=== PATIENT | female | born 1930 | race Caucasian/White ===

== ENCOUNTER 2016-07-23 15:27 | Emergency (ER) | payer MEDICARE ==
[~2016-07-23] VITALS: Ht 162.6 cm; Wt 65.8 kg
[~2016-07-23 15:27] MED LIST: AMIO200T50 PO; AMIO400T5 PO; ASP325TEC PO; ASP81TEC PO; CALC-80 PO; CHOL2000 PO; CLCX200C; COUMADIN; CYCL-97 PO; CYCL10TA9 PO; DABI150C2 PO; DABI150C5 PO; DCS100C PO; DIGO125T18 PO; DOXY100C2 PO; ENAL2.5T PO; ENOX30DI9 SQ; EST.625T; FENTANYL PATCH; HCT25T; HYDR1TAB PO; HYDR1TAB86 PO; LEFL20TA PO; LEFL20TA18 PO; LOSA25TA15 PO; LOSA25TA21 PO; MAGN250T7 PO; METH4TAB PO; METO-333 PO; METO25TA PO; METO50TA2 PO; METOPROLOL; NF-DURA12P TD; NITR-65 PO; OMEG-12 PO; OMEP-10 PO; OXYC-12 PO; PLAQUENIL; PRD10T PO; PREMARIN; PREVASTATIN; PRV20T PO; RANI150T15 PO; SENN1TAB76 PO; SIMV10TA3 PO; WARF4TAB PO; WARF6TAB PO; WRF5T PO
[2016-07-23] MEDS ORDERED: NS IV 500 ML 500 ML IV ONE (15:43)
[2016-07-23] MEDS ORDERED: DILTIAZEM 25 MG/5 ML INJ (CARDIZEM) VIAL IVP ONE (15:45)
[2016-07-23] MEDS ORDERED: ASPIRIN 81 MG CHEW (CHILDREN'S ASA) PO ONE (15:45)
[2016-07-23] MEDS ORDERED: DILTIAZEM DRIP 100 MG in SODIUM CHLORIDE (ADD-VANTAGE) 100 ML IV SCH (15:45)
[2016-07-23 15:51] LABS: BASOPHILS # (AUTO) 0.1 10^3/uL (0.0-0.1); BASOPHILS % (AUTO) 1 % (0-10); EOSINOPHILS # (AUTO) 0.1 10^3/uL (0.0-0.3); EOSINOPHILS % (AUTO) 2 % (0-10); LYMPHOCYTES # (AUTO) 2.5 X 10^3 (1.0-4.0); LYMPHOCYTES % (AUTO) 36 % (12-44); MEAN CORPUSCULAR HEMOGLOBIN 29 PG (25-34); MEAN CORPUSCULAR HGB CONC 32 G/DL (32-36); MEAN CORPUSCULAR VOLUME 89 FL (80-99); MEAN PLATELET VOLUME 9.6 FL (7.4-10.4); MONOCYTES # (AUTO) 0.7 X 10^3 (0.0-1.0); MONOCYTES % (AUTO) 10 % (0-12); NEUTROPHILS # (AUTO) 3.6 X 10^3 (1.8-7.8); NEUTROPHILS % (AUTO) 51 % (42-75); PLATELET COUNT 225 10^3/uL (130-400); RED BLOOD COUNT 4.33 10^6/uL (4.35-5.85); RED CELL DISTRIBUTION WIDTH 12.8 % (10.0-14.5)
[2016-07-23 16:06] LABS: INR 1.5 (0.8-1.4); PROTHROMBIN TIME PATIENT 18.1 SEC (12.2-14.7)
[2016-07-23 16:14] LABS: ALANINE AMINOTRANSFERASE 10 U/L (0-55); ALBUMIN 3.9 G/DL (3.2-4.5); ANION GAP 9 MMOL/L (5-14); ASPARTATE AMINO TRANSFERASE 18 U/L (5-34); BILIRUBIN,TOTAL 0.3 MG/DL (0.1-1.0); BLOOD UREA NITROGEN 18 MG/DL (7-18); BUN/CREATININE RATIO 15; CALCIUM 9.7 MG/DL (8.5-10.1); CARBON DIOXIDE 25 MMOL/L (21-32); CHLORIDE 106 MMOL/L (98-107); CREATININE SERUM 1.18 MG/DL (0.60-1.30); GFR ESTIMATED 44; GLUCOSE 109 MG/DL (70-105); MAGNESIUM 2.4 MG/DL (1.8-2.4); POTASSIUM 4.4 MMOL/L (3.6-5.0); SODIUM 140 MMOL/L (135-145)
--- NOTE | 2016-07-23 16:17 | Diagnostic Imaging Report ---
INDICATION: Substernal chest pain starting this afternoon. DISCUSSION: Single portable upright view of the chest was obtained, comparison 02/24/2016. Changes of chronic lung disease with bibasilar interstitial scarring are stable. No focal consolidation, pleural fluid, or pneumothorax otherwise identified. Normal heart size. No osseous abnormality. IMPRESSION: 1. No acute cardiopulmonary process. Dictated by: Dictated on workstation # [id number]
[2016-07-23 16:22] LABS: MYOGLOBIN SERUM 56.7 NG/ML (10.0-92.0)
[2016-07-23] MEDS ORDERED: meTOprolol TARTRATE 25 MG (LOPRESSOR) TABLET PO ONE (17:15)
--- NOTE | 2016-07-23 17:15 | ED Chest Pain ---
General Chief Complaint: Chest Pain Stated Complaint: CHEST PAIN Nursing Triage Note: SUDDEN ONSET CHEST PRESSURE WHILE RESTING AT HOME Nursing Sepsis Screen: No Definite Risk Source: patient, old records Exam Limitations: no limitations History of Present Illness Time seen by provider: 15:32 Initial Comments This 86-year-old woman presents to the emergency room with complaints of chest pain since about 13:00. The pain is in her central chest and described as a pressure. It is worse with exertion. She reports it as 3/10 now and 5/10 at its worst. She states it "feels like indigestion". She has had several episodes in recent weeks. She has history of paroxysmal atrial fibrillation and is in atrial fibrillation with rapid ventricular response at this time. She had a heart catheter in 2012 showing mild nonobstructive disease. Dr. Celestin is her mother baby rn and Dr. Monk is her primary care provider. She is anticoagulated on Pradaxa. Allergies and Home Medications Allergies Coded Allergies: Penicillins (Verified Allergy, Unknown, 12/16/06) ciprofloxacin (Verified Allergy, Unknown, 02/16/08) morphine (Verified Allergy, Unknown, 12/16/06) Home Medications Calcium Carbonate/Vitamin D3 1 Each Tablet, 1 TAB PO DAILY, (Reported) Dabigatran Etexilate Mesylate 150 Mg Capsule, 150 MG PO BID, (Reported) Digoxin 125 Mcg Tablet, 0.125 MG PO DAILY, #30 Ref 2 Prescribed by: AUGUSTA CELESTIN on 08/20/15 1111 Leflunomide 20 Mg Tablet, 20 MG PO DAILY, (Reported) Losartan Potassium 25 Mg Tablet, 25 MG PO DAILY@1200, (Reported) Magnesium Oxide 250 Mg Tablet, 250 MG PO DAILY, (Reported) Metoprolol Tartrate 50 Mg Tablet, 50 MG PO BID, (Reported) [place]-3/Dha/Epa/Fish Oil 1 Each Capsule.dr, 1,000 MG PO 0700,1200, (Reported) Ranitidine HCl 150 Mg Tablet, 150 MG PO DAILY PRN for HEARTBURN, (Reported) Simvastatin 10 Mg Tablet, 10 MG PO HS, (Reported) Review of Systems Constitutional: no symptoms reported EENTM: No Symptoms Reported Respiratory: No Symptoms Reported Cardiovascular: See HPI Gastrointestinal: No Symptoms Reported Genitourinary: No Symptoms Reported Musculoskeletal: no symptoms reported Skin: no symptoms reported Psychiatric/Neurological: No Symptoms Reported Endocrine: No Symptoms Reported Past Ikwsdfe-Bhfcfh-Ixcglg Hx Patient Social History Alcohol Use: Denies Use Recreational Drug Use: No Smoking Status: Never a Smoker Recent Foreign Travel: No Contact w/Someone Who Travel: No Recent Infectious Disease Expo: No Recent Hopitalizations: Yes Immunizations Up To Date Date of Pneumonia Vaccine: Jul 11, 2015 Date of Influenza Vaccine: Jan 06, 2015 Seasonal Allergies Seasonal Allergies: No Surgeries HX Surgeries: Yes Surgeries: Gallbladder, Hysterectomy, Orthopedic Respiratory Hx Respiratory Disorders: Yes Respiratory Disorders: COPD Cardiovascular Hx Cardiac Disorders: Yes Cardiac Disorders: Atrial Fibrillation, Coronary Artery Disease (mild nonobstructive disease by cardiac catheterization in 2012), Hypertension Neurological Hx Neurological Disorders: No 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 System Hx 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 Disorders: Yes (TUBAL 1952) Genitourinary Hx Genitourinary Disorders: No (KIDNEY FUNCTION 53%) Genitourinary Disorders: Renal Failure Gastrointestinal Hx Gastrointestinal Disorders: Yes Gastrointestinal Disorders: Gastroesophageal Reflux Musculoskeletal Hx Musculoskeletal Disorders: Yes Musculoskeletal Disorders: Rheumatoid Arthritis Endocrine Hx Endocrine Disorders: No HEENT HX ENT Disorders: Yes (RT EYE) HEENT Disorders: Cataract Cancer Hx Cancer: No Psychosocial Hx Psychiatric Problems: No Integumentary HX Skin/Integumentary Disorder: No Blood Transfusions Hx Blood Disorders: Yes (FACTOR FIVE LYDEN) Physical Exam Vital Signs Vital Sign - Last 12Hours 07/23/16 07/23/16 07/23/16 15:32 15:39 15:40 Temp 97.3 Pulse 124 Resp 18 B/P (MAP) 107/99 Pulse Ox 98 O2 Delivery Nasal Cannula O2 Flow Rate 2.0 Capillary Refill : Less Than 3 Seconds General Appearance: No Apparent Distress, WD/WN HEENT: PERRL/EOMI, Normal ENT Inspection Neck: Normal Inspection Respiratory: Chest Non Tender, Lungs Clear, Normal Breath Sounds, No Accessory Muscle Use, No Respiratory Distress Cardiovascular: No Edema, No Murmur, Irregularly Irregular, Tachycardia Gastrointestinal: Normal Bowel Sounds, Non Tender, Soft Extremity: Normal Inspection, Non Tender, No Pedal Edema Neurologic/Psychiatric: Alert, Oriented x3, No Motor/Sensory Deficits, Normal 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, 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 Norm as Tested Skin: Normal Color, Warm/Dry Progress/Results/Core Measures Results/Orders Lab Results Laboratory Tests Test 07/23/16 15:40 Range/Units White Blood Count 7.0 4.3-11.0 10^3/uL Red Blood Count 4.33 L 4.35-5.85 10^6/uL Hemoglobin 12.5 11.5-16.0 G/DL Hematocrit 39 35-52 % Mean Corpuscular Volume 89 80-99 FL Mean Corpuscular Hemoglobin 29 25-34 PG Mean Corpuscular Hemoglobin Concent 32 32-36 G/DL Red Cell Distribution Width 12.8 10.0-14.5 % Platelet Count 225 130-400 10^3/uL Mean Platelet Volume 9.6 7.4-10.4 FL Neutrophils (%) (Auto) 51 42-75 % Lymphocytes (%) (Auto) 36 12-44 % Monocytes (%) (Auto) 10 0-12 % Eosinophils (%) (Auto) 2 0-10 % Basophils (%) (Auto) 1 0-10 % Neutrophils # (Auto) 3.6 1.8-7.8 X 10^3 Lymphocytes # (Auto) 2.5 1.0-4.0 X 10^3 Monocytes # (Auto) 0.7 0.0-1.0 X 10^3 Eosinophils # (Auto) 0.1 0.0-0.3 10^3/uL Basophils # (Auto) 0.1 0.0-0.1 10^3/uL Prothrombin Time 18.1 H 12.2-14.7 SEC INR Comment 1.5 H 0.8-1.4 Activated Partial Thromboplast Time 51 H 24-35 SEC Sodium Level 140 135-145 MMOL/L Potassium Level 4.4 3.6-5.0 MMOL/L Chloride Level 106 98-107 MMOL/L Carbon Dioxide Level 25 21-32 MMOL/L Anion Gap 9 5-14 MMOL/L Blood Urea Nitrogen 18 7-18 MG/DL Creatinine 1.18 0.60-1.30 MG/DL Estimat Glomerular Filtration Rate 44 BUN/Creatinine Ratio 15 Glucose Level 109 H 70-105 MG/DL Calcium Level 9.7 8.5-10.1 MG/DL Magnesium Level 2.4 1.8-2.4 MG/DL Total Bilirubin 0.3 0.1-1.0 MG/DL Aspartate Amino Transf (AST/SGOT) 18 5-34 U/L Alanine Aminotransferase (ALT/SGPT) 10 0-55 U/L Alkaline Phosphatase 76 40-136 U/L Myoglobin 56.7 10.0-92.0 NG/ML Troponin I < 0.30 <0.30 NG/ML Total Protein 7.0 6.4-8.2 G/DL Albumin 3.9 3.2-4.5 G/DL Digoxin Level < 0.30 L 0.80-2.00 NG/ML My Orders Orders - LELIA GALVAN MD Cbc With Automated Diff (07/23/16 15:43) Magnesium (07/23/16 15:43) Chest 1 View, Ap/Pa Only (07/23/16 15:43) Ekg Tracing (07/23/16 15:43) Cardiac Profile 1 (07/23/16:43) Comprehensive Metabolic Panel (07/23/16:43) Myoglobin Serum (07/23/16:43) Protime With Inr (07/23/16:43) Partial Thromboplastin Time (07/23/16 15:43) O2 (07/23/16 15:43) Monitor-Rhythm Ecg Trace Only (07/23/16:43) Aspirin Chewable Tablet (Baby Aspirin Ch (07/23/16 15:45) Saline Lock/Iv-Start (07/23/16 15:43) Ns Iv 500 Ml (Sodium Chloride 0.9%) (07/23/16 15:43) Diltiazem Injection (Cardizem Injection) (07/23/16 15:45) Sodium Chloride (Ad... W/Diltiazem Drip (07/23/16 15:45) Digoxin (07/23/16 15:59) Metoprolol Tartrate (Ir) Tab (Lopressor (07/23/16 17:15) Medications Given in ED Vital Signs/I&O Vital Sign - Last 12Hours 07/23/16 07/23/16 07/23/16 07/23/16 15:32 15:39 15:40 17:50 Temp 97.3 Pulse 124 70 Resp 18 16 B/P (MAP) 107/99 Pulse Ox 98 97 O2 Delivery Nasal Cannula Nasal Cannula O2 Flow Rate 2.0 2.00 Blood Pressure Mean: 102 Progress Note : Time: 17:14 Progress Note Patient spontaneously converted to sinus rhythm. Pain resolved. She remained in sinus rhythm throughout the remainder of her ER stay. Case was reviewed with Dr. Pemberton who suggested increasing metoprolol to 75 mg twice a day. Patient is to call Dr. Celestin's office for follow-up tomorrow morning. ECG EKG #1: EKG Time: 15:35 Rate: 142 Rhythm: A Fib/Flutter Comment Atrial fibrillation with no acute ST elevation or depression. Rapid ventricular response with heart rate at 142. EKG #2: EKG Time: 16:22 Rate: 79 Rhythm: Normal Sinus Comment Conversion to normal sinus rhythm with normal rate. No ST elevation or depression. Incomplete right bundle branch block persists. Diagnostic Imaging Diagonstic Imaging: Xray Plain Films/CT/US/NM/MRI: chest Comments Chest x-ray viewed by me and report reviewed. See report below: NAME: RENATE REYES REC#: [id number] PT STATUS: REG ER : 1932 PHYSICIAN: LELIA GALVAN MD ADMIT DATE: 07/23/16/ER Signed Date of Exam: 07/23/16 CHEST 1 VIEW, AP/PA ONLY INDICATION: Substernal chest pain starting this afternoon. DISCUSSION: Single portable upright view of the chest was obtained, comparison 02/24/2016. Changes of chronic lung disease with bibasilar interstitial scarring are stable. No focal consolidation, pleural fluid, or pneumothorax otherwise identified. Normal heart size. No osseous abnormality. IMPRESSION: 1. No acute cardiopulmonary process. Dictated by: Dictated on workstation # [id number] <Dictated by ANNIKA CONLEY MD> 07/23/16 1640 Departure Impression Impression: Primary Impression: Paroxysmal atrial fibrillation with rapid ventricular response Additional Impression: Chest pain Qualified Codes: R07.9 - Chest pain, unspecified Disposition: 01 HOME, SELF-CARE Condition: Improved Departure-Patient Inst. Decision time for Depature: 17:10 Referrals: JIN MONK MD (PCP/Family) Primary Care Physician Patient Instructions: Atrial Fibrillation (DC) Add. Discharge Instructions: Increase your metoprolol to 75 mg (1-1/2 tablet) twice daily. Contact Dr. Celestin 's office tomorrow morning for a follow-up appointment. Return to care if symptoms worsen. All discharge instructions reviewed with patient and/or family. Voiced understanding. Copy Copies To 1: JIN MONK MD Copies To 2: AUGUSTA CELESTIN MD, JOSHUA T MD Jul 23, 2016 17:15
[2016-07-23 17:50] VITALS: BP 136/59
== END 2016-07-23 17:50 | disposition home or self-care (01) ==
LOC: EDUNIT# 15:27 → ER 15:30
DX: I48.0 Paroxysmal atrial fibrillation (principal); R07.9 Chest pain, unspecified; I25.10 Atherosclerotic heart disease of native coronary artery without angina pectoris; J44.9 Chronic obstructive pulmonary disease, unspecified; Z79.899 Other long term (current) drug therapy
CPT/HCPCS: 36415; 71010; 80053; 80162; 83735; 83874; 84484; 85025; 85610; 85730; 93005; 93041

== ENCOUNTER → 2016-08-10 | Outpatient (CLI) | payer MEDICARE ==
--- NOTE | 2016-08-12 20:27 | ECHOCARDIOGRAPHY REPORT ---
DATE OF SERVICE: 08/10/2016 REFERRING PHYSICIAN: Dr. Sarita Monk MEASUREMENT: LVID end diastolic 3.0, IVS thickness 1.0, LVPW thickness 1.0, left atrial diameter 3.9, ejection fraction 60%. FINDINGS: 1. Technically difficult study. 2. The left ventricle is normal in size. Endocardium was not visualized in all segments. Systolic function appeared to be preserved. Estimated ejection fraction 60%. 3. The left atrium is mildly dilated. No clots or thrombus were seen within the left atrium. 4. The right atrium and right ventricle are normal in size. No clot or thrombus were seen within the right side. 5. Mitral valve was not well visualized. Mild mitral regurgitation noted by color Doppler flow. No mitral valve prolapse. No mitral valve stenosis. 6. Aortic valve leaflets were not visualized. No significant aortic stenosis or regurgitation was seen. 7. Tricuspid valve is normal in morphology with mild tricuspid regurgitation noted by color Doppler flow. Doppler across the tricuspid valve estimated pulmonary artery pressure of 6+ right atrial pressure. 8. Pulmonic valve is functioning normally. 9. No pericardial effusion. IN CONCLUSION: 1. Technically difficult study. 2. Normal left ventricular size. Endocardium was not well visualized in all segments. Systolic function appeared to be preserved. Estimated ejection fraction 60%. 3. Left atrium is in the upper limits of normal in size. 4. Mild mitral and tricuspid regurgitation. 5. Estimated pulmonary artery pressure of 10 to 15 mmHg. Job ID: [id number] DocumentID: [id number] Dictated Date: 08/11/2016 08:06:10 Regional Geodetic Advisor Date: 08/11/2016 12:52:32 Dictated By: AUGUSTA SALAZAR MD
== END ==
LOC: CARD 09:52
PROVIDERS: ATTEND Physician Assistant
DX: I25.10 Atherosclerotic heart disease of native coronary artery without angina pectoris (principal); I65.23 Occlusion and stenosis of bilateral carotid arteries; I10 Essential (primary) hypertension; I48.0 Paroxysmal atrial fibrillation
CPT/HCPCS: 93306

== ENCOUNTER → 2016-11-15 | Outpatient (CLI) | payer MEDICARE ==
--- NOTE | 2016-11-15 18:20 | Diagnostic Imaging Report ---
Bilateral hand radiographs. INDICATION: Swelling in the left hand joints. FINDINGS: In the left hand, there is soft tissue swelling around the distal interphalangeal joints which demonstrate small periarticular erosion and suggestion of early joint fusion. There is advanced degenerative change in the carpometacarpal joint at the base of the thumb with bone deformity and prominent sclerotic changes. Right hand radiographs demonstrate prominent degenerative changes at the carpometacarpal joint at the base of the thumb. There are mild degenerative changes at the distal interphalangeal joints. No erosive arthritic changes seen. IMPRESSION: There is soft tissue swelling, erosion, and early ankylosis suggested along the DIP joint in the left middle finger. Other arthritic changes in both hands appear to be degenerative. The left middle finger DIP findings may relate to a seronegative inflammatory arthritis. Correlate clinically. Dictated by: Dictated on workstation # [id number]
--- NOTE | 2016-11-15 18:58 | Diagnostic Imaging Report ---
Bilateral three views of the foot. INDICATION: Bilateral foot pain. FINDINGS: There is no fracture, dislocation or radiopaque foreign body. Joint alignment is satisfactory. There is mild degenerative subchondral sclerosis at the interphalangeal joints and at the first MTP joint, bilaterally but more prominent on the right side. There is also a mild right hallux valgus. There is also mild flattening of the plantar arch bilaterally. IMPRESSION: Degenerative joint changes as described. Mild hallux valgus on the right side. Dictated by: Dictated on workstation # [id number]
== END ==
LOC: RAD 09:15
PROVIDERS: ATTEND Internal Medicine Rheumatology
DX: M06.9 Rheumatoid arthritis, unspecified (principal)

== ENCOUNTER → 2017-02-22 | Outpatient (CLI) | payer MEDICARE ==
[~2017-02-22] MED LIST changes: +PANT40TA3 PO; +SUCR1TAB36 PO
== END ==
LOC: PREOP 05:36
PROVIDERS: ATTEND Surgery
DX: Z01.818 Encounter for other preprocedural examination (principal); R10.13 Epigastric pain

== ENCOUNTER 2017-02-25 06:39 | Day surgery (SDC) | payer MEDICARE ==
[~2017-02-25] VITALS: Ht 162.6 cm; Wt 65.9 kg
[~2017-02-25 06:39] MED LIST changes: -PANT40TA3 PO; -SUCR1TAB36 PO
--- OUTSIDE RECORDS SUMMARY | 2017-02-25 06:43 | XMS REPORT | Clinical Summary ---
Author Author [facility] Organization [facility] Address Unknown Phone Unavailable Care Team Providers Care Lap Layer Name Role Phone PCP Unavailable Source Comments Some departments are not documenting in the electronic medical record. If you do not see the information that you expected, contact Release of Information in the Health Information Management department at [phone] for further assistance in locating additional records.[facility] Allergies Active Allergy Reactions Severity Noted Date Comments Penicillins HIVES Medium 07/27/2011 Morphine NAUSEA AND VOMITING 07/18/2011 Ciprofloxacin NAUSEA AND VOMITING Low 07/27/2011 Current Medications Prescription Sig. Disp. Refills Start End Date Status Date calcium carbonate/vitamin Take 1 Tab by mouth twice Active D-3 (OSCAL-500+D) 1250 daily with meals. Calcium mg/200 unit tablet Carb 1250mg delivers 500mg elemental Ca docusate (COLACE) 100 mg Take 100 mg by mouth Active capsule twice daily. enalapril (VASOTEC) 2.5 Take 2.5 mg by mouth Active mg tablet daily. fentaNYL (DURAGESIC) 12 Apply 1 Patch to top of Active mcg/hr patch skin as directed every 72 hours. HYDROcodone/acetaminophen Take 1 Tab by mouth every Active (VICODIN) 5/500 mg tablet 8 hours as needed. magnesium oxide Take 200 mg by mouth Active (MAG-OXIDE) 400 mg tablet daily. metoprolol XL (TOPROL XL) Take 25 mg by mouth twice Active 25 mg tablet daily. fish oil /omega-3 fatty Take 1 Cap by mouth three Active acids (SEA-OMEGA) times daily with meals. 340/[address](+) Take 20 mg by mouth Active (PRILOSEC) 20 mg capsule daily. pravastatin (PRAVACHOL) Take 20 mg by mouth at Active 20 mg tablet bedtime daily. predniSONE (DELTASONE) 10 Take 10 mg by mouth Active mg tablet daily. warfarin (COUMADIN) 4 mg Take 8 mg by mouth four Active tablet times weekly. Sun, , , Sat warfarin (COUMADIN) 6 mg Take 6 mg by mouth three Active tablet times weekly. Sat hydroxychloroquine Take 200 mg by mouth Active (PLAQUENIL) 200 mg tablet daily. Active Problems Not on file Social History Tobacco Use Types Packs/Day Years Used Date Never Smoker Alcohol Use Drinks/Week oz/Week Comments No Sex Assigned at Date Recorded Not on file Last Filed Vital Signs Vital Sign Reading Time Taken Blood Pressure 156/61 07/27/2011 3:50 PM CDT Pulse 67 07/27/2011 3:50 PM CDT Temperature 36.7 C (98.1 F) 07/27/2011 3:50 PM CDT Respiratory Rate - - Oxygen Saturation 98% 07/27/2011 3:50 PM CDT Inhaled Oxygen - - Concentration Weight 65 kg (143 lb 4.8 oz) 07/18/2011 12:58 PM CDT Height 157.5 cm (5' 2") 07/18/2011 12:58 PM CDT Body Mass Index 26.21 07/18/2011 12:58 PM CDT Plan of Treatment Health Maintenance Due Date Last Done Comments PHYSICAL (COMPREHENSIVE) 01/10/1939 EXAM PERTUSSIS VACCINE 01/10/1943 TETANUS VACCINE 01/10/1949 SHINGLES VACCINE 1992 OSTEOPOROSIS SCREENING 01/10/1997 PREVNAR/PNEUMOVAX (#1) 01/10/1997 INFLUENZA VACCINE 11/06/2016 Results Not on filefrom Last 3 Months
[2017-02-25] MEDS ORDERED: LACTATED RINGERS 1,000 ML IV STA (07:06)
[2017-02-25] MEDS ORDERED: HURRICAINE EXT TUBE (BENZOCAINE) XX PRN (07:15)
[2017-02-25] MEDS ORDERED: proPOfol 200 MG/20 ML (DIPRIVAN) VIAL IV ONE (07:16)
[2017-02-25] MEDS ORDERED: ESMOLOL 100 MG/10 ML (BREVIBLOC) VIAL ONE (07:17)
[2017-02-25] MEDS ORDERED: SUCR1TAB36 PO (07:29)
[2017-02-25] MEDS ORDERED: PANT40TA3 PO (07:29)
[2017-02-25 07:31] VITALS: BP 152/68
[2017-02-25] MEDS ORDERED: HURRICAINE EXT TUBE (BENZOCAINE) ONE (07:52)
--- NOTE | 2017-02-25 07:59 | Discharge Inst-Simple/Standard ---
Discharge Inst-Standard Patient Instructions/Follow Up Plan of Care/Instructions/FU: 2 weeks Saman Activity as Tolerated: Yes Discharge Diet: Regular Diet Other Inst to Patient Follow up Appt: Make appointment for 2 week. Symptoms to Report: Appetite Changes, Extremity Discoloration, Numbness/Tingling, Swelling Increased , Bleeding Excessive, Eyesight Changes, Pain Increased, Urine Color Change, Constipation(Persistent), Fever over 101 degree F, Pain/Pressure in chest, Urinating Difficulty, Cough Up/Vomit Blood, Heart Beat Irreg/Pounding, Pain/ Pressure in jaw, Vaginal Bleeding Increase, Cramps in feet or legs, Lightheadedness, Pain/Pressure in shoulder, Diarrhea(Persistent), Memory Changes Suddenly, Questions/Concerns, Weight gain consecutive days, Dizziness/ Fainting, Nausea/Vomiting, Shortness of Breath, Weight gain over 2 pounds If questions or concerns contact your physician Or seek help at emergency department. PATRICIA CARLOS DO Feb 25, 2017 07:59
[2017-02-25 08:00] VITALS: BP 147/73
--- NOTE | 2017-02-25 08:02 | Progress Note-Post Operative ---
Post-Operative Progess Note Surgeon (s)/Extrusion Bender (s) Surgeon PATRICIA CARLOS DO Extrusion Bender: na Pre-Operative Diagnosis epigastric abdominal pain Post-Operative Diagnosis duodenitis, small gastric ulcerations, small hiatal hernia Procedure & Operative Findings Date of Procedure 02/25/17 Procedure Performed/Findings egd c biopsies Anesthesia Type per mda Estimated Blood Loss Estimated blood loss (mL): scant Specimens/Packing Specimens Removed antrum PATRICIA CARLOS DO Feb 25, 2017 08:01
[2017-02-25 08:35] VITALS: BP 157/71
[2017-02-25 09:00] VITALS: BP 157/71
--- NOTE | 2017-02-25 17:24 | OPERATIVE REPORT ---
DATE OF SERVICE: 02/25/2017 PREOPERATIVE DIAGNOSIS: Epigastric abdominal pain. POSTOPERATIVE DIAGNOSES: Duodenitis, small gastric ulcerations, small hiatal hernia. PROCEDURE: EGD with biopsies. SURGEON: Dr. Patricia Davison. ANESTHESIA: Per MDA. ESTIMATED BLOOD LOSS: Scant. COMPLICATIONS: None. INDICATIONS: The patient is an 87-year-old female who has been having epigastric abdominal pain, has worsened with food. She has history of cholecystectomy. It was felt that she may have some ulcerations in her stomach. She was started on Protonix 40 mg twice a day and Carafate. Her Pradaxa was held. She was explained risks and benefits of procedure and wished to proceed with procedure. Consent was signed in the chart. DESCRIPTION OF PROCEDURE: The patient was taken to the endoscopy suite, placed in left lateral recumbent position. Timeout was performed. Scope was inserted in mouth, down the esophagus, stomach and into the duodenum without difficulty. Within the duodenum some erythematous changes were present. No polyps, masses or ulcerations. Scope was slowly retracted back into the stomach, which was further insufflated. Multiple small ulcerations of different phases were present. A couple biopsies of these areas were obtained. The scope was retroflexed noting a small hiatal hernia. Scope was returned to its normal position, slowly withdrawn in the distal portion. There is a Schatzki's ring. Scope was then continued to slowly retract back. No polyps, masses or ulcerations. Scope was slowly retracted back until completely removed. The patient tolerated procedure well without any complications. She was taken to recovery room in stable condition. RECOMMENDATIONS: The patient is to continue on current medications. We will have her follow up in 2 weeks. Job ID: [id number] DocumentID: [id number] Dictated Date: 02/25/2017 08:14:03 Helmet Binder Date: 02/25/2017 13:10:16 Dictated By: PATRICIA DAVISON DO
== END 2017-02-25 08:45 | disposition home or self-care (01) ==
LOC: ENDO 06:39
PROVIDERS: ATTEND Surgery
DX: K29.80 Duodenitis without bleeding (principal); K25.9 Gastric ulcer, unspecified as acute or chronic, without hemorrhage or perforation; K29.50 Unspecified chronic gastritis without bleeding; K44.9 Diaphragmatic hernia without obstruction or gangrene; I10 Essential (primary) hypertension; J44.9 Chronic obstructive pulmonary disease, unspecified; I48.91 Unspecified atrial fibrillation; Z79.899 Other long term (current) drug therapy; Z88.1 Allergy status to other antibiotic agents; Z88.5 Allergy status to narcotic agent; Z96.651 Presence of right artificial knee joint; Z96.652 Presence of left artificial knee joint
CPT/HCPCS: 88305; 88342

== ENCOUNTER → 2017-02-25 | Outpatient (CLI) | payer MEDICARE ==
--- NOTE | 2017-02-25 11:40 | Diagnostic Imaging Report ---
CLINICAL INDICATION: Patient with COPD. No chest complaints. EXAM: Chest x-ray PA and lateral views. COMPARISONS: Chest x-ray dated 07/23/2016. FINDINGS: There are stable curvilinear opacities and increased lung markings in both lung bases which likely represents scarring. There is also slight volume loss noted. Pulmonary vasculature and cardiac silhouette are within normal limits. There is no pleural effusion or pneumothorax. There is right curvature of the thoracic spine with spurs again seen. IMPRESSION: Stable chest x-ray exam with chronic lung changes with suspected bibasilar scarring. There is no interval lung infiltrate. Dictated by: Dictated on workstation # [id number]
--- NOTE | 2017-02-27 09:28 | Diagnostic Imaging Report ---
EXAMINATION: Bilateral screening mammogram 2D views with tomosynthesis. The current study was also evaluated with a Computer Aided Detection (CAD) system. INDICATION: Screening. PERSONAL HISTORY: No current complaints stated on the questionnaire. COMPARISON: 02/24/2016. FINDINGS: The breasts are composed of scattered fibroglandular densities. Benign-appearing calcifications are seen. Allowing for technique and positional differences, no suspicious change is seen. IMPRESSION: No significant change. ACR BI-RADS Category 2: Benign findings. Result letter will be mailed to the patient. Note: At least 10% of breast cancer is not imaged by mammography. Dictated by: Dictated on workstation # [id number]
== END ==
LOC: RAD 10:25
PROVIDERS: ATTEND Family Medicine
DX: Z12.31 Encounter for screening mammogram for malignant neoplasm of breast (principal); J44.9 Chronic obstructive pulmonary disease, unspecified
CPT/HCPCS: 71020; 77067

== ENCOUNTER 2017-07-21 07:01 | Emergency (ER) | payer MEDICARE ==
[~2017-07-21] VITALS: Ht 162.6 cm; Wt 63.7 kg
[~2017-07-21 07:01] MED LIST changes: +METO50TA15 PO; -METO50TA2 PO; +PANT40TA3 PO; -RANI150T15 PO; +RANI150T46 PO; +SUCR1TAB36 PO
[2017-07-21 07:23] LABS: BASOPHILS # (AUTO) 0.1 10^3/uL (0.0-0.1); BASOPHILS % (AUTO) 1 % (0-10); EOSINOPHILS # (AUTO) 0.2 10^3/uL (0.0-0.3); EOSINOPHILS % (AUTO) 2 % (0-10); HEMATOCRIT 41 % (35-52); HEMOGLOBIN 13.1 G/DL (11.5-16.0); LYMPHOCYTES # (AUTO) 3.3 X 10^3 (1.0-4.0); LYMPHOCYTES % (AUTO) 35 % (12-44); MEAN CORPUSCULAR HEMOGLOBIN 28 PG (25-34); MEAN CORPUSCULAR HGB CONC 32 G/DL (32-36); MEAN CORPUSCULAR VOLUME 89 FL (80-99); MONOCYTES % (AUTO) 10 % (0-12); NEUTROPHILS # (AUTO) 5.1 X 10^3 (1.8-7.8); NEUTROPHILS % (AUTO) 52 % (42-75); PLATELET COUNT 361 10^3/uL (130-400); RED BLOOD COUNT 4.65 10^6/uL (4.35-5.85); RED CELL DISTRIBUTION WIDTH 14.2 % (10.0-14.5); WHITE BLOOD COUNT 9.7 10^3/uL (4.3-11.0)
--- NOTE | 2017-07-21 07:24 | ED Cardiac General ---
History of Present Illness General Stated Complaint: IRREGULAR HEART BEAT Source: patient, family Exam Limitations: no limitations History of Present Illness Date Seen by Provider: Jul 21, 2017 Time Seen by Provider: 07:18 Initial Comments This 87-year-old white female presents with a fast and irregular heartbeat that began at 4 o'clock this morning. The patient has had no associated chest pain, shortness of breath, diaphoresis, or nausea. The patient has had similar episodes in the past from atrial fibrillation. The patient is on metoprolol, aspirin, and Peridex. The patient's forestry laborer is Dr. Mejía. Within 5 minutes of the patient's arrival in the emergency department her symptoms abated. The nursing staff was able to capture an EKG immediately on patient's arrival and it demonstrated A. fib with a fast ventricular response. There was no evidence of an acute current of injury. The ventricular rate was 125. Approximately 5 minutes later the patient's symptoms abated. monitor and storage bin tender demonstrated that she was in a sinus rhythm with a rate of 70. Repeat EKG confirmed a normal sinus rhythm. Allergies and Home Medications Allergies Coded Allergies: Penicillins (Verified Allergy, Unknown, 12/16/06) ciprofloxacin (Verified Allergy, Unknown, 02/16/08) morphine (Verified Allergy, Unknown, 12/16/06) Home Medications Calcium Carbonate/Vitamin D3 1 Each Tablet, 2 TAB PO DAILY, (Reported) Dabigatran Etexilate Mesylate 150 Mg Capsule, 150 MG PO BID, (Reported) Leflunomide 20 Mg Tablet, 20 MG PO DAILY, (Reported) Losartan Potassium 25 Mg Tablet, 25 MG PO DAILY@1200, (Reported) Magnesium Oxide 250 Mg Tablet, 250 MG PO DAILY, (Reported) Metoprolol Tartrate 50 Mg Tablet, 75 MG PO BID, (Reported) Winner-3/Dha/Epa/Fish Oil 1 Each Capsule.dr, 1,200 MG PO 0700,1200, (Reported) Pantoprazole Sodium 40 Mg Tablet.dr, 40 MG PO DAILY, (Reported) Ranitidine HCl 150 Mg Tablet, 150 MG PO DAILY PRN for HEARTBURN, (Reported) Simvastatin 10 Mg Tablet, 10 MG PO HS, (Reported) Sucralfate 1 Gm Tablet, 1 GM PO Q4H, (Reported) Patient Home Medication List Home Medication List Reviewed: Yes Review of Systems Constitutional: No chills, No fever EENTM: No Symptoms Reported Respiratory: Denies Cough, Denies Shortness of Air Cardiovascular: Denies Chest Pain; Irregular Heart Rate, Palpitations; Denies Syncope Gastrointestinal: Denies Abdominal Pain, Denies Nausea Genitourinary: No Symptoms Reported Musculoskeletal: no symptoms reported Skin: no symptoms reported Psychiatric/Neurological: No Symptoms Reported Endocrine: No Symptoms Reported Hematologic/Lymphatic: No Symptoms Reported Past Slbnsyx-Pjseoa-Xzojnz Hx Past Med/Social Hx: Reviewed Nursing Past Med/Soc Hx Patient Social History Recent Foreign Travel: No Contact w/Someone Who Travel: No Recent Hopitalizations: Yes Immunizations Up To Date Date of Pneumonia Vaccine: Jul 11, 2015 Date of Influenza Vaccine: Jan 06, 2015 Seasonal Allergies Seasonal Allergies: No Past Medical History Gallbladder, Hysterectomy, Orthopedic COPD Currently Using CPAP: No Currently Using BIPAP: No Atrial Fibrillation, Coronary Artery Disease, Hypertension 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 Disorders: Yes (TUBAL 1952) Female 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 Disorders: Denies Sexually Transmitted Disease: No HIV/AIDS: No Renal Failure Gastroesophageal Reflux Rheumatoid Arthritis Cataract Physical Exam Vital Signs Vital Signs - First Documented 07/21/17 07:05 Temp 98.0 Pulse 103 Resp 20 B/P (MAP) 112/76 (88) Pulse Ox 98 Capillary Refill : General Appearance: No Apparent Distress, WD/WN HEENT: Normal ENT Inspection Neck: Normal Inspection; No Carotid Bruit Respiratory: Chest Non Tender, Lungs Clear, Normal Breath Sounds Cardiovascular: Tachycardia (on arrival patient demonstrated tachycardia with an irregular irregular rhythm. Within 5 minutes the patient's tachycardia spontaneously abated to a rate of 75 and a regular rhythm.) Gastrointestinal: Normal Bowel Sounds, Non Tender, Soft Extremity: Normal Inspection Neurologic/Psychiatric: Alert, Oriented x3, No Motor/Sensory Deficits, Normal Mood/Affect Skin: Normal Color, Warm/Dry Progress/Results/Core Measures Lab Results Laboratory Tests Test 07/21/17 07:12 Range/Units White Blood Count 9.7 4.3-11.0 10^3/uL Red Blood Count 4.65 4.35-5.85 10^6/uL Hemoglobin 13.1 11.5-16.0 G/DL Hematocrit 41 35-52 % Mean Corpuscular Volume 89 80-99 FL Mean Corpuscular Hemoglobin 28 25-34 PG Mean Corpuscular Hemoglobin Concent 32 32-36 G/DL Red Cell Distribution Width 14.2 10.0-14.5 % Platelet Count 361 130-400 10^3/uL Mean Platelet Volume 9.0 7.4-10.4 FL Neutrophils (%) (Auto) 52 42-75 % Lymphocytes (%) (Auto) 35 12-44 % Monocytes (%) (Auto) 10 0-12 % Eosinophils (%) (Auto) 2 0-10 % Basophils (%) (Auto) 1 0-10 % Neutrophils # (Auto) 5.1 1.8-7.8 X 10^3 Lymphocytes # (Auto) 3.3 1.0-4.0 X 10^3 Monocytes # (Auto) 1.0 0.0-1.0 X 10^3 Eosinophils # (Auto) 0.2 0.0-0.3 10^3/uL Basophils # (Auto) 0.1 0.0-0.1 10^3/uL Sodium Level 141 135-145 MMOL/L Potassium Level 3.9 3.6-5.0 MMOL/L Chloride Level 106 98-107 MMOL/L Carbon Dioxide Level 24 21-32 MMOL/L Anion Gap 11 5-14 MMOL/L Blood Urea Nitrogen 18 7-18 MG/DL Creatinine 1.01 0.60-1.30 MG/DL Estimat Glomerular Filtration Rate 52 BUN/Creatinine Ratio 18 Glucose Level 106 H 70-105 MG/DL Calcium Level 9.9 8.5-10.1 MG/DL Total Bilirubin 0.3 0.1-1.0 MG/DL Aspartate Amino Transf (AST/SGOT) 14 5-34 U/L Alanine Aminotransferase (ALT/SGPT) 10 0-55 U/L Alkaline Phosphatase 78 40-136 U/L Troponin I < 0.30 <0.30 NG/ML Total Protein 7.6 6.4-8.2 GM/DL Albumin 4.1 3.2-4.5 GM/DL My Orders Orders - MARCINFOREIGN MD Ekg Tracing (07/21/17 07:04) Cbc With Automated Diff (07/21/17 07:12) Comprehensive Metabolic Panel (07/21/17 07:12) Troponin I (07/21/17 07:12) Ekg Tracing (07/21/17 07:12) Chest 1 View, Ap/Pa Only (07/21/17 07:12) Metoprolol Tartrate (Ir) Tab (Lopressor (07/21/17 08:15) Medications Given in ED Current Medications Medications Dose Ordered Sig/Mable Route Start Time Stop Time Status Last Admin Dose Admin Metoprolol Tartrate 100 mg ONCE ONCE PO 07/21/17 08:15 07/21/17 08:16 DC 07/21/17 08:34 100 MG Vital Signs/I&O 07/21/17 07:05 Temp 98.0 Pulse 103 Resp 20 B/P (MAP) 112/76 (88) Pulse Ox 98 Progress Note : Time: 07:23 Progress Note Patient's original EKG demonstrated A. fib with RVR of 125. The patient's second EKG demonstrated sinus rhythm with rate of 70. No acute current of injury was noted. An incomplete right bundle branch block was present. After telephone consultation with Dr. Lindsey the patient was given 100 mg of metoprolol in the emergency department. She was placed on metoprolol tartrate 100 mg 3 times a day until she can follow-up with cardiology early this week. Departure Communication (Admissions) Time/Spoke to Consulting Phy: 08:15 Dr. Lindsey. Impression Primary Impression: Atrial fibrillation with rapid ventricular response Disposition: 01 HOME, SELF-CARE Condition: Improved Departure-Patient Inst. Decision time for Depature: 08:50 Referrals: JIN ANDERSON MD (PCP/Family) Primary Care Physician AUGUSTA SALAZAR MD Patient Instructions: Atrial Fibrillation (DC) Add. Discharge Instructions: Increase metoprolol tartrate to 100 mg twice daily. Close follow-up with Dr. Mejía. Return if any problems or questions. FOREIGN BURCH MD Jul 21, 2017 07:24
[2017-07-21 07:43] LABS: ALANINE AMINOTRANSFERASE 10 U/L (0-55); ALBUMIN 4.1 GM/DL (3.2-4.5); ALKALINE PHOSPHATASE 78 U/L (40-136); BILIRUBIN,TOTAL 0.3 MG/DL (0.1-1.0); BUN/CREATININE RATIO 18; CALCIUM 9.9 MG/DL (8.5-10.1); CARBON DIOXIDE 24 MMOL/L (21-32); CHLORIDE 106 MMOL/L (98-107); CREATININE SERUM 1.01 MG/DL (0.60-1.30); GFR ESTIMATED 52; GLUCOSE 106 MG/DL (70-105); POTASSIUM 3.9 MMOL/L (3.6-5.0); SODIUM 141 MMOL/L (135-145); TOTAL PROTEIN 7.6 GM/DL (6.4-8.2)
--- NOTE | 2017-07-21 08:07 | Diagnostic Imaging Report ---
INDICATION: Irregular heartbeat. Comparison made with prior examination 02/25/2017. FINDINGS: The heart size is normal. There is some chronic appearing bibasilar scarring or atelectasis. There is no pleural effusion or pneumothorax. Mediastinum is unremarkable. IMPRESSION: Persistent chronic appearing right basilar scarring or atelectasis. No other acute cardiopulmonary abnormality. Dictated by: Dictated on workstation # [id number]
[2017-07-21] MEDS ORDERED: meTOprolol TARTRATE 25 MG (LOPRESSOR) TABLET ONE ×2 (08:12→08:58)
[2017-07-21] MEDS ORDERED: meTOprolol TARTRATE 50 MG (LOPRESSOR) TAB PO ONE (08:15)
[2017-07-21 09:06] VITALS: BP 139/67
== END 2017-07-21 09:06 | disposition home or self-care (01) ==
LOC: EDUNIT# 07:01 → ER 07:03
DX: I48.0 Paroxysmal atrial fibrillation (principal); K21.9 Gastro-esophageal reflux disease without esophagitis; J44.9 Chronic obstructive pulmonary disease, unspecified; I10 Essential (primary) hypertension; M06.9 Rheumatoid arthritis, unspecified; Z87.448 Personal history of other diseases of urinary system; Z90.710 Acquired absence of both cervix and uterus; Z79.82 Long term (current) use of aspirin; Z88.0 Allergy status to penicillin; Z88.1 Allergy status to other antibiotic agents; Z88.5 Allergy status to narcotic agent
CPT/HCPCS: 36415; 71045; 80053; 84484; 85025; 93005

== ENCOUNTER 2018-01-14 08:43 | Emergency (ER) | payer MEDICARE ==
[~2018-01-14] VITALS: Ht 160 cm; Wt 63.5 kg
[~2018-01-14 08:43] MED LIST changes: -LOSA25TA21 PO; +LOSA25TA6 PO
[2018-01-14] MEDS ORDERED: ASPIRIN 81 MG CHEW (CHILDREN'S ASA) PO ONE (08:45)
[2018-01-14] MEDS ORDERED: NS IV 500 ML 500 ML IV ONE (08:52)
[2018-01-14 09:00] LABS: BASOPHILS # (AUTO) 0.1 10^3/uL (0.0-0.1); BASOPHILS % (AUTO) 1 % (0-10); EOSINOPHILS # (AUTO) 0.1 10^3/uL (0.0-0.3); EOSINOPHILS % (AUTO) 2 % (0-10); HEMATOCRIT 41 % (35-52); HEMOGLOBIN 13.1 G/DL (11.5-16.0); LYMPHOCYTES # (AUTO) 1.7 X 10^3 (1.0-4.0); LYMPHOCYTES % (AUTO) 23 % (12-44); MEAN CORPUSCULAR HEMOGLOBIN 29 PG (25-34); MEAN CORPUSCULAR HGB CONC 32 G/DL (32-36); MEAN CORPUSCULAR VOLUME 89 FL (80-99); MEAN PLATELET VOLUME 9.3 FL (7.4-10.4); MONOCYTES # (AUTO) 0.9 X 10^3 (0.0-1.0); MONOCYTES % (AUTO) 12 % (0-12); NEUTROPHILS # (AUTO) 4.8 X 10^3 (1.8-7.8); NEUTROPHILS % (AUTO) 63 % (42-75); PLATELET COUNT 315 10^3/uL (130-400); RED CELL DISTRIBUTION WIDTH 13.7 % (10.0-14.5); WHITE BLOOD COUNT 7.5 10^3/uL (4.3-11.0)
[2018-01-14 09:15] LABS: INR 1.6 (0.8-1.4)
--- NOTE | 2018-01-14 09:21 | ED Chest Pain ---
General Chief Complaint: Chest Pain Stated Complaint: CHEST PAIN Nursing Triage Note: ARRIVED VIA AMB TO ROOM 10. COMPLAINS OF CHEST PAIN SINCE 0600 ET THINKS IT IS RELATED TO HER AFIB. Nursing Sepsis Screen: No Definite Risk Source: patient Exam Limitations: no limitations History of Present Illness Date Seen by Provider: Jan 14, 2018 Time Seen by Provider: 08:41 Initial Comments Here with report of chest pain that started about 6 a.m. Also felt fast heart beat in her chest. Does have history of paroxysmal atrial fibrillation and is on metoprolol. Approximately 30 minutes prior to coming to the emergency department she took her metoprolol 100 mg by mouth. Complains of fluttering and pressure. Denies diaphoresis or nausea or vomiting. While the short of breath with the palpitations. Reports eating and drinking okay but states that she is not eating well. Normally sees Dr. Celestin for her heart problems. Timing/Duration: 1-3 hours Severity/Quality: mild, moderate, pressure, other (palpitations) Location: central Radiation: no radiation Activities at Onset: none Prior CP/Workup: cardiac cath, echocardiography ASA po BACK TENDER PAPER MACHINE: Yes NTG SL BACK TENDER PAPER MACHINE: No Associated Symptoms: No abdominal pain, No back pain, No nausea/vomiting; shortness of breath; No weakness Allergies and Home Medications Allergies Coded Allergies: Penicillins (Verified Allergy, Unknown, 12/16/06) ciprofloxacin (Verified Allergy, Unknown, 02/16/08) morphine (Verified Allergy, Unknown, 12/16/06) digoxin (Verified Adverse Reaction, Unknown, HALLUCINATIONS., 01/14/18) Home Medications Calcium Carbonate/Vitamin D3 1 Each Tablet, 2 TAB PO DAILY, (Reported) Dabigatran Etexilate Mesylate 150 Mg Capsule, 150 MG PO BID, (Reported) Leflunomide 20 Mg Tablet, 20 MG PO DAILY, (Reported) Losartan Potassium 25 Mg Tablet, 25 MG PO DAILY@1200, (Reported) Magnesium Oxide 250 Mg Tablet, 250 MG PO DAILY, (Reported) Metoprolol Tartrate 50 Mg Tablet, 75 MG PO BID, (Reported) Orient-3/Dha/Epa/Fish Oil 1 Each Capsule.dr, 1,200 MG PO 0700,1200, (Reported) Pantoprazole Sodium 40 Mg Tablet.dr, 40 MG PO DAILY, (Reported) Ranitidine HCl 150 Mg Tablet, 150 MG PO DAILY PRN for HEARTBURN, (Reported) Simvastatin 10 Mg Tablet, 10 MG PO HS, (Reported) Sucralfate 1 Gm Tablet, 1 GM PO Q4H, (Reported) Patient Home Medication List Home Medication List Reviewed: Yes Review of Systems Review of Systems Constitutional: see HPI; No chills, No fever EENTM: No Symptoms Reported Respiratory: No Symptoms Reported Cardiovascular: See HPI, Chest Pain; Denies Edema Gastrointestinal: Denies Constipated, Denies Diarrhea, Denies Nausea, Denies Vomiting Genitourinary: No Symptoms Reported Musculoskeletal: no symptoms reported All Other Systems Reviewed Negative Unless Noted: Yes Past Ihhcavk-Aetkaa-Mjhpye Hx Past Med/Social Hx: Reviewed Nursing Past Med/Soc Hx Patient Social History Alcohol Use: Denies Use Recreational Drug Use: No Smoking Status: Never a Smoker Recent Foreign Travel: No Contact w/Someone Who Travel: No Recent Infectious Disease Expo: No Recent Hopitalizations: Yes Immunizations Up To Date Date of Pneumonia Vaccine: Jul 11, 2015 Date of Influenza Vaccine: Jan 06, 2015 Seasonal Allergies Seasonal Allergies: No Past Medical History Surgeries: Yes (r/l knee) Gallbladder, Hysterectomy, Orthopedic Respiratory: Yes COPD Currently Using CPAP: No Currently Using BIPAP: No Cardiac: Yes Atrial Fibrillation, Coronary Artery Disease, Hypertension Neurological: No 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 Disorders: Yes (TUBAL 1952) Female 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 Disorders: Denies Sexually Transmitted Disease: No HIV/AIDS: No Renal Failure Gastrointestinal: Yes Gastroesophageal Reflux Musculoskeletal: Yes Rheumatoid Arthritis Endocrine: No Cataract Cancer: No Psychosocial: No Integumentary: No Blood Disorders: Yes (FACTOR FIVE LYDEN) Family Medical History Reviewed Nursing Family Hx No Pertinent Family Hx Physical Exam Vital Signs Vital Signs - First Documented 01/14/18 08:43 Temp 98.0 Pulse 115 Resp 16 B/P (MAP) 115/57 (76) Pulse Ox 96 O2 Delivery Room Air Capillary Refill : Less Than 3 Seconds Height, Weight, BMI Height: 5'3.00" Weight: 140lbs. 6.0oz. [id number]; 25.0 BMI Method:Stated General Appearance: No Apparent Distress, WD/WN HEENT: PERRL/EOMI, Pharynx Normal Neck: Non Tender, Supple Respiratory: Lungs Clear, Normal Breath Sounds Cardiovascular: No Murmur, Irregularly Irregular, Tachycardia Gastrointestinal: Non Tender, Soft Extremity: Normal Range of Motion, Non Tender Neurologic/Psychiatric: Alert, Oriented x3 Skin: Normal Color, Warm/Dry Progress/Results/Core Measures Results/Orders Lab Results Laboratory Tests Test 01/14/18 08:50 01/14/18 10:21 Range/Units White Blood Count 7.5 4.3-11.0 10^3/uL Red Blood Count 4.60 4.35-5.85 10^6/uL Hemoglobin 13.1 11.5-16.0 G/DL Hematocrit 41 35-52 % Mean Corpuscular Volume 89 80-99 FL Mean Corpuscular Hemoglobin 29 25-34 PG Mean Corpuscular Hemoglobin Concent 32 32-36 G/DL Red Cell Distribution Width 13.7 10.0-14.5 % Platelet Count 315 130-400 10^3/uL Mean Platelet Volume 9.3 7.4-10.4 FL Neutrophils (%) (Auto) 63 42-75 % Lymphocytes (%) (Auto) 23 12-44 % Monocytes (%) (Auto) 12 0-12 % Eosinophils (%) (Auto) 2 0-10 % Basophils (%) (Auto) 1 0-10 % Neutrophils # (Auto) 4.8 1.8-7.8 X 10^3 Lymphocytes # (Auto) 1.7 1.0-4.0 X 10^3 Monocytes # (Auto) 0.9 0.0-1.0 X 10^3 Eosinophils # (Auto) 0.1 0.0-0.3 10^3/uL Basophils # (Auto) 0.1 0.0-0.1 10^3/uL Prothrombin Time 19.0 H 12.2-14.7 SEC INR Comment 1.6 H 0.8-1.4 Activated Partial Thromboplast Time 60 H 24-35 SEC D-Dimer 0.44 0.00-0.49 UG/ML Sodium Level 136 135-145 MMOL/L Potassium Level 4.3 3.6-5.0 MMOL/L Chloride Level 103 98-107 MMOL/L Carbon Dioxide Level 22 21-32 MMOL/L Anion Gap 11 5-14 MMOL/L Blood Urea Nitrogen 18 7-18 MG/DL Creatinine 1.14 0.60-1.30 MG/DL Estimat Glomerular Filtration Rate 45 BUN/Creatinine Ratio 16 Glucose Level 183 H 70-105 MG/DL Calcium Level 9.7 8.5-10.1 MG/DL Corrected Calcium 9.9 8.5-10.1 MG/DL Magnesium Level 2.1 1.8-2.4 MG/DL Total Bilirubin 0.5 0.1-1.0 MG/DL Aspartate Amino Transf (AST/SGOT) 17 5-34 U/L Alanine Aminotransferase (ALT/SGPT) 12 0-55 U/L Alkaline Phosphatase 78 40-136 U/L Myoglobin 55.4 10.0-92.0 NG/ML Troponin I < 0.30 <0.30 NG/ML Total Protein 7.0 6.4-8.2 GM/DL Albumin 3.8 3.2-4.5 GM/DL My Orders Orders - MAHSA IVERSON MD Cbc With Automated Diff (01/14/18 08:44) Magnesium (01/14/18 08:44) Chest 1 View, Ap/Pa Only (01/14/18 08:44) Ekg Tracing (01/14/18 08:44) Cardiac Profile 1 (01/14/18 08:44) Comprehensive Metabolic Panel (01/14/18 08:44) Myoglobin Serum (01/14/18 08:44) Protime With Inr (01/14/18 08:44) Partial Thromboplastin Time (01/14/18 08:44) O2 (01/14/18 08:44) Monitor-Rhythm Ecg Trace Only (01/14/18 08:44) Lipid Panel (01/15/18 06:00) Aspirin Chewable Tablet (Baby Aspirin Ch (01/14/18 08:45) Saline Lock/Iv-Start (01/14/18 08:44) Fibrin Degradation Products (01/14/18 08:44) Saline Lock/Iv-Start (01/14/18 08:52) Ns Iv 500 Ml (Sodium Chloride 0.9%) (01/14/18 08:52) Troponin I (01/14/18 10:15) Myoglobin Serum (01/14/18 10:15) Ekg Tracing (01/14/18 10:15) Medications Given in ED Current Medications Medications Dose Ordered Sig/Mable Route Start Time Stop Time Status Last Admin Dose Admin Aspirin 324 mg ONCE ONCE PO 01/14/18 08:45 01/14/18 08:46 DC 01/14/18 09:01 324 MG Sodium Chloride 500 ml @ 0 mls/hr Q0M ONCE IV 01/14/18 08:52 01/14/18 08:54 DC 01/14/18 09:01 500 MLS/HR Vital Signs/I&O 01/14/18 08:43 Temp 98.0 Pulse 115 Resp 16 B/P (MAP) 115/57 (76) Pulse Ox 96 O2 Delivery Room Air Blood Pressure Mean: 76 Progress Progress Note : Progress Note Seen and evaluated. IV, labs, EKG and chest x-ray ordered. Patient took aspirin at home and is on blood thinners. Shortly after EKG done, patient converted to sinus rhythm in the 60s to 70s. Denies chest pain or palpitations at this time. 1045: I did speak with Dr. Celestin. Ultimately he will see her in office. Repeat EKG does not show any significant findings. Does have history of this. Discharged home with return precautions. Patient and family verbalize understanding instructions and agreement with plan. Patient and family do not want to stay in the hospital. Initial ECG Impression Date: Jan 14, 2018 Initial ECG Impression Time: 08:47 Initial ECG Rate: 117 Initial ECG Rhythm: A Fib/Flutter Initial ECG Comparisson: Changed Comment Atrial fibrillation with rapid rate of 117. Incomplete right bundle branch block. No evidence of ST elevation [place]. Change from 07/21/17 which was sinus at rate of 70. Interpreted by me. EKG : EKG Time: 10:23 Rate: 61 Rhythm: Normal Sinus ECG Comparisson: Changed Comment Sinus rhythm with right bundle branch block. Change from earlier which was atrial fibrillation. No evidence of ST elevation [place]. Interpreted by me. Departure Communication (Admissions) Time/Spoke to Consulting Phy: 10:43 I did review the case with Dr. Celestin, patient's primary perishable freight inspector. He'll see her in office this week. She has a negative heart catheter within the last 5 years and has done this exact same thing previously. He will recheck her meds and talk with her about this this week. Patient comfortable with that plan. Impression Primary Impression: Paroxysmal atrial fibrillation Additional Impression: Chest pain Qualified Codes: R07.9 - Chest pain, unspecified Disposition: 01 HOME, SELF-CARE Condition: Improved Departure-Patient Inst. Decision time for Depature: 10:44 Referrals: JIN ANDERSON MD (PCP/Family) Primary Care Physician AUGUSTA CELESTIN MD Patient Instructions: Chest Pain (DC), Atrial Fibrillation (DC) Add. Discharge Instructions: All discharge instructions reviewed with patient and/or family. Voiced understanding. Continue medicines as previously prescribed. Call Dr. Celestin's office today for appointment this week. Return for worsening, fever, vomiting, weakness, breathing problems or other concerns as needed. MAHSA IVERSON MD Jan 14, 2018 09:21
[2018-01-14 09:23] LABS: ALANINE AMINOTRANSFERASE 12 U/L (0-55); ALBUMIN 3.8 GM/DL (3.2-4.5); ALKALINE PHOSPHATASE 78 U/L (40-136); BILIRUBIN,TOTAL 0.5 MG/DL (0.1-1.0); BUN/CREATININE RATIO 16; CALCIUM 9.7 MG/DL (8.5-10.1); CARBON DIOXIDE 22 MMOL/L (21-32); CHLORIDE 103 MMOL/L (98-107); CREATININE SERUM 1.14 MG/DL (0.60-1.30); GFR ESTIMATED 45; GLUCOSE 183 MG/DL (70-105); MAGNESIUM 2.1 MG/DL (1.8-2.4); POTASSIUM 4.3 MMOL/L (3.6-5.0); SODIUM 136 MMOL/L (135-145)
[2018-01-14 09:31] LABS: MYOGLOBIN SERUM 55.4 NG/ML (10.0-92.0)
--- NOTE | 2018-01-14 09:38 | Diagnostic Imaging Report ---
Indication: Atrial fibrillation. Comparison: 4:15 Findings: Chronic interstitial opacities in the lung bases stable. The mid to upper lungs are clear, heart size stable. No vascular congestion. Impression: Stable chronic basilar interstitial opacities, no acute pathology identified. Dictated by: Dictated on workstation # [id number]
[2018-01-14 10:53] LABS: MYOGLOBIN SERUM 47.1 NG/ML (10.0-92.0)
[2018-01-14 11:12] VITALS: BP 138/59
== END 2018-01-14 11:12 | disposition home or self-care (01) ==
LOC: ER 08:43 → EDUNIT# 08:43 → ER 11:12
DX: I48.0 Paroxysmal atrial fibrillation (principal); R07.89 Other chest pain; J44.9 Chronic obstructive pulmonary disease, unspecified; I25.10 Atherosclerotic heart disease of native coronary artery without angina pectoris; I10 Essential (primary) hypertension; K21.9 Gastro-esophageal reflux disease without esophagitis; M06.9 Rheumatoid arthritis, unspecified; Z88.0 Allergy status to penicillin; Z88.5 Allergy status to narcotic agent; Z88.8 Allergy status to other drugs, medicaments and biological substances; Z90.710 Acquired absence of both cervix and uterus
CPT/HCPCS: 36415; 71045; 80053; 83735; 83874; 84484; 85025; 85379; 85610; 85730; 93005; 93041

== ENCOUNTER → 2018-02-19 | Outpatient (CLI) | payer MEDICARE | LOC: CARD 08:37 | PROVIDERS: ATTEND Internal Medicine Cardiovascular Disease | DX: I25.10 Atherosclerotic heart disease of native coronary artery without angina pectoris (principal); I10 Essential (primary) hypertension; E78.2 Mixed hyperlipidemia; I48.0 Paroxysmal atrial fibrillation; I34.0 Nonrheumatic mitral (valve) insufficiency | CPT/HCPCS: 93306 ==

== ENCOUNTER → 2018-03-12 | Outpatient (CLI) | payer MEDICARE ==
--- NOTE | 2018-03-12 10:57 | Diagnostic Imaging Report ---
Indication: Left shoulder pain and neck pain. Time of exam: 10:17 AM 3 views of the left shoulder demonstrate normal glenohumeral and acromioclavicular alignment. There are glenohumeral joint degenerative changes with joint space narrowing. There is spurring at the humeral head and neck junction. No fracture or dislocation is seen. Impression: Glenohumeral joint degenerative changes. No acute bony abnormality is detected. Dictated by: Dictated on workstation # [id number]
--- NOTE | 2018-03-12 11:00 | Diagnostic Imaging Report ---
INDICATION: Neck pain. TIME OF EXAM: 10:20 a.m. Curvature and alignment of the cervical spine is normal. There is multilevel degenerative disc disease with variable disc space narrowing and marginal spurring. This appears to be greatest at the C6-C7 level. The prevertebral tissues are within normal limits. Odontoid is intact. There are no fractures. IMPRESSION: Cervical spondylosis. No acute bony abnormality is detected. Dictated by: Dictated on workstation # [id number]
== END ==
LOC: RAD 09:38
PROVIDERS: ATTEND Nurse Practitioner Family
DX: M47.812 Spondylosis without myelopathy or radiculopathy, cervical region (principal); M19.012 Primary osteoarthritis, left shoulder
CPT/HCPCS: 72040; 73030

== ENCOUNTER 2018-08-11 14:55 | Observation (INO) | payer MEDICARE ==
[2018-08-11] VITALS (13 sets, daily range): BP systolic 116–144; BP diastolic 76–109
[~2018-08-11] VITALS: Ht 160 cm; Wt 62.6 kg
[~2018-08-11 14:55] MED LIST changes: +LOSA25TA41 PO; -LOSA25TA6 PO
[2018-08-11] MEDS ORDERED: AMIODARONE FOR BOLUS 150 MG in D5W 100 ML IVPB 100 ML IV NR (15:15)
[2018-08-11] MEDS ORDERED: CATHETER FLUSH 10 ML SYR IV PRN (15:30)
--- NOTE | 2018-08-11 15:39 | Diagnostic Imaging Report ---
INDICATION: History of atrial fibrillation. COMPARISON: 01/14/2018. FINDINGS: Frontal and lateral radiographic views of the chest were obtained and show stable coarse interstitial opacities within both lung bases, left greater than right. Overall, the aeration is stable. There is no large effusion or pneumothorax. The cardiac silhouette and pulmonary vasculature are within normal limits. The bony structures show no gross acute abnormalities. Note is made of calcified aortic atherosclerosis. IMPRESSION: 1. Probable chronic interstitial changes to both lung bases. 2. No new acute appearing cardiopulmonary process. Dictated by: Dictated on workstation # [id number]
[2018-08-11] MEDS ORDERED: METO100T12 PO (15:55)
[2018-08-11] MEDS ORDERED: RANI150T46 PO (15:55)
[2018-08-11] MEDS ORDERED: MAGN250T13 PO (15:55)
[2018-08-11] MEDS ORDERED: CICL6.6S5 TOP (15:55)
[2018-08-11] MEDS ORDERED: FERR15DR25 PO (15:55)
[2018-08-11] MEDS ORDERED: FISH1CAP15 PO (15:55)
[2018-08-11] MEDS ORDERED: CALC-697 PO (15:55)
[2018-08-11] MEDS: AMIODARONE INJECTION 450 MG in D5W IV SOLUTION (EXCEL) 250 ML IV SCH ×2 (16:04→23:36)
[2018-08-11 16:25] LABS: MEAN PLATELET VOLUME 9.3 FL (7.4-10.4); RED CELL DISTRIBUTION WIDTH 13.6 % (10.0-14.5); WHITE BLOOD COUNT 5.9 10^3/uL (4.3-11.0)
[2018-08-11] MEDS ORDERED: NON-FORMULARY MEDICATION 1 EA EA (Ranitidine HCl (Zantac) 150 MG) PO PRN (16:30)
[2018-08-11 16:33] LABS: INR 1.8 (0.8-1.4); PROTHROMBIN TIME PATIENT 22.1 SEC (12.2-14.7)
[2018-08-11 16:45] LABS: ALANINE AMINOTRANSFERASE 11 U/L (0-55); ALBUMIN 3.6 GM/DL (3.2-4.5); ALKALINE PHOSPHATASE 67 U/L (40-136); BILIRUBIN,TOTAL 0.3 MG/DL (0.1-1.0); BUN/CREATININE RATIO 21; CALCIUM 9.8 MG/DL (8.5-10.1); CARBON DIOXIDE 24 MMOL/L (21-32); CHLORIDE 103 MMOL/L (98-107); CREATININE SERUM 1.13 MG/DL (0.60-1.30); GFR ESTIMATED 46; GLUCOSE 149 MG/DL (70-105); POTASSIUM 4.8 MMOL/L (3.6-5.0); SODIUM 136 MMOL/L (135-145); TOTAL PROTEIN 6.3 GM/DL (6.4-8.2)
[2018-08-11] MEDS ORDERED: PATIENT MAY USE OWN MEDS, ALL MC SCH (18:00)
[2018-08-11] MEDS ORDERED: FAMOTIDINE 20 MG (PEPCID) TABLET PO PRN (18:00)
[2018-08-11] MEDS ORDERED: raNItidine (ZANTAC) 150 MG TAB NON-FORMULARY PO PRN (18:45)
[2018-08-11] MEDS: OMEGA 3 (FISH OIL) 1000 MG CAP PO SCH (20:04)
[2018-08-11] MEDS: DABIGATRAN 150 MG (PRADAXA) CAPSULE PO SCH (20:04)
[2018-08-11] MEDS: METOPROLOL TARTRATE 100 MG PO SCH (20:05)
[2018-08-11] MEDS ORDERED: meTOprolol TARTRATE 50 MG (LOPRESSOR) TAB PO SCH (21:00)
[2018-08-11] MEDS ORDERED: SIMvastatin 10 MG (ZOCOR) TAB PO SCH (21:00)
[2018-08-11] MEDS ORDERED: NON-FORMULARY MEDICATION 1 EA EA (Metoprolol Tartrate 100 MG) PO SCH (21:00)
[2018-08-11] MEDS ORDERED: DABIGATRAN 150 MG (PRADAXA) CAPSULE PO SCH (21:00)
[2018-08-11] MEDS: CATHETER FLUSH 10 ML SYR IV SCH (22:12)
[2018-08-12] VITALS (15 sets, daily range): BP systolic 107–148; BP diastolic 65–94
[2018-08-12 04:09] LABS: BASOPHILS # (AUTO) 0.1 10^3/uL (0.0-0.1); BASOPHILS % (AUTO) 1 % (0-10); EOSINOPHILS # (AUTO) 0.2 10^3/uL (0.0-0.3); EOSINOPHILS % (AUTO) 2 % (0-10); HEMATOCRIT 37 % (35-52); HEMOGLOBIN 11.7 G/DL (11.5-16.0); LYMPHOCYTES # (AUTO) 2.1 X 10^3 (1.0-4.0); LYMPHOCYTES % (AUTO) 29 % (12-44); MEAN CORPUSCULAR HEMOGLOBIN 28 PG (25-34); MEAN CORPUSCULAR HGB CONC 32 G/DL (32-36); MEAN CORPUSCULAR VOLUME 88 FL (80-99); MEAN PLATELET VOLUME 9.4 FL (7.4-10.4); MONOCYTES # (AUTO) 0.8 X 10^3 (0.0-1.0); MONOCYTES % (AUTO) 11 % (0-12); NEUTROPHILS # (AUTO) 4.1 X 10^3 (1.8-7.8); NEUTROPHILS % (AUTO) 57 % (42-75); PLATELET COUNT 260 10^3/uL (130-400); RED CELL DISTRIBUTION WIDTH 13.7 % (10.0-14.5); WHITE BLOOD COUNT 7.2 10^3/uL (4.3-11.0)
[2018-08-12 04:38] LABS: CALCIUM 9.2 MG/DL (8.5-10.1); CREATININE SERUM 1.04 MG/DL (0.60-1.30); PHOSPHORUS 3.6 MG/DL (2.3-4.7); POTASSIUM 4.4 MMOL/L (3.6-5.0)
[2018-08-12] MEDS: CATHETER FLUSH 10 ML SYR IV SCH (05:12)
[2018-08-12] MEDS ORDERED: KCL 20 MEQ TAB (K-DUR) PO SCH (06:00)
[2018-08-12] MEDS ORDERED: MAGNESIUM 1 GM/100 ML IVPB 100 ML IV SCH (06:00)
[2018-08-12] MEDS ORDERED: POTASSIUM CL 10MEQ/50ML IVPB 50 ML IV SCH (06:00)
--- NOTE | 2018-08-12 07:09 | Cardiology History & Physical ---
HPI-Cardiology Cardiology Consultation Date of Consultation 08/12/18 Date of Admission Time Seen by Provider: 07:06 Indication: atrial fibrillation HPI 88 years old lady with history of paroxysmal atrial fibrillation, has been in and out of atrial fibrillation and had multiple episode, came into the office complaining of fatigue and loss of energy and shortness of breath was in atrial fibrillation reported that she started feeling about 2 days ago, continue to have Pradaxa, did not stop the medication. Still not feeling well. Discussed the management plan and recommended admission to the hospital and initiating antiarrhythmic medication PMH-Cardiology Immunizations Up To Date Date of Pneumonia Vaccine: Jul 11, 2015 Date of Influenza Vaccine: Jan 06, 2015 Seasonal Allergies Seasonal Allergies: No Surgeries Yes (r/l knee) Gall Bladder, Hysterectomy, Joint Repacement, Bladder Surgery Respiratory Yes Cardiovascular Yes Atrial Fibrillation, High Cholesterol, Hypertension Neurological No 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 System Hx 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 Disorders: Yes (TUBAL 1952) Sexually Transmitted Disease: No HIV/AIDS: No Female 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 Disorders: Denies Genitourinary Renal Failure Gastrointestinal Yes Gastroesophageal Reflux Musculoskeletal Yes Rheumatoid Arthritis Endocrine No HEENT Cataract Cancer No Psychosocial No Integumentary No Blood Transfusions Yes (FACTOR FIVE LYDEN) Other PMHx past medical history as discussed below Social History Patient Social History Marrital Status: Alcohol Use: Denies Use Recreational Drug Use: No Smoking: Never smoker Dip or chew tobacco?: No Family Hx Significant Family History: No Pertinent Family Hx Other Non contributory ROS-Cardiology Review of Systems General: No Chills, No Night Sweats; Fatigue, Malaise; No Appetite HEENT: No Head Aches, No Visual Changes, No Eye Pain, No Ear Pain, No Dysphasia , No Sinus Congestion, No Post Nasal Drip, No Sore Throat Pulmonary: Dyspnea; No Cough, No Pleuritic Chest Pain Cardiovascular: Palpitations; No: Chest Pain, Orthopnea, Paroxysmal Noc. Dyspnea, Edema, Lt Headedness Gastrointestinal: No: Nausea, Vomiting, Abdominal Pain, Diarrhea, Constipation , Melena, Hematochezia Genitourinary: No Dysuria, No Frequency, No Incontinence, No Hematuria, No Retention Musculoskeletal: No: neck pain, shoulder pain, arm pain, back pain, hand pain, leg pain, foot pain Neurological: No: Weakness, Numbness, Incoordination, Change in speech, Confusion, Seizures Home Medications & Allergies Allergies: Coded Allergies: Penicillins (Verified Allergy, Unknown, 12/16/06) ciprofloxacin (Verified Allergy, Unknown, 02/16/08) morphine (Verified Allergy, Unknown, 12/16/06) digoxin (Verified Adverse Reaction, Unknown, HALLUCINATIONS., 01/14/18) Exam-Cardiology Vital Signs Vital Signs Date Time Temp Pulse Resp B/P (MAP) Pulse Ox O2 Delivery O2 Flow Rate FiO2 08/12/18 06:00 78 13 142/85 (104) 96 Room Air 08/12/18 04:01 97.4 Exam General Appearance: Alert, Oriented X3, Cooperative, No Acute Distress HEENT: Atraumatic, PERRLA Respiratory: Clear to Auscultation, Normal Air Movement Cardiovascular: Normal S1, Normal S2, No Murmurs, Other (atrial fibrillation) Abdominal: Normal Bowel Sounds, Soft, No Tenderness, No Hepatosplenomegaly, No Masses Extremities: No Clubbing, No Cyanosis, No Edema, Normal Pulses, No Tenderness/ Swelling Skin: No Rashes, No Breakdown, No Significant Lesion Neuro: Normal Gait, Normal Speech, Strength at 5/5 X4 Ext, Normal Tone, Sensation Intact Psych/Mental Status: Mental Status NL, Mood NL Results Labs Labs Laboratory Tests 08/11/18 16:03: White Blood Count 5.9, Red Blood Count 4.20L, Hemoglobin 12.0, Hematocrit 38, Mean Corpuscular Volume 89, Mean Corpuscular Hemoglobin 29, Mean Corpuscular Hemoglobin Concent 32, Red Cell Distribution Width 13.6, Platelet Count 242, Mean Platelet Volume 9.3, Prothrombin Time 22.1H, INR Comment 1.8H, Activated Partial Thromboplast Time 70H, Sodium Level 136, Potassium Level 4.8, Chloride Level 103, Carbon Dioxide Level 24, Anion Gap 9, Blood Urea Nitrogen 24H, Creatinine 1.13, Estimat Glomerular Filtration Rate 46, BUN/Creatinine Ratio 21 , Glucose Level 149H, Calcium Level 9.8, Corrected Calcium 10.1, Total Bilirubin 0.3, Aspartate Amino Transf (AST/SGOT) 15, Alanine Aminotransferase ( ALT/SGPT) 11, Alkaline Phosphatase 67, Troponin I < 0.028, Total Protein 6.3L, Albumin 3.6, Thyroid Stimulating Hormone (TSH) 1.77 08/12/18 03:50: White Blood Count 7.2, Red Blood Count 4.15L, Hemoglobin 11.7, Hematocrit 37, Mean Corpuscular Volume 88, Mean Corpuscular Hemoglobin 28, Mean Corpuscular Hemoglobin Concent 32, Red Cell Distribution Width 13.7, Platelet Count 260, Mean Platelet Volume 9.4, Sodium Level 137, Potassium Level 4.4, Chloride Level 107, Carbon Dioxide Level 20L, Anion Gap 10, Blood Urea Nitrogen 23H, Creatinine 1.04, Estimat Glomerular Filtration Rate 50, BUN/Creatinine Ratio 22 , Glucose Level 99, Calcium Level 9.2, Neutrophils (%) (Auto) 57, Lymphocytes (% ) (Auto) 29, Monocytes (%) (Auto) 11, Eosinophils (%) (Auto) 2, Basophils (%) ( Auto) 1, Neutrophils # (Auto) 4.1, Lymphocytes # (Auto) 2.1, Monocytes # (Auto) 0.8, Eosinophils # (Auto) 0.2, Basophils # (Auto) 0.1, Phosphorus Level 3.6, Magnesium Level 2.0 A/P-Cardiology Admission Diagnosis Shortness of breath Acute Paroxysmal atrial fibrillation Hypertension Hyperlipidemia Admission Status: Observation Assessment/Plan generalized fatigue and loss of energy secondary to atrial fibrillation Shortness of breath, palpitations secondary to atrial fibrillation Paroxysmal atrial fibrillation, Maintained on Pradaxa and metoprolol, seen in the emergency room in July and in January 2018 for transient atrial fibrillation associated with tachycardia and chest pain, converted in the emergency room to sinus rhythm, back in atrial fibrillation about 2 days ago, complain of fatigue, symptomatic, lethargic and mild tightness in her chest, admitted and started on amiodarone drip, heart rate is controlled but did not convert to sinus rhythm, I will do electrical cardioversion today. Patient did not skip any doses of her Pradaxa Echocardiogram done in February 2018 showing normal left ventricular size with basal focal hypertrophy, ejection fraction 50-55 percent, grade 2 diastolic dysfunction, moderate MR, PA pressure 20 mmHg. Nonobstructive coronary artery disease per cardiac catheterization August 2012, stress test was done in July 2017 showing apical thinning with no significant ischemia or infarction with normal left ventricular size and ejection fraction 74 percent Moderate bilateral carotid stenosis, ultrasound was done in January 2018. Continue to monitor Hypertension-controlled, continue to monitor blood pressure. Hyperlipidemia, intolerant to statins mainly Lipitor, tolerating simvastatin well, cholesterol is well controlled, continue to monitor lipids Chronic renal insufficiency, followed and managed by Dr. Henry Pulmonary hypertension, last echocardiogram showed PA pressure 10-15 mmHg was done in August 2016. Normal left ventricular size. Left atrium is in the upper normal limit. 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 Henry. Continue to monitor. Clinical Quality Measures DVT/VTE Risk/Contraindication: Risk Factor Score Per Nursin RFS Level Per Nursing on Admit: 2=Moderate AUGUSTA SALAZAR MD August 12, 2018 07:09
--- NOTE | 2018-08-12 07:09 | Cardiac Procedure Note-CS/ASA ---
Pre-Procedure Note Pre-Op Procedure Note H&P Reviewed The H&P was reviewed, patient examined and no changes noted. Date H&P Reviewed: August 12, 2018 Time H&P Reviewed: 07:09 Conscious Sedation Pre-Proced Time 07:09 ASA Score 3 For ASA 3 and 4: Consider anesthesia and medical clearance. Also, for patients with a history of failed moderate sedation consider anesthesia. Airway Lungs Heart ASA score ASA 1: a normal healthy patient ASA 2: a patient with a mild systemic disease (mid diabetes, controlled hypertension, obesity x ASA 3: a patient with a severe systemic disease that limits activity (angina , COPD, prior Myocardial infarction) ASA 4: a patient with an incapacitating disease that is a constant threat to life (CHF, renal failure) ASA 5: a moribund patient not expected to survive 24 hrs. (ruptured aneurysm) ASA 6: a declared brain- patient whose organs are being harvested. For emergent operations, add the letter E after the classification Mallampati Classification Grade 3 Sedation Plan Analgesia, Amnesia, Plan communicated to team members, Discussed options with patient/fam, Discussed risks with patient/fam The patient is an appropriate candidate to undergo the planned procedure, sedation, and anesthesia. The patient immediately re-assessed prior to indication. AUGUSTA SALAZAR MD August 12, 2018 07:09
[2018-08-12] MEDS ORDERED: MIDAZOLAM 2 MG/2 ML (VERSED) VIAL ONE (07:15)
[2018-08-12] MEDS ORDERED: proPOfol 200 MG/20 ML (DIPRIVAN) VIAL IV ONE (07:15)
[2018-08-12] MEDS ORDERED: NS IV 500 ML 500 ML ONE (07:15)
--- NOTE | 2018-08-12 07:34 | Anesthesia-Procedure Note ---
Procedures/Interventions Procedure Start/Stop/Diagnosis Date of Procedure: August 12, 2018 Start Time: 07:20 Referring Physician: Sabi Brief History A-fib Stop Time: 07:25 MAREN/Cardioversion Anesthesia Type: MAC ASA Class: 3 Medications Propofol 60mg, Versed 1mg Monitors and Equipment: BP Cuff - Left, Continuous EKG, End Tidal CO2, IV, Pulse Oximeter Additional Procedures Procedures Brief history obtained from the patient and a chart review. Sedation provided. Tolerated procedure well. Care to GIFT PACKER with report. SUMMER ROSENTHAL CRNA August 12, 2018 07:34
--- NOTE | 2018-08-12 07:37 | Cardioversion ---
Cardioversion PROCEDURE PHYSICIAN: Augusta Celestin DATE OF PROCEDURE: 08/12/18 DIRECT EXTERNAL ELECTRICAL CARDIOVERSION: Indications: Atrial Fibrillation with rapid ventricular rate Preoperative diagnoses: Atrial Fibrillation with rapid ventricular rate Postoperative diagnosis: Sinus rhythm, Successful Electrical Cardioversion Anesthesia: By Anesthesia services Complications: None Specimen: None Contrast: 0 Flouroscopy: none Procedure Details: The patient was brought the roofing laborer after informed consent was taken, all the risks and complications were explained including the risk of stroke. Electrical cardioversion was carried out with anesthesia support with propofol. 120 joules of synchronized shock was delivered through external patches which promptly restored sinus rhythm. The patient tolerated the procedure well. Conclusions: successful electrical cardioversion in terminating atrial fibrillation Final Diagnosis: Acute atrial fibrillation Palpitation Shortness of breath Hypertension AUGUSTA CELESTIN MD August 12, 2018 07:37
[2018-08-12] MEDS ORDERED: MAGNESIUM 250 MG TABLET PO SCH (08:00)
[2018-08-12] MEDS ORDERED: MAGNESIUM OXIDE (MAG-OX)400 MG TAB PO SCH (08:00)
[2018-08-12] MEDS: OMEGA 3 (FISH OIL) 1000 MG CAP PO SCH (08:04)
[2018-08-12] MEDS: METOPROLOL TARTRATE 100 MG PO SCH (08:05)
[2018-08-12] MEDS: DABIGATRAN 150 MG (PRADAXA) CAPSULE PO SCH (08:06)
[2018-08-12] MEDS ORDERED: NON-FORMULARY MEDICATION 1 EA EA (Leflunomide 20 MG) PO SCH (09:00)
[2018-08-12] MEDS ORDERED: NON-FORMULARY MEDICATION 1 EA EA (Magnesium Oxide (Magnesium) 250 MG) PO SCH (09:00)
[2018-08-12] MEDS ORDERED: LEFLUNOMIDE 20 MG TABLET PO SCH (09:00)
[2018-08-12] MEDS ORDERED: AMIODARONE 200 MG (CORDARONE) TAB PO SCH (09:00)
--- NOTE | 2018-08-12 09:58 | NUR ---
0720 CARDIOVERSION DONE AT BEDSIDE, DR SALAZAR IN ROOM, SEDATION MEDICATIONS GIVEN PER ANESTHESIA, PT ON BEDSIDE MONITOR AND VS BEING MONITORED. 60MG OF PROPOFOL AND 1 MG VERSED GIVEN BY ANESTHESIA. [address] SALAZAR AT 120 JAKE. PT TOLERATED WELL.
[2018-08-12] MEDS ORDERED: NON-FORMULARY MEDICATION 1 EA EA (Losartan Potassium 25 MG) PO SCH (12:00)
[2018-08-12] MEDS ORDERED: LOSARTAN 25 MG (COZAAR) TAB PO SCH ×2 (12:00)
[2018-08-12] MEDS ORDERED: AMIO200T4 PO (13:28)
== END 2018-08-12 14:45 | disposition home or self-care (01) ==
LOC: ICU 15:01
PROVIDERS: ADMIT Internal Medicine Cardiovascular Disease; ATTEND Internal Medicine Cardiovascular Disease
DX: I48.0 Paroxysmal atrial fibrillation (principal); R00.2 Palpitations; R06.02 Shortness of breath; I10 Essential (primary) hypertension; Z96.9 Presence of functional implant, unspecified; E78.00 Pure hypercholesterolemia, unspecified; K21.9 Gastro-esophageal reflux disease without esophagitis; M06.9 Rheumatoid arthritis, unspecified; E78.5 Hyperlipidemia, unspecified; I34.0 Nonrheumatic mitral (valve) insufficiency; I65.23 Occlusion and stenosis of bilateral carotid arteries; I27.20 Pulmonary hypertension, unspecified; K76.9 Liver disease, unspecified; N28.9 Disorder of kidney and ureter, unspecified; Z88.0 Allergy status to penicillin; Z88.1 Allergy status to other antibiotic agents; Z88.5 Allergy status to narcotic agent
CPT/HCPCS: 36415; 71046; 80048; 80053; 83735; 84100; 84443; 84484; 85025; 85027; 85610; 85730; 87081; 93005; 99211; G0378

== ENCOUNTER → 2018-08-20 | Outpatient (CLI) | payer MEDICARE ==
[~2018-08-20] VITALS: Ht 162.6 cm; Wt 65.8 kg
[~2018-08-20] MED LIST changes: +AMIO200T4 PO; +CALC-697 PO; +CATHETER FLUSH 10 ML SYR IV PRN; +CICL6.6S5 TOP; +FERR15DR25 PO; +FISH1CAP15 PO; +MAGN250T13 PO; +METO100T12 PO; +REGADENOSON 0.4 MG/5 ML SYR (LEXISCAN) IV ONE
--- NOTE | 2018-08-20 15:35 | STRESS TEST ---
DATE OF SERVICE: LEXISCAN MYOVIEW STRESS TEST REPORT REFERRING PHYSICIAN: Dr. Sarita Monk. Baseline heart rate is 64. Baseline blood pressure 150/88. Baseline EKG is sinus rhythm with right bundle branch block. In summary, the patient was injected with 10.59 mCi of technetium-99 Myoview and the resting images were obtained. Then, the patient received 0.4 mg of Lexiscan followed by 31.3 mCi of technetium-99 Myoview. Throughout the test, there were no EKG changes. The resting and stress images were reviewed and compared in the short axis, horizontal long axis, and vertical long axis views. Review of the images showed small left ventricle with good radiotracer uptake, no significant ischemia or infarction. SSS is 5, SDS 3, TID value 0.95. On the gated images, the left ventricle appeared to be in normal size with normal contractility, calculated ejection fraction 81%. CONCLUSION: 1. The patient tolerated Lexiscan well. 2. Typical female pattern with no significant ischemia or infarction on SPECT images. 3. Normal left ventricular size with normal contractility. Calculated ejection fraction 81%. Job ID: [id number] DocumentID: [id number] Dictated Date: 08/20/2018 15:18:14 Synthetic Resin Operator Date: 08/20/2018 15:35:11 Dictated By: AUGUSTA SALAZAR MD
== END ==
LOC: RAD 11:15
PROVIDERS: ATTEND Internal Medicine Cardiovascular Disease
DX: I48.0 Paroxysmal atrial fibrillation (principal); I25.10 Atherosclerotic heart disease of native coronary artery without angina pectoris; I51.9 Heart disease, unspecified; E78.2 Mixed hyperlipidemia
CPT/HCPCS: 78452; 93017

== ENCOUNTER 2019-03-29 19:35 | Inpatient (IN) | payer MEDICARE ==
[~2019-03-29] VITALS: Ht 160 cm; Wt 66.5 kg
[~2019-03-29 19:35] MED LIST changes: -CATHETER FLUSH 10 ML SYR IV PRN; +RANI-613 PO; -RANI150T46 PO; -REGADENOSON 0.4 MG/5 ML SYR (LEXISCAN) IV ONE
[2019-03-29] MEDS ORDERED: ASPIRIN 81 MG CHEW (CHILDREN'S ASA) PO ONE (19:45)
[2019-03-29] MEDS ORDERED: DILTIAZEM 25 MG/5 ML INJ (CARDIZEM) VIAL IVP ONE (19:45)
[2019-03-29] MEDS ORDERED: DILTIAZEM IV FOR DRIP 125 MG in NS (IVPB) 100 ML IV SCH (19:45)
--- NOTE | 2019-03-29 19:45 | ED Cardiac General ---
History of Present Illness General Chief Complaint: Chest Pain Stated Complaint: CHEST PAIN Source: patient Exam Limitations: no limitations History of Present Illness Date Seen by Provider: Mar 29, 2019 Time Seen by Provider: 19:41 Initial Comments To ER with reports of heart beating fast. She denies any chest pain, just states it feels weird. She also had a brief episode of difficulty speaking and weird sensation behind her eyes. These have since resolved. This began about 10 minutes ago, she had just taken her evening dose of flecainide, shortly thereafter only a few minutes she developed a sensation of palpitation and a weird sensation in her eyes. The weird sensation in her eyes is gone, she still feels like her heart is beating weird. She has a history of atrial fibrillation with cardioversion in October of this year. She has not had any subsequent episodes of atrial fibrillation that she is aware of, however she is maintained on flecainide and Pradaxa as of yet. Primary care is Dr. Monk, cardiology is Dr. Celestin. Timing/Duration: constant Severity: moderate Activities at Onset: none NTG SL SCHOOL HEALTH AIDE: No ASA po SCHOOL HEALTH AIDE: No Associated Systoms: No Chest Pain, No Cough, No Nausea/Vomiting Allergies and Home Medications Allergies Coded Allergies: Penicillins (Verified Allergy, Unknown, 12/16/06) ciprofloxacin (Verified Allergy, Unknown, 02/16/08) morphine (Verified Allergy, Unknown, 12/16/06) digoxin (Verified Adverse Reaction, Unknown, HALLUCINATIONS., 01/14/18) Home Medications Amiodarone HCl 200 Mg Tablet, 200 MG PO UD take 2 tablets twice a day for one week then Take 1 tablet twice a day Prescribed by: AUGUSTA CELESTIN on 08/12/18 1328 Calcium Carbonate/Vitamin D3 1 Each Tablet, 1 TAB PO DAILY, (Reported) Ciclopirox 6.6 Ml Solution, TOP DAILY, (Reported) Dabigatran Etexilate Mesylate 150 Mg Capsule, 150 MG PO BID, (Reported) Ferrous Sulfate 15 Mg/1 Ml Drops, 1 TSP PO DAILY, (Reported) Fish Oil/Dha/Epa 1 Each Capsule, 1,200 MG PO BID, (Reported) Leflunomide 20 Mg Tablet, 20 MG PO DAILY, (Reported) Losartan Potassium 25 Mg Tablet, 25 MG PO 1200, (Reported) Magnesium Oxide 250 Mg Tablet, 250 MG PO DAILY, (Reported) Metoprolol Tartrate 100 Mg Tablet, 100 MG PO BID, (Reported) Ranitidine HCl 150 Mg Tablet, 150 MG PO DAILY PRN for HEARTBURN, (Reported) Simvastatin 10 Mg Tablet, 10 MG PO HS, (Reported) Patient Home Medication List Home Medication List Reviewed: Yes Review of Systems Review of Systems Constitutional: see HPI EENTM: No Symptoms Reported Respiratory: No Symptoms Reported Cardiovascular: See HPI; Denies Chest Pain; Irregular Heart Rate Gastrointestinal: No Symptoms Reported Genitourinary: No Symptoms Reported Musculoskeletal: no symptoms reported Skin: no symptoms reported Psychiatric/Neurological: No Symptoms Reported Endocrine: No Symptoms Reported Hematologic/Lymphatic: No Symptoms Reported Past Egyqbfc-Cwsfrp-Jonxlx Hx Patient Social History Recent Foreign Travel: No Contact w/Someone Who Travel: No Recent Hopitalizations: Yes Immunizations Up To Date Date of Pneumonia Vaccine: Jul 11, 2015 Date of Influenza Vaccine: Jan 06, 2015 Seasonal Allergies Seasonal Allergies: No Past Medical History Surgeries: Yes (r/l knee) Gallbladder, Hysterectomy, Orthopedic Respiratory: Yes COPD Currently Using CPAP: No Currently Using BIPAP: No Cardiac: Yes Atrial Fibrillation, Coronary Artery Disease, Hypertension Neurological: No 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 Disorders: Yes (TUBAL 1952) Female 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 Disorders: Denies Sexually Transmitted Disease: No HIV/AIDS: No Renal Failure Gastrointestinal: Yes Gastroesophageal Reflux Musculoskeletal: Yes Rheumatoid Arthritis Endocrine: No Cataract Cancer: No Psychosocial: No Integumentary: No Blood Disorders: Yes (FACTOR FIVE LYDEN) Family Medical History No Pertinent Family Hx Physical Exam Vital Signs Vital Signs - First Documented Capillary Refill : NONE Height, Weight, BMI Height: 5'4.00" Weight: 145lbs. 0.0oz. [id number]; 24.9 BMI Method:Stated General Appearance: No Apparent Distress, WD/WN, Other (she is alert and oriented, ambulatory to room 9 without assistance. Pleasant, states her only complaint at this time is sensation of heart beating weird. Speech is fluent and appropriate. She is tachycardic with irregular rhythm, rate of 135.) Neck: Full Range of Motion, Normal Inspection Respiratory: Normal Breath Sounds, No Accessory Muscle Use, No Respiratory Distress Cardiovascular: Normal Peripheral Pulses, Irregularly Irregular Gastrointestinal: Normal Bowel Sounds, Non Tender, Soft Extremity: Normal Capillary Refill, Normal Inspection Neurologic/Psychiatric: Alert, Oriented x3 Skin: Normal Color, Warm/Dry Progress/Results/Core Measures Results/Orders Lab Results Laboratory Tests Test 03/29/19 19:39 Range/Units White Blood Count 8.0 4.3-11.0 10^3/uL Red Blood Count 4.49 4.35-5.85 10^6/uL Hemoglobin 13.0 11.5-16.0 G/DL Hematocrit 41 35-52 % Mean Corpuscular Volume 91 80-99 FL Mean Corpuscular Hemoglobin 29 25-34 PG Mean Corpuscular Hemoglobin Concent 32 32-36 G/DL Red Cell Distribution Width 13.5 10.0-14.5 % Platelet Count 277 130-400 10^3/uL Mean Platelet Volume 9.3 7.4-10.4 FL Neutrophils (%) (Auto) 54 42-75 % Lymphocytes (%) (Auto) 30 12-44 % Monocytes (%) (Auto) 13 H 0-12 % Eosinophils (%) (Auto) 3 0-10 % Basophils (%) (Auto) 1 0-10 % Neutrophils # (Auto) 4.3 1.8-7.8 X 10^3 Lymphocytes # (Auto) 2.4 1.0-4.0 X 10^3 Monocytes # (Auto) 1.0 0.0-1.0 X 10^3 Eosinophils # (Auto) 0.3 0.0-0.3 10^3/uL Basophils # (Auto) 0.1 0.0-0.1 10^3/uL Prothrombin Time 17.1 H 12.2-14.7 SEC INR Comment 1.3 0.8-1.4 Activated Partial Thromboplast Time 53 H 24-35 SEC Sodium Level 138 135-145 MMOL/L Potassium Level 4.3 3.6-5.0 MMOL/L Chloride Level 101 98-107 MMOL/L Carbon Dioxide Level 25 21-32 MMOL/L Anion Gap 12 5-14 MMOL/L Blood Urea Nitrogen 26 H 7-18 MG/DL Creatinine 1.18 0.60-1.30 MG/DL Estimat Glomerular Filtration Rate 43 BUN/Creatinine Ratio 22 Glucose Level 101 70-105 MG/DL Calcium Level 9.7 8.5-10.1 MG/DL Corrected Calcium 9.6 8.5-10.1 MG/DL Magnesium Level 2.2 1.6-2.4 MG/DL Total Bilirubin 0.3 0.1-1.0 MG/DL Aspartate Amino Transf (AST/SGOT) 17 5-34 U/L Alanine Aminotransferase (ALT/SGPT) 13 0-55 U/L Alkaline Phosphatase 90 40-136 U/L Myoglobin 46.8 10.0-92.0 NG/ML Troponin I < 0.028 <0.028 NG/ML B-Type Natriuretic Peptide 174.9 H <100.0 PG/ML Total Protein 7.6 6.4-8.2 GM/DL Albumin 4.1 3.2-4.5 GM/DL My Orders Orders - ALVAREZ FUCHS COOKING INSTRUCTOR Cbc With Automated Diff (03/29/19 19:40) Magnesium (03/29/19 19:40) Chest 1 View, Ap/Pa Only (03/29/19 19:40) Ekg Tracing (03/29/19 19:40) Comprehensive Metabolic Panel (03/29/19 19:40) Myoglobin Serum (03/29/19 19:40) Protime With Inr (03/29/19 19:40) Partial Thromboplastin Time (03/29/19 19:40) O2 (03/29/19 19:40) Monitor-Rhythm Ecg Trace Only (03/29/19 19:40) Lipid Panel (03/30/19 06:00) Ed Iv/Invasive Line Start (03/29/19 19:40) BNP (03/29/19 19:40) Aspirin Chewable Tablet (Baby Aspirin Ch (03/29/19 19:45) Ns (Ivpb) (Sodium C... W/Diltiazem Iv Fo (03/29/19 19:45) Diltiazem Injection (Cardizem Injection) (03/29/19 19:45) Troponin I (03/29/19 19:39) Medications Given in ED Current Medications Medications Dose Ordered Sig/Mable Route Start Time Stop Time Status Last Admin Dose Admin Aspirin 324 mg ONCE ONCE PO 03/29/19 19:45 03/29/19 19:46 DC 03/29/19 19:52 324 MG Diltiazem HCl 10 mg ONCE ONCE IVP 03/29/19 19:45 03/29/19 19:46 DC 03/29/19 19:52 10 MG Vital Signs/I&O 03/29/19 03/29/19 03/29/19 19:39 19:39 19:54 Temp 36.5 Pulse 117 122 Resp 19 B/P (MAP) 158/79 (105) 158/79 O2 Delivery Room Air Room Air Diagnostic Imaging Diagonstic Imaging: Xray Comments NAME: RENATE REYES REC#: [id number] PT STATUS: REG ER : 1930 PHYSICIAN: ALVAREZ FUCHS APRN ADMIT DATE: 03/29/19/ER Draft Date of Exam:03/29/19 CHEST 1 VIEW, AP/PA ONLY INDICATION: Atrial fibrillation. COMPARISON: 08/11/2018. FINDINGS: Some scarring in the lung bases stable and chronic. No acute infiltrate. Heart size stable. No vascular congestion. No effusion or pneumothorax. IMPRESSION: Stable chronic findings. Dictated on workstation # [id number] Dict: 03/29/192048 Trans: 03/29/192055 [id number] Interpreted by: OANH AMAYA Electronically signed by: Departure Communication (Admissions) Time/Spoke to Admitting Phy: 20:30 2028-heart rate is 80s to 90s still A. fib. Blood pressure 116 systolic. She is feeling better overall remains alert and oriented conversing and pleasant. Spoke with Dr. Alvarez, we'll admit. Spoke with Dr. Pemberton, Dr. Celestin is out of town so he'll be seeing her tomorrow. She has been on Pradaxa uninterrupted, she should take her morning dose with a sip of water, nothing by mouth after midnight as she may need cardioverted again in the morning. Impression Primary Impression: Atrial fibrillation with RVR Disposition: ADMITTED INPATIENT Condition: Stable Admissions Decision to Admit Reason: Admit from ER (General) Decision to Admit/Date: Mar 29, 2019 Time/Decision to Admit Time: 19:45 Departure-Patient Inst. Referrals: JIN MONK MD (PCP/Family) Primary Care Physician ALVAREZ FUCHS APRN Mar 29, 2019 19:45
[2019-03-29 19:47] LABS: BASOPHILS # (AUTO) 0.1 10^3/uL (0.0-0.1); BASOPHILS % (AUTO) 1 % (0-10); EOSINOPHILS # (AUTO) 0.3 10^3/uL (0.0-0.3); EOSINOPHILS % (AUTO) 3 % (0-10); HEMATOCRIT 41 % (35-52); LYMPHOCYTES # (AUTO) 2.4 X 10^3 (1.0-4.0); LYMPHOCYTES % (AUTO) 30 % (12-44); MEAN CORPUSCULAR HEMOGLOBIN 29 PG (25-34); MEAN CORPUSCULAR HGB CONC 32 G/DL (32-36); MEAN CORPUSCULAR VOLUME 91 FL (80-99); MEAN PLATELET VOLUME 9.3 FL (7.4-10.4); MONOCYTES % (AUTO) 13 % (0-12); NEUTROPHILS # (AUTO) 4.3 X 10^3 (1.8-7.8); NEUTROPHILS % (AUTO) 54 % (42-75); PLATELET COUNT 277 10^3/uL (130-400); RED CELL DISTRIBUTION WIDTH 13.5 % (10.0-14.5)
[2019-03-29 20:03] LABS: INR 1.3 (0.8-1.4); PROTHROMBIN TIME PATIENT 17.1 SEC (12.2-14.7)
[2019-03-29 20:10] LABS: ALANINE AMINOTRANSFERASE 13 U/L (0-55); ALBUMIN 4.1 GM/DL (3.2-4.5); ALKALINE PHOSPHATASE 90 U/L (40-136); BILIRUBIN,TOTAL 0.3 MG/DL (0.1-1.0); BUN/CREATININE RATIO 22; CALCIUM 9.7 MG/DL (8.5-10.1); CARBON DIOXIDE 25 MMOL/L (21-32); CHLORIDE 101 MMOL/L (98-107); CREATININE SERUM 1.18 MG/DL (0.60-1.30); GFR ESTIMATED 43; GLUCOSE 101 MG/DL (70-105); MAGNESIUM 2.2 MG/DL (1.6-2.4); POTASSIUM 4.3 MMOL/L (3.6-5.0); SODIUM 138 MMOL/L (135-145); TOTAL PROTEIN 7.6 GM/DL (6.4-8.2)
--- NOTE | 2019-03-29 20:56 | Diagnostic Imaging Report ---
INDICATION: Atrial fibrillation. COMPARISON: 08/11/2018. FINDINGS: Some scarring in the lung bases stable and chronic. No acute infiltrate. Heart size stable. No vascular congestion. No effusion or pneumothorax. IMPRESSION: Stable chronic findings. Dictated by: Dictated on workstation # [id number]
[2019-03-29 22:05] VITALS: BP 119/68
[2019-03-29 22:15] VITALS: BP 119/68
[2019-03-29] MEDS ORDERED: DILTIAZEM 125 MG/NS 100 ML IV SCH ×2 (22:15)
[2019-03-29 22:30] VITALS: BP 95/59
[2019-03-29 22:45] VITALS: BP 102/60
--- NOTE | 2019-03-29 22:49 | NUR ---
RENATE REYES I admitted to room CU1-1, with an admitting diagnosis of afib, on 03/29/19 from ed via wc, accompanied by .RENATE REYES I introduced to surroundings, call light, bed controls, phone, TV, temperature control, lights, meal times, smoking policy, visitor policy, side rail policy, bathrooms and showers. Patient Rights given to patient in the handbook. RENATE REYES I verbalizes understanding that [facility] is not responsible for the loss or damage to any personal effects or valuables that are kept in the patients possession during their hospitalization. The following Patient Care Plans were discussed with the patient and : Discharge Planning, activity,pain, and diet. RENATE REYES I verbalizes understanding of Interdisciplinary Patient Education. Patient and/or family were informed about the Rapid Response Team and its purpose.
[2019-03-29] MEDS: NS IV 1000 ML 1,000 ML IV SCH (22:58)
[2019-03-29 23:00] VITALS: BP 109/74
[2019-03-29 23:30] VITALS: BP 105/73
[2019-03-30] VITALS (14 sets, daily range): BP systolic 89–119; BP diastolic 48–82
[2019-03-30 06:08] LABS: BASOPHILS # (AUTO) 0.1 10^3/uL (0.0-0.1); BASOPHILS % (AUTO) 1 % (0-10); EOSINOPHILS # (AUTO) 0.2 10^3/uL (0.0-0.3); EOSINOPHILS % (AUTO) 4 % (0-10); HEMATOCRIT 37 % (35-52); HEMOGLOBIN 11.8 G/DL (11.5-16.0); LYMPHOCYTES # (AUTO) 1.9 X 10^3 (1.0-4.0); LYMPHOCYTES % (AUTO) 29 % (12-44); MEAN CORPUSCULAR HEMOGLOBIN 29 PG (25-34); MEAN CORPUSCULAR HGB CONC 32 G/DL (32-36); MEAN CORPUSCULAR VOLUME 91 FL (80-99); MEAN PLATELET VOLUME 9.5 FL (7.4-10.4); MONOCYTES # (AUTO) 0.9 X 10^3 (0.0-1.0); MONOCYTES % (AUTO) 14 % (0-12); NEUTROPHILS # (AUTO) 3.4 X 10^3 (1.8-7.8); NEUTROPHILS % (AUTO) 52 % (42-75); PLATELET COUNT 209 10^3/uL (130-400); RED CELL DISTRIBUTION WIDTH 13.4 % (10.0-14.5); WHITE BLOOD COUNT 6.6 10^3/uL (4.3-11.0)
[2019-03-30 06:32] LABS: ALANINE AMINOTRANSFERASE 12 U/L (0-55); ALBUMIN 3.4 GM/DL (3.2-4.5); ALKALINE PHOSPHATASE 76 U/L (40-136); BILIRUBIN,TOTAL 0.2 MG/DL (0.1-1.0); BUN/CREATININE RATIO 22; CALCIUM 9.1 MG/DL (8.5-10.1); CARBON DIOXIDE 20 MMOL/L (21-32); CHLORIDE 109 MMOL/L (98-107); CHOLESTEROL 129 MG/DL (< 200); CREATININE SERUM 0.91 MG/DL (0.60-1.30); GFR ESTIMATED 58; GLUCOSE 101 MG/DL (70-105); HDL CHOLESTEROL 37 MG/DL (40-60); PHOSPHORUS 3.3 MG/DL (2.3-4.7); POTASSIUM 4.3 MMOL/L (3.6-5.0); SODIUM 138 MMOL/L (135-145); TOTAL PROTEIN 6.1 GM/DL (6.4-8.2); TRIGLYCERIDES 103 MG/DL (<150); VLDL CHOLESTEROL 21 MG/DL (5-40)
--- NOTE | 2019-03-30 08:06 | Diagnostic Imaging Report ---
HISTORY: Atrial fibrillation. COMPARISON: 03/29/2019 TECHNIQUE: Frontal view of the chest. FINDINGS: Linear opacities in the lung bases appear to be chronic. No new consolidation is seen. There is no pleural effusion or pneumothorax seen. The cardiac silhouette is stable in size. There is aortic atherosclerosis. There is right convex curvature of the thoracic spine. IMPRESSION: 1. Stable chronic scarring in the lung bases with no new consolidation seen. Dictated by: Dictated on workstation # [id number]
--- NOTE | 2019-03-30 08:33 | History & Physical ---
History of Present Illness History of Present Illness Reason for visit/HPI PT IS AN 89 Y/O FEMALE WHO IS WELL KNOWN TO ME FROM CLINIC. SHE HAS A HISTORY OF ATRIAL FIBRILLATION, AND PRESENTED TO THE CLINIC WITH A SENSATION OF NOT FEELING WELL AND HAVING A RAPID HEART BEAT. SHE WAS FOUND TO BE IN ACUTE ATRIAL FIBRILLATION IN THE EMERGENCY DEPARTMENT AND ADMITTED TO THE HOSPITAL FOR RATE CONTROL WELL POTENTIAL CARDIOVERSION. Date of Admission Mar 29, 2019 at 20:17 I consulted on this patient on 03/30/19 08:30 Attending Physician Nedra Hamilton MD Admitting Physician Jin Anderson MD Consult Allergies and Home Medications Allergies Coded Allergies: Penicillins (Verified Allergy, Unknown, 12/16/06) ciprofloxacin (Verified Allergy, Unknown, 02/16/08) morphine (Verified Allergy, Unknown, 12/16/06) digoxin (Verified Adverse Reaction, Unknown, HALLUCINATIONS., 01/14/18) Home Medications Amiodarone HCl 200 Mg Tablet, 200 MG PO UD take 2 tablets twice a day for one week then Take 1 tablet twice a day Prescribed by: AUGUSTA SALAZAR on 08/12/18 1328 Calcium Carbonate/Vitamin D3 1 Each Tablet, 1 TAB PO DAILY, (Reported) Ciclopirox 6.6 Ml Solution, TOP DAILY, (Reported) Dabigatran Etexilate Mesylate 150 Mg Capsule, 150 MG PO BID, (Reported) Ferrous Sulfate 15 Mg/1 Ml Drops, 1 TSP PO DAILY, (Reported) Fish Oil/Dha/Epa 1 Each Capsule, 1,200 MG PO BID, (Reported) Leflunomide 20 Mg Tablet, 20 MG PO DAILY, (Reported) Losartan Potassium 25 Mg Tablet, 25 MG PO 1200, (Reported) Magnesium Oxide 250 Mg Tablet, 250 MG PO DAILY, (Reported) Metoprolol Tartrate 100 Mg Tablet, 100 MG PO BID, (Reported) Ranitidine HCl 150 Mg Tablet, 150 MG PO DAILY PRN for HEARTBURN, (Reported) Simvastatin 10 Mg Tablet, 10 MG PO HS, (Reported) Past Jvyqvvh-Qqabtn-Hbllxz Hx Patient Social History Alcohol Use: Denies Use Recreational Drug Use: No 2nd Hand Smoke Exposure: No Recent Foreign Travel: No Contact w/other who traveled: No Recent Hopitalizations: Yes Recent Infectious Disease Expo: No Immunizations Up To Date Date of Pneumonia Vaccine: Jul 11, 2015 Date of Influenza Vaccine: Jan 06, 2019 Seasonal Allergies Seasonal Allergies: No Past Medical History Surgeries: Gallbladder, Hysterectomy, Orthopedic Currently Using CPAP: No Currently Using BIPAP: No Cardiac: Atrial Fibrillation, Coronary Artery Disease, Hypertension : No 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: Yes (TUBAL 1950) Sexually Transmitted Disease: No HIV/AIDS: No Female 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 Disorders: Denies Genitourinary: Renal Failure Gastrointestinal: Gastroesophageal Reflux Musculoskeletal: Rheumatoid Arthritis HEENT: Cataract Loss of Vision: Denies History of Blood Disorders: Yes (FACTOR FIVE LYDEN) Family History No Pertinent Family Hx Physical Exam Vital Signs Vital Signs - First Documented 03/29/19 21:58 Pulse Ox 95 Capillary Refill : Less Than 3 Seconds Height, Weight, BMI Height: 5'4.00" Weight: 145lbs. 0.0oz. [id number]; 26.01 BMI Method:Stated Assessment/Plan Assessment and Plan ATRIAL FIBRILLATION CHRONIC HYPERTENSION CHRONIC ANTICOAGULATION ADVANCED AGE OSTEOARTHRITIS IRON DEFICIENCY GERD HYPERLIPIDEMIA Admission Diagnosis ATRIAL FIBRILLATION CHRONIC HYPERTENSION CHRONIC ANTICOAGULATION ADVANCED AGE OSTEOARTHRITIS IRON DEFICIENCY GERD HYPERLIPIDEMIA Admission Status: Inpatient Order (span 2 midnights) Reason for Inpatient Admission: INPT ADMISSION FOR AFIB, WILL NEED AT LEAST TWO MIDNIGHTS FOR ADMISSION FOR STABILIZATION OF HEART RATE. Clinical Quality Measures AMI/AHF: ASA po Prior to arrival: No DVT/VTE Risk/Contraindication: Risk Factor Score Per Nursin RFS Level Per Nursing on Admit: 2=Moderate JIN ANDERSON MD Mar 30, 2019 08:33
[2019-03-30] MEDS ORDERED: ASPIRIN 81 MG CHEW (CHILDREN'S ASA) PO SCH (09:00)
[2019-03-30] MEDS: NS IV 1000 ML 1,000 ML IV SCH (11:24)
--- NOTE | 2019-03-30 11:30 | NUR ---
PATIENT CONSENTED FOR CARDIOVERSION PER DR. WADSWORTH. CONSENT SIGNED ET PLACED ON CHART, ANESTHESIA NOTIFIED OF NEED FOR CONSCIOUS SEDATION. DR. WADSWORTH ET ANESTHESIA IN ROOM, ANESTHESIA SEDATED PATIENT ET DR. WADSWORTH GAVE ORDER TO CHARGE ZOLL TO 200J, PATIENT WAS CLEARED ET ONE SHOCK DELIVERED AT 1109. PATIENT HAD PAUSE ET CONVERTED TO SINUS BRADYCARDIA. EKG WAS OBTAINED TO CONFIRM.
--- NOTE | 2019-03-30 11:51 | Cardioversion ---
Cardioversion PROCEDURE PHYSICIAN: Fernando Pemberton MD DATE OF PROCEDURE: 03/30/19 DIRECT EXTERNAL ELECTRICAL CARDIOVERSION: Indications: Atrial Fibrillation with rapid ventricular rate Preoperative diagnoses: Atrial Fibrillation with rapid ventricular rate Postoperative diagnosis: Sinus rhythm, Successful Electrical Cardioversion History: Persistent atrial fibrillation. On uninterrupted Pradaxa and flecainide. Anesthesia: By Anesthesia services Complications: None Specimen: None Contrast: 0 Flouroscopy: none Procedure Details: The patient was brought the nursery laborer after informed consent was taken, all the risks and complications were explained including the risk of stroke. Electrical cardioversion was carried out with anesthesia support with propofol. 200 joules of synchronized shock was delivered through external patches which promptly restored sinus rhythm. The patient tolerated the procedure well. Conclusions: 1.Successful Cardioversion. 2.Continue oral anticoagulation and rate controlling agent. 3.Follow up with Dr. Celestin. Fernando Pemberton MD, [facility] Cardiac Electrophysiology Linda PEMBERTON MD Mar 30, 2019 11:51
--- NOTE | 2019-03-30 11:51 | Consultation-Cardiology ---
HPI-Cardiology Cardiology Consultation: Date of Consultation 03/30/19 Date of Admission Attending Physician Nedra Hamilton MD Admitting Physician Sarita Monk MD Consulting Physician Linda PEMBERTON MD HPI: Time Seen by a Provider: 09:30 Chief Complaint: Palpitations This is a 89-year-old lady who follows with Dr. Monk and Dr. Celestin. She has history of persistent atrial fibrillation, hyperlipidemia and hypertension. She had a cardioversion in October by Dr. Celestin. She has been on Pradaxa and flecainide. She presented with atrial fibrillation with rapid ventricular rate. Complained of palpitations and possible difficulty speaking and weird sensation behind her eyes. She denies any shortness of breath, syncope or near syncope. She denies active smoking. Her brother had an history of atrial fibrillation. She denies any other cardiac symptoms. Review of Systems-Cardiology Review of Systems Constitutional: As described under HPI; No As described under HPI, No no symptoms reported, No chills, No fever, No lightheadedness Eyes: No As described under HPI, No no symptoms reported, No blindness, No blurred vision, No contact lenses, No drainage, No decreased acuity, No foreign body sensation, No pain, No vision change Ears/Nose/Throat: No As described under HPI, No no symptoms reported, No chronic hearing loss, No ear discharge, No ear pain, No nasal drainage, No ulcer ations Respiratory: No no symptoms reported; As described under HPI; No As described under HPI, No cough, No orthopnea, No shortness of breath, No SOB with excertion Cardiovascular: No no symptoms reported; As described under HPI; No As described under HPI, No chest pain, No edema, No irregular heart rate, No lightheadedness; palpitations Gastrointestinal: No no symptoms reported, No As described under HPI, No abdomen distended, No abdominal pain, No blood streaked bowels, No constipation, No diarrhea, No nausea, No vomiting, No stool coloration changes Genitourinary: No As described under HPI, No burning, No dysuria, No discharge, No frequency, No flank pain, No hematuria, No urgency : Yes : No Skin: No rash, No skin related problems, No ulcerations Psychiatric/Neurological: No anxiety, No depression, No seizure, No focal weakness, No syncope Hematologic: No bleeding abnormalities ENT-Kmiggo-Appuse Hx Patient Social History Alcohol Use: Denies Use Recreational Drug Use: No 2nd Hand Smoke Exposure: No Recent Foreign Travel: No Recent Infectious Disease Expo: No Hospitalization with Isolation: Denies Immunizations Up To Date Date of Pneumonia Vaccine: Jul 11, 2015 Date of Influenza Vaccine: Jan 06, 2019 Past Medical History PMH As described under Assessment. Allergies and Home Medications Allergies Coded Allergies: Penicillins (Verified Allergy, Unknown, 12/16/06) ciprofloxacin (Verified Allergy, Unknown, 02/16/08) morphine (Verified Allergy, Unknown, 12/16/06) digoxin (Verified Adverse Reaction, Unknown, HALLUCINATIONS., 01/14/18) Home Medications Amiodarone HCl 200 Mg Tablet, 200 MG PO UD take 2 tablets twice a day for one week then Take 1 tablet twice a day Prescribed by: AUGUSTA CELESTIN on 08/12/18 1328 Calcium Carbonate/Vitamin D3 1 Each Tablet, 1 TAB PO DAILY, (Reported) Ciclopirox 6.6 Ml Solution, TOP DAILY, (Reported) Dabigatran Etexilate Mesylate 150 Mg Capsule, 150 MG PO BID, (Reported) Ferrous Sulfate 15 Mg/1 Ml Drops, 1 TSP PO DAILY, (Reported) Fish Oil/Dha/Epa 1 Each Capsule, 1,200 MG PO BID, (Reported) Leflunomide 20 Mg Tablet, 20 MG PO DAILY, (Reported) Losartan Potassium 25 Mg Tablet, 25 MG PO 1200, (Reported) Magnesium Oxide 250 Mg Tablet, 250 MG PO DAILY, (Reported) Metoprolol Tartrate 100 Mg Tablet, 100 MG PO BID, (Reported) Ranitidine HCl 150 Mg Tablet, 150 MG PO DAILY PRN for HEARTBURN, (Reported) Simvastatin 10 Mg Tablet, 10 MG PO HS, (Reported) Patient Home Medication List Home Medication List Reviewed: Yes Physical Exam-Cardiology Physical Exam Vital Signs/I&O Capillary Refill : Less Than 3 Seconds Constitutional: appears stated age, AAO x 3; No apparent distress; well- developed, well-nourished HEENT: PERRL; No normal ENT inspection, No TMs normal, No pharynx normal, No scleral icterus (R), No scleral icterus (L), No pale conjunctivae (R), No pale conjunctivae (L), No photophobia, No TM abnormal (R), No TM abnormal (L), No pharyngeal erythema, No tonsillar exudate, No other, No discharge, No EOMI; hearing is well preserved; No hard of hearing; oral hygience is good; No ulceration, No xanthelasmas are seen Neck: No non-tender, No full range of motion, No supple, No normal inspection, No carotid bruit, No limited range of motion, No lymphadenopathy (R), No lymphadenopathy (L), No tender lateral, No tender midline, No thyromegaly, No other; carotid pulses are 2 + bilaterally; No with good upstrokes Respiratory: chest is bilaterally symmetric, lungs clear to auscultation Cardiovascular: irregularly irregular, tachycardia, S1 and S2 Gastrointestinal: No tender; soft; No round, No distended, No pulsatile mass, No organomegaly, No guarding, No rebound, No tenderness, No hernia, No mass; audible bowel sounds; No abnormal bowel sounds, No abdominal bruits, No spleenomegaly, No other Rectal: deferred Extremities: normal range of motion, non-tender, normal inspection; No clubbing, No cyanosis; no lower extremity edema bilateral; No significant edema Neurologic/Psychiatric: no motor/sensory deficits, alert, oriented x 3, power is 5/5 both on sides Skin: normal color; No rash, No ulcerations Data Review Labs Microbiology 03/29/19 MRSA Screen - Final, Complete MRSA not isolated ECG Impression ECG Initial ECG Impression: Atrial Fibrillation w/RVR A/P-Cardiology Assessment/Admission Diagnosis Atrial fibrillation with RVR, Hypertension, Hyperlipidemia Plan Atrial fibrillation with RVR, she has been on uninterrupted Pradaxa for at least a month. Previous cardioversion in 10/2018. She is on flecainide for antiarrhythmic therapy. We'll schedule direct electrical cardioversion. Informed consent was taken. Risk of stroke of 1/500 was discussed with the patient. The patient and family understands and will like to proceed with the procedure. If she stays in sinus rhythm she will be discharged later on to follow with Dr. Celestin. Hypertension: Continue losartan. Hyperlipidemia: Continue simvastatin. Follow-up with Dr. Celestin as an outpatient after cardioversion. Thank you for your consultation. Please call me if you have any questions. Fernando Pemberton MD, FACP, FACC, FSCAI, FHRS, CCDS Interventional Cardiology Cardiac Electrophysiology Vascular Medicine and Endovascular Interventions Clinical Quality Measures AMI/AHF: ASA po Prior to arrival: No DVT/VTE Risk/Contraindication: Risk Factor Score Per Nursin RFS Level Per Nursing on Admit: 2=Moderate Linda PEMBERTON MD Mar 30, 2019 11:51
--- NOTE | 2019-03-30 12:46 | Anesthesia-General Post-Op ---
MAC Patient Condition Mental Status/LOC: Same as Preop Cardiovascular: Satisfactory Nausea/Vomiting: Absent Respiratory: Satisfactory Pain: Controlled Complications: Absent Post Op Complications Complications None Follow Up Care/Instructions Patient Instructions None needed. Anesthesiology Discharge Order Discharge Order Patient is doing well, no complaints, stable vital signs, no apparent adverse anesthesia problems. No complications reported per nursing. FLOR GUERRERO CRNA Mar 30, 2019 12:46
--- NOTE | 2019-03-30 13:46 | Discharge Inst-Complex ---
PDI Reconcile Patient Problems Problems Reviewed?: Yes Med Rec & Follow Up Appt. Continued Medications: Amiodarone HCl (Amiodarone HCl) 200 Mg Tablet 200 MG PO UD, #90 TAB 4 Refills take 2 tablets twice a day for one week then Take 1 tablet twice a day Calcium Carbonate/Vitamin D3 (Calcium 1,000 + D3 Caplet) 1 Each Tablet 1 TAB PO DAILY, TAB Ciclopirox (Ciclopirox) 6.6 Ml Solution TOP DAILY, EA Dabigatran Etexilate Mesylate (Pradaxa) 150 Mg Capsule 150 MG PO BID, TAB Ferrous Sulfate (Ferrous Sulfate) 15 Mg/1 Ml Drops 1 TSP PO DAILY, DROPS Fish Oil/Dha/Epa (Fish Oil 1,200 mg Fish Oil) 1 Each Capsule 1200 MG PO BID, CAP Leflunomide (Leflunomide) 20 Mg Tablet 20 MG PO DAILY, TAB Losartan Potassium (Losartan Potassium) 25 Mg Tablet 25 MG PO 1200, TAB Magnesium Oxide (Magnesium) 250 Mg Tablet 250 MG PO DAILY, TAB Metoprolol Tartrate (Metoprolol Tartrate) 100 Mg Tablet 100 MG PO BID, TAB Ranitidine HCl (Zantac) 150 Mg Tablet 150 MG PO DAILY PRN for HEARTBURN, TAB Simvastatin (Simvastatin) 10 Mg Tablet 10 MG PO HS, TAB Patient Instructions: call [facility] [place] [facility] or hospital with any acute concerns for return to afib Activity, Diet and PDI Resume Normal Activity: Yes Discharge Diet: Regular Diet Drink 6-8 Glasses of Fluid/Day: Yes Driving Instructions: No Driving for 24 Hours Return to The Hospital For: any concern for lifethreatening illne, injury, or if afib returns. Symptoms to Reoprt to : Appetite Changes, Fever Over 101 Degrees F, Pain/Pressure in Chest, Lightheadedness, Pain/Pressure in Shoulder, Questions/Concerns JIN ANDERSON MD Mar 30, 2019 13:46
--- NOTE | 2019-03-30 14:14 | NUR ---
RENATE REYES I demonstrates understanding of discharge instructions and accurately returns instructions upon questioning. Copy of Post-Discharge Instructions and Medication Discharge Instructions given to patient. RENATE REYES I is/is not able to manage continuing needs after discharge. Patients belongings returned to patient. Skin dry and intact; no breakdown noted. Patient discharged from [facility] on 03/30/19 at 1355. RENATE REYES I left floor via wheelchair, accompanied by PCT, .
== END 2019-03-30 13:55 | disposition home or self-care (01) | DRG 310 ==
LOC: EDUNIT# 19:35 → ER 19:36 → ICU 20:17
PROVIDERS: ADMIT Family Medicine; ATTEND Family Medicine
PROC: 5A2204Z Restoration of Cardiac Rhythm, Single (ICD-10-PCS; principal; 2019-03-30)
DX: I48.19 Other persistent atrial fibrillation (principal); K21.9 Gastro-esophageal reflux disease without esophagitis; M06.9 Rheumatoid arthritis, unspecified; I25.10 Atherosclerotic heart disease of native coronary artery without angina pectoris; I10 Essential (primary) hypertension; J44.9 Chronic obstructive pulmonary disease, unspecified; H26.9 Unspecified cataract; M19.90 Unspecified osteoarthritis, unspecified site; E61.1 Iron deficiency; E78.5 Hyperlipidemia, unspecified; Z90.710 Acquired absence of both cervix and uterus; Z79.01 Long term (current) use of anticoagulants
CPT/HCPCS: 36415; 71045; 80053; 80061; 83735; 83874; 83880; 84100; 84484; 85025; 85610; 85730; 87081; 93041; 93306; 96365; 96366

== ENCOUNTER 2019-04-28 06:28 | Emergency (ER) | payer MEDICARE ==
[~2019-04-28] VITALS: Ht 160 cm; Wt 66.5 kg
[~2019-04-28 06:28] MED LIST changes: +SIMV10TA26 PO; -SIMV10TA3 PO
--- NOTE | 2019-04-28 07:00 | NUR ---
ASSUMED CARE OF PT. DR IN WITH PT AT THIS TIME.
--- NOTE | 2019-04-28 07:10 | ED Cardiac General ---
History of Present Illness General Chief Complaint: Cardiac/General Problems Stated Complaint: BLOOD PRESSURE PROBLEMS Nursing Triage Note: PT PRESENTS TO THE ED C/O UNCONROLLED BLOOD PRESSURE. PT STATES SHE TOOK HER BP THIS AM AND THE R ARM READS VERY HIGH, SYSTOLIC REPORTED OVER 200, L ARM READS ERROR. PT DENIES CP, DENIES NV, DENIES SOB Source: patient, old records Exam Limitations: no limitations (LELIA GALVAN MD) History of Present Illness Date Seen by Provider: Apr 28, 2019 Time Seen by Provider: 06:40 (LELIA GALVAN MD) Initial Comments Ms. Coker is an 89-year old female presenting via private vehicle for blood pressure concerns. Patient states that she was taken off of her Losartan on 04/17/19 by her PCP. Since then her blood pressures have been variable, but she was concerned because they were high last night and this morning. She states that her measurement this morning was 198/98 which prompted her to come to the ER. She is experiencing no symptoms related to her hypertension. Specifically, she denies chest pain, SOA, edema, headache, or visual disturbances. When she presented to the ED this morning she had not yet taken any of her anti-hypertensive medications. (NUVIA ELIAS MEDICAL STUDENT) Allergies and Home Medications Allergies Coded Allergies: Penicillins (Verified Allergy, Unknown, 12/16/06) ciprofloxacin (Verified Allergy, Unknown, 02/16/08) morphine (Verified Allergy, Unknown, 12/16/06) digoxin (Verified Adverse Reaction, Unknown, HALLUCINATIONS., 01/14/18) Home Medications Amiodarone HCl 200 Mg Tablet, 200 MG PO UD take 2 tablets twice a day for one week then Take 1 tablet twice a day Prescribed by: AUGUSTA CELESTIN on 08/12/18 1328 Calcium Carbonate/Vitamin D3 1 Each Tablet, 1 TAB PO DAILY, (Reported) Ciclopirox 6.6 Ml Solution, TOP DAILY, (Reported) Dabigatran Etexilate Mesylate 150 Mg Capsule, 150 MG PO BID, (Reported) Ferrous Sulfate 15 Mg/1 Ml Drops, 1 TSP PO DAILY, (Reported) Fish Oil/Dha/Epa 1 Each Capsule, 1,200 MG PO BID, (Reported) Leflunomide 20 Mg Tablet, 20 MG PO DAILY, (Reported) Losartan Potassium 25 Mg Tablet, 25 MG PO 1200, (Reported) Magnesium Oxide 250 Mg Tablet, 250 MG PO DAILY, (Reported) Metoprolol Tartrate 100 Mg Tablet, 100 MG PO BID, (Reported) Ranitidine HCl 150 Mg Tablet, 150 MG PO DAILY PRN for HEARTBURN, (Reported) Simvastatin 10 Mg Tablet, 10 MG PO HS, (Reported) Patient Home Medication List Home Medication List Reviewed: Yes (LELIA GALVAN MD) Review of Systems Review of Systems Constitutional: no symptoms reported EENTM: No Symptoms Reported Respiratory: No Symptoms Reported Cardiovascular: No Symptoms Reported Gastrointestinal: No Symptoms Reported Genitourinary: No Symptoms Reported Musculoskeletal: no symptoms reported Skin: no symptoms reported Psychiatric/Neurological: No Symptoms Reported Endocrine: No Symptoms Reported (NUVIA ELIAS MEDICAL STUDENT) Past Tiazcjh-Ombfta-Ygxyvu Hx Patient Social History Alcohol Use: Denies Use Recreational Drug Use: No Smoking Status: Never a Smoker 2nd Hand Smoke Exposure: No Recent Foreign Travel: No Contact w/Someone Who Travel: No Recent Infectious Disease Expo: No Recent Hopitalizations: No Physical Abuse: No Sexual Abuse: No Mistreated: No Fear: No (LELIA GALVAN MD) Alcohol Use: Denies Use Recreational Drug Use: No Smoking Status: Never a Smoker (NUVIA ELIAS MEDICAL STUDENT) Immunizations Up To Date Tetanus Booster (TDap): Unknown PED Vaccines UTD: Yes Date of Pneumonia Vaccine: Jul 11, 2015 Date of Influenza Vaccine: Jan 06, 2019 (LELIA GALVAN MD) Seasonal Allergies Seasonal Allergies: Yes (LELIA GALVAN MD) Past Medical History Surgeries: Yes (r/l knee) Gallbladder, Hysterectomy, Orthopedic Respiratory: Yes COPD Currently Using CPAP: No Currently Using BIPAP: No Cardiac: Yes Atrial Fibrillation, Coronary Artery Disease, Hypertension Neurological: No : No 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 Disorders: Yes (TUBAL 1950) Female 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 Disorders: 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 Sexually Transmitted Disease: No HIV/AIDS: No Genitourinary: No Renal Failure Gastrointestinal: Yes Gastroesophageal Reflux Musculoskeletal: Yes Rheumatoid Arthritis Endocrine: No HEENT: Yes Cataract Loss of Vision: Denies Cancer: No Psychosocial: No Integumentary: No Blood Disorders: Yes (FACTOR FIVE LYDEN) (LELIA GALVAN MD) Family Medical History Heart Disease, Hypertension (LELIA GALVAN MD) Physical Exam Vital Signs Vital Signs - First Documented 04/28/19 06:31 Temp 36.7 Pulse 60 Resp 20 B/P (MAP) 187/77 (113) Pulse Ox 98 O2 Delivery Room Air (NUVIA ELIAS MEDICAL STUDENT) Vital Signs Capillary Refill : Less Than 3 Seconds (LELIA GALVAN MD) Height, Weight, BMI Height: 5'4.00" Weight: 145lbs. 0.0oz. [id number]; 25.00 BMI Method:Stated (LELIA GALVAN MD) General Appearance: No Apparent Distress HEENT: TMs Normal, Normal ENT Inspection Neck: Full Range of Motion, Non Tender Respiratory: No Respiratory Distress, Crackles ([place] in right lung base- patient states this is a chronic and unchanged finding. ) Cardiovascular: Regular Rate, Rhythm, No Edema, No Gallop, No Murmur Gastrointestinal: Normal Bowel Sounds, Non Tender Rectal: Deferred Extremity: Normal Capillary Refill, No Calf Tenderness, No Pedal Edema Neurologic/Psychiatric: Alert, Oriented x3, No Motor/Sensory Deficits (NUVIA ELIAS MEDICAL STUDENT) Progress/Results/Core Measures Results/Orders Vital Signs/I&O 04/28/19 04/28/19 06:31 07:17 Temp 36.7 Pulse 60 58 Resp 20 16 B/P (MAP) 187/77 (113) 185/76 Pulse Ox 98 98 O2 Delivery Room Air Room Air (NUVIA ELIAS MEDICAL STUDENT) Blood Pressure Mean: 113 Progress Progress Note : Progress Note Patient was seen and examined. Multiple blood pressures were taken in each arm. Blood pressures ranged from 180-201 systolic. Diastolic blood pressure was only slightly elevated. Patient had a slight headache but denied any other symptoms. They were significantly concerned about difficulty measuring blood pressure on the left. She also states she sometimes has some pain and numbness in the left arm. Pulse was easily palpable on the left. Capillary refill was normal. The differential from right to left on her blood pressure measurements was less than 15 mmHg. I've advised her to discuss this further with Dr. Celestin and/or Dr. MONK. It is about time for her morning medications. I've advised her to return home and take her medications. A few hours later she should present to Dr. Monk's office for repeat blood pressure check and seek advice on her medications. Chart was reviewed. I find no evidence of heart failure, kidney disease, or other factors that would warrant further investigation in the emergency room. Patient did have crackles in the right lung base on exam. She states this is a chronic and unchanged finding that is heard on all of her exams. She denied any fever or increasing cough. (LELIA GALVAN MD) Departure Impression Primary Impression: Hypertension Qualified Codes: I10 - Essential (primary) hypertension Disposition: 01 HOME, SELF-CARE Condition: Stable Departure-Patient Inst. Decision time for Depature: 07:04 (LELIA GALVAN MD) Referrals: JIN MONK MD (PCP/Family) Primary Care Physician Patient Instructions: High Blood Pressure (DC) Add. Discharge Instructions: Return home and take your usual morning medications. Weight 3 or 4 hours after taking your medications and then presented to Dr. MONK's office to have your blood pressure checked. Seek further instructions from her office on medications and dosing. Regarding the difficulty with measuring blood pressure and left arm, please discuss this with Dr. MONK and Dr. Celestin. Although there is not a significant difference in the blood pressures from right to left in the ER, it is possible that you could have a narrow artery on the left causing a lower blood pressure. This can be investigated further on an outpatient basis. Drink plenty of water. Avoid excessive salt in your diet. Avoid any stimulants that could cause an increase in blood pressure including decongestant medications, excessive caffeine, diet pills, etc. Return to the emergency room if you have worsening symptoms. All discharge instructions reviewed with patient and/or family. Voiced understanding. This patient was interviewed and examined by me personally along with Nuvia Elias MS4. I agree with MS 4 history, physical, documentation, and assessments with the following additions and changes. Exam: Gen.: Alert, oriented, no acute distress HEENT: normocephalic and atraumatic Heart: Regular rate and rhythm without murmur Lungs: Clear to auscultation bilaterally with normal for Abdomen: Soft, nontender Extremities: Normal to inspection with no edema Skin: Warm and dry without rashes Neuropsych: Alert, oriented, no focal deficits See discussion in progress note above. (LELIA GALVAN MD) Copy Copies To 1: JIN MONK MD Copies To 2: AUGUSTA CELESTIN MD, JOSHUA T MD Apr 28, 2019 07:10 NUVIA ELIAS MEDICAL STUDENT Apr 28, 2019 07:38
[2019-04-28 07:17] VITALS: BP 185/76
== END 2019-04-28 07:17 | disposition home or self-care (01) ==
LOC: EDUNIT# 06:28 → ER 06:30
DX: I10 Essential (primary) hypertension (principal); J44.9 Chronic obstructive pulmonary disease, unspecified; I25.10 Atherosclerotic heart disease of native coronary artery without angina pectoris; I48.91 Unspecified atrial fibrillation; K21.9 Gastro-esophageal reflux disease without esophagitis; M06.9 Rheumatoid arthritis, unspecified; Z88.0 Allergy status to penicillin; Z88.5 Allergy status to narcotic agent; Z88.1 Allergy status to other antibiotic agents; Z88.8 Allergy status to other drugs, medicaments and biological substances; Z90.710 Acquired absence of both cervix and uterus; Z82.49 Family history of ischemic heart disease and other diseases of the circulatory system

== ENCOUNTER 2019-05-30 07:48 | Emergency (ER) | payer MEDICARE ==
[~2019-05-30] VITALS: Ht 160 cm; Wt 65.0 kg
[~2019-05-30 07:48] MED LIST changes: +FLEC100T PO
[2019-05-30] MEDS ORDERED: NS IV 500 ML 500 ML IV ONE (08:30)
--- NOTE | 2019-05-30 08:39 | ED Abdominal Pain ---
General Chief Complaint: Abdominal/GI Problems Stated Complaint: ABD PAIN Nursing Triage Note: PATIENT HERE FOR CONCERNS OF RIGHT LOWER QUADRANT ABD PAIN THAT RAD TO HER RIGHT LOWER BACK. THIS STARTED A FEW NIGHTS AGO AND ONLY OCCURS AT NIGHT AND IMPROVES THROUGHOUT THE DAY. DENIES AND URINARY OR GI SYMPTOMS. Sepsis Screen: No Definite Risk Source of Information: Patient Exam Limitations: No Limitations (ELI BARLOW MEDICAL STUDENT) History of Present Illness Date Seen by Provider: May 30, 2019 Time Seen by Provider: 08:10 Initial Comments Pt is a 89 yo female who ambulates to the ED for aching, burning RUQ abdominal pain that radiates to her RLQ and R flank. It is worse at night, and got so bad last night that she is here this morning. The pain improves after she eats her first meal of the day and stays low grade throughout the day. She denies any GI or complaints. She reports she had a similar pain 8 years ago and was worked up here by Urology. Review of records shows she presented 8 years ago to the day, CT A/P revealed a R renal mass suspicious for neoplasm or hematoma. Dr. Seaman was consulted who performed ureteroscopy with renal fluid collection for cytology. 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 Pt reports she received further workup at and was told it was benign. She has a history of CKD, HTN, Afib, factor V Leiden, CAD, COPD, diverticulosis, and multiple abdominal surgeries. Currently on warfarin. Premium Card Cancellation Clerk is Dr. Celestin. Timing/Duration: 3-4 Days Severity/Quality: Moderate, Aching, Burning Location: RUQ Radiation: RLQ, Flank (R) Activities at Onset: Rest Modifying Factors: Improves With Eating; Worsens With Lying down; Improves With Movement; Worsens With Resting Associated Symptoms: Denies Symptoms (ELI BARLOW MEDICAL STUDENT) Timing/Duration: 3-4 Days, Intermittent Severity/Quality: Mild, Moderate, Aching Location: RUQ Radiation: RLQ Activities at Onset: Rest Modifying Factors: Improves With Eating Associated Symptoms: No Back Pain, No Nausea/Vomiting, No Shortness of Air, No Swelling/Mass in Abdomen, No Weakness (MAHSA IVERSON MD) Allergies and Home Medications Allergies Coded Allergies: Penicillins (Verified Allergy, Unknown, 12/16/06) ciprofloxacin (Verified Allergy, Unknown, 02/16/08) morphine (Verified Allergy, Unknown, 12/16/06) digoxin (Verified Adverse Reaction, Unknown, HALLUCINATIONS., 01/14/18) Home Medications Ciclopirox 6.6 Ml Solution, TOP DAILY, (Reported) Dabigatran Etexilate Mesylate 150 Mg Capsule, 150 MG PO BID, (Reported) Ferrous Sulfate 15 Mg/1 Ml Drops, 1 TSP PO DAILY, (Reported) Fish Oil/Dha/Epa 1 Each Capsule, 1,200 MG PO BID, (Reported) Flecainide Acetate 100 Mg Tablet, 100 MG PO BID Prescribed by: APARNA POLO on 05/13/19 1136 Leflunomide 20 Mg Tablet, 20 MG PO DAILY, (Reported) Losartan Potassium 25 Mg Tablet, 25 MG PO 1200, (Reported) Magnesium Oxide 250 Mg Tablet, 250 MG PO DAILY, (Reported) Metoprolol Tartrate 100 Mg Tablet, 100 MG PO BID, (Reported) Simvastatin 10 Mg Tablet, 10 MG PO HS, (Reported) Patient Home Medication List Home Medication List Reviewed: Yes (MAHSA IVERSON MD) Review of Systems Review of Systems Constitutional: No chills, No diaphoresis, No fever EENTM: No Symptoms Reported Respiratory: No Symptoms Reported Cardiovascular: No Symptoms Reported Gastrointestinal: Abdominal Pain; Denies Constipated, Denies Diarrhea, Denies Nausea, Denies Poor Appetite, Denies Vomiting (RUQ radiating to R flank and RLQ) Genitourinary: Denies Burning, Denies Discharge; Flank Pain; Denies Hematuria, Denies Pain Musculoskeletal: no symptoms reported Skin: No change in color, No rash Psychiatric/Neurological: No Symptoms Reported Endocrine: No Symptoms Reported Hematologic/Lymphatic: No Symptoms Reported (ELI BARLOW MEDICAL STUDENT) Constitutional: see HPI EENTM: No Symptoms Reported Respiratory: No Symptoms Reported Cardiovascular: No Symptoms Reported Gastrointestinal: See HPI, Diarrhea (since arriving to the emergency department) (MAHSA IVERSON MD) All Other Systems Reviewed Negative Unless Noted: Yes (MAHSA IVERSON MD) Past Ckliydb-Bsqmab-Dinnjp Hx Past Med/Social Hx: Reviewed Nursing Past Med/Soc Hx (ELI BARLOW MEDICAL STUDENT) Past Med/Social Hx: Reviewed Nursing Past Med/Soc Hx (MAHSA IVERSON MD) Patient Social History Alcohol Use: Denies Use Recreational Drug Use: No Smoking Status: Never a Smoker 2nd Hand Smoke Exposure: Yes ( QUIT SMOKING SEVERAL YEARS AGO) Recent Foreign Travel: No Contact w/Someone Who Travel: No Recent Infectious Disease Expo: No Recent Hopitalizations: No (ELI BARLOW MEDICAL STUDENT) Immunizations Up To Date Tetanus Booster (TDap): Unknown PED Vaccines UTD: Yes Date of Pneumonia Vaccine: Jul 10, 2018 Date of Influenza Vaccine: Dec 21, 2018 (ELI BARLOW MEDICAL STUDENT) Seasonal Allergies Seasonal Allergies: Yes (ELI BARLOW MEDICAL STUDENT) Past Medical History Surgeries: Yes (BILAT KNEE SURGERY;CYSTOCOELE;HYST/BSO;BLADDER SLING;CARDIAC CATH-NO INTERV) Bladder Surgery, Cardiac, Gallbladder, Hysterectomy, Oophorectomy, Orthopedic, Tubal Ligation Respiratory: Yes (PULMONARY HTN) Chronic Bronchitis, COPD Currently Using CPAP: No Currently Using BIPAP: No Cardiac: Yes (SUCCESSFUL CARDIOVERSIONS 08/2018 & 03/29/19; CATH 08/2012-MILD CAD/NO INTE) Atrial Fibrillation, Coronary Artery Disease, High Cholesterol, Hypertension Neurological: No 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 Disorders: Yes (TUBAL 1950) 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 Sexually Transmitted Disease: No HIV/AIDS: No Genitourinary: Yes (RENAL CYSTS) Renal Failure Gastrointestinal: Yes (HEPATIC CYSTS) Gastroesophageal Reflux, Diverticulosis Musculoskeletal: Yes Arthritis, Rheumatoid Arthritis, Chronic Back Pain Endocrine: No HEENT: Yes Cataract Loss of Vision: Denies Cancer: No Psychosocial: No Integumentary: No Blood Disorders: Yes (FACTOR 5 LEIDEN) (ELI BARLOW MEDICAL STUDENT) Family Medical History Reviewed Nursing Family Hx (MAHSA IVERSON MD) FACTOR V LEIDEN 19 FATHER G8 BROTHER Heart Disease, Hypertension (ELI BARLOW MEDICAL STUDENT) Physical Exam Vital Signs Vital Signs - First Documented 05/30/19 08:12 Temp 36.7 Pulse 66 Resp 20 B/P (MAP) 164/82 (109) Pulse Ox 98 (MAHSA IVERSON MD) Vital Signs Capillary Refill : Less Than 3 Seconds (ELI BARLOW MEDICAL STUDENT) Height/Weight/BMI Height: 5'4.00" Weight: 145lbs. 0.0oz. [id number]; 25.00 BMI Method:Stated General Appearance: WD/WN, no apparent distress HEENT: PERRL/EOMI, pharynx normal Neck: non-tender, full range of motion, supple, normal inspection Respiratory: chest non-tender, lungs clear, normal breath sounds, no respirator y distress Cardiovascular: regular rate, rhythm, no edema, no gallop, no murmur Peripheral Pulses: 2+ Dorsalis Pedis (R), 2+ Left Dors-Pedis (L), 2+ Radial Pulses (R), 2+ Radial Pulses (L) Gastrointestinal: normal bowel sounds, soft, no organomegaly, no pulsatile mass, tenderness (mild TTP in RUQ) Extremities: normal range of motion, non-tender, no pedal edema, no calf tenderness Back: no CVA tenderness, no vertebral tenderness Neurologic/Psychiatric: alert, oriented x 3 Skin: normal color, warm/dry; No rash (No erythema or vesicles overlying the R flank or abdomen) Lymphatic: no adenopathy (ELI BARLOW MEDICAL STUDENT) General Appearance: WD/WN, no apparent distress HEENT: PERRL/EOMI, pharynx normal Neck: full range of motion, supple Respiratory: lungs clear, normal breath sounds Cardiovascular: regular rate, rhythm, no murmur Gastrointestinal: non tender, soft, no organomegaly, no pulsatile mass Extremities: normal range of motion, non-tender, no pedal edema Back: no CVA tenderness, no vertebral tenderness Neurologic/Psychiatric: alert, oriented x 3 Skin: normal color, warm/dry (MAHSA IVERSON MD) Progress/Results/Core Measures Results/Orders Lab Results Laboratory Tests Test 05/30/19 08:40 05/30/19 10:30 Range/Units White Blood Count 6.1 4.3-11.0 10^3/uL Red Blood Count 4.31 L 4.35-5.85 10^6/uL Hemoglobin 12.5 11.5-16.0 G/DL Hematocrit 39 35-52 % Mean Corpuscular Volume 91 80-99 FL Mean Corpuscular Hemoglobin 29 25-34 PG Mean Corpuscular Hemoglobin Concent 32 32-36 G/DL Red Cell Distribution Width 13.3 10.0-14.5 % Platelet Count 243 130-400 10^3/uL Mean Platelet Volume 9.2 7.4-10.4 FL Neutrophils (%) (Auto) 63 42-75 % Lymphocytes (%) (Auto) 20 12-44 % Monocytes (%) (Auto) 10 0-12 % Eosinophils (%) (Auto) 6 0-10 % Basophils (%) (Auto) 1 0-10 % Neutrophils # (Auto) 3.8 1.8-7.8 X 10^3 Lymphocytes # (Auto) 1.2 1.0-4.0 X 10^3 Monocytes # (Auto) 0.6 0.0-1.0 X 10^3 Eosinophils # (Auto) 0.4 H 0.0-0.3 10^3/uL Basophils # (Auto) 0.1 0.0-0.1 10^3/uL Prothrombin Time 19.2 H 12.2-14.7 SEC INR Comment 1.6 H 0.8-1.4 Sodium Level 139 135-145 MMOL/L Potassium Level 4.2 3.6-5.0 MMOL/L Chloride Level 105 98-107 MMOL/L Carbon Dioxide Level 23 21-32 MMOL/L Anion Gap 11 5-14 MMOL/L Blood Urea Nitrogen 21 H 7-18 MG/DL Creatinine 1.11 0.60-1.30 MG/DL Estimat Glomerular Filtration Rate 46 BUN/Creatinine Ratio 19 Glucose Level 101 70-105 MG/DL Calcium Level 9.6 8.5-10.1 MG/DL Corrected Calcium 9.6 8.5-10.1 MG/DL Total Bilirubin 0.3 0.1-1.0 MG/DL Aspartate Amino Transf (AST/SGOT) 16 5-34 U/L Alanine Aminotransferase (ALT/SGPT) 11 0-55 U/L Alkaline Phosphatase 86 40-136 U/L C-Reactive Protein High Sensitivity 0.62 H 0.00-0.50 MG/DL Total Protein 7.0 6.4-8.2 GM/DL Albumin 4.0 3.2-4.5 GM/DL Urine Color YELLOW Urine Clarity CLEAR Urine pH 6.5 5-9 Urine Specific [place] <=1.005 1.016-1.022 Urine Protein NEGATIVE NEGATIVE Urine Glucose (UA) NEGATIVE NEGATIVE Urine Ketones NEGATIVE NEGATIVE Urine Nitrite NEGATIVE NEGATIVE Urine Bilirubin NEGATIVE NEGATIVE Urine Urobilinogen 0.2 < = 1.0 MG/DL Urine Leukocyte Esterase NEGATIVE NEGATIVE Urine RBC (Auto) TRACE-I NEGATIVE Urine RBC NONE /HPF Urine WBC NONE /HPF Urine Squamous Epithelial Cells 0-2 /HPF Urine Crystals NONE /LPF Urine Bacteria NEGATIVE /HPF Urine Casts NONE /LPF Urine Mucus NEGATIVE /LPF Urine Culture Indicated NO (MAHSA IVERSON MD) My Orders Orders - MAHSA IVERSON MD Cbc With Automated Diff (05/30/19 08:30) Comprehensive Metabolic Panel (05/30/19 08:30) Hs C Reactive Protein (05/30/19 08:30) Ua Culture If Indicated (05/30/19 08:30) Ed Iv/Invasive Line Start (05/30/19 08:30) Ns Iv 500 Ml (Sodium Chloride 0.9%) (05/30/19 08:30) Protime With Inr (05/30/19 08:30) Ct Abd/Pelvis Wo(Kidney Stone) (05/30/19 09:12) (MAHSA IVERSON MD) Medications Given in ED Current Medications Medications Dose Ordered Sig/Mable Route Start Time Stop Time Status Last Admin Dose Admin Sodium Chloride 500 ml @ 0 mls/hr Q0M ONCE IV 05/30/19 08:30 05/30/19 08:32 DC 05/30/19 08:50 0 MLS/HR (MAHSA IVERSON MD) Vital Signs/I&O 05/30/19 08:12 Temp 36.7 Pulse 66 Resp 20 B/P (MAP) 164/82 (109) Pulse Ox 98 (MAHSA IVERSON MD) Blood Pressure Mean: 109 Progress Progress Note : Progress Note I have seen and evaluated the patient and agree with above except as indicated. I have directed the plan of care. Patient is here with intermittent right sided abdominal pain that seems to start (goes to the flank and or lower. States it's better after eating breakfast. Usually occurs overnight. Denies vomiting. Has had some nausea. Denies nausea currently and declines nausea medicine or pain medicine. Evaluation as above Plan is for IV, labs and CT abdomen and pelvis after lab results. We will also check a UA. Monitor patient. 1053: UA pending. CT does not show any acute or significant findings. Monitor patient. 1113: UA resulted and is negative. I did talk with the patient more about her symptoms. We discussed the possibility of the wound ulcer or irritation. She's been on Carafate previously but is not currently. She does have it at home. I will have her restart that and add famotidine at night as well. She thought that was a fine idea. I will have her follow up with Dr. Monk I will send a copy of the note over to her. She may need upper endoscopy to evaluate more. This was discussed with the patient as well and Dr. Monk can help with facilitating that evaluation. Discharged home with return precautions. Patient and family verbalize understanding instructions and agreement with plan. (MAHSA IVERSON MD) Diagnostic Imaging Diagonstic Imaging: CT Plain Films/CT/US/NM/MRI: abdomen, pelvis Comments NAME: RENATE REYES I [facility] REC#: [id number] PT STATUS: REG ER : 1932 PHYSICIAN: MAHSA IVERSON MD ADMIT DATE: 05/30/19/ER Draft Date of Exam:05/30/19 CT ABD/PELVIS WO(KIDNEY STONE) PROCEDURE: CT urinary tract, rule out kidney stone. TECHNIQUE: Multiple contiguous axial images were obtained through the abdomen and pelvis without the use of intravenous contrast. Auto Exposure Controls were utilized during the CT exam to meet ALARA standards for radiation dose reduction. INDICATION: Right lower quadrant pain radiating into the back. Symptoms of a few days duration but worsening in severity. COMPARISON: Exam compared with CT abdomen and pelvis performed 06/06/2011. FINDINGS: There is no hydroureteronephrosis. No radiodense urinary tract stones. No perinephric or periureteric edema. The unopacified urinary bladder had an unremarkable appearance. The cecum and terminal ileum had an unremarkable appearance. I am unable to definitively visualize the appendix, if present, presumed collapsed and normal and noninflamed. No findings suggestive of appendicitis. There is no ascites, abscess, hematoma or fluid collection. There is no ileus or bowel obstruction. No perienteric or pericolonic edema. No bowel wall thickening. There is no ascites. There is no focal inflammatory process. Chronic left and right lobe hepatic cyst stable. There are postoperative changes to the abdominal wall stable. No hernia, fluid collection or acute abnormalities. IMPRESSION: Unobstructed nonfocal urinary tracts. No inflammatory process, fluid collection, mass, ascites or acute abnormalities identified. Dictated on workstation # [id number] Dict: 05/30/19 1032 Trans: 05/30/19 1038 [facility] [id number] Interpreted by: OANH AMAYA Electronically signed by: (MAHSA IVERSON MD) Departure Impression Primary Impression: Right upper quadrant abdominal pain Additional Impression: Acute diarrhea Disposition: 01 HOME, SELF-CARE Condition: Improved Departure-Patient Inst. Decision time for Depature: 11:15 (MAHSA IVERSON MD) Referrals: JIN MONK MD (PCP/Family) Primary Care Physician Patient Instructions: Acute Abdomen (Belly Pain), Adult (DC), Diarrhea in Adolescents and Adults Add. Discharge Instructions: All discharge instructions reviewed with patient and/or family. Voiced understanding. You should restart your Carafate at home per previous prescription. You may initiate [id number] famotidine/Pepcid 20 mg daily. You may take that at night before bedtime. Follow-up with Dr. Monk for recheck and further evaluation and discussed with her about referral to a surgeon for upper endoscopy (scope) if needed. Drink plenty of fluids. Return for worse pain, fever, vomiting, weakness, breathing problems or other concerns as needed. Copy Copies To 1: JIN MONK MD, TYLER MEDICAL STUDENT May 30, 2019 08:39 MAHSA IVERSON MD May 30, 2019 10:44
[2019-05-30 08:50] LABS: BASOPHILS # (AUTO) 0.1 10^3/uL (0.0-0.1); BASOPHILS % (AUTO) 1 % (0-10); EOSINOPHILS # (AUTO) 0.4 10^3/uL (0.0-0.3); EOSINOPHILS % (AUTO) 6 % (0-10); HEMATOCRIT 39 % (35-52); HEMOGLOBIN 12.5 G/DL (11.5-16.0); LYMPHOCYTES # (AUTO) 1.2 X 10^3 (1.0-4.0); LYMPHOCYTES % (AUTO) 20 % (12-44); MEAN CORPUSCULAR HEMOGLOBIN 29 PG (25-34); MEAN CORPUSCULAR HGB CONC 32 G/DL (32-36); MEAN CORPUSCULAR VOLUME 91 FL (80-99); MEAN PLATELET VOLUME 9.2 FL (7.4-10.4); MONOCYTES # (AUTO) 0.6 X 10^3 (0.0-1.0); MONOCYTES % (AUTO) 10 % (0-12); NEUTROPHILS # (AUTO) 3.8 X 10^3 (1.8-7.8); NEUTROPHILS % (AUTO) 63 % (42-75); PLATELET COUNT 243 10^3/uL (130-400); RED CELL DISTRIBUTION WIDTH 13.3 % (10.0-14.5); WHITE BLOOD COUNT 6.1 10^3/uL (4.3-11.0)
[2019-05-30 09:02] LABS: INR 1.6 (0.8-1.4); PROTHROMBIN TIME PATIENT 19.2 SEC (12.2-14.7)
[2019-05-30 09:07] LABS: BILIRUBIN,TOTAL 0.3 MG/DL (0.1-1.0); CALCIUM 9.6 MG/DL (8.5-10.1); CREATININE SERUM 1.11 MG/DL (0.60-1.30); POTASSIUM 4.2 MMOL/L (3.6-5.0)
[2019-05-30 10:38] LABS: BILIRUBIN,URINE NEGATIVE (NEGATIVE); CLARITY,URINE CLEAR; COLOR,URINE YELLOW; GLUCOSE, URINE (UA) NEGATIVE (NEGATIVE); KETONES,URINE NEGATIVE (NEGATIVE); LEUKOCYTE ESTERASE ,URINE NEGATIVE (NEGATIVE); NITRITE,URINE NEGATIVE (NEGATIVE); PH,URINE 6.5 (5-9); PROTEIN,URINE NEGATIVE (NEGATIVE)
--- NOTE | 2019-05-30 10:40 | Diagnostic Imaging Report ---
PROCEDURE: CT urinary tract, rule out kidney stone. TECHNIQUE: Multiple contiguous axial images were obtained through the abdomen and pelvis without the use of intravenous contrast. Auto Exposure Controls were utilized during the CT exam to meet ALARA standards for radiation dose reduction. INDICATION: Right lower quadrant pain radiating into the back. Symptoms of a few days duration but worsening in severity. COMPARISON: Exam compared with CT abdomen and pelvis performed 06/06/2011. FINDINGS: There is no hydroureteronephrosis. No radiodense urinary tract stones. No perinephric or periureteric edema. The unopacified urinary bladder had an unremarkable appearance. The cecum and terminal ileum had an unremarkable appearance. I am unable to definitively visualize the appendix, if present, presumed collapsed and normal and noninflamed. No findings suggestive of appendicitis. There is no ascites, abscess, hematoma or fluid collection. There is no ileus or bowel obstruction. No perienteric or pericolonic edema. No bowel wall thickening. There is no ascites. There is no focal inflammatory process. Chronic left and right lobe hepatic cyst stable. There are postoperative changes to the abdominal wall stable. No hernia, fluid collection or acute abnormalities. IMPRESSION: Unobstructed nonfocal urinary tracts. No inflammatory process, fluid collection, mass, ascites or acute abnormalities identified. Dictated by: Dictated on workstation # [id number]
[2019-05-30 11:07] LABS: BACTERIA,URINE NEGATIVE /HPF; SQUAMOUS EPITHELIAL CELL,UR 0-2 /HPF
[2019-05-30 11:34] VITALS: BP 182/70
== END 2019-05-30 11:34 | disposition home or self-care (01) ==
LOC: EDUNIT# 07:48 → ER 07:49
DX: R19.7 Diarrhea, unspecified (principal); R10.11 Right upper quadrant pain; I12.9 Hypertensive chronic kidney disease with stage 1 through stage 4 chronic kidney disease, or unspecified chronic kidney disease; N18.9 Chronic kidney disease, unspecified; I48.91 Unspecified atrial fibrillation; I25.10 Atherosclerotic heart disease of native coronary artery without angina pectoris; E78.00 Pure hypercholesterolemia, unspecified; K21.9 Gastro-esophageal reflux disease without esophagitis; Z79.01 Long term (current) use of anticoagulants; Z88.0 Allergy status to penicillin; Z88.1 Allergy status to other antibiotic agents; Z88.5 Allergy status to narcotic agent; Z88.8 Allergy status to other drugs, medicaments and biological substances; Z82.49 Family history of ischemic heart disease and other diseases of the circulatory system
CPT/HCPCS: 36415; 74176; 80053; 81000; 85025; 85610; 86141

== ENCOUNTER 2019-07-08 19:09 | Emergency (ER) | payer MEDICARE ==
[~2019-07-08] VITALS: Ht 160 cm; Wt 65.0 kg
[2019-07-08] MEDS ORDERED: meTOprolol 5 MG/5 ML (LOPRESSOR) VIAL IV ONE ×2 (19:15→20:00)
[2019-07-08] MEDS ORDERED: HYDR-83 (19:15)
--- NOTE | 2019-07-08 19:17 | ED Cardiac General ---
History of Present Illness General Chief Complaint: Cardiac/General Problems Stated Complaint: AFIB RVR Source: patient Exam Limitations: no limitations History of Present Illness Date Seen by Provider: Jul 08, 2019 Time Seen by Provider: 19:14 Initial Comments To ER by EMS on chest pain shortness of breath earlier this evening. History of atrial fibrillation with rapid ventricular response intermittently, she is on flecainide, Pradaxa. No fever no chills no cough. Timing/Duration: 1-3 hours Severity: moderate Location: central Prior CP/Workup: cardiac cath NTG SL CASH SPECIALIST: No ASA po CASH SPECIALIST: No Allergies and Home Medications Allergies Coded Allergies: Penicillins (Verified Allergy, Unknown, 12/16/06) ciprofloxacin (Verified Allergy, Unknown, 02/16/08) morphine (Verified Allergy, Unknown, 12/16/06) digoxin (Verified Adverse Reaction, Unknown, HALLUCINATIONS., 01/14/18) Home Medications Dabigatran Etexilate Mesylate 150 Mg Capsule, 150 MG PO BID, (Reported) Ferrous Sulfate 15 Mg/1 Ml Drops, 1 TSP PO DAILY, (Reported) Fish Oil/Dha/Epa 1 Each Capsule, 1,200 MG PO BID, (Reported) Flecainide Acetate 100 Mg Tablet, 100 MG PO BID Prescribed by: APARNA POLO on 05/13/19 1136 Leflunomide 20 Mg Tablet, 20 MG PO DAILY, (Reported) Losartan Potassium 25 Mg Tablet, 25 MG PO 1200, (Reported) Magnesium Oxide 250 Mg Tablet, 250 MG PO DAILY, (Reported) Metoprolol Tartrate 100 Mg Tablet, 100 MG PO BID, (Reported) Simvastatin 10 Mg Tablet, 10 MG PO HS, (Reported) Patient Home Medication List Home Medication List Reviewed: Yes Review of Systems Review of Systems Constitutional: see HPI; No chills, No fever EENTM: No Symptoms Reported Respiratory: No Symptoms Reported; Denies Cough Cardiovascular: See HPI, Chest Pain Gastrointestinal: See HPI Genitourinary: No Symptoms Reported Musculoskeletal: no symptoms reported Skin: no symptoms reported Psychiatric/Neurological: No Symptoms Reported Hematologic/Lymphatic: No Symptoms Reported Past Pfogcyf-Tfnkik-Vkoswx Hx Patient Social History 2nd Hand Smoke Exposure: No Recent Hopitalizations: No Immunizations Up To Date Tetanus Booster (TDap): Unknown PED Vaccines UTD: Yes Date of Pneumonia Vaccine: Jul 10, 2018 Date of Influenza Vaccine: Dec 21, 2018 Seasonal Allergies Seasonal Allergies: Yes Past Medical History Surgeries: Yes (BILAT KNEE SURGERY;CYSTOCOELE;HYST/BSO;BLADDER SLING;CARDIAC CATH-NO INTERV) Bladder Surgery, Cardiac, Gallbladder, Hysterectomy, Oophorectomy, Orthopedic, Tubal Ligation Respiratory: Yes (PULMONARY HTN) Chronic Bronchitis, COPD Currently Using CPAP: No Currently Using BIPAP: No Cardiac: Yes (SUCCESSFUL CARDIOVERSIONS 08/2018 & 03/29/19; CATH 08/2012-MILD CAD/NO INTE) Atrial Fibrillation, Coronary Artery Disease, High Cholesterol, Hypertension Neurological: No 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 Disorders: Yes (TUBAL 1950) Female 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 Disorders: Denies 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 Sexually Transmitted Disease: No HIV/AIDS: No Genitourinary: Yes (RENAL CYSTS) Renal Failure Gastrointestinal: Yes (HEPATIC CYSTS) Gastroesophageal Reflux, Diverticulosis Musculoskeletal: Yes Arthritis, Rheumatoid Arthritis, Chronic Back Pain Endocrine: No HEENT: Yes Cataract Loss of Vision: Denies Cancer: No Psychosocial: No Integumentary: No Blood Disorders: Yes (FACTOR 5 LEIDEN) Family Medical History FACTOR V LEIDEN 19 FATHER G8 BROTHER Heart Disease, Hypertension Physical Exam Vital Signs Vital Signs - First Documented Capillary Refill : Height, Weight, BMI Height: 5'4.00" Weight: 145lbs. 0.0oz. [id number]; 25.00 BMI Method:Stated General Appearance: No Apparent Distress, WD/WN Respiratory: No Accessory Muscle Use, No Respiratory Distress Cardiovascular: Tachycardia (rate of 130 atrial fibrillation), Other (blood pressure is fine at 140/60.) Gastrointestinal: Normal Bowel Sounds, Non Tender, Soft Extremity: Normal Capillary Refill, Normal Inspection Neurologic/Psychiatric: Alert, Oriented x3 Skin: Normal Color, Warm/Dry Progress/Results/Core Measures Results/Orders Lab Results Laboratory Tests Test 07/08/19 19:10 07/08/19 19:40 Range/Units White Blood Count 6.5 4.3-11.0 10^3/uL Red Blood Count 4.46 4.35-5.85 10^6/uL Hemoglobin 13.1 11.5-16.0 G/DL Hematocrit 40 35-52 % Mean Corpuscular Volume 90 80-99 FL Mean Corpuscular Hemoglobin 29 25-34 PG Mean Corpuscular Hemoglobin Concent 33 32-36 G/DL Red Cell Distribution Width 13.7 10.0-14.5 % Platelet Count 265 130-400 10^3/uL Mean Platelet Volume 8.9 7.4-10.4 FL Neutrophils (%) (Auto) 50 42-75 % Lymphocytes (%) (Auto) 33 12-44 % Monocytes (%) (Auto) 13 H 0-12 % Eosinophils (%) (Auto) 3 0-10 % Basophils (%) (Auto) 1 0-10 % Neutrophils # (Auto) 3.3 1.8-7.8 X 10^3 Lymphocytes # (Auto) 2.1 1.0-4.0 X 10^3 Monocytes # (Auto) 0.9 0.0-1.0 X 10^3 Eosinophils # (Auto) 0.2 0.0-0.3 10^3/uL Basophils # (Auto) 0.0 0.0-0.1 10^3/uL Prothrombin Time 24.8 H 12.2-14.7 SEC INR Comment 2.1 H 0.8-1.4 Activated Partial Thromboplast Time 60 H 24-35 SEC Sodium Level 139 135-145 MMOL/L Potassium Level 4.2 3.6-5.0 MMOL/L Chloride Level 103 98-107 MMOL/L Carbon Dioxide Level 23 21-32 MMOL/L Anion Gap 13 5-14 MMOL/L Blood Urea Nitrogen 21 H 7-18 MG/DL Creatinine 1.03 0.60-1.30 MG/DL Estimat Glomerular Filtration Rate 51 BUN/Creatinine Ratio 20 Glucose Level 143 H 70-105 MG/DL Calcium Level 9.2 8.5-10.1 MG/DL Corrected Calcium 9.3 8.5-10.1 MG/DL Magnesium Level 2.1 1.6-2.4 MG/DL Total Bilirubin 0.2 0.1-1.0 MG/DL Aspartate Amino Transf (AST/SGOT) 18 5-34 U/L Alanine Aminotransferase (ALT/SGPT) 13 0-55 U/L Alkaline Phosphatase 72 40-136 U/L Myoglobin 42.9 10.0-92.0 NG/ML Troponin I < 0.028 <0.028 NG/ML B-Type Natriuretic Peptide 138.1 H <100.0 PG/ML Total Protein 7.0 6.4-8.2 GM/DL Albumin 3.9 3.2-4.5 GM/DL Urine Color YELLOW Urine Clarity CLEAR Urine pH 7.5 5-9 Urine Specific [place] 1.010 L 1.016-1.022 Urine Protein NEGATIVE NEGATIVE Urine Glucose (UA) NEGATIVE NEGATIVE Urine Ketones NEGATIVE NEGATIVE Urine Nitrite NEGATIVE NEGATIVE Urine Bilirubin NEGATIVE NEGATIVE Urine Urobilinogen 0.2 < = 1.0 MG/DL Urine Leukocyte Esterase TRACE H NEGATIVE Urine RBC (Auto) TRACE-I NEGATIVE Urine RBC 2-5 H /HPF Urine WBC 2-5 /HPF Urine Squamous Epithelial Cells 5-10 /HPF Urine Crystals NONE /LPF Urine Bacteria MODERATE H /HPF Urine Casts NONE /LPF Urine Mucus NEGATIVE /LPF Urine Culture Indicated YES My Orders Orders - ALVAREZ FUCHS APRN Cbc With Automated Diff (07/08/19 19:12) Magnesium (07/08/19 19:12) Chest 1 View, Ap/Pa Only (07/08/19 19:12) Ekg Tracing (07/08/19 19:12) Comprehensive Metabolic Panel (07/08/19 19:12) Myoglobin Serum (07/08/19 19:12) Protime With Inr (07/08/19 19:12) Partial Thromboplastin Time (07/08/19 19:12) O2 (07/08/19 19:12) Monitor-Rhythm Ecg Trace Only (07/08/19 19:12) Lipid Panel (07/09/19 06:00) Ed Iv/Invasive Line Start (07/08/19 19:12) BNP (07/08/19 19:12) Troponin I (07/08/19 19:12) Metoprolol Tartrate Injection (Lopressor (07/08/19 19:15) Flecainide Tablet (Tambocor Tablet) (07/08/19 19:30) Ua Culture If Indicated (07/08/19 19:36) Metoprolol Tartrate Injection (Lopressor (07/08/19 20:00) Urine Culture (07/08/19 19:40) Ekg Tracing (07/08/19 20:45) Medications Given in ED Current Medications Medications Dose Ordered Sig/Mable Route Start Time Stop Time Status Last Admin Dose Admin Metoprolol Tartrate 5 mg ONCE ONCE IV 07/08/19 19:15 07/08/19 19:16 DC 07/08/19 19:18 5 MG Metoprolol Tartrate 5 mg ONCE ONCE IV 07/08/19 20:00 07/08/19 20:01 DC 07/08/19 19:50 5 MG Vital Signs/I&O 07/08/19 07/08/19 19:10 19:10 Temp 36.7 Pulse 134 Resp 16 B/P (MAP) 145/102 (116) Pulse Ox 97 97 O2 Delivery Nasal Cannula Nasal Cannula O2 Flow Rate 2.00 2.00 Departure Communication (Admissions) Time/Spoke to Admitting Phy: 20:[address] Celestin, currently she is still atrial fibrillation but the rate is controlled 73, blood pressure 127/70 symptoms have improved. We will admit, do a Cardizem drip with the anticipation that the rapid ventricular rate we will reoccur. Transient cardiac enzymes, I spoke with Dr. ANDERSON and she agrees as well. 2109-she is now sinus rhythm rate of 70. Spoke with Dr. Celestin, we will do a 2 hour troponin repeat, if still negative she can go home. Impression Primary Impression: Atrial fibrillation with RVR Disposition: ADMITTED INPATIENT Condition: Stable Admissions Decision to Admit Reason: Admit from ER (General) Decision to Admit/Date: Jul 08, 2019 Time/Decision to Admit Time: 20:52 Departure-Patient Inst. Decision time for Depature: 21:40 Referrals: JIN ANDERSON MD (PCP/Family) Primary Care Physician Patient Instructions: Atrial Fibrillation Add. Discharge Instructions: 1. Return to ER for any chest pain or shortness of breath. Follow-up with your doctor next week. All discharge instructions reviewed with patient and/or family. Voiced understanding. ALVAREZ FUCHS SHELF STOCKER Jul 08, 2019 19:16
[2019-07-08 19:30] LABS: BASOPHILS % (AUTO) 1 % (0-10); EOSINOPHILS # (AUTO) 0.2 10^3/uL (0.0-0.3); EOSINOPHILS % (AUTO) 3 % (0-10); HEMATOCRIT 40 % (35-52); HEMOGLOBIN 13.1 G/DL (11.5-16.0); LYMPHOCYTES # (AUTO) 2.1 X 10^3 (1.0-4.0); LYMPHOCYTES % (AUTO) 33 % (12-44); MEAN CORPUSCULAR HEMOGLOBIN 29 PG (25-34); MEAN CORPUSCULAR HGB CONC 33 G/DL (32-36); MEAN CORPUSCULAR VOLUME 90 FL (80-99); MEAN PLATELET VOLUME 8.9 FL (7.4-10.4); MONOCYTES # (AUTO) 0.9 X 10^3 (0.0-1.0); MONOCYTES % (AUTO) 13 % (0-12); NEUTROPHILS # (AUTO) 3.3 X 10^3 (1.8-7.8); NEUTROPHILS % (AUTO) 50 % (42-75); PLATELET COUNT 265 10^3/uL (130-400); RED CELL DISTRIBUTION WIDTH 13.7 % (10.0-14.5); WHITE BLOOD COUNT 6.5 10^3/uL (4.3-11.0)
[2019-07-08] MEDS ORDERED: FLECAINIDE 100 MG (TAMBOCOR) TAB PO SCH (19:30)
[2019-07-08 19:32] LABS: INR 2.1 (0.8-1.4); PROTHROMBIN TIME PATIENT 24.8 SEC (12.2-14.7)
[2019-07-08 19:46] LABS: BILIRUBIN,URINE NEGATIVE (NEGATIVE); CLARITY,URINE CLEAR; COLOR,URINE YELLOW; GLUCOSE, URINE (UA) NEGATIVE (NEGATIVE); KETONES,URINE NEGATIVE (NEGATIVE); LEUKOCYTE ESTERASE ,URINE TRACE (NEGATIVE); NITRITE,URINE NEGATIVE (NEGATIVE); PH,URINE 7.5 (5-9); PROTEIN,URINE NEGATIVE (NEGATIVE)
[2019-07-08 19:50] LABS: ALBUMIN 3.9 GM/DL (3.2-4.5); BILIRUBIN,TOTAL 0.2 MG/DL (0.1-1.0); CALCIUM 9.2 MG/DL (8.5-10.1); CREATININE SERUM 1.03 MG/DL (0.60-1.30); MAGNESIUM 2.1 MG/DL (1.6-2.4); POTASSIUM 4.2 MMOL/L (3.6-5.0)
[2019-07-08 19:55] LABS: BACTERIA,URINE MODERATE /HPF
--- NOTE | 2019-07-08 20:02 | Diagnostic Imaging Report ---
EXAMINATION: Chest 1 view HISTORY: A-fib. COPD. COMPARISON: Chest radiograph on 05/13/2019. FINDINGS: Lung volumes are low. Chronic fibrotic changes are seen in the lung bases. No focal consolidations. Stable enlarged cardiac silhouette. There is calcified aortic atherosclerotic plaque. No acute osseous abnormalities. No large pleural effusion or pneumothorax. IMPRESSION: 1. No focal consolidations. No pleural effusions. 2. Chronic fibrotic changes in the lung bases, similar to the prior exam. 3. Cardiomegaly. Dictated by: Dictated on workstation # [id number]
--- NOTE | 2019-07-08 20:45 | NUR ---
PT REPORTS FEELING BETTER AT THIS TIME. HR IN 70'S
--- NOTE | 2019-07-08 21:10 | NUR ---
PLAN TO REPEAT TROPONIN ET. DISCHARGE TO HOME IF NO ELEVATION.
[2019-07-08 21:42] VITALS: BP 132/65
== END 2019-07-08 21:45 | disposition home or self-care (01) ==
LOC: EDUNIT# 19:09 → ER 19:11 → UNDOADMOB 20:49 → ICU 20:49 → ER 21:45
DX: I48.91 Unspecified atrial fibrillation (principal); Z88.0 Allergy status to penicillin; Z88.1 Allergy status to other antibiotic agents; Z88.5 Allergy status to narcotic agent; Z88.8 Allergy status to other drugs, medicaments and biological substances; Z79.899 Other long term (current) drug therapy; J44.9 Chronic obstructive pulmonary disease, unspecified; I27.20 Pulmonary hypertension, unspecified; I25.10 Atherosclerotic heart disease of native coronary artery without angina pectoris; E78.00 Pure hypercholesterolemia, unspecified; I10 Essential (primary) hypertension; K21.9 Gastro-esophageal reflux disease without esophagitis; K57.90 Diverticulosis of intestine, part unspecified, without perforation or abscess without bleeding; M19.91 Primary osteoarthritis, unspecified site; M06.9 Rheumatoid arthritis, unspecified; M54.9 Dorsalgia, unspecified; D68.51 Activated protein C resistance
CPT/HCPCS: 36415; 71045; 80053; 81000; 83735; 83874; 83880; 84484; 85025; 85610; 85730; 87088; 93041

== ENCOUNTER 2019-10-13 08:06 | Emergency (ER) | payer MEDICARE ==
[~2019-10-13] VITALS: Ht 162.5 cm; Wt 62.1 kg
[~2019-10-13 08:06] MED LIST changes: +FERR15DR20 PO; -FERR15DR25 PO; +HYDR-83
[2019-10-13 08:42] LABS: BASOPHILS % (AUTO) 0 % (0-10); EOSINOPHILS # (AUTO) 0.4 10^3/uL (0.0-0.3); EOSINOPHILS % (AUTO) 3 % (0-10); HEMATOCRIT 45 % (35-52); HEMOGLOBIN 14.5 G/DL (11.5-16.0); LYMPHOCYTES # (AUTO) 2.4 X 10^3 (1.0-4.0); LYMPHOCYTES % (AUTO) 20 % (12-44); MEAN CORPUSCULAR HEMOGLOBIN 29 PG (25-34); MEAN CORPUSCULAR HGB CONC 32 G/DL (32-36); MEAN CORPUSCULAR VOLUME 92 FL (80-99); MEAN PLATELET VOLUME 9.2 FL (7.4-10.4); MONOCYTES # (AUTO) 1.5 X 10^3 (0.0-1.0); MONOCYTES % (AUTO) 13 % (0-12); NEUTROPHILS # (AUTO) 7.8 X 10^3 (1.8-7.8); NEUTROPHILS % (AUTO) 64 % (42-75); PLATELET COUNT 318 10^3/uL (130-400); RED CELL DISTRIBUTION WIDTH 13.9 % (10.0-14.5); WHITE BLOOD COUNT 12.1 10^3/uL (4.3-11.0)
[2019-10-13] MEDS ORDERED: fentaNYL INJECTION 100 MCG/2 ML AMP ONE (08:44)
[2019-10-13] MEDS ORDERED: ONDANSETRON 4 MG/2 ML (SDV) Z0FRAN ONE (08:44)
[2019-10-13] MEDS ORDERED: SCOPOLAMINE 1.5 MG (TRANSDERM-SCOP) PATCH ONE (08:44)
[2019-10-13] MEDS ORDERED: fentaNYL INJECTION 100 MCG/2 ML AMP IVP ONE (08:45)
[2019-10-13] MEDS ORDERED: ONDANSETRON 4 MG/2 ML (SDV) Z0FRAN IVP ONE (08:45)
[2019-10-13] MEDS ORDERED: SCOPOLAMINE 1.5 MG (TRANSDERM-SCOP) PATCH TD ONE (08:45)
--- NOTE | 2019-10-13 08:47 | Diagnostic Imaging Report ---
PROCEDURE: CT head wo r/o stroke. TECHNIQUE: Multiple contiguous axial images were obtained through the brain without the use of intravenous contrast. Auto Exposure Controls were utilized during the CT exam to meet ALARA standards for radiation dose reduction. DATE: October 13, 2019. COMPARISON: None. INDICATION: 89-year-old female, altered mental status. FINDINGS: There is a polypoid lesion in the right sphenoid sinus most likely reflecting a mucous retention cyst. The additional visualized portions of the paranasal sinuses, mastoid air cells, and middle ears are well aerated. The ventricles and cerebral spinal fluid spaces are of normal size and configuration for the patient's age. There is no mass effect or midline shift. There is no acute intracranial hemorrhage. There is no abnormal extra-axial fluid collection. IMPRESSION: 1. No identified acute intracranial abnormality. Dictated by: Dictated on workstation # [id number]
--- NOTE | 2019-10-13 08:49 | Diagnostic Imaging Report ---
INDICATION: Headache. EXAMINATION: Portable chest at 8:41 AM. FINDINGS: There is interstitial infiltrate in both lung bases as well as some left basilar atelectasis. There are no effusions or pneumothoraces. The heart size and pulmonary vascularity are normal. IMPRESSION: Basilar interstitial infiltrate/fibrosis with some left basilar atelectasis. No change compared to 07/08/2019. Dictated by: Dictated on workstation # [id number]
[2019-10-13 08:55] LABS: ALBUMIN 3.9 GM/DL (3.2-4.5); POTASSIUM 4.5 MMOL/L (3.6-5.0)
[2019-10-13 08:56] LABS: CALCIUM 9.4 MG/DL (8.5-10.1)
--- NOTE | 2019-10-13 08:57 | ED Headache ---
General Chief Complaint: Head/Cervical Problems Stated Complaint: HEADACHE,N/V Nursing Triage Note: PT TO RM 5 BY WHEELCHAIR WITH COMPLAINT OF MIGRAINE THAT STARTED YESTERDAY. STATES HAS HAD N/V. Nursing Sepsis Screen: No Definite Risk Source: patient History of Present Illness Date Seen by Provider: Oct 13, 2019 Time Seen by Provider: 08:12 Initial Comments PT ARRIVES VIA POV FROM HOME, NEEDS WHEELCHAIR ON ARRIVAL C/O GENERALIZED HEADACHE SINCE YESTERDAY MORNING C/O NAUSEA AND VOMITING--NOW MOSTLY DRY HEAVES STATES HER BLOOD PRESSURE HAS BEEN REALLY HIGH SINCE YESTERDAY--WAS IN 170'S SYSTOLIC STATES THE LEFT SIDE OF HER FACE FELT A LITTLE TINGLY YESTERDAY, BUT NOT TODAY NO MOTOR DEFICITS NO VISION CHANGES NO DIZZINESS NO FEVER NO NECK PAIN OR STIFFNESS NO COUGH OR URI SYMPTOMS AT THIS TIME. STATES SHE TOOK PREDNISONE FOR 5 DAYS FOR COPD EXACERBATION--FINISHED ON Saturday10/11/19 STATES SHE WAS ALSO USING AN ALBUTEROL INHALER--NO LONGER USING IT, BUT THOSE SYMPTOMS ARE BETTER. STATES BOTH OF THOSE MEDICATIONS HAVE CAUSED HER BLOOD PRESSURE TO BE ELEVATED AND THE PREDNISONE HAS CAUSED NAUSEA/VOMITING IN THE PAST PT HAS HISTORY OF MIGRAINES AND THESE SYMPTOMS ARE THE SAME, BUT HAS NOT HAD P SHELDON THIS BAD FOR YEARS TOOK 1 TYLENOL YESTERDAY FOR THE HEADACHE WITHOUT RELIEF HAS NOT TAKEN ANY OF HER MEDICATIONS TODAY PT ALSO HAS HISTORY OF CHRONIC ATRIAL FIBRILLATION, AND HAS BEEN ON PRADAXA. SHE HAS HELD IT FOR THE LAST 2 DAYS, SHE IS SUPPOSED TO HAVE INJECTIONS IN HER BACK AT [facility] THIS SATURDAY--WAS TO HOLD THE MEDICATION FOR 5 DAYS BEFORE THE PROCEDURE PCP: DR. ANDERSON CHRONOMETER ASSEMBLER: DR. SALAZAR Allergies and Home Medications Allergies Coded Allergies: Penicillins (Verified Allergy, Unknown, 12/16/06) ciprofloxacin (Verified Allergy, Unknown, 02/16/08) morphine (Verified Allergy, Unknown, 12/16/06) digoxin (Verified Adverse Reaction, Unknown, HALLUCINATIONS., 01/14/18) Home Medications Dabigatran Etexilate Mesylate 150 Mg Capsule, 150 MG PO BID, (Reported) Ferrous Sulfate 15 Mg/1 Ml Drops, 1 TSP PO DAILY, (Reported) Fish Oil/Dha/Epa 1 Each Capsule, 1,200 MG PO BID, (Reported) Flecainide Acetate 100 Mg Tablet, 100 MG PO BID Prescribed by: APARNA POLO on 05/13/19 1136 Leflunomide 20 Mg Tablet, 20 MG PO DAILY, (Reported) Losartan Potassium 25 Mg Tablet, 25 MG PO 1200, (Reported) Magnesium Oxide 250 Mg Tablet, 250 MG PO DAILY, (Reported) Metoprolol Tartrate 100 Mg Tablet, 100 MG PO BID, (Reported) Ondansetron 8 Mg Tab.rapdis, 8 MG PO Q4H PRN for NAUSEA/VOMITING Prescribed by: FELICITA RICHARDSON on 10/13/19 0958 Simvastatin 10 Mg Tablet, 10 MG PO HS, (Reported) Patient Home Medication List Home Medication List Reviewed: Yes Review of Systems Review of Systems Constitutional: no symptoms reported; No chills, No diaphoresis, No dizziness, No fever Eyes: No Symptoms Reported; Denies Blurred Vision, Denies Decreased Acuity Ears, Nose, Mouth, Throat: no symptoms reported Respiratory: no symptoms reported, see HPI Cardiovascular: no symptoms reported; No chest pain, No palpitations, No syncope Gastrointestinal: see HPI; No abdominal pain, No diarrhea; nausea, vomiting Genitourinary: no symptoms reported Musculoskeletal: see HPI (CHRONIC BACK PAIN ) Skin: no symptoms reported Psychiatric/Neurological: See HPI, Headache, Paresthesia; Denies Seizure, Denies Weakness Past Xigrolf-Jdyksd-Lzgfgv Hx Past Med/Social Hx: Reviewed and Corrections made Patient Social History Alcohol Use: Denies Use Recreational Drug Use: No Smoking Status: Never a Smoker 2nd Hand Smoke Exposure: No Recent Foreign Travel: No Contact w/Someone Who Travel: No Recent Infectious Disease Expo: No Recent Hopitalizations: No Immunizations Up To Date Tetanus Booster (TDap): Unknown PED Vaccines UTD: Yes Date of Pneumonia Vaccine: Jul 10, 2018 Date of Influenza Vaccine: Dec 21, 2018 Seasonal Allergies Seasonal Allergies: Yes Past Medical History Surgeries: Yes (BILAT KNEE SURGERY;CYSTOCOELE;HYST/BSO;BLADDER SLING;CARDIAC CATH-NO INTERV) Bladder Surgery, Cardiac, Gallbladder, Hysterectomy, Oophorectomy, Orthopedic, Tubal Ligation Respiratory: Yes (PULMONARY HTN) Chronic Bronchitis, COPD Currently Using CPAP: No Currently Using BIPAP: No Cardiac: Yes (CARDIOVERSION; RBBB) Atrial Fibrillation, Coronary Artery Disease, High Cholesterol, Hypertension Neurological: Yes Headaches /Migraines 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 Disorders: Yes (TUBAL 1952) Female 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 Disorders: Denies 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 Sexually Transmitted Disease: No HIV/AIDS: No Genitourinary: Yes (RENAL CYSTS) Renal Failure Gastrointestinal: Yes Gastroesophageal Reflux, Diverticulosis Musculoskeletal: Yes Arthritis, Rheumatoid Arthritis, Chronic Back Pain Endocrine: No HEENT: Yes Cataract Loss of Vision: Denies Cancer: No Psychosocial: No Integumentary: No Blood Disorders: Yes (FACTOR 5 LEIDEN) Family Medical History FACTOR V LEIDEN 19 FATHER G8 BROTHER Heart Disease, Hypertension Physical Exam Vital Signs Vital Signs - First Documented 10/13/19 08:15 Temp 36.7 Pulse 69 Resp 16 B/P (MAP) 189/91 (123) Pulse Ox 98 O2 Delivery Room Air Capillary Refill : Less Than 3 Seconds Height, Weight, BMI Height: 5'4.00" Weight: 145lbs. 0.0oz. 65.234418wi; 23.00 BMI Method:Stated General Appearance: WD/WN, other (VOMITING/DRY HEAVING ON ARRIVAL) HEENT: PERRL/EOMI, normal ENT inspection Neck: normal inspection Cardiovascular: no murmur Respiratory: normal breath sounds, no respiratory distress, no accessory muscle use Gastrointestinal: non tender, soft Extremities: normal inspection, no pedal edema, normal capillary refill Psychiatric: alert, oriented x 3 Crainal Nerves: normal hearing, normal speech, PERRL Coordination/Gait: other (GAIT NOT TESTED ON ARRIVAL) Motor/Sensory: no motor deficit, no sensory deficit Skin: normal color, warm/dry Progress/Results/Core Measures Results/Orders Lab Results Laboratory Tests Test 10/13/19 08:24 Range/Units White Blood Count 12.1 H 4.3-11.0 10^3/uL Red Blood Count 4.93 4.35-5.85 10^6/uL Hemoglobin 14.5 11.5-16.0 G/DL Hematocrit 45 35-52 % Mean Corpuscular Volume 92 80-99 FL Mean Corpuscular Hemoglobin 29 25-34 PG Mean Corpuscular Hemoglobin Concent 32 32-36 G/DL Red Cell Distribution Width 13.9 10.0-14.5 % Platelet Count 318 130-400 10^3/uL Mean Platelet Volume 9.2 7.4-10.4 FL Neutrophils (%) (Auto) 64 42-75 % Lymphocytes (%) (Auto) 20 12-44 % Monocytes (%) (Auto) 13 H 0-12 % Eosinophils (%) (Auto) 3 0-10 % Basophils (%) (Auto) 0 0-10 % Neutrophils # (Auto) 7.8 1.8-7.8 X 10^3 Lymphocytes # (Auto) 2.4 1.0-4.0 X 10^3 Monocytes # (Auto) 1.5 H 0.0-1.0 X 10^3 Eosinophils # (Auto) 0.4 H 0.0-0.3 10^3/uL Basophils # (Auto) 0.0 0.0-0.1 10^3/uL Prothrombin Time 14.0 12.2-14.7 SEC INR Comment 1.0 0.8-1.4 Activated Partial Thromboplast Time 25 24-35 SEC Sodium Level 136 135-145 MMOL/L Potassium Level 4.5 3.6-5.0 MMOL/L Chloride Level 101 98-107 MMOL/L Carbon Dioxide Level 23 21-32 MMOL/L Anion Gap 12 5-14 MMOL/L Blood Urea Nitrogen 21 H 7-18 MG/DL Creatinine 0.98 0.60-1.30 MG/DL Estimat Glomerular Filtration Rate 54 BUN/Creatinine Ratio 21 Glucose Level 114 H 70-105 MG/DL Calcium Level 9.4 8.5-10.1 MG/DL Corrected Calcium 9.5 8.5-10.1 MG/DL Magnesium Level 2.1 1.6-2.4 MG/DL Total Bilirubin 0.4 0.1-1.0 MG/DL Aspartate Amino Transf (AST/SGOT) 24 5-34 U/L Alanine Aminotransferase (ALT/SGPT) 17 0-55 U/L Alkaline Phosphatase 75 40-136 U/L Total Protein 7.0 6.4-8.2 GM/DL Albumin 3.9 3.2-4.5 GM/DL My Orders Orders - FELICITA RICHARDSON DO Ct Head Wo-R/O Stroke (10/13/19 08:19) Chest 1 View, Ap/Pa Only (10/13/19 08:19) Cbc With Automated Diff (10/13/19 08:19) Comprehensive Metabolic Panel (10/13/19 08:19) Magnesium (10/13/19 08:19) Protime With Inr (10/13/19 08:19) Partial Thromboplastin Time (10/13/19 08:19) Monitor-Rhythm Ecg Trace Only (10/13/19 08:19) Ondansetron Injection (Zofran Injectio (10/13/19 08:45) Scopolamine Patch (Transderm-Scop Patch) (10/13/19 08:45) Fentanyl Injection (Sublimaze Injection (10/13/19 08:45) Fentanyl Injection (Sublimaze Injection (10/13/19 08:44) Ondansetron Injection (Zofran Injectio (10/13/19 08:44) Scopolamine Patch (Transderm-Scop Patch) (10/13/19 08:44) Ekg Tracing (10/13/19 09:01) Metoprolol Succinate (Xl) Tab (Toprol Xl (10/13/19 09:30) Medications Given in ED Current Medications Medications Dose Ordered Sig/Mable Route Start Time Stop Time Status Last Admin Dose Admin Fentanyl Citrate 50 mcg ONCE ONCE IVP 10/13/19 08:45 10/13/19 08:46 DC 10/13/19 08:48 50 MCG Metoprolol Succinate 100 mg ONCE ONCE PO 10/13/19 09:30 10/13/19 09:31 DC 10/13/19 09:29 100 MG Ondansetron HCl 8 mg ONCE ONCE IVP 10/13/19 08:45 10/13/19 08:46 DC 10/13/19 08:48 8 MG Scopolamine 1.5 mg ONCE ONCE TD 10/13/19 08:45 10/13/19 08:46 DC 10/13/19 08:48 1.5 MG Vital Signs/I&O 10/13/19 08:15 Temp 36.7 Pulse 69 Resp 16 B/P (MAP) 189/91 (123) Pulse Ox 98 O2 Delivery Room Air Blood Pressure Mean: 123 Progress Progress Note : Progress Note GIVEN ZOFRAN AND SCOPOLAMINE FOR NAUSEA/VOMITING--MUCH IMPROVED GIVEN FENTANYL FOR PAIN/HEADACHE--MUCH IMPROVED GAVE HER USUAL MORNING DOSE OF METOPROLOL FOR ELEVATED BLOOD PRESSURE --BLOOD PRESSURE BEGINNING TO COME DOWN FEELS MUCH BETTER PRIOR TO DISMISSAL Initial ECG Impression Date: Oct 13, 2019 Initial ECG Impression Time: 09:06 Initial ECG Rate: 68 Initial ECG Rhythm: Normal Sinus (RBBB) Diagnostic Imaging Comments CT HEAD--PER RADIOLOGIST REPORT AT 0851 FINDINGS: There is a polypoid lesion in the right sphenoid sinus most likely reflecting a mucous retention cyst. The additional visualized portions of the paranasal sinuses, mastoid air cells, and middle ears are well aerated. The ventricles and cerebral spinal fluid spaces are of normal size and configuration for the patient's age. There is no mass effect or midline shift. There is no acute intracranial hemorrhage. There is no abnormal extra-axial fluid collection. IMPRESSION: 1. No identified acute intracranial abnormality. CXR--PER RADIOLOGIST REPORT AT 0902 FINDINGS: There is interstitial infiltrate in both lung bases as well as some left basilar atelectasis. There are no effusions or pneumothoraces. The heart size and pulmonary vascularity are normal. IMPRESSION: Basilar interstitial infiltrate/fibrosis with some left basilar atelectasis. No change compared to 07/08/2019. Reviewed: Reviewed by Me Departure Impression Primary Impression: Headache Additional Impressions: Nausea & vomiting HTN (hypertension) Disposition: HOME, SELF-CARE Condition: Improved Departure-Patient Inst. Referrals: JIN ANDERSON MD (PCP/Family) Primary Care Physician Patient Instructions: Headache, Adult (DC), High Blood Pressure (DC) Add. Discharge Instructions: TAKE YOUR REGULAR MEDICATIONS PRESCRIBED YOU MAY TAKE YOUR HOME HYDROCODONE NEEDED FOR HEADACHE LEAVE SCOPOLAMINE PATCH IN PLACE FOR 3 DAYS RETURN TO ER IF SYMPTOMS WORSEN LOTS OF CLEAR LIQUIDS All discharge instructions reviewed with patient and/or family. Voiced understanding. Scripts Ondansetron (Ondansetron Odt) 8 Mg Tab.rapdis 8 MG PO Q4H PRN for NAUSEA/VOMITING, #10 TAB Prov: FELICITA RICHARDSON DO 10/13/19 FELICITA RICHARDSON DO Oct 13, 2019 08:57
[2019-10-13 08:59] LABS: BILIRUBIN,TOTAL 0.4 MG/DL (0.1-1.0)
--- OUTSIDE RECORDS SUMMARY | 2019-10-13 09:00 | XMS REPORT | Clinical Summary ---
Author Author [facility] Organization [facility] Address Unknown Phone Unavailable Care Team Providers Care Senior Sales Associate Name Role Phone Jem Beltre MD Unavailable Sarita Monk MD PCP Source Comments Some departments are not documenting in the electronic medical record. If you d o not see the information that you expected, contact Release of Information in [facility] [employer] Information Management department at [phone] for further assistan ce in locating additional records.[facility] Allergies Comments Active Allergy Reactions Severity Noted Date Ciprofloxacin NAUSEA AND Low 07/27/2011 VOMITING Morphine NAUSEA AND 07/18/2011 VOMITING Penicillins HIVES Medium 07/27/2011 Medications End Date Status Medication Sig Dispensed Refills Start Date Active calcium carbonate/vitamin Take 1 Tab by 0 D-3 (OSCAL-500+D) 1250 mouth twice mg/200 unit tablet daily with meals. Calcium Carb 1250mg delivers 500mg elemental Ca Active docusate (COLACE) 100 mg Take 100 mg 0 capsule by mouth twice daily. Active enalapril (VASOTEC) 2.5 Take 2.5 mg 0 mg tablet by mouth daily. Active fentaNYL (DURAGESIC) 12 Apply 1 Patch 0 mcg/hr patch to top of skin as directed every 72 hours. Active HYDROcodone/acetaminophen Take 1 Tab by 0 (VICODIN) 5/500 mg tablet mouth every 8 hours as needed. Active magnesium oxide Take 200 mg 0 (MAG-OXIDE) 400 mg tablet by mouth daily. Active metoprolol XL (TOPROL XL) Take 25 mg by 0 25 mg tablet mouth twice daily. Active fish oil /omega-3 fatty Take 1 Cap by 0 acids (SEA-OMEGA) mouth three 340/1000 mg capsule times daily with meals. Active omeprazole DR(+) Take 20 mg by 0 (PRILOSEC) 20 mg capsule mouth daily. Active pravastatin (PRAVACHOL) Take 20 mg by 0 20 mg tablet mouth at bedtime daily. Active predniSONE (DELTASONE) 10 Take 10 mg by 0 mg tablet mouth daily. Active warfarin (COUMADIN) 4 mg Take 8 mg by 0 tablet mouth four times weekly. Sun, Tues, Th, Sat Active warfarin (COUMADIN) 6 mg Take 6 mg by 0 tablet mouth three times weekly. Sat Active hydroxychloroquine Take 200 mg 0 (PLAQUENIL) 200 mg tablet by mouth daily. Active Problems Not on file Social History Date Tobacco Use Types Packs/Day Years Used Never Smoker Drinks/Week oz/Week Comments Alcohol Use No Sex Assigned at Date Recorded Not on file Industry Job Start Date Occupation Not on file Not on file Not on file Travel End Travel History Travel Start No recent travel history available. Last Filed Vital Signs Reading Time Taken Comments Vital Sign 156/61 07/27/2011 3:50 PM CDT Blood Pressure 67 07/27/2011 3:50 PM CDT Pulse 36.7 C (98.1 F) 07/27/2011 3:50 PM CDT Temperature - - Respiratory Rate 98% 07/27/2011 3:50 PM CDT Oxygen Saturation - - Inhaled Oxygen Concentration 65 kg (143 lb 4.8 oz) 07/18/2011 12:58 PM CDT Weight 157.5 cm (5' 2") 07/18/2011 12:58 PM CDT Height 26.21 07/18/2011 12:58 PM CDT Body Mass Index Plan of Treatment Health Maintenance Due Date Last Done Comments DTAP/TDAP VACCINES (1 - 01/10/1950 Tdap) PHYSICAL (COMPREHENSIVE) 01/10/1950 EXAM SHINGLES RECOMBINANT 01/10/1982 VACCINE (1 of 2) OSTEOPOROSIS 01/10/1997 SCREENING/MONITORING PNEUMONIA (PPSV23) 01/10/1997 VACCINE (1 of 1 - PPSV23) INFLUENZA VACCINE 01/07/2020 Results Not on filefrom Last 3 Months Advance Directives Patient Suede Brusher Explanation Type Date Recorded Advance 03/25/2013 1:49 PM Directive/DPOA
[2019-10-13 09:01] LABS: CREATININE SERUM 0.98 MG/DL (0.60-1.30)
--- NOTE | 2019-10-13 09:03 | NUR ---
CALLED AND UPDATED PTS , LENARD AT THIS TIME.
[2019-10-13 09:04] LABS: MAGNESIUM 2.1 MG/DL (1.6-2.4)
--- OUTSIDE RECORDS SUMMARY | 2019-10-13 09:29 | XMS REPORT | Continuity of Care Document ---
Author Organization Unknown Address Unknown Phone Unavailable Allergies Active Description Code Type Severity Reaction Onset Reported/Identified Relationship to Patient Clinical Status Yes morphine [id number] Drug Allergy Unknown N/A 12/16/2006 Yes Penicillins [id number] Drug Aller gy Unknown N/A 12/16/2006 Yes ciprofloxacin [id number] Charlie g Allergy Unknown N/A 02/16/2008 Yes digoxin [id number] Drug Allergy Unknown HALLUCINATIONS. 01/14/2018 Medications There is no data. 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 04/15/2011 Ot 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 04/15/2011 Ot 723.1 CERV ICALGIA 05/03/2011 Ot 722.6 DISC DEGENERATION NOS 05/03/2011 Ot 723.1 CERV ICALGIA 05/03/2011 Ot 724.1 PAIN IN THORACIC SPINE 05/18/2011 Ot 272.4 HYPE RLIPIDEMIA NEC/NOS 05/18/2011 Ot 300.00 ANX IETY STATE NOS 05/18/2011 Ot 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, UNSPEC, W CHR KD ST 05/18/2011 Ot 427.31 ATR IAL FIBRILLATION 05/18/2011 Ot 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 05/18/2011 Ot 530.81 ESO PHAGEAL REFLUX 05/18/2011 Ot 585.9 FAREBOX REPAIRER MAEGAN KIDNEY DISEASE, UNSPECIFIED 05/18/2011 Ot 714.0 RHEU MATOID ARTHRITIS 05/18/2011 Ot 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 05/18/2011 Ot 722.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 05/18/2011 Ot 722.52 LUM B/LUMBOSAC DISC DEGEN 05/18/2011 Ot 733.6 TIET ZE'S DISEASE 06/04/2011 Ot 786.2 COUGH 06/04/2011 Ot 793.19 OTH ER NONSPECIFIC ABNORMAL FINDING OF EMMA 06/08/2011 Ot 189.1 VITA G CARLTON RENAL PELVIS 06/08/2011 Ot 286.3 WILLIAN DEF CLOT FACTOR NEC 06/08/2011 Ot 300.00 ANX IETY STATE NOS 06/08/2011 Ot 338.4 FAREBOX REPAIRER MAEGAN PAIN SYNDROME 06/08/2011 Ot 401.9 HYPE RTENSION NOS 06/08/2011 Ot 427.31 ATR IAL FIBRILLATION 06/08/2011 Ot 530.81 ESO PHAGEAL REFLUX 06/08/2011 Ot 591 HYDRON EPHROSIS 06/08/2011 Ot 599.70 HEM ATURIA, UNSPECIFIED 06/08/2011 Ot 714.0 RHEU MATOID ARTHRITIS 06/08/2011 Ot 723.0 CERV ICAL SPINAL STENOSIS 01/27/2012 Ot 882.0 OPEN WOUND OF HAND 01/27/2012 Ot E000.8 OTH ER EXTERNAL CAUSE STATUS 01/27/2012 Ot E849.0 ACC IDENT IN HOME 01/27/2012 Ot E928.9 ACC IDENT NOS 03/30/2012 Ot 280.9 IRON DEFIC ANEMIA NOS 03/30/2012 Ot 285.21 ANE HALEY IN CHRONIC KIDNEY DISEASE 03/30/2012 Ot 585.3 FAREBOX REPAIRER MAEGAN KIDNEY DISEASE, STAGE III (MODER 09/02/2012 JIN MONK MD Ot 268.9 VITAMIN D DEFICIENCY NOS 09/02/2012 JIN MONK MD Ot 272.4 HYPERLIPIDEMIA NEC/NOS 09/02/2012 JIN MONK MD Ot 286.3 WILLIAN DEF CLOT FACTOR NEC 09/02/2012 JIN MONK MD Ot 403.90 HYPTNSV CHR KID DIS, UNSPEC, W CHR KD ST 09/02/2012 JIN MONK MD Ot 413.9 ANGINA PECTORIS NEC/NOS 09/02/2012 JIN MONK MD Ot 414.01 CORONARY ATHEROSCLEROSIS OF [place] CORON 09/02/2012 JIN MONK MD Ot 427.31 ATRIAL FIBRILLATION 09/02/2012 JIN MONK MD Ot 433.30 MULT BILTRAL ARTERY OCCLUSION WO CEREBRA 09/02/2012 JIN MONK MD Ot 585.9 CHRONIC KIDNEY DISEASE, UNSPECIFIED 09/02/2012 JIN MONK MD Ot 714.0 RHEUMATOID ARTHRITIS 09/02/2012 JIN MONK MD Ot 785.0 TACHYCARDIA NOS 09/02/2012 JIN MONK MD Ot V74.8 SCREEN-BACTERIAL DIS NEC 03/03/2014 JIN MONK MD Ot V76.12 01/19/2015 SUZANNE RITTER MD Ot I10 ESSENTIAL (PRIMARY) HYPERTENSION 01/19/2015 SUZANNE RITTER MD Ot I48. 91 UNSPECIFIED ATRIAL FIBRILLATION 01/19/2015 SUZANNE RITTER MD Ot K21. 9 GASTRO-ESOPHAGEAL REFLUX DISEASE WITHOUT 01/19/2015 SUZANNE RITTER MD Ot N39. 0 URINARY TRACT INFECTION, SITE NOT SPECIF 01/19/2015 SUZANNE RITTER MD Ot R53. 1 WEAKNESS 02/08/2015 Ot V76.12 02/08/2015 Ot 786.2 02/08/2015 Ot 793.1 02/08/2015 Ot 786.05 02/08/2015 Ot 793.1 02/08/2015 Ot 401.9 02/08/2015 Ot 786.09 02/08/2015 Ot 211.5 02/08/2015 Ot 573.8 02/08/2015 Ot V76.12 02/08/2015 Ot 786.2 02/08/2015 Ot 427.9 02/08/2015 Ot 618.01 02/08/2015 Ot V72.63 02/08/2015 Ot V72.81 02/08/2015 Ot 793.19 02/08/2015 Ot 786.2 02/08/2015 Ot 793.19 02/08/2015 Ot V76.12 02/08/2015 Ot 280.9 02/08/2015 Ot 285.21 02/08/2015 Ot 585.3 02/08/2015 Ot 714.0 02/08/2015 Ot 786.09 02/08/2015 Ot 786.2 02/08/2015 JOANNA PA, CARON Wheeler Ot 272.4 02/08/2015 JOANNA PA, CARON Wheeler Ot 397.0 02/08/2015 JOANNA PA, CARON Wheeler Ot 401.9 02/08/2015 THAKKARKT PA, CARON Wheeler Ot 414.00 02/08/2015 JOANNA PA, CARON Wheeler Ot 424.0 02/08/2015 JOANNA PA, CARON Wheeler Ot 427.31 02/08/2015 JOANNA PA, CARON Wheeler Ot 433.10 02/08/2015 CHAYITO CARBONE Ot V76.12 02/08/2015 JIN MONK MD Ot V76.12 03/07/2015 CLOVIS BROCK APRN Ot Z12.31 05/24/2015 AUGUSTA SALAZAR MD Ot I65. 23 06/10/2015 AUGUSTA SALAZAR MD Ot I65. 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 0 PURE HYPERCHOLESTEROLEMIA 08/20/2015 AUGUSTA SALAZAR MD Ot E78. 5 HYPERLIPIDEMIA, UNSPECIFIED 08/20/2015 AUGUSTA SALAZAR MD Ot H26. 9 UNSPECIFIED CATARACT 08/20/2015 AUGUSTA SALAZAR MD Ot I10 ESSENTIAL (PRIMARY) HYPERTENSION 08/20/2015 AUGUSTA SALAZAR MD Ot I25. 10 ATHSCL HEART DISEASE OF [place] CORONARY 08/20/2015 AUGUSTA SALAZAR MD Ot I48. 0 PAROXYSMAL ATRIAL FIBRILLATION 08/20/2015 AUGUSTA SALAZAR MD Ot I65. 23 OCCLUSION AND STENOSIS OF BILATERAL [place]RE[place] 08/20/2015 AUGUSTA SALAZAR MD Ot I95. 9 HYPOTENSION, UNSPECIFIED 08/20/2015 AUGUSTA SALAZAR MD Ot K21. 9 GASTRO-ESOPHAGEAL REFLUX DISEASE WITHOUT 08/20/2015 AUGUSTA SALAZAR MD Ot M06. 9 RHEUMATOID ARTHRITIS, UNSPECIFIED 08/20/2015 AUGUSTA SALAZAR MD Ot R07. 89 OTHER CHEST PAIN 08/20/2015 AUGUSTA SALAZAR MD Ot E78. 0 PURE HYPERCHOLESTEROLEMIA 08/20/2015 AUGUSTA SALAZAR MD Ot E78. 5 HYPERLIPIDEMIA, UNSPECIFIED 08/20/2015 AUGUSTA SALAZAR MD Ot H26. 9 UNSPECIFIED CATARACT 08/20/2015 AUGUSTA SALAZAR MD Ot I10 ESSENTIAL (PRIMARY) HYPERTENSION 08/20/2015 AUGUSTA SALAZAR MD Ot I25. 10 ATHSCL HEART DISEASE OF [place] CORONARY 08/20/2015 AUGUSTA SALAZAR MD Ot I48. 0 PAROXYSMAL ATRIAL FIBRILLATION 08/20/2015 AUGUSTA SALAZAR MD Ot I65. 23 OCCLUSION AND STENOSIS OF BILATERAL [place] 08/20/2015 AUGUSTA SALAZAR MD Ot I95. 9 HYPOTENSION, UNSPECIFIED 08/20/2015 AUGUSTA SALAZAR MD Ot K21. 9 GASTRO-ESOPHAGEAL REFLUX DISEASE WITHOUT 08/20/2015 AUGUSTA SALAZAR MD Ot M06. 9 RHEUMATOID ARTHRITIS, UNSPECIFIED 08/20/2015 AUGUSTA SALAZAR MD Ot R07. 89 OTHER CHEST PAIN 08/25/2015 AUGUSTA SALAZAR MD Ot E78. 0 PURE HYPERCHOLESTEROLEMIA 08/25/2015 AUGUSTA SALAZAR MD Ot E78. 5 HYPERLIPIDEMIA, UNSPECIFIED 08/25/2015 AUGUSTA SALAZAR MD Ot H26. 9 UNSPECIFIED CATARACT 08/25/2015 AUGUSTA SALAZAR MD Ot I10 ESSENTIAL (PRIMARY) HYPERTENSION 08/25/2015 AUGUSTA SALAZAR MD Ot I25. 10 ATHSCL HEART DISEASE OF [place] CORONARY 08/25/2015 AUGUSTA SALAZAR MD Ot I48. 0 PAROXYSMAL ATRIAL FIBRILLATION 08/25/2015 AUGUSTA SALAZAR MD Ot I65. 23 OCCLUSION AND STENOSIS OF BILATERAL [place]RE[place] 08/25/2015 AUGUSTA SALAZAR MD Ot I95. 9 HYPOTENSION, UNSPECIFIED 08/25/2015 AUGUSTA SALAZAR MD Ot K21. 9 GASTRO-ESOPHAGEAL REFLUX DISEASE WITHOUT 08/25/2015 AUGUSTA SALAZAR MD Ot M06. 9 RHEUMATOID ARTHRITIS, UNSPECIFIED 08/25/2015 MARIE CHRISTINE, AUGUSTA De La Rosa Ot R07. 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 10/07/2015 Ot 401.9 10/07/2015 Ot 427.31 10/07/2015 Ot 715.90 10/07/2015 Ot 785.1 10/07/2015 Ot V58.69 02/07/2016 Ot 401.9 02/07/2016 Ot 427.31 02/07/2016 Ot 715.90 02/07/2016 Ot 785.1 02/07/2016 Ot V58.69 02/24/2016 Ot V76.12 OTH SCREEN MAMMO- MALIGN NEOPLASM OF [place] 02/24/2016 Ot 786.2 COUGH 02/24/2016 Ot 427.9 CARD IAC DYSRHYTHMIA NOS 02/24/2016 Ot 618.01 CYS TOCELE, MIDLINE 02/24/2016 Ot V72.63 PRE -PROCEDURAL LABORATORY EXAMINATION 02/24/2016 Ot V72.81 [id number] CARDIOVASCULAR 02/24/2016 Ot 793.19 OTH ER NONSPECIFIC ABNORMAL FINDING OF EMMA 02/24/2016 Ot 786.2 COUGH 02/24/2016 Ot 793.19 OTH ER NONSPECIFIC ABNORMAL FINDING OF EMMA 02/24/2016 Ot V76.12 OTH SCREEN MAMMO- MALIGN NEOPLASM OF [place] 02/24/2016 Ot 280.9 IRON DEFIC ANEMIA NOS 02/24/2016 Ot 285.21 ANE HALEY IN CHRONIC KIDNEY DISEASE 02/24/2016 Ot 585.3 FAREBOX REPAIRER MAEGAN KIDNEY DISEASE, STAGE III (MODER 02/24/2016 Ot 714.0 RHEU MATOID ARTHRITIS 02/24/2016 Ot 786.09 RES PIRATORY ABNORM NEC 02/24/2016 Ot 786.2 COUGH 02/24/2016 CARON MARTINEZ Ot 272.4 HYPERLIPIDEMIA NEC/NOS 02/24/2016 JOANNA WATSON CARON Liam Ot 397.0 TRICUSPID VALVE DISEASE 02/24/2016 JOANNA WATSON CARON Liam Ot 401.9 HYPERTENSION NOS 02/24/2016 JOANNA WATSON CARON Liam Ot 414.00 CORON ATHEROSCLER NOS TYPE VESSEL, NATIV 02/24/2016 JOANNA WATSON CARON Liam Ot 424.0 MITRAL VALVE DISORDER 02/24/2016 JOANNA WATSON CARON Liam Ot 427.31 ATRIAL FIBRILLATION 02/24/2016 JOANNA WATSON CARON Liam Ot 433.10 CAROTID ARTERY OCCLUSION W O CEREBRAL IN 02/24/2016 CHAYITO CARBONE Ot V76.12 OTH SCREEN MAMMO-MALIGN NEOPLASM OF [place] 02/24/2016 JIN MONK MD Ot V76.12 OTH SCREEN MAMMO-MALIGN NEOPLASM OF [place] 02/24/2016 CLOVIS BROCK APRN Ot Z12.31 ENCNTR SCREEN MAMMOGRAM FOR MALIGNANT NE 02/24/2016 MARIE CHRISTINE, AUGUSTA De La Rosa Ot I65. 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 02/24/2016 JIN MONK MD Ot Z12.31 ENCNTR SCREEN MAMMOGRAM FOR MALIGNANT NE 02/27/2016 JIN MONK MD Ot Z12.31 ENCNTR SCREEN MAMMOGRAM FOR MALIGNANT NE 02/28/2016 FOREIGN BRITT MD Ot I48.91 UNSPECIFIED ATRIAL FIBRILLATION 02/28/2016 FOREIGN BRITT MD Ot M06.9 RHEUMATOID ARTHRITIS, UNSPECIFIED 02/28/2016 FOREIGN BRITT MD Ot M50.30 OTHER CERVICAL DISC DEGENERATION, UNSP C 02/28/2016 FOREIGN BRITT MD Ot Z79.01 COTTAGE ATTENDANT (CURRENT) USE OF ANTICOAGULANT 03/21/2016 JIN MONK MD Ot Z12.31 ENCNTR SCREEN MAMMOGRAM FOR MALIGNANT NE 03/21/2016 FOREIGN BRITT MD Ot I48.91 UNSPECIFIED ATRIAL FIBRILLATION 03/21/2016 FOREIGN BRITT MD, Ot M06.9 RHEUMATOID ARTHRITIS, UNSPECIFIED 03/21/2016 FOREIGN BRITT MD Ot M50.30 OTHER CERVICAL DISC DEGENERATION, UNSP C 03/21/2016 FOREIGN BRITT MD Ot Z79.01 FDC (CURRENT) USE OF ANTICOAGULANT 03/28/2016 FOREIGN BRITT MD Ot I48.91 UNSPECIFIED ATRIAL FIBRILLATION 03/28/2016 FOERIGN BRITT MD Ot M06.9 RHEUMATOID ARTHRITIS, UNSPECIFIED 03/28/2016 FOREIGN BRITT MD Ot M50.30 OTHER CERVICAL DISC DEGENERATION, UNSP C 03/28/2016 FOREIGN BRITT MD Ot Z79.01 FDC (CURRENT) USE OF ANTICOAGULANT 04/08/2016 Ot 401.9 04/08/2016 Ot 427.31 04/08/2016 Ot 715.90 04/08/2016 Ot 785.1 04/08/2016 Ot V58.69 07/23/2016 LELIA GALVAN MD Ot I25.10 ATHSCL HEART DISEASE OF [place] CORONARY 07/23/2016 LELIA GALVAN MD Ot I48.0 PAROXYSMAL ATRIAL FIBRILLATION 07/23/2016 LELIA GALVAN MD Ot J44.9 CHRONIC OBSTRUCTIVE PULMONARY DISEASE, U 07/23/2016 LELIA GALVAN MD Ot R07.9 CHEST PAIN, UNSPECIFIED 07/23/2016 LELIA GALVAN MD Ot Z79.899 OTHER FDC (CURRENT) DRUG THERAPY 07/24/2016 LELIA GALVAN MD Ot I25.10 ATHSCL HEART DISEASE OF [place] CORONARY 07/24/2016 LELIA GALVAN MD Ot I48.0 PAROXYSMAL ATRIAL FIBRILLATION 07/24/2016 LELIA GALVAN MD Ot J44.9 CHRONIC OBSTRUCTIVE PULMONARY DISEASE, U 07/24/2016 LELIA GALVAN MD Ot R07.9 CHEST PAIN, UNSPECIFIED 07/24/2016 LELIA GALVAN MD Ot Z79.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 08/31/2016 CARON MARTINEZ Ot I10 ESSENTIAL (PRIMARY) HYPERTENSION 08/31/2016 CARON MARTINEZ Ot I25.10 ATHSCL HEART DISEASE OF [place] CORONARY 08/31/2016 CARON MARTINEZ Ot I48.0 PAROXYSMAL ATRIAL FIBRILLATION 08/31/2016 JOANNA WATSON CARON K Ot 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 09/11/2016 CARON MARTINEZ Ot I10 ESSENTIAL (PRIMARY) HYPERTENSION 09/11/2016 JOANNA WATSON CARON K Ot I25.10 ATHSCL HEART DISEASE OF [place] CORONARY 09/11/2016 CARON MARTINEZ Ot I48.0 PAROXYSMAL ATRIAL FIBRILLATION 09/11/2016 CARON MARTINEZ Ot 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 12/05/2016 BALWINDER CHRISTINE, FOREIGN De La Rosa Ot M06.9 RHEUMATOID ARTHRITIS, UNSPECIFIED 12/12/2016 BALWINDER CHRISTINE, FOREIGN De La Rosa Ot M06.9 RHEUMATOID ARTHRITIS, UNSPECIFIED 02/08/2017 ALESHIA CHRISTINE, JIN Toscano Ot Z12.31 ENCNTR SCREEN MAMMOGRAM FOR MALIGNANT NE 02/20/2017 ALESHIA CHRISTINE, JIN Toscano Ot Z12.31 ENCNTR SCREEN MAMMOGRAM FOR MALIGNANT NE 02/25/2017 PATRICIA CARLOS DO Ot I10 ESSENTIAL (PRIMARY) HYPERTENSION 02/25/2017 PATRICIA CARLOS DO Ot I48. 91 UNSPECIFIED ATRIAL FIBRILLATION 02/25/2017 PATRICIA CARLOS DO Ot J44. 9 CHRONIC OBSTRUCTIVE PULMONARY DISEASE, U 02/25/2017 PATRICIA CARLOS DO Ot K25. 9 GASTRIC ULCER, UNSP ACUTE OR CHRONIC, 02/25/2017 PATRICIA CARLOS DO Ot K29. 50 UNSPECIFIED CHRONIC GASTRITIS WITHOUT BL 02/25/2017 PATRICIA CARLOS DO Ot K29. 80 DUODENITIS WITHOUT BLEEDING 02/25/2017 PATRICIA CARLOS DO Ot K44. 9 DIAPHRAGMATIC HERNIA WITHOUT OBSTRUCTION 02/25/2017 PATRICIA CARLOS DO, Ot Z79.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 02/25/2017 PATRICIA CARLOS DO Ot Z88. 1 ALLERGY STATUS TO OTHER ANTIBIOTIC AGENT 02/25/2017 PATRICIA CARLOS DO Ot Z88. 5 ALLERGY STATUS TO NARCOTIC AGENT STATUS 02/25/2017 PATRICIA CARLOS DO Ot Z96.651 PRESENCE OF RIGHT ARTIFICIAL KNEE JOINT 02/25/2017 PATRICIA CARLOS DO Ot Z96.652 PRESENCE OF LEFT ARTIFICIAL KNEE JOINT 02/26/2017 JIN MONK MD Ot J44.9 CHRONIC OBSTRUCTIVE PULMONARY DISEASE, U 02/26/2017 JIN MONK MD Ot Z12.31 ENCNTR SCREEN MAMMOGRAM FOR MALIGNANT NE 03/03/2017 JIN MONK MD Ot J44.9 CHRONIC OBSTRUCTIVE PULMONARY DISEASE, U 03/03/2017 JIN MONK MD Ot Z12.31 ENCNTR SCREEN MAMMOGRAM FOR MALIGNANT NE 03/04/2017 PATRICIA CARLOS DO Ot I10 ESSENTIAL (PRIMARY) HYPERTENSION 03/04/2017 PATRICIA CARLOS DO Ot I48. 91 UNSPECIFIED ATRIAL FIBRILLATION 03/04/2017 PATRICIA CARLSO DO Ot J44. 9 CHRONIC OBSTRUCTIVE PULMONARY DISEASE, U 03/04/2017 PATRICIA CARLOS DO Ot K25. 9 GASTRIC ULCER, UNSP ACUTE OR CHRONIC, 03/04/2017 PATRICIA CARLOS DO Ot K29. 50 UNSPECIFIED CHRONIC GASTRITIS WITHOUT BL 03/04/2017 PATRICIA CARLOS DO Ot K29. 80 DUODENITIS WITHOUT BLEEDING 03/04/2017 PATRICIA CARLOS DO Ot K44. 9 DIAPHRAGMATIC HERNIA WITHOUT OBSTRUCTION 03/04/2017 PATRICIA CARLOS DO Ot Z79.899 OTHER FDC (CURRENT) DRUG THERAPY 03/04/2017 PATRICIA CARLOS DO Ot Z88. 1 ALLERGY STATUS TO OTHER ANTIBIOTIC AGENT 03/04/2017 PATRICIA CARLOS DO Ot Z88. 5 ALLERGY STATUS TO NARCOTIC AGENT STATUS 03/04/2017 PATRICIA CARLOS DO Ot Z96.651 PRESENCE OF RIGHT ARTIFICIAL KNEE JOINT 03/04/2017 PATRICIA CARLOS DO Ot Z96.652 PRESENCE OF LEFT ARTIFICIAL KNEE JOINT 03/19/2017 JIN MONK MD Ot J44.9 CHRONIC OBSTRUCTIVE PULMONARY DISEASE, U 03/19/2017 JIN MONK MD Ot Z12.31 ENCNTR SCREEN MAMMOGRAM FOR MALIGNANT NE 03/27/2017 JIN MONK MD Ot J44.9 CHRONIC OBSTRUCTIVE PULMONARY DISEASE, U 03/27/2017 JIN MONK MD Ot Z12.31 ENCNTR SCREEN MAMMOGRAM FOR MALIGNANT NE 07/21/2017 FOREIGN BURCH MD Ot I10 ESSENTIAL (PRIMARY) HYPERTENSION 07/21/2017 FOREIGN BURCH MD Ot I48. 0 PAROXYSMAL ATRIAL FIBRILLATION 07/21/2017 FOREIGN BURCH MD Ot J44. 9 CHRONIC OBSTRUCTIVE PULMONARY DISEASE, U 07/21/2017 FOREIGN BURCH MD Ot K21. 9 GASTRO-ESOPHAGEAL REFLUX DISEASE WITHOUT 07/21/2017 FOREIGN BURCH MD Ot M06. 9 RHEUMATOID ARTHRITIS, UNSPECIFIED 07/21/2017 FOREIGN BURCH MD Ot R00. 8 OTHER ABNORMALITIES OF HEART BEAT 07/21/2017 FOREIGN BURCH MD Ot Z79. 82 COTTAGE ATTENDANT (CURRENT) USE OF ASPIRIN 07/21/2017 FOREGIN BURCH MD Ot Z87.448 PERSONAL HISTORY OF OTHER DISEASES OF UR 07/21/2017 FOREIGN BURCH MD Ot Z88. 0 ALLERGY STATUS TO PENICILLIN 07/21/2017 FOREIGN BURCH MD Ot Z88. 1 ALLERGY STATUS TO OTHER ANTIBIOTIC AGENT 07/21/2017 FOREIGN BURCH MD Ot Z88. 5 ALLERGY STATUS TO NARCOTIC AGENT STATUS 07/21/2017 FOREIGN BURCH MD Ot Z90.710 ACQUIRED ABSENCE OF BOTH CERVIX AND UTER 07/23/2017 FOREIGN BURCH MD Ot I10 ESSENTIAL (PRIMARY) HYPERTENSION 07/23/2017 FOREIGN BURCH MD Ot I48. 0 PAROXYSMAL ATRIAL FIBRILLATION 07/23/2017 FOREIGN BURCH MD Ot J44. 9 CHRONIC OBSTRUCTIVE PULMONARY DISEASE, U 07/23/2017 FOREIGN BURCH MD Ot K21. 9 GASTRO-ESOPHAGEAL REFLUX DISEASE WITHOUT 07/23/2017 FOREIGN BURCH MD Ot M06. 9 RHEUMATOID ARTHRITIS, UNSPECIFIED 07/23/2017 FOREIGN BURCH MD Ot R00. 8 OTHER ABNORMALITIES OF HEART BEAT 07/23/2017 FOREIGN BURCH MD Ot Z79. 82 FDC (CURRENT) USE OF ASPIRIN 07/23/2017 FOREIGN BURCH MD Ot Z87.448 PERSONAL HISTORY OF OTHER DISEASES OF UR 07/23/2017 FOREIGN BURCH MD Ot Z88. 0 ALLERGY STATUS TO PENICILLIN 07/23/2017 FOREIGN BURCH MD Ot Z88. 1 ALLERGY STATUS TO OTHER ANTIBIOTIC AGENT 07/23/2017 FOREIGN BURCH MD Ot Z88. 5 ALLERGY STATUS TO NARCOTIC AGENT STATUS 07/23/2017 MARCIN CHRISTINE, FOREIGN S Ot Z90.710 ACQUIRED ABSENCE OF BOTH CERVIX AND UTER 07/25/2017 Ot 280.9 IRON DEFIC ANEMIA NOS 07/25/2017 Ot 285.21 ANE HALEY IN CHRONIC KIDNEY DISEASE 07/25/2017 Ot 585.3 FAREBOX REPAIRER MAEGAN KIDNEY DISEASE, STAGE III (MODER 07/25/2017 Ot 714.0 RHEU MATOID ARTHRITIS 07/25/2017 Ot 786.09 RES PIRATORY ABNORM NEC 07/25/2017 Ot 786.2 COUGH 07/25/2017 CARON MARTINEZ Ot 272.4 HYPERLIPIDEMIA NEC/NOS 07/25/2017 JOANNA WATSON CARON K Ot 397.0 TRICUSPID VALVE DISEASE 07/25/2017 CARON MARTINEZ Ot 401.9 HYPERTENSION NOS 07/25/2017 CARON MARTINEZ Ot 414.00 CORON ATHEROSCLER NOS TYPE VESSEL, NATIV 07/25/2017 JOANNA WATSON CARON K Ot 424.0 MITRAL VALVE DISORDER 07/25/2017 JOANNA WATSON CARON K Ot 427.31 ATRIAL FIBRILLATION 07/25/2017 JOANNA WATSON CARON K Ot 433.10 CAROTID ARTERY OCCLUSION W O CEREBRAL IN 07/25/2017 CHAYITO CARBONE Ot V76.12 OTH SCREEN MAMMO-MALIGN NEOPLASM OF [place] 07/25/2017 JIN MONK MD Ot V76.12 OTH SCREEN MAMMO-MALIGN NEOPLASM OF [place] 07/25/2017 CLOVIS BROCK APRN Ot Z12.31 ENCNTR SCREEN MAMMOGRAM FOR MALIGNANT NE 07/25/2017 MARIE CHRISTINE, AUGUSTA De La Rosa Ot I65. 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 07/25/2017 JIN MONK MD Ot Z12.31 ENCNTR SCREEN MAMMOGRAM FOR MALIGNANT NE 07/25/2017 FOREIGN BRITT MD Ot I48.91 UNSPECIFIED ATRIAL FIBRILLATION 07/25/2017 FOREIGN BRITT MD Ot M06.9 RHEUMATOID ARTHRITIS, UNSPECIFIED 07/25/2017 BALWINDER CHRISTINE, FOREIGN De La Rosa Ot M50.30 OTHER CERVICAL DISC DEGENERATION, UNSP C 07/25/2017 BALWINDER CHRISTIEN, FOREIGN De La Rosa Ot Z79.01 COTTAGE ATTENDANT (CURRENT) USE OF ANTICOAGULANT 07/25/2017 CARON MARTINEZ Ot I10 ESSENTIAL (PRIMARY) HYPERTENSION 07/25/2017 CARON MARTINEZ Ot I25.10 ATHSCL HEART DISEASE OF [place] CORONARY 07/25/2017 CARON MARTINEZ Ot I48.0 PAROXYSMAL ATRIAL FIBRILLATION 07/25/2017 CARON MARTINEZ Ot 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 07/25/2017 BALWINDER CHRISTINE, FOREIGN De La Rosa Ot M06.9 RHEUMATOID ARTHRITIS, UNSPECIFIED 07/25/2017 ALESHIA CHRISTINE, JIN Toscano Ot J44.9 CHRONIC OBSTRUCTIVE PULMONARY DISEASE, U 07/25/2017 JIN MONK MD Ot Z12.31 ENCNTR SCREEN MAMMOGRAM FOR MALIGNANT NE 07/25/2017 PATRICIA CARLOS DO Ot R10. 13 EPIGASTRIC PAIN 07/25/2017 PATRICIA CARLOS DO Ot Z01.818 ENCOUNTER FOR OTHER PREPROCEDURAL EXAMIN 07/27/2017 MARCIN CHRISTINE, FOREIGN Saavedra Ot I10 ESSENTIAL (PRIMARY) HYPERTENSION 07/27/2017 MARCIN CHRISTINE, FOREIGN Saavedra Ot I48. 0 PAROXYSMAL ATRIAL FIBRILLATION 07/27/2017 FOREIGN BURCH MD Ot J44. 9 CHRONIC OBSTRUCTIVE PULMONARY DISEASE, U 07/27/2017 FOREIGN BURCH MD Ot K21. 9 GASTRO-ESOPHAGEAL REFLUX DISEASE WITHOUT 07/27/2017 MARCIN CHRISTINE, FOREIGN Saavedra Ot M06. 9 RHEUMATOID ARTHRITIS, UNSPECIFIED 07/27/2017 MARCIN CHRISTINE, FOREIGN Saavedra Ot R00. 8 OTHER ABNORMALITIES OF HEART BEAT 07/27/2017 FOREIGN BURCH MD Ot Z79. 82 FDC (CURRENT) USE OF ASPIRIN 07/27/2017 FOREIGN BURCH MD Ot Z87.448 PERSONAL HISTORY OF OTHER DISEASES OF UR 07/27/2017 MARCIN CHRISTINE, FOREIGN Saavedra Ot Z88. 0 ALLERGY STATUS TO PENICILLIN 07/27/2017 FOREIGN BURCH MD Ot Z88. 1 ALLERGY STATUS TO OTHER ANTIBIOTIC AGENT 07/27/2017 FOREIGN BURCH MD Ot Z88. 5 ALLERGY STATUS TO NARCOTIC AGENT STATUS 07/27/2017 FOREIGN BURCH MD Ot Z90.710 ACQUIRED ABSENCE OF BOTH CERVIX AND UTER 07/30/2017 JOANNA WATSON, CARON K Ot I10 ESSENTIAL (PRIMARY) HYPERTENSION 07/30/2017 JOANNA WATSON, CARON K Ot I25.10 ATHSCL HEART DISEASE OF [place] CORONARY 07/30/2017 JOANNA WATSON, CARON K Ot I48.0 PAROXYSMAL ATRIAL FIBRILLATION 08/20/2017 JOANNA WATSON, CARON K Ot I10 ESSENTIAL (PRIMARY) HYPERTENSION 08/20/2017 JOANNA WATSON, CARON K Ot I25.10 ATHSCL HEART DISEASE OF [place] CORONARY 08/20/2017 JOANNA WATSON, CARON K Ot I48.0 PAROXYSMAL ATRIAL FIBRILLATION 08/29/2017 JOANNA WATSON, CARON K Ot I10 ESSENTIAL (PRIMARY) HYPERTENSION 08/29/2017 JOANNA WATSON, CARON K Ot I25.10 ATHSCL HEART DISEASE OF [place] CORONARY 08/29/2017 JOANNA WATSON, CARON K Ot I48.0 PAROXYSMAL ATRIAL FIBRILLATION 01/14/2018 MAHSA IVERSON MD Ot I10 ESSENTIAL (PRIMARY) HYPERTENSION 01/14/2018 MAHSA IVERSON MD Ot I25.10 ATHSCL HEART DISEASE OF [place] CORONARY 01/14/2018 MAHSA IVERSON MD Ot I48.0 PAROXYSMAL ATRIAL FIBRILLATION 01/14/2018 MAHSA IVERSON MD Ot J44.9 CHRONIC OBSTRUCTIVE PULMONARY DISEASE, U 01/14/2018 MAHSA IVERSON MD Ot K21.9 GASTRO-ESOPHAGEAL REFLUX DISEASE WITHOUT 01/14/2018 MAHSA IVERSON MD Ot M06.9 RHEUMATOID ARTHRITIS, UNSPECIFIED 01/14/2018 MAHSA IVERSON MD Ot R07.89 OTHER CHEST PAIN 01/14/2018 MAHSA IVERSON MD Ot Z88.0 ALLERGY STATUS TO PENICILLIN 01/14/2018 MAHSA IVERSON MD Ot Z88.5 ALLERGY STATUS TO NARCOTIC AGENT STATUS 01/14/2018 MAHSA IVERSON MD Ot Z88.8 ALLERGY STATUS TO OTH DRUG/MEDS/BIOL SUB 01/14/2018 KISHOR CHRISTINE, MAHSA Gibbons Ot Z90.710 ACQUIRED ABSENCE OF BOTH CERVIX AND UTER 01/14/2018 JOANNA WATSON CARON K Ot 272.4 HYPERLIPIDEMIA NEC/NOS 01/14/2018 JOANNA WATSON CARON K Ot 397.0 TRICUSPID VALVE DISEASE 01/14/2018 JOANNA WATSON CARON K Ot 401.9 HYPERTENSION NOS 01/14/2018 JOANNA WATSON CARON K Ot 414.00 CORON ATHEROSCLER NOS TYPE VESSEL, NATIV 01/14/2018 JOANNA WATSON CARON K Ot 424.0 MITRAL VALVE DISORDER 01/14/2018 JOANNA WATSON CARON K Ot 427.31 ATRIAL FIBRILLATION 01/14/2018 CARON MARTINEZ Ot 433.10 CAROTID ARTERY OCCLUSION W O CEREBRAL IN 01/14/2018 CHAYITO CARBONE Ot V76.12 OTH SCREEN MAMMO-MALIGN NEOPLASM OF [place] 01/14/2018 JIN MONK MD Ot V76.12 OTH SCREEN MAMMO-MALIGN NEOPLASM OF [place] 01/14/2018 CLVOIS BRCOK APRN Ot Z12.31 ENCNTR SCREEN MAMMOGRAM FOR MALIGNANT NE 01/14/2018 MARIE CHRISTINE, AUGUSTA De La Rosa Ot I65. 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 01/14/2018 JIN MONK MD Ot Z12.31 ENCNTR SCREEN MAMMOGRAM FOR MALIGNANT NE 01/14/2018 FOREIGN BRITT MD Ot I48.91 UNSPECIFIED ATRIAL FIBRILLATION 01/14/2018 FOREIGN BRITT MD Ot M06.9 RHEUMATOID ARTHRITIS, UNSPECIFIED 01/14/2018 FOREIGN BRITT MD Ot M50.30 OTHER CERVICAL DISC DEGENERATION, UNSP C 01/14/2018 FOREIGN BRITT MD Ot Z79.01 FDC (CURRENT) USE OF ANTICOAGULANT 01/14/2018 CARON MARTINEZ Ot I10 ESSENTIAL (PRIMARY) HYPERTENSION 01/14/2018 CARON MARTINEZ Ot I25.10 ATHSCL HEART DISEASE OF [place] CORONARY 01/14/2018 CARON MARTINEZ Ot I48.0 PAROXYSMAL ATRIAL FIBRILLATION 01/14/2018 CARON MARTINEZ Ot 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 01/14/2018 FOREIGN BRITT MD Ot M06.9 RHEUMATOID ARTHRITIS, UNSPECIFIED 01/14/2018 JIN MONK MD Ot J44.9 CHRONIC OBSTRUCTIVE PULMONARY DISEASE, U 01/14/2018 JIN MONK MD Ot Z12.31 ENCNTR SCREEN MAMMOGRAM FOR MALIGNANT NE 01/14/2018 PATRICIA CARLOS DO Ot R10. 13 EPIGASTRIC PAIN 01/14/2018 PATRICIA CARLOS DO Ot Z01.818 ENCOUNTER FOR OTHER PREPROCEDURAL EXAMIN 01/14/2018 CARON MARTINEZ Ot I10 ESSENTIAL (PRIMARY) HYPERTENSION 01/14/2018 CARON MARTINEZ Ot I25.10 ATHSCL HEART DISEASE OF [place] CORONARY 01/14/2018 CARON MARTINEZ Ot I48.0 PAROXYSMAL ATRIAL FIBRILLATION 01/16/2018 MAHSA IVERSON MD, Ot I10 ESSENTIAL (PRIMARY) HYPERTENSION 01/16/2018 MAHSA IVERSON MD, Ot I25.10 ATHSCL HEART DISEASE OF [place] CORONARY 01/16/2018 MAHSA IVERSON MD Ot I48.0 PAROXYSMAL ATRIAL FIBRILLATION 01/16/2018 MAHSA IVERSON MD, Ot J44.9 CHRONIC OBSTRUCTIVE PULMONARY DISEASE, U 01/16/2018 MAHSA IVERSON MD Ot K21.9 GASTRO-ESOPHAGEAL REFLUX DISEASE WITHOUT 01/16/2018 MAHSA IVERSON MD Ot M06.9 RHEUMATOID ARTHRITIS, UNSPECIFIED 01/16/2018 MAHSA IVERSON MD Ot R07.89 OTHER CHEST PAIN 01/16/2018 MAHSA IVERSON MD Ot Z88.0 ALLERGY STATUS TO PENICILLIN 01/16/2018 MAHSA IVERSON MD Ot Z88.5 ALLERGY STATUS TO NARCOTIC AGENT STATUS 01/16/2018 MAHSA IVERSON MD Ot Z88.8 ALLERGY STATUS TO OT DRUG/MEDS/BIOL SUB 01/16/2018 MAHSA IVERSON MD Ot Z90.710 ACQUIRED ABSENCE OF BOTH CERVIX AND UTER 02/21/2018 AUGUSTA SALAZAR MD Ot E78. 2 MIXED HYPERLIPIDEMIA 02/21/2018 AUGUSTA SALAZAR MD Ot I10 ESSENTIAL (PRIMARY) HYPERTENSION 02/21/2018 AUGUSTA SALAZAR MD Ot I25. 10 ATHSCL HEART DISEASE OF [place] CORONARY 02/21/2018 AUGUSTA SALAZAR MD Ot I34. 0 NONRHEUMATIC MITRAL (VALVE) INSUFFICIENC 02/21/2018 AUGUSTA SALAZAR MD Ot I48. 0 PAROXYSMAL ATRIAL FIBRILLATION 03/13/2018 CLOVIS BROCK TARIFF CLERK Ot M19.012 PRIMARY OSTEOARTHRITIS, LEFT SHOULDER 03/13/2018 CLOVIS BROCK TARIFF CLERK Ot M47.812 SPONDYLOSIS W/O MYELOPATHY OR RADICULOPA 03/13/2018 AUGUSTA SALAZAR MD Ot E78. 2 MIXED HYPERLIPIDEMIA 03/13/2018 AUGUSTA SALAZAR MD Ot I10 ESSENTIAL (PRIMARY) HYPERTENSION 03/13/2018 AUGUSTA SALAZAR MD Ot I25. 10 ATHSCL HEART DISEASE OF [place] CORONARY 03/13/2018 AUGUSTA SALAZAR MD Ot I34. 0 NONRHEUMATIC MITRAL (VALVE) INSUFFICIENC 03/13/2018 AUGUSTA SALAZAR MD Ot I48. 0 PAROXYSMAL ATRIAL FIBRILLATION 04/05/2018 CLOVIS BROCK TARIFF CLERK Ot M19.012 PRIMARY OSTEOARTHRITIS, LEFT SHOULDER 04/05/2018 CLOVIS BROCK TARIFF CLERK Ot M47.812 SPONDYLOSIS W/O MYELOPATHY OR RADICULOPA 04/11/2018 CLOVIS BROCK TARIFF CLERK Ot M19.012 PRIMARY OSTEOARTHRITIS, LEFT SHOULDER 04/11/2018 CLOVIS BROCK TARIFF CLERK Ot M47.812 SPONDYLOSIS W/O MYELOPATHY OR RADICULOPA 08/12/2018 AUGUSTA SALAZAR MD Ot E78. 00 PURE HYPERCHOLESTEROLEMIA, UNSPECIFIED 08/12/2018 AUGUSTA SALAZAR MD Ot E78. 5 HYPERLIPIDEMIA, UNSPECIFIED 08/12/2018 AUGUSTA SALAZAR MD Ot I10 ESSENTIAL (PRIMARY) HYPERTENSION 08/12/2018 AUGUSTA SALAZAR MD Ot I27. 20 PULMONARY HYPERTENSION, UNSPECIFIED 08/12/2018 AUGUSTA SALAZAR MD Ot I34. 0 NONRHEUMATIC MITRAL (VALVE) INSUFFICIENC 08/12/2018 AUGUSTA SALAZAR MD Ot I48. 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 9 GASTRO-ESOPHAGEAL REFLUX DISEASE WITHOUT 08/12/2018 AUGUSTA SALAZAR MD Ot K76. 9 LIVER DISEASE, UNSPECIFIED 08/12/2018 AUGUSTA SALAZAR MD Ot M06. 9 RHEUMATOID ARTHRITIS, UNSPECIFIED 08/12/2018 AUGUSTA SALAZAR MD Ot N28. 9 DISORDER OF KIDNEY AND URETER, UNSPECIFI 08/12/2018 AUGUSTA SALAAZR MD Ot R00. 2 PALPITATIONS 08/12/2018 AUGUSTA SALAZAR MD Ot R06. 02 SHORTNESS OF BREATH 08/12/2018 AUGUSTA SALAZAR MD Ot Z88. 0 ALLERGY STATUS TO PENICILLIN 08/12/2018 AUGUSTA SALAZAR MD Ot Z88. 1 ALLERGY STATUS TO OTHER ANTIBIOTIC AGENT 08/12/2018 AUGUSTA SALAZAR MD, Ot Z88. 5 ALLERGY STATUS TO NARCOTIC AGENT STATUS 08/12/2018 AUGUSTA SALAZAR MD Ot Z96. 9 PRESENCE OF FUNCTIONAL IMPLANT, UNSPECIF 08/12/2018 AUGUSTA SALAZAR MD Ot E78. 00 PURE HYPERCHOLESTEROLEMIA, UNSPECIFIED 08/12/2018 AUGUSTA SALAZAR MD Ot E78. 5 HYPERLIPIDEMIA, UNSPECIFIED 08/12/2018 AUGUSTA SALAZAR MD Ot I10 ESSENTIAL (PRIMARY) HYPERTENSION 08/12/2018 AUGUSTA SALAZAR MD Ot I27. 20 PULMONARY HYPERTENSION, UNSPECIFIED 08/12/2018 AUGUSTA SALAZAR MD Ot I34. 0 NONRHEUMATIC MITRAL (VALVE) INSUFFICIENC 08/12/2018 AUGUSTA SALAZAR MD Ot I48. 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 9 GASTRO-ESOPHAGEAL REFLUX DISEASE WITHOUT 08/12/2018 AUGUSTA SALZAAR MD Ot K76. 9 LIVER DISEASE, UNSPECIFIED 08/12/2018 AUGUSTA SALAZAR MD Ot M06. 9 RHEUMATOID ARTHRITIS, UNSPECIFIED 08/12/2018 AUGUSTA SALAZAR MD Ot N28. 9 DISORDER OF KIDNEY AND URETER, UNSPECIFI 08/12/2018 AUGUSTA SALAZAR MD Ot R00. 2 PALPITATIONS 08/12/2018 AUGUSTA SALAZAR MD Ot R06. 02 SHORTNESS OF BREATH 08/12/2018 AUGUSTA SALAZAR MD Ot Z88. 0 ALLERGY STATUS TO PENICILLIN 08/12/2018 AUGUSTA SALAZAR MD Ot Z88. 1 ALLERGY STATUS TO OTHER ANTIBIOTIC AGENT 08/12/2018 AUGUSTA SALAZAR MD Ot Z88. 5 ALLERGY STATUS TO NARCOTIC AGENT STATUS 08/12/2018 AUGUSTA SALAZAR MD Ot Z96. 9 PRESENCE OF FUNCTIONAL IMPLANT, UNSPECIF 08/21/2018 AUGUSTA SALAZAR MD Ot E78. 2 MIXED HYPERLIPIDEMIA 08/21/2018 AUGUSTA SALAZAR MD Ot I25. 10 ATHSCL HEART DISEASE OF [place] CORONARY 08/21/2018 AUGUSTA SALAZAR MD Ot I48. 0 PAROXYSMAL ATRIAL FIBRILLATION 08/21/2018 AUGUSTA SALAZAR MD Ot I51. 9 HEART DISEASE, UNSPECIFIED 09/12/2018 AUGUSTA SALAZAR MD Ot E78. 2 MIXED HYPERLIPIDEMIA 09/12/2018 AUGUSTA SALAZAR MD Ot I25. 10 ATHSCL HEART DISEASE OF [place] CORONARY 09/12/2018 AUGUSTA SALAZAR MD Ot I48. 0 PAROXYSMAL ATRIAL FIBRILLATION 09/12/2018 AUGUSTA SALAZAR MD Ot I51. 9 HEART DISEASE, UNSPECIFIED 09/17/2018 AUGUSTA SALAZAR MD Ot E78. 2 MIXED HYPERLIPIDEMIA 09/17/2018 AUGUSTA SALAZAR MD Ot I25. 10 ATHSCL HEART DISEASE OF [place] CORONARY 09/17/2018 AUGUSTA SALAZAR MD Ot I48. 0 PAROXYSMAL ATRIAL FIBRILLATION 09/17/2018 AUGUSTA SALAZAR MD Ot I51. 9 HEART DISEASE, UNSPECIFIED 03/30/2019 CAROLINE WILLIAM MD Ot E61. 1 IRON DEFICIENCY 03/30/2019 CAROLINE WILLIAM MD Ot E78. 5 HYPERLIPIDEMIA, UNSPECIFIED 03/30/2019 CAROLINE WILLIAM MD Ot H26. 9 UNSPECIFIED CATARACT 03/30/2019 CAROLINE WILLIAM MD Ot I10 ESSENTIAL (PRIMARY) HYPERTENSION 03/30/2019 CAROLINE WILLIAM MD, Ot I25. 10 ATHSCL HEART DISEASE OF [place] CORONARY 03/30/2019 CAROLINE WILLIAM MD, Ot I48. 19 OTHER PERSISTENT ATRIAL FIBRILLATION 03/30/2019 CAROLINE WILLIAM MD, Ot J44. 9 CHRONIC OBSTRUCTIVE PULMONARY DISEASE, U 03/30/2019 CAROLINE WILLIAM MD, Ot K21. 9 GASTRO-ESOPHAGEAL REFLUX DISEASE WITHOUT 03/30/2019 CAROLINE WILLIAM MD, Ot M06. 9 RHEUMATOID ARTHRITIS, UNSPECIFIED 03/30/2019 CAROLINE WILLIAM MD, Ot M19. 90 UNSPECIFIED OSTEOARTHRITIS, UNSPECIFIED 03/30/2019 CAROLINE WILLIAM MD, Ot Z79. 01 COTTAGE ATTENDANT (CURRENT) USE OF ANTICOAGULANT 03/30/2019 CAROLINE WILLIAM MD, Ot Z90.710 ACQUIRED ABSENCE OF BOTH CERVIX AND UTER 04/28/2019 LELIA GALVAN MD, Ot I10 ESSENTIAL (PRIMARY) HYPERTENSION 04/28/2019 LELIA GALVAN MD, Ot I25.10 ATHSCL HEART DISEASE OF [place] CORONARY 04/28/2019 LELIA GALVAN MD, Ot I48.91 UNSPECIFIED ATRIAL FIBRILLATION 04/28/2019 LELIA GALVAN MD, Ot J44.9 CHRONIC OBSTRUCTIVE PULMONARY DISEASE, U 04/28/2019 LELIA GALVAN MD, Ot K21.9 GASTRO-ESOPHAGEAL REFLUX DISEASE WITHOUT 04/28/2019 LELIA GALVAN MD, Ot M06.9 RHEUMATOID ARTHRITIS, UNSPECIFIED 04/28/2019 LELIA GALVAN MD, Ot Z82.49 FAMILY HX OF [place] HEART DIS AND OTH DI 04/28/2019 LELIA GALVAN MD, Ot Z88.0 ALLERGY STATUS TO PENICILLIN 04/28/2019 LELIA GALVAN MD, Ot Z88.1 ALLERGY STATUS TO OTHER ANTIBIOTIC AGENT 04/28/2019 LELIA GALVAN MD, Ot Z88.5 ALLERGY STATUS TO NARCOTIC AGENT STATUS 04/28/2019 LELIA GALVAN MD, Ot Z88.8 ALLERGY STATUS TO OTH DRUG/MEDS/BIOL SUB 04/28/2019 LELIA GALVAN MD, Ot Z90.710 ACQUIRED ABSENCE OF BOTH CERVIX AND UTER 04/30/2019 LELIA GALVAN MD Ot I10 ESSENTIAL (PRIMARY) HYPERTENSION 04/30/2019 LELIA GALVAN MD Ot I25.10 ATHSCL HEART DISEASE OF [place] CORONARY 04/30/2019 LELIA GALVAN MD, Ot I48.91 UNSPECIFIED ATRIAL FIBRILLATION 04/30/2019 LELIA GALVAN MD Ot J44.9 CHRONIC OBSTRUCTIVE PULMONARY DISEASE, U 04/30/2019 LELIA GALVAN MD Ot K21.9 GASTRO-ESOPHAGEAL REFLUX DISEASE WITHOUT 04/30/2019 LELIA GALVAN MD, Ot M06.9 RHEUMATOID ARTHRITIS, UNSPECIFIED 04/30/2019 LELIA GALVAN MD, Ot Z82.49 FAMILY HX OF [place] HEART DIS AND OTH DI 04/30/2019 LELIA GALVAN MD Ot Z88.0 ALLERGY STATUS TO PENICILLIN 04/30/2019 LELIA GALVAN MD Ot Z88.1 ALLERGY STATUS TO OTHER ANTIBIOTIC AGENT 04/30/2019 LELIA GALVAN MD Ot Z88.5 ALLERGY STATUS TO NARCOTIC AGENT STATUS 04/30/2019 LELIA GALVAN MD Ot Z88.8 ALLERGY STATUS TO OT DRUG/MEDS/BIOL SUB 04/30/2019 LELIA GALVAN MD Ot Z90.710 ACQUIRED ABSENCE OF BOTH CERVIX AND UTER 05/13/2019 JIN MONK MD Ot D68.2 HEREDITARY DEFICIENCY OF OTHER CLOTTING 05/13/2019 JIN MONK MD Ot E78.5 HYPERLIPIDEMIA, UNSPECIFIED 05/13/2019 JIN MONK MD Ot I12.9 HYPERTENSIVE CHRONIC KIDNEY DISEASE W ST 05/13/2019 JIN MONK MD Ot I25.10 ATHSCL HEART DISEASE OF [place] CORONARY 05/13/2019 JIN MONK MD Ot I27.20 PULMONARY HYPERTENSION, UNSPECIFIED 05/13/2019 JIN MONK MD Ot I34.0 NONRHEUMATIC MITRAL (VALVE) INSUFFICIENC 05/13/2019 JIN MONK MD, Ot I48.0 PAROXYSMAL ATRIAL FIBRILLATION 05/13/2019 JIN MONK MD Ot 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 05/13/2019 JIN MONK MD, Ot J44.9 CHRONIC OBSTRUCTIVE PULMONARY DISEASE, U 05/13/2019 JIN MONK MD, Ot J98.11 ATELECTASIS 05/13/2019 JIN MONK MD, Ot K21.9 GASTRO-ESOPHAGEAL REFLUX DISEASE WITHOUT 05/13/2019 JIN MONK MD, Ot K57.90 DVRTCLOS OF INTEST, PART UNSP, W/O PERF 05/13/2019 JIN MONK MD, Ot K76.89 OTHER SPECIFIED DISEASES OF LIVER 05/13/2019 JIN MONK MD, Ot M06.9 RHEUMATOID ARTHRITIS, UNSPECIFIED 05/13/2019 JIN MONK MD, Ot M19.91 PRIMARY OSTEOARTHRITIS, UNSPECIFIED SITE 05/13/2019 JIN MONK MD, Ot N28.1 CYST OF KIDNEY, ACQUIRED 05/13/2019 JIN MONK MD, Ot Z90.710 ACQUIRED ABSENCE OF BOTH CERVIX AND UTER 05/13/2019 JIN MONK MD, Ot Z90.722 ACQUIRED ABSENCE OF OVARIES, BILATERAL 05/30/2019 MAHSA IVERSON MD, Ot E78.00 PURE HYPERCHOLESTEROLEMIA, UNSPECIFIED 05/30/2019 MAHSA IVERSON MD, Ot I12.9 HYPERTENSIVE CHRONIC KIDNEY DISEASE W ST 05/30/2019 MAHSA IVERSON MD, Ot I25.10 ATHSCL HEART DISEASE OF [place] CORONARY 05/30/2019 MAHSA IVERSON MD, Ot I48.91 UNSPECIFIED ATRIAL FIBRILLATION 05/30/2019 MAHSA IVERSON MD, Ot K21.9 GASTRO-ESOPHAGEAL REFLUX DISEASE WITHOUT 05/30/2019 MAHSA IVERSON MD, Ot N18.9 CHRONIC KIDNEY DISEASE, UNSPECIFIED 05/30/2019 MAHSA IVERSON MD, Ot R10.11 RIGHT UPPER QUADRANT PAIN 05/30/2019 MAHSA IVERSON MD, Ot R19.7 DIARRHEA, UNSPECIFIED 05/30/2019 MAHSA IVERSON MD, Ot Z79.01 FDC (CURRENT) USE OF ANTICOAGULANT 05/30/2019 MAHSA IVERSON MD, Ot Z82.49 FAMILY HX OF [place] HEART DIS AND OTH DI 05/30/2019 MAHSA IVERSON MD, Ot Z88.0 ALLERGY STATUS TO PENICILLIN 05/30/2019 MAHSA IVERSON MD, Ot Z88.1 ALLERGY STATUS TO OTHER ANTIBIOTIC AGENT 05/30/2019 MAHAS IVERSON MD Ot Z88.5 ALLERGY STATUS TO NARCOTIC AGENT STATUS 05/30/2019 MAHSA IVERSON MD, Ot Z88.8 ALLERGY STATUS TO OTH DRUG/MEDS/BIOL SUB 06/02/2019 JIN MONK MD, Ot D68.2 HEREDITARY DEFICIENCY OF OTHER CLOTTING 06/02/2019 JIN MONK MD, Ot E78.5 HYPERLIPIDEMIA, UNSPECIFIED 06/02/2019 JIN MONK MD Ot I12.9 HYPERTENSIVE CHRONIC KIDNEY DISEASE W ST 06/02/2019 JIN MONK MD, Ot I25.10 ATHSCL HEART DISEASE OF [place] CORONARY 06/02/2019 JIN MONK MD, Ot I27.20 PULMONARY HYPERTENSION, UNSPECIFIED 06/02/2019 JIN MONK MD Ot I34.0 NONRHEUMATIC MITRAL (VALVE) INSUFFICIENC 06/02/2019 JIN MONK MD, Ot I48.0 PAROXYSMAL ATRIAL FIBRILLATION 06/02/2019 JIN MONK MD Ot 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 06/02/2019 JIN MONK MD, Ot J44.9 CHRONIC OBSTRUCTIVE PULMONARY DISEASE, U 06/02/2019 JIN MONK MD, Ot J98.11 ATELECTASIS 06/02/2019 JIN MONK MD, Ot K21.9 GASTRO-ESOPHAGEAL REFLUX DISEASE WITHOUT 06/02/2019 JIN MONK MD, Ot K57.90 DVRTCLOS OF INTEST, PART UNSP, W/O PERF 06/02/2019 JIN MONK MD Ot K76.89 OTHER SPECIFIED DISEASES OF LIVER 06/02/2019 JIN MONK MD Ot M06.9 RHEUMATOID ARTHRITIS, UNSPECIFIED 06/02/2019 JIN MONK MD Ot M19.91 PRIMARY OSTEOARTHRITIS, UNSPECIFIED SITE 06/02/2019 JIN MONK MD, Ot N28.1 CYST OF KIDNEY, ACQUIRED 06/02/2019 JIN MONK MD Ot Z90.710 ACQUIRED ABSENCE OF BOTH CERVIX AND UTER 06/02/2019 JIN MONK MD, Ot Z90.722 ACQUIRED ABSENCE OF OVARIES, BILATERAL 06/02/2019 MAHSA IVERSON MD Ot E78.00 PURE HYPERCHOLESTEROLEMIA, UNSPECIFIED 06/02/2019 MAHSA IVERSON MD Ot I12.9 HYPERTENSIVE CHRONIC KIDNEY DISEASE W ST 06/02/2019 MAHSA IVERSON MD, Ot I25.10 ATHSCL HEART DISEASE OF [place] CORONARY 06/02/2019 MAHSA IVERSON MD Ot I48.91 UNSPECIFIED ATRIAL FIBRILLATION 06/02/2019 MAHSA IVERSON MD, Ot K21.9 GASTRO-ESOPHAGEAL REFLUX DISEASE WITHOUT 06/02/2019 MAHSA IVERSON MD, Ot N18.9 CHRONIC KIDNEY DISEASE, UNSPECIFIED 06/02/2019 MAHSA IVERSON MD Ot R10.11 RIGHT UPPER QUADRANT PAIN 06/02/2019 MAHSA IVERSON MD, Ot R19.7 DIARRHEA, UNSPECIFIED 06/02/2019 MAHSA IVERSON MD Ot Z79.01 COTTAGE ATTENDANT (CURRENT) USE OF ANTICOAGULANT 06/02/2019 MAHSA IVERSON MD Ot Z82.49 FAMILY HX OF [place] HEART DIS AND OTH DI 06/02/2019 MAHSA IVERSON MD Ot Z88.0 ALLERGY STATUS TO PENICILLIN 06/02/2019 MAHSA IVERSON MD, Ot Z88.1 ALLERGY STATUS TO OTHER ANTIBIOTIC AGENT 06/02/2019 MAHSA IVERSON MD, Ot Z88.5 ALLERGY STATUS TO NARCOTIC AGENT STATUS 06/02/2019 MAHSA IVERSON MD, Ot Z88.8 ALLERGY STATUS TO OT DRUG/MEDS/BIOL SUB 06/05/2019 MAHSA IVERSON MD Ot E78.00 PURE HYPERCHOLESTEROLEMIA, UNSPECIFIED 06/05/2019 MAHSA IVERSON MD Ot I12.9 HYPERTENSIVE CHRONIC KIDNEY DISEASE W ST 06/05/2019 MAHSA IVERSON MD, Ot I25.10 ATHSCL HEART DISEASE OF [place] CORONARY 06/05/2019 MAHSA IVERSON MD Ot I48.91 UNSPECIFIED ATRIAL FIBRILLATION 06/05/2019 MAHSA IVERSON MD Ot K21.9 GASTRO-ESOPHAGEAL REFLUX DISEASE WITHOUT 06/05/2019 MAHSA IVERSON MD, Ot N18.9 CHRONIC KIDNEY DISEASE, UNSPECIFIED 06/05/2019 MAHSA IVERSON MD Ot R10.11 RIGHT UPPER QUADRANT PAIN 06/05/2019 MAHSA IVERSON MD Ot R19.7 DIARRHEA, UNSPECIFIED 06/05/2019 MAHSA IVERSON MD Ot Z79.01 COTTAGE ATTENDANT (CURRENT) USE OF ANTICOAGULANT 06/05/2019 MAHSA IVERSON MD Ot Z82.49 FAMILY HX OF [place] HEART DIS AND OTH DI 06/05/2019 MAHSA IVERSON MD Ot Z88.0 ALLERGY STATUS TO PENICILLIN 06/05/2019 MAHSA IVERSON MD, Ot Z88.1 ALLERGY STATUS TO OTHER ANTIBIOTIC AGENT 06/05/2019 MAHSA IVERSON MD, Ot Z88.5 ALLERGY STATUS TO NARCOTIC AGENT STATUS 06/05/2019 MAHSA IVERSON MD, Ot Z88.8 ALLERGY STATUS TO OTH DRUG/MEDS/BIOL SUB 06/05/2019 W I10 Essent ial (primary) hypertension [facility] 06/05/2019 W I10 Essent ial (primary) hypertension [facility] 06/05/2019 W 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 [facility] 06/05/2019 W M05.742 Rh eumatoid arthritis with rheumatoid factor of left hand without organ or systems involvement [facility] 06/05/2019 W I10 Essent ial (primary) hypertension [facility] 06/05/2019 W G89.29 Oth er chronic pain [facility] 06/05/2019 W I10 Essent ial (primary) hypertension [facility] 06/05/2019 W M54.9 Trig [place] point with back pain [facility] 06/05/2019 W R10.9 Righ t flank pain, chronic [facility] 06/10/2019 W M54.6 Thor acic spine pain [facility] 06/10/2019 W R07.81 Rib pain on right side [facility] 06/29/2019 W M54.6 Thor acic spine pain [facility] 06/29/2019 W M62.830 Ba ck muscle spasm [facility] 07/08/2019 ALVAREZ FUCHS APRN Ot D68.51 ACTIVATED PROTEIN C RESISTANCE 07/08/2019 ALVAREZ FUCHS APRN Ot E78.00 PURE HYPERCHOLESTEROLEMIA, UNSPECIFIED 07/08/2019 ALVAREZ FUCHS APRN Ot I10 ESSENTIAL (PRIMARY) HYPERTENSION 07/08/2019 ALVAREZ FUCHS APRN Ot I25.10 ATHSCL HEART DISEASE OF [place] CORONARY 07/08/2019 ALVAREZ FUCHS APRN Ot I27.20 PULMONARY HYPERTENSION, UNSPECIFIED 07/08/2019 ALVAREZ FUCHS APRN Ot I48.91 UNSPECIFIED ATRIAL FIBRILLATION 07/08/2019 ALVAREZ FUCHS APRN Ot J44 .9 CHRONIC OBSTRUCTIVE PULMONARY DISEASE, U 07/08/2019 ALVAREZ FUCHS APRN Ot K21 .9 GASTRO-ESOPHAGEAL REFLUX DISEASE WITHOUT 07/08/2019 ALVAREZ FUCHS APRN Ot K57.90 DVRTCLOS OF INTEST, PART UNSP, W/O PERF 07/08/2019 ALVAREZ FUCHS APRN Ot M06 .9 RHEUMATOID ARTHRITIS, UNSPECIFIED 07/08/2019 ALVAREZ FUCHS APRN Ot M19.91 PRIMARY OSTEOARTHRITIS, UNSPECIFIED SITE 07/08/2019 ALVAREZ FUCHS APRN Ot M54 .9 DORSALGIA, UNSPECIFIED 07/08/2019 ALVAREZ FUCHS APRN Ot Z79.899 OTHER FDC (CURRENT) DRUG THERAPY 07/08/2019 ALVAREZ FUCHS APRN Ot Z88 .0 ALLERGY STATUS TO PENICILLIN 07/08/2019 ALVAREZ FUCHS APRN Ot Z88 .1 ALLERGY STATUS TO OTHER ANTIBIOTIC AGENT 07/08/2019 ALVAREZ FUCHS APRN Ot Z88 .5 ALLERGY STATUS TO NARCOTIC AGENT STATUS 07/08/2019 ALVAREZ FUCHS APRN Ot Z88 .8 ALLERGY STATUS TO OT DRUG/MEDS/BIOL SUB 07/09/2019 ALVAREZ FUCHS APRN Ot D68.51 ACTIVATED PROTEIN C RESISTANCE 07/09/2019 ALVAREZ FUCHS APRN Ot E78.00 PURE HYPERCHOLESTEROLEMIA, UNSPECIFIED 07/09/2019 ALVAREZ FUCHS APRN Ot I10 ESSENTIAL (PRIMARY) HYPERTENSION 07/09/2019 ALVAREZ FUCHS APRN Ot I25.10 ATHSCL HEART DISEASE OF [place] CORONARY 07/09/2019 ALVAREZ FUCHS APRN Ot I27.20 PULMONARY HYPERTENSION, UNSPECIFIED 07/09/2019 ALVAREZ FUCHS APRN Ot I48.91 UNSPECIFIED ATRIAL FIBRILLATION 07/09/2019 ALVAREZ FUCHS APRN Ot J44 .9 CHRONIC OBSTRUCTIVE PULMONARY DISEASE, U 07/09/2019 ALVAREZ FUCHS APRN Ot K21 .9 GASTRO-ESOPHAGEAL REFLUX DISEASE WITHOUT 07/09/2019 ALVAREZ FUHCS APRN Ot K57.90 DVRTCLOS OF INTEST, PART UNSP, W/O PERF 07/09/2019 ALVAREZ FUCHS APRN Ot M06 .9 RHEUMATOID ARTHRITIS, UNSPECIFIED 07/09/2019 ALVAREZ FUCHS APRN Ot M19.91 PRIMARY OSTEOARTHRITIS, UNSPECIFIED SITE 07/09/2019 ALVAREZ FUCHS APRN Ot M54 .9 DORSALGIA, UNSPECIFIED 07/09/2019 ALVAREZ FUCHS APRN Ot Z79.899 OTHER FDC (CURRENT) DRUG THERAPY 07/09/2019 ALVAREZ FUCHS APRN Ot Z88 .0 ALLERGY STATUS TO PENICILLIN 07/09/2019 ALVAREZ FUCHS APRN Ot Z88 .1 ALLERGY STATUS TO OTHER ANTIBIOTIC AGENT 07/09/2019 ALVAREZ FUCHS APRN Ot Z88 .5 ALLERGY STATUS TO NARCOTIC AGENT STATUS 07/09/2019 ALVAREZ FUCHS APRN Ot Z88 .8 ALLERGY STATUS TO OTH DRUG/MEDS/BIOL SUB 07/16/2019 ALVAREZ FUCHS APRN Ot D68.51 ACTIVATED PROTEIN C RESISTANCE 07/16/2019 ALVAREZ FUCHS APRN Ot E78.00 PURE HYPERCHOLESTEROLEMIA, UNSPECIFIED 07/16/2019 ALVAREZ FUCHS APRN Ot I10 ESSENTIAL (PRIMARY) HYPERTENSION 07/16/2019 ALVAREZ FUCHS APRN Ot I25.10 ATHSCL HEART DISEASE OF [place] CORONARY 07/16/2019 ALVAREZ FUCHS APRN Ot I27.20 PULMONARY HYPERTENSION, UNSPECIFIED 07/16/2019 ALVAREZ FUCHS APRN Ot I48.91 UNSPECIFIED ATRIAL FIBRILLATION 07/16/2019 ALVAREZ FUCHS APRN Ot J44 .9 CHRONIC OBSTRUCTIVE PULMONARY DISEASE, U 07/16/2019 ALVAREZ FUCHS APRN Ot K21 .9 GASTRO-ESOPHAGEAL REFLUX DISEASE WITHOUT 07/16/2019 ALVAREZ FUCHS APRN Ot K57.90 DVRTCLOS OF INTEST, PART UNSP, W/O PERF 07/16/2019 ALVAREZ FUCHS APRN Ot M06 .9 RHEUMATOID ARTHRITIS, UNSPECIFIED 07/16/2019 ALVAREZ FUCHS APRN Ot M19.91 PRIMARY OSTEOARTHRITIS, UNSPECIFIED SITE 07/16/2019 ALVAREZ FUCHS APRN Ot M54 .9 DORSALGIA, UNSPECIFIED 07/16/2019 ALVAREZ FUCHS APRN Ot Z79.899 OTHER FDC (CURRENT) DRUG THERAPY 07/16/2019 ALVAREZ FUCHS APRN Ot Z88 .0 ALLERGY STATUS TO PENICILLIN 07/16/2019 ALVAREZ FUCHS APRN Ot Z88 .1 ALLERGY STATUS TO OTHER ANTIBIOTIC AGENT 07/16/2019 ALVAREZ FUCHS APRN Ot Z88 .5 ALLERGY STATUS TO NARCOTIC AGENT STATUS 07/16/2019 ALVAREZ FUCHS APRN Ot Z88 .8 ALLERGY STATUS TO OTH DRUG/MEDS/BIOL SUB 07/17/2019 ALVAREZ FUCHS APRN Ot D68.51 ACTIVATED PROTEIN C RESISTANCE 07/17/2019 ALVAREZ FUCHS APRN Ot E78.00 PURE HYPERCHOLESTEROLEMIA, UNSPECIFIED 07/17/2019 ALVAREZ FUCHS APRN Ot I10 ESSENTIAL (PRIMARY) HYPERTENSION 07/17/2019 ALVAREZ FUCHS APRN Ot I25.10 ATHSCL HEART DISEASE OF [place] CORONARY 07/17/2019 ALVAREZ FUCHS APRN Ot I27.20 PULMONARY HYPERTENSION, UNSPECIFIED 07/17/2019 ALVAREZ FUCHS APRN Ot I48.91 UNSPECIFIED ATRIAL FIBRILLATION 07/17/2019 ALVAREZ FUCHS APRN Ot J44 .9 CHRONIC OBSTRUCTIVE PULMONARY DISEASE, U 07/17/2019 ALVAREZ FUCHS APRN Ot K21 .9 GASTRO-ESOPHAGEAL REFLUX DISEASE WITHOUT 07/17/2019 ALVAERZ FUCHS APRN Ot K57.90 DVRTCLOS OF INTEST, PART UNSP, W/O PERF 07/17/2019 ALVAREZ FUCHS APRN Ot M06 .9 RHEUMATOID ARTHRITIS, UNSPECIFIED 07/17/2019 ALVAREZ FUCHS APRN Ot M19.91 PRIMARY OSTEOARTHRITIS, UNSPECIFIED SITE 07/17/2019 ALVAREZ FUCHS APRN Ot M54 .9 DORSALGIA, UNSPECIFIED 07/17/2019 ALVAREZ FUCHS APRN Ot Z79.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 07/17/2019 ALVAREZ FUCHS APRN Ot Z88 .0 ALLERGY STATUS TO PENICILLIN 07/17/2019 ALVAREZ FUCHS APRN Ot Z88 .1 ALLERGY STATUS TO OTHER ANTIBIOTIC AGENT 07/17/2019 ALVAREZ FUCHS APRN Ot Z88 .5 ALLERGY STATUS TO NARCOTIC AGENT STATUS 07/17/2019 ALVAREZ FUCHS APRN Ot Z88 .8 ALLERGY STATUS TO OTH DRUG/MEDS/BIOL SUB 07/20/2019 W N39.0 UTI (urinary tract infection) Chayito Carbone 07/20/2019 W N39.0 UTI (urinary tract infection) Chayito Carbone 07/22/2019 W N39.0 UTI (urinary tract infection) Chayito Carbone 08/03/2019 W I10 Essent ial (primary) hypertension Aleshia Jin 08/03/2019 W 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 Aleshia Jin 08/03/2019 W M05.742 Rh eumatoid arthritis with rheumatoid factor of left hand without organ or systems involvement Aleshia Jin 08/04/2019 W N39.0 UTI (urinary tract infection) Aleshia Jin 10/07/2019 W J43.1 Panl obular emphysema [place], Jin 10/07/2019 W J44.9 Surveillance Specialist maegan obstructive pulmonary disease, unspecified [place] Jin 10/07/2019 W J84.10 Pul monary fibrosis Jin Monk Procedures Code Description Performed By Per formed On 70.51 CYST OCELE REPAIR 03/30/2011 56.31 URET EROSCOPY 06/05/2011 58.6 URETH RAL DILATION 06/05/2011 87.74 RETR OGRADE PYELOGRAM 06/05/2011 37.22 LEFT HEART CARDIAC CATH 09/01/2012 88.53 LT H EART ANGIOCARDIOGRAM 09/01/2012 88.56 DARION MANJULA ARTERIOGR-2 CATH 09/01/2012 [id number] RE STORATION OF CARDIAC RHYTHM, SINGLE 03/30/2019 [id number] RE STORATION OF CARDIAC RHYTHM, SINGLE 05/13/2019 Results Test Result Range Complete blood count (CBC) with automate d white blood cell (WBC) differential - 07/23/16 15:40 Blood leukocytes automated count (number/volume) 7.0 10*3/uL 4.3-11.0 Blood erythrocytes automated count (number/volume) 4.33 10*6/uL 4.35-5.85 Venous blood hemoglobin measurement (mass/volume) 12.5 g/dL 11.5-16.0 Blood hematocrit (volume fraction) 39 % 35-52 Automated erythrocyte mean corpuscular volume 89 [ foz_us] 80-99 Automated erythrocyte mean corpuscular h emoglobin (mass per erythrocyte) 29 pg 25-34 Automated erythrocyte mean corpuscular h emoglobin concentration measurement (mass/volume) 32 g/dL 32-36 Automated erythrocyte distribution width ratio 12. 8 % 10.0- 14.5 Automated blood platelet count (count/volume) 225 10*3/uL 130-400 Automated blood platelet mean volume measurement 9.6 [foz_us] 7.4-10.4 Automated blood neutrophils/100 leukocytes 51 % 42-75 Automated blood lymphocytes/100 leukocytes 36 % 12-44 Blood monocytes/100 leukocytes 10 % 0-12 Automated blood eosinophils/100 leukocytes 2 % 0-10 Automated blood basophils/100 leukocytes 1 % 0-10 Blood neutrophils automated count (number/volume) 3.6 10*3 1.8-7.8 Blood lymphocytes automated count (number/volume) 2.5 10*3 1.0-4.0 Blood monocytes automated count (number/volume) 0. 7 10*3 0.0-1.0 Automated eosinophil count 0.1 10*3/uL 0 .0-0.3 Automated blood basophil count (count/volume) 0.1 10*3/uL 0.0-0.1 Comprehensive metabolic panel - 07/23/16 15:40 Serum or plasma sodium measurement (moles/volume) 140 mmol/L 135-145 Serum or plasma potassium measurement (moles/volume) 4.4 mmol/L 3.6-5.0 Serum or plasma chloride measurement (moles/volume) 106 mmol/L 98-107 Carbon dioxide 25 mmol/L 21-32 Serum or plasma anion gap determination (moles/volume) 9 mmol/L 5-14 Serum or plasma urea nitrogen measurement (mass/volume ) 18 mg/dL 7-18 Serum or plasma creatinine measurement (mass/volume) 1.18 mg/dL 0.60-1.30 Serum or plasma urea nitrogen/creatinine mass ratio 15 NRG Serum or plasma creatinine measurement w ith calculation of estimated glomerular filtration rate 44 NRG Serum or plasma glucose measurement (mass/volume) 109 mg/dL 70-105 Serum or plasma calcium measurement (mass/volume) 9.7 mg/dL 8.5-10.1 Serum or plasma total bilirubin measurement (mass/volu me) 0.3 mg/dL 0.1-1.0 Serum or plasma alkaline phosphatase marjorie surement (enzymatic activity/volume) 76 U/L 40-136 Serum or plasma aspartate aminotransfera se measurement (enzymatic activity/volume) 18 U/L 5-34 Serum or plasma alanine aminotransferase measurement (enzymatic activity/volume) 10 U/L 0-55 Serum or plasma protein measurement (mass/volume) 7.0 g/dL 6.4-8.2 Serum or plasma albumin measurement (mass/volume) 3.9 g/dL 3.2-4.5 Magnesium - 07/23/16 15:40 Magnesium 2.4 mg/dL 1.8-2.4 PT panel in platelet poor plasma by coag ulation assay - 07/23/16 15:40 Prothrombin time (PT) in platelet poor plasma by coagu lation assay 18.1 s 12.2-14.7 INR in platelet poor plasma or blood by coagulation as say 1.5 0.8-1.4 Activated partial thromboplastin time (a PTT) in platelet poor plasma bycoagulation assay - 07/23/16 15:40 Activated partial thromboplastin time (a PTT) in platelet poor plasma bycoagulation assay 51 s 24-35 Serum or plasma troponin i.cardiac measu rement (mass/volume) - 07/23/16 15:40 Serum or plasma troponin i.cardiac measurement (mass/v olume) < ng/mL <0.30 Myoglobin, serum - 07/23/16 15:40 Myoglobin, serum 56.7 ng/mL 10.0-92.0 Digoxin - 07/23/16 15:40 Digoxin < ng/mL 0.80-2.00 Complete blood count (CBC) with automate d white blood cell (WBC) differential - 07/21/17 07:12 Blood leukocytes automated count (number/volume) 9.7 10*3/uL 4.3-11.0 Blood erythrocytes automated count (number/volume) 4.65 10*6/uL 4.35-5.85 Venous blood hemoglobin measurement (mass/volume) 13.1 g/dL 11.5-16.0 Blood hematocrit (volume fraction) 41 % 35-52 Automated erythrocyte mean corpuscular volume 89 [ foz_us] 80-99 Automated erythrocyte mean corpuscular h emoglobin (mass per erythrocyte) 28 pg 25-34 Automated erythrocyte mean corpuscular h emoglobin concentration measurement (mass/volume) 32 g/dL 32-36 Automated erythrocyte distribution width ratio 14. 2 % 10.0- 14.5 Automated blood platelet count (count/volume) 361 10*3/uL 130-400 Automated blood platelet mean volume measurement 9.0 [foz_us] 7.4-10.4 Automated blood neutrophils/100 leukocytes 52 % 42-75 Automated blood lymphocytes/100 leukocytes 35 % 12-44 Blood monocytes/100 leukocytes 10 % 0-12 Automated blood eosinophils/100 leukocytes 2 % 0-10 Automated blood basophils/100 leukocytes 1 % 0-10 Blood neutrophils automated count (number/volume) 5.1 10*3 1.8-7.8 Blood lymphocytes automated count (number/volume) 3.3 10*3 1.0-4.0 Blood monocytes automated count (number/volume) 1. 0 10*3 0.0-1.0 Automated eosinophil count 0.2 10*3/uL 0 .0-0.3 Automated blood basophil count (count/volume) 0.1 10*3/uL 0.0-0.1 Comprehensive metabolic panel - 07/21/17 07:12 Serum or plasma sodium measurement (moles/volume) 141 mmol/L 135-145 Serum or plasma potassium measurement (moles/volume) 3.9 mmol/L 3.6-5.0 Serum or plasma chloride measurement (moles/volume) 106 mmol/L 98-107 Carbon dioxide 24 mmol/L 21-32 Serum or plasma anion gap determination (moles/volume) 11 mmol/L 5-14 Serum or plasma urea nitrogen measurement (mass/volume ) 18 mg/dL 7-18 Serum or plasma creatinine measurement (mass/volume) 1.01 mg/dL 0.60-1.30 Serum or plasma urea nitrogen/creatinine mass ratio 18 NRG Serum or plasma creatinine measurement w ith calculation of estimated glomerular filtration rate 52 NRG Serum or plasma glucose measurement (mass/volume) 106 mg/dL 70-105 Serum or plasma calcium measurement (mass/volume) 9.9 mg/dL 8.5-10.1 Serum or plasma total bilirubin measurement (mass/volu me) 0.3 mg/dL 0.1-1.0 Serum or plasma alkaline phosphatase marjorie surement (enzymatic activity/volume) 78 U/L 40-136 Serum or plasma aspartate aminotransfera se measurement (enzymatic activity/volume) 14 U/L 5-34 Serum or plasma alanine aminotransferase measurement (enzymatic activity/volume) 10 U/L 0-55 Serum or plasma protein measurement (mass/volume) 7.6 g/dL 6.4-8.2 Serum or plasma albumin measurement (mass/volume) 4.1 g/dL 3.2-4.5 Serum or plasma troponin i.cardiac measu rement (mass/volume) - 07/21/17 07:12 Serum or plasma troponin i.cardiac measurement (mass/v olume) < ng/mL <0.30 Complete blood count (CBC) with automate d white blood cell (WBC) differential - 01/14/18 08:50 Blood leukocytes automated count (number/volume) 7.5 10*3/uL 4.3-11.0 Blood erythrocytes automated count (number/volume) 4.60 10*6/uL 4.35-5.85 Venous blood hemoglobin measurement (mass/volume) 13.1 g/dL 11.5-16.0 Blood hematocrit (volume fraction) 41 % 35-52 Automated erythrocyte mean corpuscular volume 89 [ foz_us] 80-99 Automated erythrocyte mean corpuscular h emoglobin (mass per erythrocyte) 29 pg 25-34 Automated erythrocyte mean corpuscular h emoglobin concentration measurement (mass/volume) 32 g/dL 32-36 Automated erythrocyte distribution width ratio 13. 7 % 10.0- 14.5 Automated blood platelet count (count/volume) 315 10*3/uL 130-400 Automated blood platelet mean volume measurement 9.3 [foz_us] 7.4-10.4 Automated blood neutrophils/100 leukocytes 63 % 42-75 Automated blood lymphocytes/100 leukocytes 23 % 12-44 Blood monocytes/100 leukocytes 12 % 0-12 Automated blood eosinophils/100 leukocytes 2 % 0-10 Automated blood basophils/100 leukocytes 1 % 0-10 Blood neutrophils automated count (number/volume) 4.8 10*3 1.8-7.8 Blood lymphocytes automated count (number/volume) 1.7 10*3 1.0-4.0 Blood monocytes automated count (number/volume) 0. 9 10*3 0.0-1.0 Automated eosinophil count 0.1 10*3/uL 0 .0-0.3 Automated blood basophil count (count/volume) 0.1 10*3/uL 0.0-0.1 Comprehensive metabolic panel - 01/14/18 08:50 Serum or plasma sodium measurement (moles/volume) 136 mmol/L 135-145 Serum or plasma potassium measurement (moles/volume) 4.3 mmol/L 3.6-5.0 Serum or plasma chloride measurement (moles/volume) 103 mmol/L 98-107 Carbon dioxide 22 mmol/L 21-32 Serum or plasma anion gap determination (moles/volume) 11 mmol/L 5-14 Serum or plasma urea nitrogen measurement (mass/volume ) 18 mg/dL 7-18 Serum or plasma creatinine measurement (mass/volume) 1.14 mg/dL 0.60-1.30 Serum or plasma urea nitrogen/creatinine mass ratio 16 NRG Serum or plasma creatinine measurement w ith calculation of estimated glomerular filtration rate 45 NRG Serum or plasma glucose measurement (mass/volume) 183 mg/dL 70-105 Serum or plasma calcium measurement (mass/volume) 9.7 mg/dL 8.5-10.1 Serum or plasma total bilirubin measurement (mass/volu me) 0.5 mg/dL 0.1-1.0 Serum or plasma alkaline phosphatase marjorie surement (enzymatic activity/volume) 78 U/L 40-136 Serum or plasma aspartate aminotransfera se measurement (enzymatic activity/volume) 17 U/L 5-34 Serum or plasma alanine aminotransferase measurement (enzymatic activity/volume) 12 U/L 0-55 Serum or plasma protein measurement (mass/volume) 7.0 g/dL 6.4-8.2 Serum or plasma albumin measurement (mass/volume) 3.8 g/dL 3.2-4.5 CALCIUM CORRECTED 9.9 mg/dL 8.5-10.1 Magnesium - 01/14/18 08:50 Magnesium 2.1 mg/dL 1.8-2.4 PT panel in platelet poor plasma by coag ulation assay - 01/14/18 08:50 Prothrombin time (PT) in platelet poor plasma by coagu lation assay 19.0 s 12.2-14.7 INR in platelet poor plasma or blood by coagulation as say 1.6 0.8-1.4 Activated partial thromboplastin time (a PTT) in platelet poor plasma bycoagulation assay - 01/14/18 08:50 Activated partial thromboplastin time (a PTT) in platelet poor plasma bycoagulation assay 60 s 24-35 Fibrin D-dimer FEU measurement in platel et poor plasma (mass/volume) - 01/14/18 08:50 Fibrin D-dimer FEU measurement in platelet poor plasma (mass/volume) 0.44 ug/mL 0.00-0.49 Serum or plasma troponin i.cardiac measu rement (mass/volume) - 01/14/18 08:50 Serum or plasma troponin i.cardiac measurement (mass/v olume) < ng/mL <0.30 Myoglobin, serum - 01/14/18 08:50 Myoglobin, serum 55.4 ng/mL 10.0-92.0 Serum or plasma troponin i.cardiac measu rement (mass/volume) - 01/14/18 10:21 Serum or plasma troponin i.cardiac measurement (mass/v olume) < ng/mL <0.30 Myoglobin, serum - 01/14/18 10:21 Myoglobin, serum 47.1 ng/mL 10.0-92.0 Methicillin resistant Staphylococcus aur eus (MRSA) screening culture - 08/11/18 16:00 Methicillin resistant Staphylococcus aureus (MRSA) scr eening culture NEG NRG PT panel in platelet poor plasma by coag ulation assay - 08/11/18 16:03 Prothrombin time (PT) in platelet poor plasma by coagu lation assay 22.1 s 12.2-14.7 INR in platelet poor plasma or blood by coagulation as say 1.8 0.8-1.4 Activated partial thromboplastin time (a PTT) in platelet poor plasma bycoagulation assay - 08/11/18 16:03 Activated partial thromboplastin time (a PTT) in platelet poor plasma bycoagulation assay 70 s 24-35 Automated blood complete blood count (he mogram) panel - 08/11/18 16:03 Blood leukocytes automated count (number/volume) 5.9 10*3/uL 4.3-11.0 Blood erythrocytes automated count (number/volume) 4.20 10*6/uL 4.35-5.85 Venous blood hemoglobin measurement (mass/volume) 12.0 g/dL 11.5-16.0 Blood hematocrit (volume fraction) 38 % 35-52 Automated erythrocyte mean corpuscular volume 89 [ foz_us] 80-99 Automated erythrocyte mean corpuscular h emoglobin (mass per erythrocyte) 29 pg 25-34 Automated erythrocyte mean corpuscular h emoglobin concentration measurement (mass/volume) 32 g/dL 32-36 Automated erythrocyte distribution width ratio 13. 6 % 10.0- 14.5 Automated blood platelet count (count/volume) 242 10*3/uL 130-400 Automated blood platelet mean volume measurement 9.3 [foz_us] 7.4-10.4 Comprehensive metabolic panel - 08/11/18 16:03 Serum or plasma sodium measurement (moles/volume) 136 mmol/L 135-145 Serum or plasma potassium measurement (moles/volume) 4.8 mmol/L 3.6-5.0 Serum or plasma chloride measurement (moles/volume) 103 mmol/L 98-107 Carbon dioxide 24 mmol/L 21-32 Serum or plasma anion gap determination (moles/volume) 9 mmol/L 5-14 Serum or plasma urea nitrogen measurement (mass/volume ) 24 mg/dL 7-18 Serum or plasma creatinine measurement (mass/volume) 1.13 mg/dL 0.60-1.30 Serum or plasma urea nitrogen/creatinine mass ratio 21 NRG Serum or plasma creatinine measurement w ith calculation of estimated glomerular filtration rate 46 NRG Serum or plasma glucose measurement (mass/volume) 149 mg/dL 70-105 Serum or plasma calcium measurement (mass/volume) 9.8 mg/dL 8.5-10.1 Serum or plasma total bilirubin measurement (mass/volu me) 0.3 mg/dL 0.1-1.0 Serum or plasma alkaline phosphatase marjorie surement (enzymatic activity/volume) 67 U/L 40-136 Serum or plasma aspartate aminotransfera se measurement (enzymatic activity/volume) 15 U/L 5-34 Serum or plasma alanine aminotransferase measurement (enzymatic activity/volume) 11 U/L 0-55 Serum or plasma protein measurement (mass/volume) 6.3 g/dL 6.4-8.2 Serum or plasma albumin measurement (mass/volume) 3.6 g/dL 3.2-4.5 CALCIUM CORRECTED 10.1 mg/dL 8.5-10.1 Serum or plasma troponin i.cardiac measu rement (mass/volume) - 08/11/18 16:03 Serum or plasma troponin i.cardiac measurement (mass/v olume) < ng/mL <0.028 THYROID STIMULATING HORMONE - 08/11/18 1 6:03 THYROID STIMULATING HORMONE 1.77 u[iU]/mL 0.35-4.94 Complete blood count (CBC) with automate d white blood cell (WBC) differential - 08/12/18 03:50 Blood leukocytes automated count (number/volume) 7.2 10*3/uL 4.3-11.0 Blood erythrocytes automated count (number/volume) 4.15 10*6/uL 4.35-5.85 Venous blood hemoglobin measurement (mass/volume) 11.7 g/dL 11.5-16.0 Blood hematocrit (volume fraction) 37 % 35-52 Automated erythrocyte mean corpuscular volume 88 [ foz_us] 80-99 Automated erythrocyte mean corpuscular h emoglobin (mass per erythrocyte) 28 pg 25-34 Automated erythrocyte mean corpuscular h emoglobin concentration measurement (mass/volume) 32 g/dL 32-36 Automated erythrocyte distribution width ratio 13. 7 % 10.0- 14.5 Automated blood platelet count (count/volume) 260 10*3/uL 130-400 Automated blood platelet mean volume measurement 9.4 [foz_us] 7.4-10.4 Automated blood neutrophils/100 leukocytes 57 % 42-75 Automated blood lymphocytes/100 leukocytes 29 % 12-44 Blood monocytes/100 leukocytes 11 % 0-12 Automated blood eosinophils/100 leukocytes 2 % 0-10 Automated blood basophils/100 leukocytes 1 % 0-10 Blood neutrophils automated count (number/volume) 4.1 10*3 1.8-7.8 Blood lymphocytes automated count (number/volume) 2.1 10*3 1.0-4.0 Blood monocytes automated count (number/volume) 0. 8 10*3 0.0-1.0 Automated eosinophil count 0.2 10*3/uL 0 .0-0.3 Automated blood basophil count (count/volume) 0.1 10*3/uL 0.0-0.1 Whole blood basic metabolic panel - 10/24 03:50 Serum or plasma sodium measurement (moles/volume) 137 mmol/L 135-145 Serum or plasma potassium measurement (moles/volume) 4.4 mmol/L 3.6-5.0 Serum or plasma chloride measurement (moles/volume) 107 mmol/L 98-107 Carbon dioxide 20 mmol/L 21-32 Serum or plasma anion gap determination (moles/volume) 10 mmol/L 5-14 Serum or plasma urea nitrogen measurement (mass/volume ) 23 mg/dL 7-18 Serum or plasma creatinine measurement (mass/volume) 1.04 mg/dL 0.60-1.30 Serum or plasma urea nitrogen/creatinine mass ratio 22 NRG Serum or plasma creatinine measurement w ith calculation of estimated glomerular filtration rate 50 NRG Serum or plasma glucose measurement (mass/volume) 99 mg/dL 70-105 Serum or plasma calcium measurement (mass/volume) 9.2 mg/dL 8.5-10.1 Serum or plasma phosphate measurement (m ass/volume) - 08/12/18 03:50 Serum or plasma phosphate measurement (mass/volume) 3.6 mg/dL 2.3-4.7 Magnesium - 08/12/18 03:50 Magnesium 2.0 mg/dL 1.8-2.4 Complete blood count (CBC) with automate d white blood cell (WBC) differential - 03/29/19 19:39 Blood leukocytes automated count (number/volume) 8.0 10*3/uL 4.3-11.0 Blood erythrocytes automated count (number/volume) 4.49 10*6/uL 4.35-5.85 Venous blood hemoglobin measurement (mass/volume) 13.0 g/dL 11.5-16.0 Blood hematocrit (volume fraction) 41 % 35-52 Automated erythrocyte mean corpuscular volume 91 [ foz_us] 80-99 Automated erythrocyte mean corpuscular h emoglobin (mass per erythrocyte) 29 pg 25-34 Automated erythrocyte mean corpuscular h emoglobin concentration measurement (mass/volume) 32 g/dL 32-36 Automated erythrocyte distribution width ratio 13. 5 % 10.0- 14.5 Automated blood platelet count (count/volume) 277 10*3/uL 130-400 Automated blood platelet mean volume measurement 9.3 [foz_us] 7.4-10.4 Automated blood neutrophils/100 leukocytes 54 % 42-75 Automated blood lymphocytes/100 leukocytes 30 % 12-44 Blood monocytes/100 leukocytes 13 % 0-12 Automated blood eosinophils/100 leukocytes 3 % 0-10 Automated blood basophils/100 leukocytes 1 % 0-10 Blood neutrophils automated count (number/volume) 4.3 10*3 1.8-7.8 Blood lymphocytes automated count (number/volume) 2.4 10*3 1.0-4.0 Blood monocytes automated count (number/volume) 1. 0 10*3 0.0-1.0 Automated eosinophil count 0.3 10*3/uL 0 .0-0.3 Automated blood basophil count (count/volume) 0.1 10*3/uL 0.0-0.1 PT panel in platelet poor plasma by coag ulation assay - 03/29/19 19:39 Prothrombin time (PT) in platelet poor plasma by coagu lation assay 17.1 s 12.2-14.7 INR in platelet poor plasma or blood by coagulation as say 1.3 0.8-1.4 Activated partial thromboplastin time (a PTT) in platelet poor plasma bycoagulation assay - 03/29/19 19:39 Activated partial thromboplastin time (a PTT) in platelet poor plasma bycoagulation assay 53 s 24-35 Comprehensive metabolic panel - 03/29/19 19:39 Serum or plasma sodium measurement (moles/volume) 138 mmol/L 135-145 Serum or plasma potassium measurement (moles/volume) 4.3 mmol/L 3.6-5.0 Serum or plasma chloride measurement (moles/volume) 101 mmol/L 98-107 Carbon dioxide 25 mmol/L 21-32 Serum or plasma anion gap determination (moles/volume) 12 mmol/L 5-14 Serum or plasma urea nitrogen measurement (mass/volume ) 26 mg/dL 7-18 Serum or plasma creatinine measurement (mass/volume) 1.18 mg/dL 0.60-1.30 Serum or plasma urea nitrogen/creatinine mass ratio 22 NRG Serum or plasma creatinine measurement w ith calculation of estimated glomerular filtration rate 43 NRG Serum or plasma glucose measurement (mass/volume) 101 mg/dL 70-105 Serum or plasma calcium measurement (mass/volume) 9.7 mg/dL 8.5-10.1 Serum or plasma total bilirubin measurement (mass/volu me) 0.3 mg/dL 0.1-1.0 Serum or plasma alkaline phosphatase marjorie surement (enzymatic activity/volume) 90 U/L 40-136 Serum or plasma aspartate aminotransfera se measurement (enzymatic activity/volume) 17 U/L 5-34 Serum or plasma alanine aminotransferase measurement (enzymatic activity/volume) 13 U/L 0-55 Serum or plasma protein measurement (mass/volume) 7.6 g/dL 6.4-8.2 Serum or plasma albumin measurement (mass/volume) 4.1 g/dL 3.2-4.5 CALCIUM CORRECTED 9.6 mg/dL 8.5-10.1 Magnesium - 03/29/19 19:39 Magnesium 2.2 mg/dL 1.6-2.4 Serum or plasma lithium measurement (mol es/volume) - 03/29/19 19:39 BNP PT 174.9 pg/mL <100.0 Serum or plasma troponin i.cardiac measu rement (mass/volume) - 03/29/19 19:39 Serum or plasma troponin i.cardiac measurement (mass/v olume) < ng/mL <0.028 Myoglobin, serum - 03/29/19 19:39 Myoglobin, serum 46.8 ng/mL 10.0-92.0 Methicillin resistant Staphylococcus aur eus (MRSA) screening culture - 03/29/19 22:25 Methicillin resistant Staphylococcus aureus (MRSA) scr eening culture NEG NRG Serum or plasma troponin i.cardiac measu rement (mass/volume) - 03/30/19 00:02 Serum or plasma troponin i.cardiac measurement (mass/v olume) < ng/mL <0.028 Complete blood count (CBC) with automate d white blood cell (WBC) differential - 03/30/19 06:00 Blood leukocytes automated count (number/volume) 6.6 10*3/uL 4.3-11.0 Blood erythrocytes automated count (number/volume) 4.05 10*6/uL 4.35-5.85 Venous blood hemoglobin measurement (mass/volume) 11.8 g/dL 11.5-16.0 Blood hematocrit (volume fraction) 37 % 35-52 Automated erythrocyte mean corpuscular volume 91 [ foz_us] 80-99 Automated erythrocyte mean corpuscular h emoglobin (mass per erythrocyte) 29 pg 25-34 Automated erythrocyte mean corpuscular h emoglobin concentration measurement (mass/volume) 32 g/dL 32-36 Automated erythrocyte distribution width ratio 13. 4 % 10.0- 14.5 Automated blood platelet count (count/volume) 209 10*3/uL 130-400 Automated blood platelet mean volume measurement 9.5 [foz_us] 7.4-10.4 Automated blood neutrophils/100 leukocytes 52 % 42-75 Automated blood lymphocytes/100 leukocytes 29 % 12-44 Blood monocytes/100 leukocytes 14 % 0-12 Automated blood eosinophils/100 leukocytes 4 % 0-10 Automated blood basophils/100 leukocytes 1 % 0-10 Blood neutrophils automated count (number/volume) 3.4 10*3 1.8-7.8 Blood lymphocytes automated count (number/volume) 1.9 10*3 1.0-4.0 Blood monocytes automated count (number/volume) 0. 9 10*3 0.0-1.0 Automated eosinophil count 0.2 10*3/uL 0 .0-0.3 Automated blood basophil count (count/volume) 0.1 10*3/uL 0.0-0.1 Comprehensive metabolic panel - 03/30/19 06:00 Serum or plasma sodium measurement (moles/volume) 138 mmol/L 135-145 Serum or plasma potassium measurement (moles/volume) 4.3 mmol/L 3.6-5.0 Serum or plasma chloride measurement (moles/volume) 109 mmol/L 98-107 Carbon dioxide 20 mmol/L 21-32 Serum or plasma anion gap determination (moles/volume) 9 mmol/L 5-14 Serum or plasma urea nitrogen measurement (mass/volume ) 20 mg/dL 7-18 Serum or plasma creatinine measurement (mass/volume) 0.91 mg/dL 0.60-1.30 Serum or plasma urea nitrogen/creatinine mass ratio 22 NRG Serum or plasma creatinine measurement w ith calculation of estimated glomerular filtration rate 58 NRG Serum or plasma glucose measurement (mass/volume) 101 mg/dL 70-105 Serum or plasma calcium measurement (mass/volume) 9.1 mg/dL 8.5-10.1 Serum or plasma total bilirubin measurement (mass/volu me) 0.2 mg/dL 0.1-1.0 Serum or plasma alkaline phosphatase marjorie surement (enzymatic activity/volume) 76 U/L 40-136 Serum or plasma aspartate aminotransfera se measurement (enzymatic activity/volume) 17 U/L 5-34 Serum or plasma alanine aminotransferase measurement (enzymatic activity/volume) 12 U/L 0-55 Serum or plasma protein measurement (mass/volume) 6.1 g/dL 6.4-8.2 Serum or plasma albumin measurement (mass/volume) 3.4 g/dL 3.2-4.5 CALCIUM CORRECTED 9.6 mg/dL 8.5-10.1 Serum or plasma phosphate measurement (m ass/volume) - 03/30/19 06:00 Serum or plasma phosphate measurement (mass/volume) 3.3 mg/dL 2.3-4.7 Magnesium - 03/30/19 06:00 Magnesium 2.0 mg/dL 1.6-2.4 Serum or plasma troponin i.cardiac measu rement (mass/volume) - 03/30/19 06:00 Serum or plasma troponin i.cardiac measurement (mass/v olume) < ng/mL <0.028 Lipid 1996 panel - 03/30/19 06:00 Serum or plasma triglyceride measurement (mass/volume) 103 mg/dL <150 Serum or plasma cholesterol measurement (mass/volume) 129 mg/dL < 200 Serum or plasma cholesterol in HDL measurement (mass/v olume) 37 mg/dL 40-60 Cholesterol in LDL [mass/volume] in serum or plasma by direct assay 74 mg/dL 1-129 Serum or plasma cholesterol in VLDL measurement (mass/ volume) 21 mg/dL 5-40 Complete blood count (CBC) with automate d white blood cell (WBC) differential - 05/13/19 05:00 Blood leukocytes automated count (number/volume) 7.1 10*3/uL 4.3-11.0 Blood erythrocytes automated count (number/volume) 4.53 10*6/uL 4.35-5.85 Venous blood hemoglobin measurement (mass/volume) 13.2 g/dL 11.5-16.0 Blood hematocrit (volume fraction) 42 % 35-52 Automated erythrocyte mean corpuscular volume 92 [ foz_us] 80-99 Automated erythrocyte mean corpuscular h emoglobin (mass per erythrocyte) 29 pg 25-34 Automated erythrocyte mean corpuscular h emoglobin concentration measurement (mass/volume) 32 g/dL 32-36 Automated erythrocyte distribution width ratio 13. 2 % 10.0- 14.5 Automated blood platelet count (count/volume) 273 10*3/uL 130-400 Automated blood platelet mean volume measurement 9.4 [foz_us] 7.4-10.4 Automated blood neutrophils/100 leukocytes 46 % 42-75 Automated blood lymphocytes/100 leukocytes 37 % 12-44 Blood monocytes/100 leukocytes 11 % 0-12 Automated blood eosinophils/100 leukocytes 4 % 0-10 Automated blood basophils/100 leukocytes 2 % 0-10 Blood neutrophils automated count (number/volume) 3.2 10*3 1.8-7.8 Blood lymphocytes automated count (number/volume) 2.6 10*3 1.0-4.0 Blood monocytes automated count (number/volume) 0. 8 10*3 0.0-1.0 Automated eosinophil count 0.3 10*3/uL 0 .0-0.3 Automated blood basophil count (count/volume) 0.1 10*3/uL 0.0-0.1 PT panel in platelet poor plasma by coag ulation assay - 05/13/19 05:00 Prothrombin time (PT) in platelet poor plasma by coagu lation assay 19.3 s 12.2-14.7 INR in platelet poor plasma or blood by coagulation as say 1.6 0.8-1.4 Activated partial thromboplastin time (a PTT) in platelet poor plasma bycoagulation assay - 05/13/19 05:00 Activated partial thromboplastin time (a PTT) in platelet poor plasma bycoagulation assay 67 s 24-35 Comprehensive metabolic panel - 05/13/19 05:00 Serum or plasma sodium measurement (moles/volume) 140 mmol/L 135-145 Serum or plasma potassium measurement (moles/volume) 4.0 mmol/L 3.6-5.0 Serum or plasma chloride measurement (moles/volume) 106 mmol/L 98-107 Carbon dioxide 24 mmol/L 21-32 Serum or plasma anion gap determination (moles/volume) 10 mmol/L 5-14 Serum or plasma urea nitrogen measurement (mass/volume ) 19 mg/dL 7-18 Serum or plasma creatinine measurement (mass/volume) 1.23 mg/dL 0.60-1.30 Serum or plasma urea nitrogen/creatinine mass ratio 15 NRG Serum or plasma creatinine measurement w ith calculation of estimated glomerular filtration rate 41 NRG Serum or plasma glucose measurement (mass/volume) 116 mg/dL 70-105 Serum or plasma calcium measurement (mass/volume) 9.7 mg/dL 8.5-10.1 Serum or plasma total bilirubin measurement (mass/volu me) 0.4 mg/dL 0.1-1.0 Serum or plasma alkaline phosphatase marjorie surement (enzymatic activity/volume) 86 U/L 40-136 Serum or plasma aspartate aminotransfera se measurement (enzymatic activity/volume) 16 U/L 5-34 Serum or plasma alanine aminotransferase measurement (enzymatic activity/volume) 13 U/L 0-55 Serum or plasma protein measurement (mass/volume) 7.1 g/dL 6.4-8.2 Serum or plasma albumin measurement (mass/volume) 3.9 g/dL 3.2-4.5 CALCIUM CORRECTED 9.8 mg/dL 8.5-10.1 Magnesium - 05/13/19 05:00 Magnesium 2.1 mg/dL 1.6-2.4 Serum or plasma creatine kinase measurem ent (enzymatic activity/volume) - 05/13/19 05:00 Serum or plasma creatine kinase measurem ent (enzymatic activity/volume) 35 U/L 29-168 Serum or plasma creatine kinase MB measu rement (enzymatic activity/volume) - 05/13/19 05:00 Serum or plasma creatine kinase MB measu rement (enzymatic activity/volume) 1.0 ng/mL <6.6 Serum or plasma troponin i.cardiac measu rement (mass/volume) - 05/13/19 05:00 Serum or plasma troponin i.cardiac measurement (mass/v olume) < ng/mL <0.028 Myoglobin, serum - 05/13/19 05:00 Myoglobin, serum 61.1 ng/mL 10.0-92.0 Serum or plasma amylase measurement (enz ymatic activity/volume) - 05/13/19 05:00 Serum or plasma amylase measurement (enzymatic activit y/volume) 64 U/L 25-125 Lipase - 05/13/19 05:00 Lipase 20 U/L 8-78 Serum or plasma lithium measurement (mol es/volume) - 05/13/19 05:00 BNP PT 199.4 pg/mL <100.0 Methicillin resistant Staphylococcus aur eus (MRSA) screening culture - 05/13/19 07:01 Methicillin resistant Staphylococcus aureus (MRSA) scr eening culture NEG NRG Complete blood count (CBC) with automate d white blood cell (WBC) differential - 05/13/19 11:00 Blood leukocytes automated count (number/volume) 6.0 10*3/uL 4.3-11.0 Blood erythrocytes automated count (number/volume) 3.99 10*6/uL 4.35-5.85 Venous blood hemoglobin measurement (mass/volume) 11.7 g/dL 11.5-16.0 Blood hematocrit (volume fraction) 37 % 35-52 Automated erythrocyte mean corpuscular volume 93 [ foz_us] 80-99 Automated erythrocyte mean corpuscular h emoglobin (mass per erythrocyte) 29 pg 25-34 Automated erythrocyte mean corpuscular h emoglobin concentration measurement (mass/volume) 32 g/dL 32-36 Automated erythrocyte distribution width ratio 13. 2 % 10.0- 14.5 Automated blood platelet count (count/volume) 227 10*3/uL 130-400 Automated blood platelet mean volume measurement 9.3 [foz_us] 7.4-10.4 Automated blood neutrophils/100 leukocytes 58 % 42-75 Automated blood lymphocytes/100 leukocytes 29 % 12-44 Blood monocytes/100 leukocytes 9 % 0-12 Automated blood eosinophils/100 leukocytes 3 % 0-10 Automated blood basophils/100 leukocytes 1 % 0-10 Blood neutrophils automated count (number/volume) 3.5 10*3 1.8-7.8 Blood lymphocytes automated count (number/volume) 1.7 10*3 1.0-4.0 Blood monocytes automated count (number/volume) 0. 5 10*3 0.0-1.0 Automated eosinophil count 0.2 10*3/uL 0 .0-0.3 Automated blood basophil count (count/volume) 0.1 10*3/uL 0.0-0.1 Comprehensive metabolic panel - 05/13/19 11:00 Serum or plasma sodium measurement (moles/volume) 140 mmol/L 135-145 Serum or plasma potassium measurement (moles/volume) 4.0 mmol/L 3.6-5.0 Serum or plasma chloride measurement (moles/volume) 111 mmol/L 98-107 Carbon dioxide 22 mmol/L 21-32 Serum or plasma anion gap determination (moles/volume) 7 mmol/L 5-14 Serum or plasma urea nitrogen measurement (mass/volume ) 17 mg/dL 7-18 Serum or plasma creatinine measurement (mass/volume) 0.93 mg/dL 0.60-1.30 Serum or plasma urea nitrogen/creatinine mass ratio 18 NRG Serum or plasma creatinine measurement w ith calculation of estimated glomerular filtration rate 57 NRG Serum or plasma glucose measurement (mass/volume) 120 mg/dL 70-105 Serum or plasma calcium measurement (mass/volume) 8.5 mg/dL 8.5-10.1 Serum or plasma total bilirubin measurement (mass/volu me) 0.3 mg/dL 0.1-1.0 Serum or plasma alkaline phosphatase marjorie surement (enzymatic activity/volume) 71 U/L 40-136 Serum or plasma aspartate aminotransfera se measurement (enzymatic activity/volume) 14 U/L 5-34 Serum or plasma alanine aminotransferase measurement (enzymatic activity/volume) 12 U/L 0-55 Serum or plasma protein measurement (mass/volume) 5.8 g/dL 6.4-8.2 Serum or plasma albumin measurement (mass/volume) 3.3 g/dL 3.2-4.5 CALCIUM CORRECTED 9.1 mg/dL 8.5-10.1 Serum or plasma troponin i.cardiac measu rement (mass/volume) - 05/13/19 11:00 Serum or plasma troponin i.cardiac measurement (mass/v olume) < ng/mL <0.028 Complete blood count (CBC) with automate d white blood cell (WBC) differential - 05/30/19 08:40 Blood leukocytes automated count (number/volume) 6.1 10*3/uL 4.3-11.0 Blood erythrocytes automated count (number/volume) 4.31 10*6/uL 4.35-5.85 Venous blood hemoglobin measurement (mass/volume) 12.5 g/dL 11.5-16.0 Blood hematocrit (volume fraction) 39 % 35-52 Automated erythrocyte mean corpuscular volume 91 [ foz_us] 80-99 Automated erythrocyte mean corpuscular h emoglobin (mass per erythrocyte) 29 pg 25-34 Automated erythrocyte mean corpuscular h emoglobin concentration measurement (mass/volume) 32 g/dL 32-36 Automated erythrocyte distribution width ratio 13. 3 % 10.0- 14.5 Automated blood platelet count (count/volume) 243 10*3/uL 130-400 Automated blood platelet mean volume measurement 9.2 [foz_us] 7.4-10.4 Automated blood neutrophils/100 leukocytes 63 % 42-75 Automated blood lymphocytes/100 leukocytes 20 % 12-44 Blood monocytes/100 leukocytes 10 % 0-12 Automated blood eosinophils/100 leukocytes 6 % 0-10 Automated blood basophils/100 leukocytes 1 % 0-10 Blood neutrophils automated count (number/volume) 3.8 10*3 1.8-7.8 Blood lymphocytes automated count (number/volume) 1.2 10*3 1.0-4.0 Blood monocytes automated count (number/volume) 0. 6 10*3 0.0-1.0 Automated eosinophil count 0.4 10*3/uL 0 .0-0.3 Automated blood basophil count (count/volume) 0.1 10*3/uL 0.0-0.1 Comprehensive metabolic panel - 05/30/19 08:40 Serum or plasma sodium measurement (moles/volume) 139 mmol/L 135-145 Serum or plasma potassium measurement (moles/volume) 4.2 mmol/L 3.6-5.0 Serum or plasma chloride measurement (moles/volume) 105 mmol/L 98-107 Carbon dioxide 23 mmol/L 21-32 Serum or plasma anion gap determination (moles/volume) 11 mmol/L 5-14 Serum or plasma urea nitrogen measurement (mass/volume ) 21 mg/dL 7-18 Serum or plasma creatinine measurement (mass/volume) 1.11 mg/dL 0.60-1.30 Serum or plasma urea nitrogen/creatinine mass ratio 19 NRG Serum or plasma creatinine measurement w ith calculation of estimated glomerular filtration rate 46 NRG Serum or plasma glucose measurement (mass/volume) 101 mg/dL 70-105 Serum or plasma calcium measurement (mass/volume) 9.6 mg/dL 8.5-10.1 Serum or plasma total bilirubin measurement (mass/volu me) 0.3 mg/dL 0.1-1.0 Serum or plasma alkaline phosphatase marjorie surement (enzymatic activity/volume) 86 U/L 40-136 Serum or plasma aspartate aminotransfera se measurement (enzymatic activity/volume) 16 U/L 5-34 Serum or plasma alanine aminotransferase measurement (enzymatic activity/volume) 11 U/L 0-55 Serum or plasma protein measurement (mass/volume) 7.0 g/dL 6.4-8.2 Serum or plasma albumin measurement (mass/volume) 4.0 g/dL 3.2-4.5 CALCIUM CORRECTED 9.6 mg/dL 8.5-10.1 Serum or plasma C reactive protein measu rement (mass/volume) - 05/30/19 08:40 Serum or plasma C reactive protein measurement (mass/v olume) 0.62 mg/dL 0.00-0.50 PT panel in platelet poor plasma by coag ulation assay - 05/30/19 08:40 Prothrombin time (PT) in platelet poor plasma by coagu lation assay 19.2 s 12.2-14.7 INR in platelet poor plasma or blood by coagulation as say 1.6 0.8-1.4 Complete urinalysis with reflex to cultu re - 05/30/19 10:30 Urine color determination YELLOW NRG Urine clarity determination CLEAR NR G Urine pH measurement by test strip 6.5 5-9 Specific gravity of urine by test strip <= 1.016-1.022 Urine protein assay by test strip, semi-quantitative NEGATIVE NEGATIVE Urine glucose detection by automated test strip NE GATIVE NEGATIVE Erythrocytes detection in urine sediment by light micr oscopy TRACE-I NEGATIVE Urine ketones detection by automated test strip NE GATIVE NEGATIVE Urine nitrite detection by test strip NEGATIVE NEGATIVE Urine total bilirubin detection by test strip NEGA TIVE NEGATIVE Urine urobilinogen measurement by automated test strip (mass/volume) 0.2 mg/dL < = 1.0 Urine leukocyte esterase detection by dipstick NEG ATIVE NEGATIVE Automated urine sediment erythrocyte cou nt by microscopy (number/high power field) NONE NRG Automated urine sediment leukocyte count by microscopy (number/high power field) NONE NRG Bacteria detection in urine sediment by light microsco py NEGATIVE NRG Squamous epithelial cells detection in u rine sediment by light microscopy 0-2 NRG Crystals detection in urine sediment by light microsco py NONE NRG Casts detection in urine sediment by light microscopy NONE NRG Mucus detection in urine sediment by light microscopy NEGATIVE NRG Complete urinalysis with reflex to culture NO NRG Complete blood count (CBC) with automate d white blood cell (WBC) differential - 07/08/19 19:10 Blood leukocytes automated count (number/volume) 6.5 10*3/uL 4.3-11.0 Blood erythrocytes automated count (number/volume) 4.46 10*6/uL 4.35-5.85 Venous blood hemoglobin measurement (mass/volume) 13.1 g/dL 11.5-16.0 Blood hematocrit (volume fraction) 40 % 35-52 Automated erythrocyte mean corpuscular volume 90 [ foz_us] 80-99 Automated erythrocyte mean corpuscular h emoglobin (mass per erythrocyte) 29 pg 25-34 Automated erythrocyte mean corpuscular h emoglobin concentration measurement (mass/volume) 33 g/dL 32-36 Automated erythrocyte distribution width ratio 13. 7 % 10.0- 14.5 Automated blood platelet count (count/volume) 265 10*3/uL 130-400 Automated blood platelet mean volume measurement 8.9 [foz_us] 7.4-10.4 Automated blood neutrophils/100 leukocytes 50 % 42-75 Automated blood lymphocytes/100 leukocytes 33 % 12-44 Blood monocytes/100 leukocytes 13 % 0-12 Automated blood eosinophils/100 leukocytes 3 % 0-10 Automated blood basophils/100 leukocytes 1 % 0-10 Blood neutrophils automated count (number/volume) 3.3 10*3 1.8-7.8 Blood lymphocytes automated count (number/volume) 2.1 10*3 1.0-4.0 Blood monocytes automated count (number/volume) 0. 9 10*3 0.0-1.0 Automated eosinophil count 0.2 10*3/uL 0 .0-0.3 Automated blood basophil count (count/volume) 0.0 10*3/uL 0.0-0.1 PT panel in platelet poor plasma by coag ulation assay - 07/08/19 19:10 Prothrombin time (PT) in platelet poor plasma by coagu lation assay 24.8 s 12.2-14.7 INR in platelet poor plasma or blood by coagulation as say 2.1 0.8-1.4 Activated partial thromboplastin time (a PTT) in platelet poor plasma bycoagulation assay - 04/01/20 19:10 Activated partial thromboplastin time (a PTT) in platelet poor plasma bycoagulation assay 60 s 24-35 Comprehensive metabolic panel - 07/08/19 19:10 Serum or plasma sodium measurement (moles/volume) 139 mmol/L 135-145 Serum or plasma potassium measurement (moles/volume) 4.2 mmol/L 3.6-5.0 Serum or plasma chloride measurement (moles/volume) 103 mmol/L 98-107 Carbon dioxide 23 mmol/L 21-32 Serum or plasma anion gap determination (moles/volume) 13 mmol/L 5-14 Serum or plasma urea nitrogen measurement (mass/volume ) 21 mg/dL 7-18 Serum or plasma creatinine measurement (mass/volume) 1.03 mg/dL 0.60-1.30 Serum or plasma urea nitrogen/creatinine mass ratio 20 NRG Serum or plasma creatinine measurement w ith calculation of estimated glomerular filtration rate 51 NRG Serum or plasma glucose measurement (mass/volume) 143 mg/dL 70-105 Serum or plasma calcium measurement (mass/volume) 9.2 mg/dL 8.5-10.1 Serum or plasma total bilirubin measurement (mass/volu me) 0.2 mg/dL 0.1-1.0 Serum or plasma alkaline phosphatase marjorie surement (enzymatic activity/volume) 72 U/L 40-136 Serum or plasma aspartate aminotransfera se measurement (enzymatic activity/volume) 18 U/L 5-34 Serum or plasma alanine aminotransferase measurement (enzymatic activity/volume) 13 U/L 0-55 Serum or plasma protein measurement (mass/volume) 7.0 g/dL 6.4-8.2 Serum or plasma albumin measurement (mass/volume) 3.9 g/dL 3.2-4.5 CALCIUM CORRECTED 9.3 mg/dL 8.5-10.1 Magnesium - 07/08/19 19:10 Magnesium 2.1 mg/dL 1.6-2.4 Serum or plasma troponin i.cardiac measu rement (mass/volume) - 07/08/19 19:10 Serum or plasma troponin i.cardiac measurement (mass/v olume) < ng/mL <0.028 Myoglobin, serum - 07/08/19 19:10 Myoglobin, serum 42.9 ng/mL 10.0-92.0 Serum or plasma lithium measurement (mol es/volume) - 07/08/19 19:10 BNP PT 138.1 pg/mL <100.0 Complete urinalysis with reflex to cultu re - 07/08/19 19:40 Urine color determination YELLOW NRG Urine clarity determination CLEAR NR G Urine pH measurement by test strip 7.5 5-9 Specific gravity of urine by test strip 1.010 1.016-1.022 Urine protein assay by test strip, semi-quantitative NEGATIVE NEGATIVE Urine glucose detection by automated test strip NE GATIVE NEGATIVE Erythrocytes detection in urine sediment by light micr oscopy TRACE-I NEGATIVE Urine ketones detection by automated test strip NE GATIVE NEGATIVE Urine nitrite detection by test strip NEGATIVE NEGATIVE Urine total bilirubin detection by test strip NEGA TIVE NEGATIVE Urine urobilinogen measurement by automated test strip (mass/volume) 0.2 mg/dL < = 1.0 Urine leukocyte esterase detection by dipstick TRA CE NEGATIVE Automated urine sediment erythrocyte cou nt by microscopy (number/high power field) [HPF] NRG Automated urine sediment leukocyte count by microscopy (number/high power field) [HPF] NRG Bacteria detection in urine sediment by light microsco py MODERATE NRG Squamous epithelial cells detection in u rine sediment by light microscopy 5-10 NRG Crystals detection in urine sediment by light microsco py NONE NRG Casts detection in urine sediment by light microscopy NONE NRG Mucus detection in urine sediment by light microscopy NEGATIVE NRG Complete urinalysis with reflex to culture YES NRG Bacterial urine culture - 07/08/19 19:40 Bacterial urine culture [id number] NRG COLONY COUNT >100,000/ML NRG SUSCEPTIBILITY SUSCEPTIBILITY REPORTED 07-10-19 NRG MRSA SCREEN PRELIM RAPID ID BY VCP [id number] NRG RAPID ID ID CONFIRMED 07-10-19 NRG Dirithromycin susceptibility test by dis k diffusion - 07/08/19 19:40 Gentamicin susceptibility test by minimum inhibitory c oncentration <= NRG Trimethoprim/sulfamethoxazole susceptibi lity test by minimum inhibitoryconcentration <= NRG Levofloxacin susceptibility test by minimum inhibitory concentration <= NRG Ampicillin susceptibility test by minimum inhibitory c oncentration <= NRG Cefazolin susceptibility test by minimum inhibitory co ncentration <= NRG Ceftriaxone susceptibility test by minimum inhibitory concentration <= NRG Ciprofloxacin susceptibility test by minimum inhibitor y concentration <= NRG Meropenem susceptibility test by minimum inhibitory co ncentration <= NRG Nitrofurantoin susceptibility test by ca nimum inhibitory concentration <= NRG Amoxicillin and clavulanate potassium susc ZONIA <= NRG Serum or plasma troponin i.cardiac measu rement (mass/volume) - 07/08/19 21:10 Serum or plasma troponin i.cardiac measurement (mass/v olume) < ng/mL <0.028 Complete blood count (CBC) with automate d white blood cell (WBC) differential - 10/13/19 08:24 Blood leukocytes automated count (number/volume) 12.1 10*3/uL 4.3-11.0 Blood erythrocytes automated count (number/volume) 4.93 10*6/uL 4.35-5.85 Venous blood hemoglobin measurement (mass/volume) 14.5 g/dL 11.5-16.0 Blood hematocrit (volume fraction) 45 % 35-52 Automated erythrocyte mean corpuscular volume 92 [ foz_us] 80-99 Automated erythrocyte mean corpuscular h emoglobin (mass per erythrocyte) 29 pg 25-34 Automated erythrocyte mean corpuscular h emoglobin concentration measurement (mass/volume) 32 g/dL 32-36 Automated erythrocyte distribution width ratio 13. 9 % 10.0- 14.5 Automated blood platelet count (count/volume) 318 10*3/uL 130-400 Automated blood platelet mean volume measurement 9.2 [foz_us] 7.4-10.4 Automated blood neutrophils/100 leukocytes 64 % 42-75 Automated blood lymphocytes/100 leukocytes 20 % 12-44 Blood monocytes/100 leukocytes 13 % 0-12 Automated blood eosinophils/100 leukocytes 3 % 0-10 Automated blood basophils/100 leukocytes 0 % 0-10 Blood neutrophils automated count (number/volume) 7.8 10*3 1.8-7.8 Blood lymphocytes automated count (number/volume) 2.4 10*3 1.0-4.0 Blood monocytes automated count (number/volume) 1. 5 10*3 0.0-1.0 Automated eosinophil count 0.4 10*3/uL 0 .0-0.3 Automated blood basophil count (count/volume) 0.0 10*3/uL 0.0-0.1 Comprehensive metabolic panel - 10/13/19 08:24 Serum or plasma albumin measurement (mass/volume) 3.9 g/dL 3.2-4.5 Encounters ACCT No. Visit Date/Time Discharge Status Pt. Type Provider Facility Loc./Unit Complaint 0000 02/21/2017 03:03:05 02/21/2017 23:59:5 9 CLS Outpatient [id number] 05/07/2019 09:54:00 Document Registration [id number] 07/08/2019 19:11:00 21:45:00 DIS Emergency ALVAREZ FUCHS TARIFF CLERK [facility] ER AFIB RVR [id number] 05/30/2019 07:49:00 11:34:00 DIS Emergency KISHOR CHRISTINE, MAHSA Gibbons [facility] ER ABD PAIN [id number] 05/13/2019 05:15:00 11:58:00 DIS Inpatient ALESHIA CHRISTINE, JIN Toscano [facility] ICU AFIB W/RVR [id number] 04/28/2019 06:30:00 07:17:00 DIS Emergency MANDY CHRISTINE, LELIA Tovar [facility] ER BLOOD PRESSURE PROBLEMS [id number] 03/29/2019 20:17:00 13:55:00 DIS Inpatient NATALIIA CHRISTINE, CAROLINE Mckeon [facility] ICU A-FIB WITH RVR [id number] 08/20/2018 11:15:00 23:59:59 CLS Outpatient AUGUSTA SALAZAR MD [facility] RAD PAF, CAD, DIASTOLIC DYS FUNCTION [id number] 08/11/2018 15:01:00 14:45:00 DIS Inpatient AUGUSTA SALAZAR MD [facility] ICU AFIB [id number] 03/12/2018 09:38:00 23:59:59 CLS Outpatient CLOVIS BROCK APRN [facility] RAD LEFT ARM PAIN [id number] 02/19/2018 08:37:00 23:59:59 CLS Outpatient AUGUSTA SALAZAR MD [facility] CARD CAD,CAROTID ARTERY STEN OSIS [id number] 01/14/2018 08:43:00 11:12:00 DIS Emergency KISHOR CHRISTINE, MAHSA Gibbons [facility] ER CHEST PAIN [id number] 07/29/2017 07:13:00 018 23:59:59 CLS Outpatient WILLAM MARTINEZ [facility] CARD CAD [id number] 07/21/2017 07:03:00 018 09:06:00 DIS Emergency MARCIN CHRISTINE, FOREIGN Saavedra [facility] ER IRREGULAR HEART BEAT [id number] 02/25/2017 10:25:00 017 23:59:59 CLS Outpatient JIN MONK MD [facility] RAD SCREENING COPD [id number] 02/25/2017 06:39:00 017 08:45:00 DIS Outpatient PATRICIA CARLOS DO [facility] ENDO EPIGASTRIC ABD PAIN [id number] 02/22/2017 05:36:00 017 23:59:59 CLS Outpatient CARLOS PATRICIA MENDOZA [facility] PREOP EGD [id number] 11/15/2016 09:15:00 017 23:59:59 CLS Outpatient FOREIGN BRITT MD [facility] RAD M06.9 [id number] 08/10/2016 09:52:00 017 23:59:59 CLS Outpatient WILLAM MARTINEZ [facility] CARD I25.10 [id number] 07/23/2016 15:30:00 017 17:50:00 DIS Emergency MANDY CHRISTINE, LELIA Tovar [facility] ER CHEST PAIN [id number] 02/24/2016 09:56:00 016 23:59:59 CLS Outpatient FOREIGN BRITT MD [facility] RAD RHEUMATOID ARTHRITIS,DE GENERATIVE DISC DISEASE [id number] 02/24/2016 09:52:00 23:59:59 CLS Outpatient JIN MONK MD [facility] RAD SCREENING [id number] 08/19/2015 13:36:00 11:11:00 DIS Inpatient AUGUSTA SALAZAR MD [facility] ICU A FIB W/ RVR [id number] 08/18/2015 08:55:00 23:59:59 CLS Outpatient FOREIGN BRITT MD [facility] RAD RHEUMATOID ARTHRITIS,TH ORACIC SPONDYLOSSIS [id number] 05/20/2015 09:16:00 23:59:59 CLS Outpatient AUGUSTA SALAZAR MD [facility] RAD CARTOID STENOSIS BILAT [id number] 02/08/2015 08:49:00 23:59:59 CLS Outpatient CLOVIS BROCK APRN [facility] RAD SCREENING [id number] 01/19/2015 07:31:00 09:33:00 DIS Emergency SUZANNE RITTER MD [facility] ER WEAK/LOW BP [id number] 02/03/2014 09:21:00 014 23:59:59 CLS Outpatient JIN MONK MD [facility] RAD SCREENING [id number] 02/02/2013 09:19:00 23:59:59 CLS Outpatient CHAYITO CARBONE [facility] RAD SCREENING [id number] 08/31/2012 08:21:00 10:00:00 DIS Inpatient JIN MONK MD [facility] CSD AFIB RVR [id number] 08/22/2012 13:51:00 23:59:59 CLS Outpatient WILLAM MARTINEZ [facility] CARD CAD,HTN,HLP,PAS,CAROTID STENOSIS [id number] 10/13/2019 08:45:00 Document Registration [id number] 02/08/2015 08:49:00 Document Registration [id number] 02/08/2015 08:49:00 Document Registration [id number] 07/09/2012 11:28:00 Document Registration [id number] 03/31/2012 00:00:00 Document Registration [id number] 01/31/2012 09:38:00 Document Registration [id number] 01/27/2012 10:23:00 Document Registration [id number] 01/14/2012 12:57:00 Document Registration [id number] 06/05/2011 00:00:00 Document Registration [id number] 05/30/2011 05:50:00 Document Registration [id number] 05/17/2011 12:35:00 Document Registration [id number] 05/03/2011 20:13:00 Document Registration [id number] 04/15/2011 01:18:00 Document Registration [id number] 04/05/2011 08:08:00 Document Registration [id number] 03/30/2011 06:33:00 Document Registration [id number] 03/27/2011 09:16:00 Document Registration [id number] 03/13/2011 09:11:00 Document Registration [id number] 03/08/2011 14:11:00 Document Registration [id number] 03/07/2011 09:11:00 Document Registration [id number] 01/29/2011 08:45:00 Document Registration [id number] 08/22/2010 14:38:00 Document Registration [id number] 08/17/2010 09:50:00 Document Registration [id number] 08/10/2010 08:48:00 Document Registration [id number] 06/02/2010 10:13:00 Document Registration [id number] 01/26/2010 08:46:00 Document Registration [id number] 09/08/2009 04:24:00 Document Registration [id number] 06/28/2007 08:56:00 Document Registration
[2019-10-13] MEDS ORDERED: meTOprolol SUCCINATE 100 MG (TOPROL XL) TAB PO ONE (09:30)
[2019-10-13] MEDS ORDERED: ONDA8TAB13 PO (09:58)
--- NOTE | 2019-10-13 10:22 | NUR ---
CALLED AND UPDATED OF PTS PENDING DISCHARGE.
[2019-10-13 10:30] VITALS: BP 161/69
== END 2019-10-13 10:30 | disposition home or self-care (01) ==
LOC: EDUNIT# 08:06 → ER 08:07
DX: R51 Headache (principal); R11.2 Nausea with vomiting, unspecified; I10 Essential (primary) hypertension; I48.20 Chronic atrial fibrillation, unspecified; J44.9 Chronic obstructive pulmonary disease, unspecified; E78.00 Pure hypercholesterolemia, unspecified; I25.10 Atherosclerotic heart disease of native coronary artery without angina pectoris; Z79.01 Long term (current) use of anticoagulants; Z88.0 Allergy status to penicillin; Z88.1 Allergy status to other antibiotic agents; Z88.5 Allergy status to narcotic agent; Z88.8 Allergy status to other drugs, medicaments and biological substances; Z86.69 Personal history of other diseases of the nervous system and sense organs; Z82.49 Family history of ischemic heart disease and other diseases of the circulatory system
CPT/HCPCS: 36415; 70450; 71045; 80053; 83735; 85025; 85610; 85730; 93005; 93041

== ENCOUNTER 2020-01-08 09:31 | Emergency (ER) | payer MEDICARE ==
[~2020-01-08] VITALS: Ht 162.5 cm; Wt 61.2 kg
[~2020-01-08 09:31] MED LIST changes: +ACHD5005; -HYDR-83; +ONDA8TAB13 PO; -PANT40TA3 PO; +PANT40TA52 PO
[2020-01-08] MEDS ORDERED: ASPIRIN 81 MG CHEW (CHILDREN'S ASA) PO ONE (09:45)
--- NOTE | 2020-01-08 09:54 | ED Cardiac General ---
History of Present Illness General Chief Complaint: Cardiac/General Problems Stated Complaint: RAPID HEART BEAT Nursing Triage Note: PT AMB TO RM 5 WITH COMPLAINT OF AFIB. STATES FEELS LIKE SHE IS GOING IN AND OUT OF AFID SINCE 0800 THIS MORNING. STATES TOOK BP AT HOME AND SYSTOLIC WAS IN THE 80s. DENIES CP OR SOA. Source: patient Exam Limitations: no limitations History of Present Illness Date Seen by Provider: Jan 08, 2020 Time Seen by Provider: 09:37 Initial Comments Patient is a 89-year-old female who presents to the emergency department today w ith a chief complaint of not feeling well, an episode of low blood pressure at home and a "fast pulse". Patient states she had some jaw tightness during this time. She is never had symptoms like this before. She was unsure if she was in A. fib or not because she did not feel her heart pounding as she usually does. She states at the time of my evaluation she is completely asymptomatic her blood pressure is back in its normal range her pulse is down in the 60s. Patient denies any recent illnesses such as fevers, chills, cough, congestion. No nausea vomiting. She denies shortness of breath. She denies any problems with bowel or bladder. No sick contacts at home. Takes her daily medications at approximately 7 AM in the morning. This includes flecainide and metoprolol. Symptom onset this morning for her was around 815 when she had this episode of low blood pressure and fast pulse. All other review of systems reviewed and negative except as stated. Timing/Duration: 1-3 hours Location: other Activities at Onset: none Prior CP/Workup: no prior cardiac workup Associated Systoms: No Chest Pain, No Cough, No Diaphoresis, No Nausea/Vomiting, No Shortness of Air Allergies and Home Medications Allergies Coded Allergies: Penicillins (Verified Allergy, Unknown, 12/16/06) ciprofloxacin (Verified Allergy, Unknown, 02/16/08) morphine (Verified Allergy, Unknown, 12/16/06) digoxin (Verified Adverse Reaction, Unknown, HALLUCINATIONS., 01/14/18) Home Medications Dabigatran Etexilate Mesylate 150 Mg Capsule, 150 MG PO BID, (Reported) Ferrous Sulfate 15 Mg/1 Ml Drops, 1 TSP PO DAILY, (Reported) Fish Oil/Dha/Epa 1 Each Capsule, 1,200 MG PO BID, (Reported) Flecainide Acetate 100 Mg Tablet, 100 MG PO BID Prescribed by: APARNA POLO on 05/13/19 1136 Leflunomide 20 Mg Tablet, 20 MG PO DAILY, (Reported) Losartan Potassium 25 Mg Tablet, 25 MG PO 1200, (Reported) Magnesium Oxide 250 Mg Tablet, 250 MG PO DAILY, (Reported) Metoprolol Tartrate 100 Mg Tablet, 100 MG PO BID, (Reported) Ondansetron 8 Mg Tab.rapdis, 8 MG PO Q4H PRN for NAUSEA/VOMITING Prescribed by: FELICITA RICHARDSON on 10/13/19 0958 Simvastatin 10 Mg Tablet, 10 MG PO HS, (Reported) Patient Home Medication List Home Medication List Reviewed: Yes Review of Systems Review of Systems Constitutional: no symptoms reported EENTM: No Symptoms Reported Respiratory: No Symptoms Reported Cardiovascular: No Symptoms Reported Genitourinary: No Symptoms Reported Musculoskeletal: no symptoms reported Psychiatric/Neurological: Anxiety All Other Systems Reviewed Negative Unless Noted: Yes Past Oxafcbo-Xrcuat-Ovjlzj Hx Patient Social History Alcohol Use: Denies Use Recreational Drug Use: No Smoking Status: Never a Smoker 2nd Hand Smoke Exposure: No Recent Foreign Travel: No Contact w/Someone Who Travel: No Recent Infectious Disease Expo: No Recent Hopitalizations: No Immunizations Up To Date Tetanus Booster (TDap): Unknown PED Vaccines UTD: Yes Date of Pneumonia Vaccine: Jul 10, 2018 Date of Influenza Vaccine: Dec 21, 2018 Seasonal Allergies Seasonal Allergies: Yes Past Medical History Surgeries: Yes (BILAT KNEE SURGERY;CYSTOCOELE;HYST/BSO;BLADDER SLING;CARDIAC CATH-NO INTERV) Bladder Surgery, Cardiac, Gallbladder, Hysterectomy, Oophorectomy, Orthopedic, Tubal Ligation Respiratory: Yes (PULMONARY HTN) Chronic Bronchitis, COPD Currently Using CPAP: No Currently Using BIPAP: No Cardiac: Yes (CARDIOVERSION; RBBB) Atrial Fibrillation, Coronary Artery Disease, High Cholesterol, Hypertension Neurological: Yes Headaches /Migraines 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 Disorders: Yes (TUBAL 1952) Female 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 Sexually Transmitted Disease: No HIV/AIDS: No Genitourinary: Yes (RENAL CYSTS) Renal Failure Gastrointestinal: Yes Gastroesophageal Reflux, Diverticulosis Musculoskeletal: Yes Arthritis, Rheumatoid Arthritis, Chronic Back Pain Endocrine: No HEENT: Yes Cataract Loss of Vision: Denies Cancer: No Psychosocial: No Integumentary: No Blood Disorders: Yes (FACTOR 5 LEIDEN) Family Medical History FACTOR V LEIDEN 19 FATHER G8 BROTHER Heart Disease, Hypertension Physical Exam Vital Signs Vital Signs - First Documented 01/08/20 09:31 Pulse 63 Resp 15 B/P (MAP) 163/89 (113) Pulse Ox 98 O2 Delivery Room Air Capillary Refill : Less Than 3 Seconds Height, Weight, BMI Height: 5'4.00" Weight: 145lbs. 0.0oz. 65.481952jd; 23.00 BMI Method:Stated General Appearance: No Apparent Distress, WD/WN, Anxious HEENT: PERRL/EOMI Neck: Full Range of Motion, Normal Inspection Respiratory: Chest Non Tender, Lungs Clear, Normal Breath Sounds, No Accessory Muscle Use, No Respiratory Distress Cardiovascular: Regular Rate, Rhythm, No JVD, No Murmur, Normal Peripheral Pulses (2+ radial pulses bilaterally) Gastrointestinal: Normal Bowel Sounds, Non Tender, Soft Extremity: Normal Inspection, Non Tender Neurologic/Psychiatric: Alert, Oriented x3, No Motor/Sensory Deficits, Normal Mood/Affect Skin: Normal Color, Warm/Dry Progress/Results/Core Measures Results/Orders Lab Results Laboratory Tests Test 01/08/20 09:57 01/08/20 12:00 Range/Units White Blood Count 7.4 4.3-11.0 10^3/uL Red Blood Count 4.46 3.80-5.11 10^6/uL Hemoglobin 13.3 11.5-16.0 g/dL Hematocrit 42 35-52 % Mean Corpuscular Volume 94 80-99 fL Mean Corpuscular Hemoglobin 30 25-34 pg Mean Corpuscular Hemoglobin Concent 32 32-36 g/dL Red Cell Distribution Width 13.2 10.0-14.5 % Platelet Count 225 130-400 10^3/uL Mean Platelet Volume 9.4 9.0-12.2 fL Immature Granulocyte % (Auto) 0 % Neutrophils (%) (Auto) 61 42-75 % Lymphocytes (%) (Auto) 22 12-44 % Monocytes (%) (Auto) 11 0-12 % Eosinophils (%) (Auto) 5 0-10 % Basophils (%) (Auto) 2 0-10 % Neutrophils # (Auto) 4.5 1.8-7.8 10^3/uL Lymphocytes # (Auto) 1.6 1.0-4.0 10^3/uL Monocytes # (Auto) 0.8 0.0-1.0 10^3/uL Eosinophils # (Auto) 0.4 H 0.0-0.3 10^3/uL Basophils # (Auto) 0.1 0.0-0.1 10^3/uL Immature Granulocyte # (Auto) 0.0 0.0-0.1 10^3/uL Prothrombin Time 22.1 H 12.2-14.7 SEC INR Comment 1.9 H 0.8-1.4 Activated Partial Thromboplast Time 69 H 24-35 SEC Sodium Level 138 135-145 MMOL/L Potassium Level 4.5 3.6-5.0 MMOL/L Chloride Level 105 98-107 MMOL/L Carbon Dioxide Level 21 21-32 MMOL/L Anion Gap 12 5-14 MMOL/L Blood Urea Nitrogen 17 7-18 MG/DL Creatinine 1.04 0.60-1.30 MG/DL Estimat Glomerular Filtration Rate 50 BUN/Creatinine Ratio 16 Glucose Level 91 70-105 MG/DL Calcium Level 9.5 8.5-10.1 MG/DL Magnesium Level 2.0 1.6-2.4 MG/DL Myoglobin 54.9 10.0-92.0 NG/ML Troponin I < 0.028 < 0.028 <0.028 NG/ML Creatine Kinase MB 1.0 <6.6 NG/ML My Orders Orders - LUIS DAVILA MD Ed Iv/Invasive Line Start (01/08/20 09:45) Aspirin Chewable Tablet (Baby Aspirin Ch (01/08/20 09:45) Cbc With Automated Diff (01/08/20 09:45) Magnesium (01/08/20 09:45) Ekg Tracing (01/08/20 09:45) Myoglobin Serum (01/08/20 09:45) Protime With Inr (01/08/20 09:45) Partial Thromboplastin Time (01/08/20 09:45) O2 (01/08/20 09:45) Monitor-Rhythm Ecg Trace Only (01/08/20 09:45) Lipid Panel (01/09/20 06:00) Ed Iv/Invasive Line Start (01/08/20 09:45) Troponin I (01/08/20 09:45) Basic Metabolic Panel (01/08/20 09:45) Troponin I (01/08/20 11:53) Creatine Kinase Mb (01/08/20 11:53) Medications Given in ED Current Medications Medications Dose Ordered Sig/Mable Route Start Time Stop Time Status Last Admin Dose Admin Aspirin 324 mg ONCE ONCE PO 01/08/20 09:45 01/08/20 09:48 DC 01/08/20 09:52 324 MG Vital Signs/I&O 01/08/20 09:31 Pulse 63 Resp 15 B/P (MAP) 163/89 (113) Pulse Ox 98 O2 Delivery Room Air Blood Pressure Mean: 113 Progress Progress Note : Time: 10:11 Progress Note Notified by the mobile home technician that the patient was declining to have a chest x-ray done at this time. Patient evaluation today includes a physical exam, routine laboratory studies including serial troponins as well as an EKG. Low index of suspicion in this 89-year-old female with no prior history of coronary artery disease. She is c ompletely asymptomatic her EKG is normal sinus rhythm with a right bundle branch block. Old records will be reviewed especially her EKG in comparison. The patient is resting comfortably. Will await studies to further manage and disposition this patient. 1239 patient resting comfortably throughout her stay here in the emergency department remaining asymptomatic. 2 sets of cardiac markers, troponin were both negative. Patient's EKG is unremarkable. She does have a pre-existing right bundle branch block. She is not in atrial fibrillation at this time. Rest of her laboratory evaluation was also unremarkable including CBC and basic metabolic panels. Again the patient declined her chest x-ray so therefore 1 was not interpreted. 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 She verbalized understanding all questions are sought and answered and she is stable for discharge. Initial ECG Impression Date: Jan 08, 2020 Initial ECG Impression Time: 09:32 Initial ECG Rate: 64 Initial ECG Rhythm: Normal Sinus Initial ECG Intervals: MO (69) Initial ECG Intervals Right bundle branch block noted Departure Impression Primary Impression: Palpitations Disposition: HOME, SELF-CARE Condition: Stable Departure-Patient Inst. Decision time for Depature: 12:40 Referrals: JIN ANDERSON MD (PCP/Family) Primary Care Physician Patient Instructions: Palpitations Add. Discharge Instructions: Please continue your daily prescribed medications as instructed. Please call your primary care doctor for a follow-up appointment. Return to the emergency department for any worsening symptoms, new concerns or other emergent symptoms. All discharge instructions reviewed with patient and/or family. Voiced understanding. LUIS DAVILA MD Jan 08, 2020 09:54
[2020-01-08 10:04] LABS: BASOPHILS # (AUTO) 0.1 10^3/uL (0.0-0.1); BASOPHILS % (AUTO) 2 % (0-10); EOSINOPHILS # (AUTO) 0.4 10^3/uL (0.0-0.3); EOSINOPHILS % (AUTO) 5 % (0-10); HEMATOCRIT 42 % (35-52); HEMOGLOBIN 13.3 g/dL (11.5-16.0); LYMPHOCYTES # (AUTO) 1.6 10^3/uL (1.0-4.0); LYMPHOCYTES % (AUTO) 22 % (12-44); MEAN CORPUSCULAR HEMOGLOBIN 30 pg (25-34); MEAN CORPUSCULAR HGB CONC 32 g/dL (32-36); MEAN CORPUSCULAR VOLUME 94 fL (80-99); MEAN PLATELET VOLUME 9.4 fL (9.0-12.2); MONOCYTES # (AUTO) 0.8 10^3/uL (0.0-1.0); MONOCYTES % (AUTO) 11 % (0-12); NEUTROPHILS # (AUTO) 4.5 10^3/uL (1.8-7.8); NEUTROPHILS % (AUTO) 61 % (42-75); PLATELET COUNT 225 10^3/uL (130-400); WHITE BLOOD COUNT 7.4 10^3/uL (4.3-11.0)
[2020-01-08 10:19] LABS: CHLORIDE 105 MMOL/L (98-107); INR 1.9 (0.8-1.4); POTASSIUM 4.5 MMOL/L (3.6-5.0); PROTHROMBIN TIME PATIENT 22.1 SEC (12.2-14.7); SODIUM 138 MMOL/L (135-145)
[2020-01-08 10:20] LABS: CALCIUM 9.5 MG/DL (8.5-10.1); GLUCOSE 91 MG/DL (70-105)
[2020-01-08 10:22] LABS: CARBON DIOXIDE 21 MMOL/L (21-32)
[2020-01-08 10:24] LABS: CREATININE SERUM 1.04 MG/DL (0.60-1.30); GFR ESTIMATED 50
[2020-01-08 10:25] LABS: BUN/CREATININE RATIO 16
[2020-01-08 12:47] VITALS: BP 166/67
== END 2020-01-08 12:47 | disposition home or self-care (01) ==
LOC: EDUNIT# 09:31 → ER 09:32
DX: R00.2 Palpitations (principal); F41.9 Anxiety disorder, unspecified; E78.00 Pure hypercholesterolemia, unspecified; I10 Essential (primary) hypertension; I48.91 Unspecified atrial fibrillation; Z82.49 Family history of ischemic heart disease and other diseases of the circulatory system; Z88.0 Allergy status to penicillin; Z88.1 Allergy status to other antibiotic agents; Z88.5 Allergy status to narcotic agent; Z88.8 Allergy status to other drugs, medicaments and biological substances; Z95.9 Presence of cardiac and vascular implant and graft, unspecified
CPT/HCPCS: 36415; 80048; 82553; 83735; 83874; 84484; 85025; 85610; 85730; 93005; 93041

== ENCOUNTER 2020-02-29 07:10 | Emergency (ER) | payer MEDICARE ==
[~2020-02-29] VITALS: Ht 162 cm; Wt 61.0 kg
[~2020-02-29 07:10] MED LIST changes: -AMIO200T4 PO; +AMIO200T6 PO
[2020-02-29] MEDS ORDERED: NS IV 500 ML 500 ML IV ONE (07:24)
[2020-02-29] MEDS ORDERED: ASPIRIN 81 MG CHEW (CHILDREN'S ASA) PO ONE (07:30)
[2020-02-29 07:31] LABS: BASOPHILS # (AUTO) 0.1 10^3/uL (0.0-0.1); BASOPHILS % (AUTO) 2 % (0-10); EOSINOPHILS # (AUTO) 0.3 10^3/uL (0.0-0.3); EOSINOPHILS % (AUTO) 5 % (0-10); HEMATOCRIT 44 % (35-52); LYMPHOCYTES # (AUTO) 2.2 10^3/uL (1.0-4.0); LYMPHOCYTES % (AUTO) 33 % (12-44); MEAN CORPUSCULAR HEMOGLOBIN 30 pg (25-34); MEAN CORPUSCULAR HGB CONC 32 g/dL (32-36); MEAN CORPUSCULAR VOLUME 95 fL (80-99); MEAN PLATELET VOLUME 9.4 fL (9.0-12.2); MONOCYTES # (AUTO) 0.8 10^3/uL (0.0-1.0); MONOCYTES % (AUTO) 12 % (0-12); NEUTROPHILS # (AUTO) 3.2 10^3/uL (1.8-7.8); NEUTROPHILS % (AUTO) 47 % (42-75); PLATELET COUNT 280 10^3/uL (130-400); WHITE BLOOD COUNT 6.7 10^3/uL (4.3-11.0)
--- NOTE | 2020-02-29 07:33 | ED Chest Pain ---
General Chief Complaint: Chest Pain Stated Complaint: RAPID HR Source: patient Exam Limitations: no limitations History of Present Illness Date Seen by Provider: Feb 29, 2020 Time Seen by Provider: 07:18 Initial Comments Here with report of chest tightness last night and feeling palpitations and feeling her heart pounding hard. Denies nausea, vomiting, sweating or weakness with that. Believes that it is her A. fib. She reports taking meds as directed including Pradaxa. She does not take aspirin. Follows with Dr. MONK and Dr. Celestin. Denies recent illness, upper respiratory symptoms or contact with [employer]. Timing/Duration: intermittent, gone now, 12 hours Severity/Quality: moderate, tightness Location: central Radiation: no radiation Activities at Onset: none Prior CP/Workup: echocardiography, other (Cardioversion) Modifying Factors: improves with rest ASA po SHANKER OUT: No NTG SL SHANKER OUT: No Associated Symptoms: No abdominal pain, No diaphoresis, No fatigue, No fever/chills, No nausea/vomiting, No shortness of breath, No syncope, No weakness Allergies and Home Medications Allergies Coded Allergies: Penicillins (Verified Allergy, Unknown, 12/16/06) ciprofloxacin (Verified Allergy, Unknown, 02/16/08) morphine (Verified Allergy, Unknown, 12/16/06) digoxin (Verified Adverse Reaction, Unknown, HALLUCINATIONS., 01/14/18) Home Medications Dabigatran Etexilate Mesylate 150 Mg Capsule, 150 MG PO BID, (Reported) Ferrous Sulfate 15 Mg/1 Ml Drops, 1 TSP PO DAILY, (Reported) Fish Oil/Dha/Epa 1 Each Capsule, 1,200 MG PO BID, (Reported) Flecainide Acetate 100 Mg Tablet, 100 MG PO BID Prescribed by: APARNA POLO on 05/13/19 1136 Leflunomide 20 Mg Tablet, 20 MG PO DAILY, (Reported) Losartan Potassium 25 Mg Tablet, 25 MG PO 1200, (Reported) Magnesium Oxide 250 Mg Tablet, 250 MG PO DAILY, (Reported) Metoprolol Tartrate 100 Mg Tablet, 100 MG PO BID, (Reported) Ondansetron 8 Mg Tab.rapdis, 8 MG PO Q4H PRN for NAUSEA/VOMITING Prescribed by: FELICITA RICHARDSON on 10/13/19 0958 Simvastatin 10 Mg Tablet, 10 MG PO HS, (Reported) Patient Home Medication List Home Medication List Reviewed: Yes Review of Systems Review of Systems Constitutional: see HPI; No chills, No fever EENTM: No Nose Congestion Respiratory: See HPI Cardiovascular: See HPI; Denies Edema; Irregular Heart Rate, Palpitations Gastrointestinal: See HPI Genitourinary: No Symptoms Reported Musculoskeletal: no symptoms reported All Other Systems Reviewed Negative Unless Noted: Yes Past Wjkhikn-Pdpbae-Yunvsu Hx Past Med/Social Hx: Reviewed Nursing Past Med/Soc Hx Patient Social History Alcohol Use: Denies Use Recreational Drug Use: No Smoking Status: Never a Smoker 2nd Hand Smoke Exposure: No Recent Foreign Travel: No Contact w/Someone Who Travel: No Recent Hopitalizations: No Immunizations Up To Date Tetanus Booster (TDap): Unknown PED Vaccines UTD: Yes Date of Pneumonia Vaccine: Jul 10, 2018 Date of Influenza Vaccine: Dec 21, 2018 Seasonal Allergies Seasonal Allergies: Yes Past Medical History Surgeries: Yes (BILAT KNEE SURGERY;CYSTOCOELE;HYST/BSO;BLADDER SLING;CARDIAC CATH-NO INTERV) Bladder Surgery, Cardiac, Gallbladder, Hysterectomy, Oophorectomy, Orthopedic, Tubal Ligation Respiratory: Yes (PULMONARY HTN) Chronic Bronchitis, COPD Currently Using CPAP: No Currently Using BIPAP: No Cardiac: Yes (CARDIOVERSION; RBBB) Atrial Fibrillation, Coronary Artery Disease, High Cholesterol, Hypertension Neurological: Yes Headaches /Migraines 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 Disorders: Yes (TUBAL 1952) Female 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 Sexually Transmitted Disease: No HIV/AIDS: No Genitourinary: Yes (RENAL CYSTS) Renal Failure Gastrointestinal: Yes Gastroesophageal Reflux, Diverticulosis Musculoskeletal: Yes Arthritis, Rheumatoid Arthritis, Chronic Back Pain Endocrine: No HEENT: Yes Cataract Loss of Vision: Denies Cancer: No Psychosocial: No Integumentary: No Blood Disorders: Yes (FACTOR 5 LEIDEN) Family Medical History Reviewed Nursing Family Hx FACTOR V LEIDEN 19 FATHER G8 BROTHER Heart Disease, Hypertension Physical Exam Vital Signs Vital Signs - First Documented 02/29/20 07:10 Temp 35.7 Pulse 69 Resp 16 B/P (MAP) 122/77 (92) Pulse Ox 99 O2 Delivery Room Air Capillary Refill : Height, Weight, BMI Height: 5'4.00" Weight: 145lbs. 0.0oz. 65.697478kv; 23.00 BMI Method:Stated General Appearance: No Apparent Distress, WD/WN HEENT: PERRL/EOMI, Pharynx Normal Neck: Non Tender, Supple Respiratory: No Accessory Muscle Use, No Respiratory Distress, Crackles (Bilateral bases) Cardiovascular: Regular Rate, Rhythm (Heart rate 73 and regular. Occasional PVC on monitor), No Murmur Gastrointestinal: Non Tender, Soft Extremity: Normal Range of Motion, Non Tender Neurologic/Psychiatric: Alert, Oriented x3 Skin: Normal Color, Warm/Dry Progress/Results/Core Measures Results/Orders Lab Results Laboratory Tests Test 02/29/20 07:20 02/29/20 09:31 Range/Units White Blood Count 6.7 4.3-11.0 10^3/uL Red Blood Count 4.69 3.80-5.11 10^6/uL Hemoglobin 14.0 11.5-16.0 g/dL Hematocrit 44 35-52 % Mean Corpuscular Volume 95 80-99 fL Mean Corpuscular Hemoglobin 30 25-34 pg Mean Corpuscular Hemoglobin Concent 32 32-36 g/dL Red Cell Distribution Width 12.4 10.0-14.5 % Platelet Count 280 130-400 10^3/uL Mean Platelet Volume 9.4 9.0-12.2 fL Immature Granulocyte % (Auto) 0 % Neutrophils (%) (Auto) 47 42-75 % Lymphocytes (%) (Auto) 33 12-44 % Monocytes (%) (Auto) 12 0-12 % Eosinophils (%) (Auto) 5 0-10 % Basophils (%) (Auto) 2 0-10 % Neutrophils # (Auto) 3.2 1.8-7.8 10^3/uL Lymphocytes # (Auto) 2.2 1.0-4.0 10^3/uL Monocytes # (Auto) 0.8 0.0-1.0 10^3/uL Eosinophils # (Auto) 0.3 0.0-0.3 10^3/uL Basophils # (Auto) 0.1 0.0-0.1 10^3/uL Immature Granulocyte # (Auto) 0.0 0.0-0.1 10^3/uL Prothrombin Time 19.0 H 12.2-14.7 SEC INR Comment 1.6 H 0.8-1.4 Activated Partial Thromboplast Time 59 H 24-35 SEC Sodium Level 137 135-145 MMOL/L Potassium Level 4.2 3.6-5.0 MMOL/L Chloride Level 102 98-107 MMOL/L Carbon Dioxide Level 22 21-32 MMOL/L Anion Gap 13 5-14 MMOL/L Blood Urea Nitrogen 17 7-18 MG/DL Creatinine 1.27 0.60-1.30 MG/DL Estimat Glomerular Filtration Rate 40 BUN/Creatinine Ratio 13 Glucose Level 208 H 70-105 MG/DL Calcium Level 9.1 8.5-10.1 MG/DL Corrected Calcium 9.2 8.5-10.1 MG/DL Magnesium Level 2.0 1.6-2.4 MG/DL Total Bilirubin 0.4 0.1-1.0 MG/DL Aspartate Amino Transf (AST/SGOT) 17 5-34 U/L Alanine Aminotransferase (ALT/SGPT) 10 0-55 U/L Alkaline Phosphatase 80 40-136 U/L Myoglobin 54.1 10.0-92.0 NG/ML Troponin I < 0.028 < 0.028 <0.028 NG/ML Total Protein 6.9 6.4-8.2 GM/DL Albumin 3.9 3.2-4.5 GM/DL My Orders Orders - MAHSA IVERSON MD Cbc With Automated Diff (02/29/20 07:24) Magnesium (02/29/20 07:24) Chest 1 View, Ap/Pa Only (02/29/20:24) Ekg Tracing (02/29/20:24) Comprehensive Metabolic Panel (02/29/20 07:24) Myoglobin Serum (02/29/20 07:24) Protime With Inr (02/29/2024) Partial Thromboplastin Time (02/29/20:24) O2 (02/29/20:24) Monitor-Rhythm Ecg Trace Only (02/29/20 07:24) Lipid Panel (03/01/20 06:00) Ed Iv/Invasive Line Start (02/29/20:24) Troponin I (02/29/20 07:24) Ns Iv 500 Ml (Sodium Chloride 0.9%) (02/29/20 07:24) Aspirin Chewable Tablet (Baby Aspirin Ch (02/29/20 07:30) Troponin I (02/29/20 09:15) Medications Given in ED Current Medications Medications Dose Ordered Sig/Mable Route Start Time Stop Time Status Last Admin Dose Admin Aspirin 324 mg ONCE ONCE PO 02/29/20 07:30 02/29/20 07:31 DC 02/29/20 07:41 324 MG Sodium Chloride 500 ml @ 0 mls/hr Q0M ONCE IV 02/29/20 07:24 02/29/20 07:26 DC 02/29/20 07:41 500 MLS/HR Vital Signs/I&O 02/29/20 07:10 Temp 35.7 Pulse 69 Resp 16 B/P (MAP) 122/77 (92) Pulse Ox 99 O2 Delivery Room Air Progress Progress Note : Progress Note Seen and evaluated. IV, labs, EKG and chest x-ray ordered. ASA 324 mg p.o. Normal saline 500 mL bolus. Monitor patient. 0830: No acute findings. Patient pain-free and without distress. No abnormalities noted on monitor. We will recheck troponin at 0915. If negative, likely DC home. This was discussed with the patient who agrees. Monitor patient. 1023: Repeat labs negative. Patient remains in sinus rhythm at a rate of about 60. I did discuss the case with Dr. Celestin. No changes currently and he will follow her up outpatient. I will send a copy of the chart him as well as Dr. Monk. All of this was discussed with the patient and she agrees. Discharged home with return precautions. Patient verbalized understanding of instructions and agreement with plan. Initial ECG Impression Date: Feb 29, 2020 Initial ECG Impression Time: 07:18 Initial ECG Rate: 73 Initial ECG Rhythm: Normal Sinus Comment Sinus rhythm with right bundle branch block. No evidence of ST elevation MD. Unchanged from previous of 01/08/2020. Interpreted by me. Diagnostic Imaging Diagonstic Imaging: Xray Plain Films/CT/US/NM/MRI: chest Comments [facility]. [place], [place] NAME: RENATE REYES I [facility] REC#: [id number] PT STATUS: REG ER : 1932 PHYSICIAN: MAHSA IVERSON MD ADMIT DATE: 02/29/20/ER Draft Date of Exam:02/29/20 CHEST 1 VIEW, AP/PA ONLY INDICATION: Chest pain and tachycardia AP view of chest is obtained with comparison made to study of 10/13/2019. There is bilateral basilar atelectasis. No pneumothorax or consolidation is identified. No significant pleural fluid is seen. IMPRESSION: Continued basilar atelectasis without consolidation or other significant adverse change. Dictated on workstation # [id number] Dict: 02/29/20 0748 Trans: 02/29/20 0750 CV [id number] Interpreted by: OANH CANAS MD Electronically signed by: Departure Impression Primary Impression: Palpitations Additional Impression: Paroxysmal atrial fibrillation Disposition: HOME, SELF-CARE Condition: Improved Departure-Patient Inst. Decision time for Depature: 10:25 Referrals: JIN MONK MD (PCP/Family) Primary Care Physician Patient Instructions: Atrial Fibrillation (DC), Chest Pain (DC) Add. Discharge Instructions: All discharge instructions reviewed with patient and/or family. Voiced understa nding. Follow-up with Dr. Celestin for recheck and further evaluation. Call his office for appointment. Return for worse pain, fever, vomiting, weakness, breathing problems or other concerns as needed. If you have the fluttering feeling in your chest that is prolonged and especially if associated with chest pain, please return to the emergency department immediately for evaluation. Continue home medications as previously prescribed. Copy Copies To 1: AUGUSTA CELESTIN MD Copies To 2: JIN MONK MD, TIMOTHY D MD Feb 29, 2020 07:33
[2020-02-29 07:38] LABS: ALBUMIN 3.9 GM/DL (3.2-4.5); POTASSIUM 4.2 MMOL/L (3.6-5.0)
[2020-02-29 07:39] LABS: INR 1.6 (0.8-1.4)
[2020-02-29 07:40] LABS: CALCIUM 9.1 MG/DL (8.5-10.1)
[2020-02-29 07:41] LABS: TOTAL PROTEIN 6.9 GM/DL (6.4-8.2)
[2020-02-29 07:43] LABS: BILIRUBIN,TOTAL 0.4 MG/DL (0.1-1.0)
[2020-02-29 07:44] LABS: CREATININE SERUM 1.27 MG/DL (0.60-1.30)
--- NOTE | 2020-02-29 07:51 | Diagnostic Imaging Report ---
INDICATION: Chest pain and tachycardia AP view of chest is obtained with comparison made to study of 10/13/2019. There is bilateral basilar atelectasis. No pneumothorax or consolidation is identified. No significant pleural fluid is seen. IMPRESSION: Continued basilar atelectasis without consolidation or other significant adverse change. Dictated by: Dictated on workstation # [id number]
--- NOTE | 2020-02-29 08:32 | NUR ---
PT UPDATED BY PHONE.
--- NOTE | 2020-02-29 10:23 | NUR ---
IN TALKING TO THE PT AT THIS TIME.
[2020-02-29 10:30] VITALS: BP 146/59
== END 2020-02-29 10:30 | disposition home or self-care (01) ==
LOC: EDUNIT# 07:10 → ER 07:12
DX: R00.2 Palpitations (principal); I48.0 Paroxysmal atrial fibrillation; E78.00 Pure hypercholesterolemia, unspecified; I10 Essential (primary) hypertension; Z82.49 Family history of ischemic heart disease and other diseases of the circulatory system; Z95.9 Presence of cardiac and vascular implant and graft, unspecified; Z88.0 Allergy status to penicillin; Z88.1 Allergy status to other antibiotic agents; Z88.5 Allergy status to narcotic agent; Z88.8 Allergy status to other drugs, medicaments and biological substances; Z79.01 Long term (current) use of anticoagulants
CPT/HCPCS: 36415; 71045; 80053; 83735; 83874; 84484; 85025; 85610; 85730; 93005; 93041

== ENCOUNTER → 2020-06-03 | Outpatient (CLI) | payer MEDICARE | LOC: CARD 13:17 | PROVIDERS: ATTEND Internal Medicine Cardiovascular Disease | DX: I10 Essential (primary) hypertension (principal); I34.0 Nonrheumatic mitral (valve) insufficiency | CPT/HCPCS: 93306 ==

== ENCOUNTER 2020-07-02 12:55 | Emergency (ER) | payer MEDICARE ==
[~2020-07-02] VITALS: Ht 162 cm; Wt 62.0 kg
[2020-07-02] MEDS ORDERED: dilTIAZem DRIP PRE-MIX 125 ML IV SCH (13:15)
[2020-07-02] MEDS ORDERED: ASPIRIN 81 MG CHEW (CHILDREN'S ASA) PO ONE (13:15)
--- NOTE | 2020-07-02 13:15 | ED Cardiac General ---
History of Present Illness General Chief Complaint: Cardiac/General Problems Stated Complaint: IRR HEART RATE Source: patient Exam Limitations: no limitations History of Present Illness Date Seen by Provider: Jul 02, 2020 Time Seen by Provider: 13:00 Initial Comments 89-year-old female patient of Dr. Monk and Dr. Celestin presents to ER with general fatigue since yesterday. She had some chest pain yesterday but none today. The general fatigue continues. She does not report palpitations or shortness of breath. She does have paroxysmal atrial fibrillation and is managed on Pradaxa and flecainide. Allergies and Home Medications Allergies Coded Allergies: Penicillins (Verified Allergy, Unknown, 12/16/06) ciprofloxacin (Verified Allergy, Unknown, 02/16/08) morphine (Verified Allergy, Unknown, 12/16/06) digoxin (Verified Adverse Reaction, Unknown, HALLUCINATIONS., 01/14/18) Home Medications Dabigatran Etexilate Mesylate 150 Mg Capsule, 150 MG PO BID, (Reported) Ferrous Sulfate 15 Mg/1 Ml Drops, 1 TSP PO DAILY, (Reported) Fish Oil/Dha/Epa 1 Each Capsule, 1,200 MG PO BID, (Reported) Flecainide Acetate 100 Mg Tablet, 100 MG PO BID Prescribed by: APARNA POLO on 05/13/19 1136 Leflunomide 20 Mg Tablet, 20 MG PO DAILY, (Reported) Losartan Potassium 25 Mg Tablet, 25 MG PO 1200, (Reported) Magnesium Oxide 250 Mg Tablet, 250 MG PO DAILY, (Reported) Metoprolol Tartrate 100 Mg Tablet, 100 MG PO BID, (Reported) Ondansetron 8 Mg Tab.rapdis, 8 MG PO Q4H PRN for NAUSEA/VOMITING Prescribed by: FELICITA RICHARDSON on 10/13/19 0958 Simvastatin 10 Mg Tablet, 10 MG PO HS, (Reported) Patient Home Medication List Home Medication List Reviewed: Yes Review of Systems Review of Systems Constitutional: see HPI, weakness EENTM: No Symptoms Reported Respiratory: See HPI Cardiovascular: See HPI; Denies Chest Pain, Denies Edema, Denies Irregular Heart Rate Gastrointestinal: No Symptoms Reported Genitourinary: No Symptoms Reported Musculoskeletal: no symptoms reported Skin: no symptoms reported Endocrine: No Symptoms Reported Hematologic/Lymphatic: No Symptoms Reported Past Wianbyj-Lwotus-Xabnfa Hx Patient Social History 2nd Hand Smoke Exposure: No Recent Hopitalizations: No Immunizations Up To Date Tetanus Booster (TDap): Unknown PED Vaccines UTD: Yes Date of Pneumonia Vaccine: Jul 10, 2018 Date of Influenza Vaccine: Dec 21, 2018 Seasonal Allergies Seasonal Allergies: Yes Past Medical History Surgeries: Yes (BILAT KNEE SURGERY;CYSTOCOELE;HYST/BSO;BLADDER SLING;CARDIAC CATH-NO INTERV) Bladder Surgery, Cardiac, Gallbladder, Hysterectomy, Oophorectomy, Orthopedic, Tubal Ligation Respiratory: Yes (PULMONARY HTN) Chronic Bronchitis, COPD Currently Using CPAP: No Currently Using BIPAP: No Cardiac: Yes (CARDIOVERSION; RBBB) Atrial Fibrillation, Coronary Artery Disease, High Cholesterol, Hypertension Neurological: Yes Headaches /Migraines 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 Disorders: Yes (TUBAL 1952) Female 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 Disorders: Denies [employer] History: Menopausal Sexually Transmitted Disease: No HIV/AIDS: No Genitourinary: Yes (RENAL CYSTS) Renal Failure Gastrointestinal: Yes Gastroesophageal Reflux, Diverticulosis Musculoskeletal: Yes Arthritis, Rheumatoid Arthritis, Chronic Back Pain Endocrine: No HEENT: Yes Cataract Loss of Vision: Denies Cancer: No Psychosocial: No Integumentary: No Blood Disorders: Yes (FACTOR 5 LEIDEN) Family Medical History FACTOR V LEIDEN 19 FATHER G8 BROTHER Heart Disease, Hypertension Physical Exam Vital Signs Vital Signs - First Documented 07/02/20 13:00 Temp 36.2 Pulse 122 Resp 19 B/P (MAP) 120/102 (108) Pulse Ox 98 O2 Delivery Room Air Capillary Refill : Height, Weight, BMI Height: 5'4.00" Weight: 145lbs. 0.0oz. [id number]; 23.00 BMI Method:Stated General Appearance: No Apparent Distress, WD/WN, Other (Alert and oriented no distress blood pressure 130/100. Heart rate 120s to 130s atrial fibrillation) HEENT: PERRL/EOMI, TMs Normal Neck: Full Range of Motion, Normal Inspection Respiratory: No Accessory Muscle Use, No Respiratory Distress Cardiovascular: Irregularly Irregular, Tachycardia Gastrointestinal: Non Tender, Soft Extremity: Normal Capillary Refill, Normal Inspection Neurologic/Psychiatric: Alert, Oriented x3 Skin: Normal Color, Warm/Dry Progress/Results/Core Measures Results/Orders Lab Results Laboratory Tests Test 07/02/20 13:05 Range/Units White Blood Count 9.7 4.3-11.0 10^3/uL Red Blood Count 4.51 3.80-5.11 10^6/uL Hemoglobin 13.3 11.5-16.0 g/dL Hematocrit 41 35-52 % Mean Corpuscular Volume 92 80-99 fL Mean Corpuscular Hemoglobin 30 25-34 pg Mean Corpuscular Hemoglobin Concent 32 32-36 g/dL Red Cell Distribution Width 13.0 10.0-14.5 % Platelet Count 321 130-400 10^3/uL Mean Platelet Volume 9.6 9.0-12.2 fL Immature Granulocyte % (Auto) 0 % Neutrophils (%) (Auto) 62 42-75 % Lymphocytes (%) (Auto) 25 12-44 % Monocytes (%) (Auto) 10 0-12 % Eosinophils (%) (Auto) 2 0-10 % Basophils (%) (Auto) 1 0-10 % Neutrophils # (Auto) 6.0 1.8-7.8 10^3/uL Lymphocytes # (Auto) 2.4 1.0-4.0 10^3/uL Monocytes # (Auto) 0.9 0.0-1.0 10^3/uL Eosinophils # (Auto) 0.2 0.0-0.3 10^3/uL Basophils # (Auto) 0.1 0.0-0.1 10^3/uL Immature Granulocyte # (Auto) 0.0 0.0-0.1 10^3/uL Prothrombin Time 25.0 H 12.2-14.7 SEC INR Comment 2.2 H 0.8-1.4 Activated Partial Thromboplast Time 72 H 24-35 SEC Sodium Level 136 135-145 MMOL/L Potassium Level 4.7 3.6-5.0 MMOL/L Chloride Level 103 98-107 MMOL/L Carbon Dioxide Level 22 21-32 MMOL/L Anion Gap 11 5-14 MMOL/L Blood Urea Nitrogen 27 H 7-18 MG/DL Creatinine 1.42 H 0.60-1.30 MG/DL Estimat Glomerular Filtration Rate 35 BUN/Creatinine Ratio 19 Glucose Level 135 H 70-105 MG/DL Calcium Level 9.4 8.5-10.1 MG/DL Corrected Calcium 9.4 8.5-10.1 MG/DL Magnesium Level 2.1 1.6-2.4 MG/DL Total Bilirubin 0.5 0.1-1.0 MG/DL Aspartate Amino Transf (AST/SGOT) 17 5-34 U/L Alanine Aminotransferase (ALT/SGPT) 10 0-55 U/L Alkaline Phosphatase 83 40-136 U/L Myoglobin 68.0 10.0-92.0 NG/ML Troponin I < 0.028 <0.028 NG/ML B-Type Natriuretic Peptide 429.4 H <100.0 PG/ML Total Protein 7.0 6.4-8.2 GM/DL Albumin 4.0 3.2-4.5 GM/DL My Orders Orders - ALVAREZ FUCHS FO[employer] BEVERAGE ATTENDANT Cbc With Automated Diff (07/02/20 13:13) Magnesium (07/02/20 13:13) Chest 1 View, Ap/Pa Only (07/02/20 13:13) Ekg Tracing (07/02/20 13:13) Comprehensive Metabolic Panel (07/02/20 13:13) Myoglobin Serum (07/02/20 13:13) Protime With Inr (07/02/20 13:13) Partial Thromboplastin Time (07/02/20 13:13) O2 (07/02/20 13:13) Monitor-Rhythm Ecg Trace Only (07/02/20 13:13) Ed Iv/Invasive Line Start (07/02/20 13:13) BNP (07/02/20 13:13) Troponin I (07/02/20 13:13) Aspirin Chewable Tablet (Baby Aspirin Ch (07/02/20 13:15) Diltiazem Drip Pre-Mix (Cardizem Drip Pr (07/02/20 13:15) Diltiazem Injection (Cardizem Injection) (07/02/20 13:15) Diltiazem Cd 24 Hr Capsule (Cardizem Cd (07/02/20 14:00) Ns Iv 500 Ml (Sodium Chloride 0.9%) (07/02/20 14:30) Ekg Tracing (07/02/20 14:31) Medications Given in ED Vital Signs/I&O 07/02/20 07/02/20 13:00 16:23 Temp 36.2 Pulse 122 62 Resp 19 19 B/P (MAP) 120/102 (108) 128/71 (108) Pulse Ox 98 98 O2 Delivery Room Air Diagnostic Imaging Diagonstic Imaging: Xray Plain Films/CT/US/NM/MRI: chest Comments NAME: RENATE REYES I [facility] REC#: [id number] PT STATUS: REG ER : 1930 PHYSICIAN: ALVAREZ FUCHS APRN ADMIT DATE: 07/02/20/ER Draft Date of Exam:07/02/20 CHEST 1 VIEW, AP/PA ONLY INDICATION: Chest pain COMPARISON STUDY: Chest from February 28. FINDINGS: Frontal view of the chest demonstrates stable bibasilar infiltrates or fibrosis, left worse than the right. Heart size is within normal limits. There is calcification of the aorta. Vascularity is normal. IMPRESSION: The chest is stable with chronic bibasilar infiltrates or fibrosis. Dictated on workstation # [id number] Dict: 07/02/20 1406 Trans: 07/02/20 1408 CVB [id number] Interpreted by: AMRIT PAREDES MD Electronically signed by: Departure Communication (Admissions) 1400-after Cardizem bolus of 10 mg and drip at 10 mg an hour her rate is in the 60s still atrial fibrillation blood pressure 156/111. I have ordered a Cardizem CD 240 mg tablet. We will continue the drip but longer than turn it off. She is already anticoagulated. Awaiting labs. 1520-heart rate is 67 atrial fibrillation. Blood pressure is 130s over 100. Spoke with Dr. Pemberton. She received Cardizem 240 orally. Plan to discharge home. Dr. Pemberton agrees with this plan. 1614- remains 67 atrial fibrillation blood pressure 134/64 Impression Primary Impression: Paroxysmal atrial fibrillation Additional Impression: Atrial fibrillation with RVR Disposition: HOME, SELF-CARE Condition: Improved Departure-Patient Inst. Decision time for Depature: 16:14 Referrals: JIN MONK MD (PCP/Family) Primary Care Physician Patient Instructions: Atrial Fibrillation Add. Discharge Instructions: . Return to ER for any worsening. Call Dr. Celestin on Saturday to make an appointment to be seen for follow-up. All discharge instructions reviewed with patient and/or family. Voiced understanding. Copy Copies To 1: AUGUSTA CELESTIN MD, PETER J APRN Jul 02, 2020 13:15
[2020-07-02 13:20] LABS: BASOPHILS # (AUTO) 0.1 10^3/uL (0.0-0.1); BASOPHILS % (AUTO) 1 % (0-10); EOSINOPHILS # (AUTO) 0.2 10^3/uL (0.0-0.3); EOSINOPHILS % (AUTO) 2 % (0-10); HEMATOCRIT 41 % (35-52); HEMOGLOBIN 13.3 g/dL (11.5-16.0); LYMPHOCYTES # (AUTO) 2.4 10^3/uL (1.0-4.0); LYMPHOCYTES % (AUTO) 25 % (12-44); MEAN CORPUSCULAR HEMOGLOBIN 30 pg (25-34); MEAN CORPUSCULAR HGB CONC 32 g/dL (32-36); MEAN CORPUSCULAR VOLUME 92 fL (80-99); MEAN PLATELET VOLUME 9.6 fL (9.0-12.2); MONOCYTES # (AUTO) 0.9 10^3/uL (0.0-1.0); MONOCYTES % (AUTO) 10 % (0-12); NEUTROPHILS % (AUTO) 62 % (42-75); PLATELET COUNT 321 10^3/uL (130-400); WHITE BLOOD COUNT 9.7 10^3/uL (4.3-11.0)
[2020-07-02 13:25] LABS: POTASSIUM 4.7 MMOL/L (3.6-5.0)
[2020-07-02 13:26] LABS: CALCIUM 9.4 MG/DL (8.5-10.1)
[2020-07-02 13:29] LABS: BILIRUBIN,TOTAL 0.5 MG/DL (0.1-1.0)
[2020-07-02 13:31] LABS: CREATININE SERUM 1.42 MG/DL (0.60-1.30)
[2020-07-02 13:32] LABS: INR 2.2 (0.8-1.4)
[2020-07-02 13:33] LABS: MAGNESIUM 2.1 MG/DL (1.6-2.4)
--- NOTE | 2020-07-02 14:08 | Diagnostic Imaging Report ---
INDICATION: Chest pain COMPARISON STUDY: Chest from February 28. FINDINGS: Frontal view of the chest demonstrates stable bibasilar infiltrates or fibrosis, left worse than the right. Heart size is within normal limits. There is calcification of the aorta. Vascularity is normal. IMPRESSION: The chest is stable with chronic bibasilar infiltrates or fibrosis. Dictated by: Dictated on workstation # [id number]
[2020-07-02] MEDS ORDERED: NS IV 500 ML 500 ML IV SCH (14:30)
[2020-07-02 16:23] VITALS: BP 128/71
[2020-07-03] MEDS ORDERED: CALC-140 PO (14:23)
[2020-07-03] MEDS ORDERED: FLEC50TA PO (14:23)
== END 2020-07-02 16:24 | disposition home or self-care (01) ==
LOC: EDUNIT# 12:55 → ER 12:58
DX: I48.0 Paroxysmal atrial fibrillation (principal); I10 Essential (primary) hypertension; E78.00 Pure hypercholesterolemia, unspecified; Z88.0 Allergy status to penicillin; Z88.1 Allergy status to other antibiotic agents; Z88.5 Allergy status to narcotic agent; Z88.8 Allergy status to other drugs, medicaments and biological substances; Z95.9 Presence of cardiac and vascular implant and graft, unspecified; Z79.01 Long term (current) use of anticoagulants
CPT/HCPCS: 36415; 71045; 80053; 83735; 83874; 83880; 84484; 85025; 85610; 85730; 93005; 93041

== ENCOUNTER 2020-07-03 09:01 | Day surgery (SDC) | payer MEDICARE ==
[~2020-07-03] VITALS: Ht 162 cm; Wt 62.0 kg
[2020-07-03] MEDS ORDERED: ASPIRIN 81 MG CHEW (CHILDREN'S ASA) ONE (09:05)
[2020-07-03 09:25] LABS: BASOPHILS # (AUTO) 0.1 10^3/uL (0.0-0.1); BASOPHILS % (AUTO) 2 % (0-10); EOSINOPHILS # (AUTO) 0.2 10^3/uL (0.0-0.3); EOSINOPHILS % (AUTO) 3 % (0-10); HEMATOCRIT 42 % (35-52); HEMOGLOBIN 13.1 g/dL (11.5-16.0); LYMPHOCYTES # (AUTO) 1.8 10^3/uL (1.0-4.0); LYMPHOCYTES % (AUTO) 23 % (12-44); MEAN CORPUSCULAR HEMOGLOBIN 29 pg (25-34); MEAN CORPUSCULAR HGB CONC 31 g/dL (32-36); MEAN CORPUSCULAR VOLUME 94 fL (80-99); MEAN PLATELET VOLUME 9.6 fL (9.0-12.2); MONOCYTES # (AUTO) 0.8 10^3/uL (0.0-1.0); MONOCYTES % (AUTO) 11 % (0-12); NEUTROPHILS # (AUTO) 4.6 10^3/uL (1.8-7.8); NEUTROPHILS % (AUTO) 61 % (42-75); PLATELET COUNT 301 10^3/uL (130-400); WHITE BLOOD COUNT 7.7 10^3/uL (4.3-11.0)
--- NOTE | 2020-07-03 09:25 | ED Chest Pain ---
General Chief Complaint: Chest Pain Stated Complaint: CHEST PAIN Source: patient Exam Limitations: no limitations History of Present Illness Date Seen by Provider: Jul 03, 2020 Time Seen by Provider: 09:10 Initial Comments Patient is an 89-year-old female who presents to the emergency department today with a chief complaint of chest pain. Patient states she had onset of chest heaviness at approximately 7:00 just after breakfast this morning. Patient states she has never had pain like this before. She does state that she has indigestion frequently and this feels different. Patient states she also had a tightness and a discomfort in the back of her head and neck at the onset of pain. She was seen in the emergency department last evening with atrial fibrillation with rapid ventricular response. She was treated with a Cardizem drip and then transferred over to an oral Cardizem to 40 mg. Patient states that she felt fine when she went home last night. She denies any recent illnesses such as fevers, chills cough or congestion. She does have a fairly chronic cough secondary to having COPD. She denies GI or symptoms. The pain radiates across her chest. She currently rates it at a "4". She states when it started it was "maybe a 5". All other review of systems reviewed and negative except as stated above. Timing/Duration: 1-3 hours Severity/Quality: moderate, pressure Location: substernal Radiation: neck Activities at Onset: none Prior CP/Workup: no prior chest pain ASA po INTERNET MARKETING COORDINATOR: No NTG SL INTERNET MARKETING COORDINATOR: No Associated Symptoms: denies symptoms Allergies and Home Medications Allergies Coded Allergies: Penicillins (Verified Allergy, Unknown, 12/16/06) ciprofloxacin (Verified Allergy, Unknown, 02/16/08) morphine (Verified Allergy, Unknown, 12/16/06) digoxin (Verified Adverse Reaction, Unknown, HALLUCINATIONS., 01/14/18) Home Medications Dabigatran Etexilate Mesylate 150 Mg Capsule, 150 MG PO BID, (Reported) Ferrous Sulfate 15 Mg/1 Ml Drops, 1 TSP PO DAILY, (Reported) Fish Oil/Dha/Epa 1 Each Capsule, 1,200 MG PO BID, (Reported) Flecainide Acetate 100 Mg Tablet, 100 MG PO BID Prescribed by: APARNA POLO on 05/13/19 1136 Leflunomide 20 Mg Tablet, 20 MG PO DAILY, (Reported) Losartan Potassium 25 Mg Tablet, 25 MG PO 1200, (Reported) Magnesium Oxide 250 Mg Tablet, 250 MG PO DAILY, (Reported) Metoprolol Tartrate 100 Mg Tablet, 100 MG PO BID, (Reported) Ondansetron 8 Mg Tab.rapdis, 8 MG PO Q4H PRN for NAUSEA/VOMITING Prescribed by: FELICITA RICHARDSON on 10/13/19 0958 Simvastatin 10 Mg Tablet, 10 MG PO HS, (Reported) Patient Home Medication List Home Medication List Reviewed: Yes Review of Systems Review of Systems Constitutional: see HPI EENTM: No Symptoms Reported Respiratory: Cough (Occasional) Cardiovascular: Chest Pain Gastrointestinal: No Symptoms Reported Genitourinary: No Symptoms Reported Musculoskeletal: no symptoms reported Skin: no symptoms reported All Other Systems Reviewed Negative Unless Noted: Yes Past Jialzax-Wwoclu-Wrodkg Hx Patient Social History 2nd Hand Smoke Exposure: No Recent Hopitalizations: No Immunizations Up To Date Tetanus Booster (TDap): Unknown PED Vaccines UTD: Yes Date of Pneumonia Vaccine: Jul 10, 2018 Date of Influenza Vaccine: Dec 21, 2018 Seasonal Allergies Seasonal Allergies: Yes Past Medical History Surgeries: Yes (BILAT KNEE SURGERY;CYSTOCOELE;HYST/BSO;BLADDER SLING;CARDIAC CATH-NO INTERV) Bladder Surgery, Cardiac, Gallbladder, Hysterectomy, Oophorectomy, Orthopedic, Tubal Ligation Respiratory: Yes (PULMONARY HTN) Chronic Bronchitis, COPD Currently Using CPAP: No Currently Using BIPAP: No Cardiac: Yes (CARDIOVERSION; RBBB) Atrial Fibrillation, Coronary Artery Disease, High Cholesterol, Hypertension Neurological: Yes Headaches /Migraines 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 Disorders: Yes (TUBAL 1952) Female 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 Sexually Transmitted Disease: No HIV/AIDS: No Genitourinary: Yes (RENAL CYSTS) Renal Failure Gastrointestinal: Yes Gastroesophageal Reflux, Diverticulosis Musculoskeletal: Yes Arthritis, Rheumatoid Arthritis, Chronic Back Pain Endocrine: No HEENT: Yes Cataract Loss of Vision: Denies Cancer: No Psychosocial: No Integumentary: No Blood Disorders: Yes (FACTOR 5 LEIDEN) Family Medical History FACTOR V LEIDEN 19 FATHER G8 BROTHER Heart Disease, Hypertension Physical Exam Vital Signs Vital Signs - First Documented 07/03/20 09:05 Temp 35.8 Pulse 54 Resp 16 B/P (MAP) 109/55 (73) Pulse Ox 97 O2 Delivery Room Air Capillary Refill : Height, Weight, BMI Height: 5'4.00" Weight: 145lbs. 0.0oz. 65.660473rq; 23.00 BMI Method:Stated General Appearance: No Apparent Distress, WD/WN HEENT: PERRL/EOMI Neck: Normal Inspection Respiratory: Lungs Clear, Normal Breath Sounds, No Accessory Muscle Use, No Respiratory Distress Cardiovascular: Normal Peripheral Pulses, Irregularly Irregular Gastrointestinal: Non Tender, Soft Extremity: Normal Inspection, Normal Range of Motion, Non Tender, No Calf Tenderness, No Pedal Edema Neurologic/Psychiatric: Alert, Oriented x3, No Motor/Sensory Deficits, Normal Mood/Affect Skin: Normal Color, Warm/Dry, Pallor Progress/Results/Core Measures Results/Orders Lab Results Laboratory Tests Test 07/03/20 09:10 Range/Units White Blood Count 7.7 4.3-11.0 10^3/uL Red Blood Count 4.48 3.80-5.11 10^6/uL Hemoglobin 13.1 11.5-16.0 g/dL Hematocrit 42 35-52 % Mean Corpuscular Volume 94 80-99 fL Mean Corpuscular Hemoglobin 29 25-34 pg Mean Corpuscular Hemoglobin Concent 31 L 32-36 g/dL Red Cell Distribution Width 13.1 10.0-14.5 % Platelet Count 301 130-400 10^3/uL Mean Platelet Volume 9.6 9.0-12.2 fL Immature Granulocyte % (Auto) 1 % Neutrophils (%) (Auto) 61 42-75 % Lymphocytes (%) (Auto) 23 12-44 % Monocytes (%) (Auto) 11 0-12 % Eosinophils (%) (Auto) 3 0-10 % Basophils (%) (Auto) 2 0-10 % Neutrophils # (Auto) 4.6 1.8-7.8 10^3/uL Lymphocytes # (Auto) 1.8 1.0-4.0 10^3/uL Monocytes # (Auto) 0.8 0.0-1.0 10^3/uL Eosinophils # (Auto) 0.2 0.0-0.3 10^3/uL Basophils # (Auto) 0.1 0.0-0.1 10^3/uL Immature Granulocyte # (Auto) 0.0 0.0-0.1 10^3/uL Sodium Level 140 135-145 MMOL/L Potassium Level 3.9 3.6-5.0 MMOL/L Chloride Level 104 98-107 MMOL/L Carbon Dioxide Level 23 21-32 MMOL/L Anion Gap 13 5-14 MMOL/L Blood Urea Nitrogen 23 H 7-18 MG/DL Creatinine 1.29 0.60-1.30 MG/DL Estimat Glomerular Filtration Rate 39 BUN/Creatinine Ratio 18 Glucose Level 107 H 70-105 MG/DL Calcium Level 9.3 8.5-10.1 MG/DL Total Creatine Kinase 37 29-168 U/L Creatine Kinase MB 1.1 <6.6 NG/ML Troponin I < 0.028 <0.028 NG/ML B-Type Natriuretic Peptide 386.5 H <100.0 PG/ML My Orders Orders - LUIS DAVILA MD Cbc With Automated Diff (07/03/20 09:10) Basic Metabolic Panel (07/03/20 09:10) Creatine Kinase (07/03/20 09:10) Creatine Kinase Mb (07/03/20 09:10) Troponin I (07/03/20 09:10) Chest 1 View, Ap/Pa Only (07/03/20 09:10) BNP (07/03/20 09:10) Ekg Tracing (07/03/20 09:10) Ed Iv/Invasive Line Start (07/03/20 09:10) Aspirin Chewable Tablet (Baby Aspirin Ch (07/03/20 09:05) Medications Given in ED Current Medications Medications Dose Ordered Sig/Mable Route Start Time Stop Time Status Last Admin Dose Admin Aspirin 81 mg STK-MED ONCE .ROUTE 07/03/20 09:05 07/03/20 09:11 DC 07/03/20 09:13 324 MG Vital Signs/I&O 07/03/20 07/03/20 09:05 09:05 Temp 35.8 Pulse 54 Resp 16 B/P (MAP) 109/55 (73) Pulse Ox 97 O2 Delivery Room Air Initial ECG Impression Date: Jul 03, 2020 Initial ECG Impression Time: 09:08 Initial ECG Rate: 62 Initial ECG Rhythm: A Fib/Flutter Initial ECG Impression: Atrial Fibrillation Diagnostic Imaging Diagonstic Imaging: Xray Plain Films/CT/US/NM/MRI: chest Comments [facility] [place], [place] NAME: RENATE REYES I MED REC#: [id number] PT STATUS: REG ER : 1930 PHYSICIAN: LUIS DAVILA MD ADMIT DATE: 07/03/20/ER Draft Date of Exam:07/03/20 CHEST 1 VIEW, AP/PA ONLY Clinical indications: Patient with chest pain. Exam: Portable chest x-ray upright view. Comparisons: Chest x-ray dated 07/02/2020. Chest x-ray dated 03/29/2019. Findings: Stable chronic bibasilar curvilinear scarring. There is no interval lung infiltrate. Pulmonary vasculature and cardiac silhouette within normal limits for portable projection. There is no pleural effusion or pneumothorax. The remainder of this exam shows no significant interval change compared to the prior study of comparison. Impression: 1: Stable chest x-ray exam with no interval radiographic evidence of acute cardiopulmonary process. 2: Stable bibasilar scarring. Dictated on workstation # [id number] Dict: 07/03/20 0933 Trans: 07/03/20 0937 [facility] [id number] Interpreted by: TIANA LACKEY MD Electronically signed by: Departure Communication (Admissions) Time/Spoke to Consulting Phy: 10:[address] Pemberton, recommends holding her metoprolol and her flecainide for 24 hours. Impression Primary Impression: Chest pain Qualified Codes: R07.9 - Chest pain, unspecified Additional Impressions: A-fib Qualified Codes: I48.19 - Other persistent atrial fibrillation Bradycardia Disposition: ADMITTED INPATIENT Condition: Stable Departure-Patient Inst. Referrals: JIN ANDERSON MD (PCP/Family) Primary Care Physician LUIS DAVILA MD Jul 03, 2020 09:25
[2020-07-03 09:37] LABS: CHLORIDE 104 MMOL/L (98-107); POTASSIUM 3.9 MMOL/L (3.6-5.0); SODIUM 140 MMOL/L (135-145)
--- NOTE | 2020-07-03 09:38 | Diagnostic Imaging Report ---
Clinical indications: Patient with chest pain. Exam: Portable chest x-ray upright view. Comparisons: Chest x-ray dated 07/02/2020. Chest x-ray dated 03/29/2019. Findings: Stable chronic bibasilar curvilinear scarring. There is no interval lung infiltrate. Pulmonary vasculature and cardiac silhouette within normal limits for portable projection. There is no pleural effusion or pneumothorax. The remainder of this exam shows no significant interval change compared to the prior study of comparison. Impression: 1: Stable chest x-ray exam with no interval radiographic evidence of acute cardiopulmonary process. 2: Stable bibasilar scarring. Dictated by: Dictated on workstation # [id number]
[2020-07-03 09:39] LABS: CALCIUM 9.3 MG/DL (8.5-10.1); GLUCOSE 107 MG/DL (70-105)
[2020-07-03 09:41] LABS: CARBON DIOXIDE 23 MMOL/L (21-32)
[2020-07-03 09:43] LABS: CREATININE SERUM 1.29 MG/DL (0.60-1.30); GFR ESTIMATED 39
[2020-07-03 09:44] LABS: BUN/CREATININE RATIO 18
[2020-07-03 09:46] LABS: CREATINE KINASE 37 U/L (29-168)
[2020-07-03 09:52] LABS: CREATINE KINASE MB 1.1 NG/ML (<6.6)
[2020-07-03] MEDS ORDERED: CATHETER FLUSH 10 ML SYR IV PRN (13:00)
[2020-07-03] MEDS ORDERED: CALC-140 PO (14:23)
[2020-07-03] MEDS ORDERED: FLEC50TA PO (14:23)
[2020-07-03] MEDS ORDERED: HYDROcodone/APAP 5 MG/325 MG (LORTAB) TAB PO PRN (14:30)
[2020-07-03] MEDS: CATHETER FLUSH 10 ML SYR IV SCH ×2 (14:40→22:07)
[2020-07-03] MEDS ORDERED: ONDANSETRON 4 MG (ZOFRAN) ORAL DISSOLVE TAB PO PRN (15:00)
--- NOTE | 2020-07-03 15:18 | Consultation-Cardiology ---
HPI-Cardiology Cardiology Consultation: Date of Consultation 07/03/20 Date of Admission Attending Physician Nedra Hamilton MD Admitting Physician Sarita Monk MD Consulting Physician Linda PEMBERTON MD HPI: Time Seen by a Provider: 14:30 Chief Complaint: bradycardia 89 year old lady with history atrial fibrillation on flecainide, metoprolol. she presented to the ER yesterday with RVR and was given a dose of Cardizem, which controlled her heart rate. however she presented again today with bradycardia. no syncope or near syncope Review of Systems-Cardiology Review of Systems Constitutional: As described under HPI; No As described under HPI, No no symptoms reported, No chills, No fever, No lightheadedness Eyes: No As described under HPI, No no symptoms reported, No blindness, No blurred vision, No contact lenses, No drainage, No decreased acuity, No foreign body sensation, No pain, No vision change Ears/Nose/Throat: No As described under HPI, No no symptoms reported, No chronic hearing loss, No ear discharge, No ear pain, No nasal drainage, No ulcerations Respiratory: No no symptoms reported; As described under HPI; No As described under HPI, No cough, No orthopnea, No shortness of breath, No SOB with excertion Cardiovascular: No no symptoms reported; As described under HPI; No As described under HPI, No chest pain, No edema, No irregular heart rate, No lightheadedness, No palpitations Gastrointestinal: No no symptoms reported, No As described under HPI, No abdomen distended, No abdominal pain, No blood streaked bowels, No constipation, No diarrhea, No nausea, No vomiting, No stool coloration changes Genitourinary: No As described under HPI, No burning, No dysuria, No discharge, No frequency, No flank pain, No hematuria, No urgency : Yes : No Skin: No rash, No skin related problems, No ulcerations Psychiatric/Neurological: No anxiety, No depression, No seizure, No focal weakness, No syncope Hematologic: No bleeding abnormalities All Other Systems Reviewed Negative Unless Noted: Yes AZH-Ylaaeg-Rmyvfx Hx Patient Social History Smoking Status: Never a Smoker 2nd Hand Smoke Exposure: No Have you traveled recently?: No Alcohol Use?: No Pt feels they are or have been: No Immunizations Up To Date Tetanus Booster (TDap): Unknown Date of Pneumonia Vaccine: Jul 10, 2018 Date of Influenza Vaccine: Feb 03, 2020 Past Medical History PMH As described under Assessment. Family Medical History Family History: FACTOR V LEIDEN 19 FATHER G8 BROTHER Allergies and Home Medications Allergies Coded Allergies: Penicillins (Verified Allergy, Unknown, 12/16/06) ciprofloxacin (Verified Allergy, Unknown, 02/16/08) morphine (Verified Allergy, Unknown, 12/16/06) digoxin (Verified Adverse Reaction, Unknown, HALLUCINATIONS., 01/14/18) Home Medications Calcium Carbonate/Vitamin D3 1 Each Tablet, 1 EACH PO DAILY, (Reported) Dabigatran Etexilate Mesylate 150 Mg Capsule, 150 MG PO BID, (Reported) Ferrous Sulfate 15 Mg/1 Ml Drops, 1 TSP PO DAILY, (Reported) Fish Oil/Dha/Epa 1 Each Capsule, 1,200 MG PO BID, (Reported) Flecainide Acetate 50 Mg Tablet, 50 MG PO Q12H, (Reported) Leflunomide 20 Mg Tablet, 20 MG PO DAILY, (Reported) Losartan Potassium 25 Mg Tablet, 25 MG PO 1200, (Reported) Magnesium Oxide 250 Mg Tablet, 250 MG PO DAILY, (Reported) Metoprolol Tartrate 100 Mg Tablet, 100 MG PO BID, (Reported) Ondansetron 8 Mg Tab.rapdis, 8 MG PO Q4H PRN for NAUSEA/VOMITING Prescribed by: FELICITA RICHARDSON on 10/13/19 0958 Simvastatin 10 Mg Tablet, 10 MG PO HS, (Reported) Patient Home Medication List Home Medication List Reviewed: Yes Physical Exam-Cardiology Physical Exam Vital Signs/I&O 07/03/20 07/03/20 07/03/20 07/03/20 12:41 13:10 15:41 16:21 Temp 36.6 36.6 Pulse 53 73 73 Resp 18 16 B/P (MAP) 123/73 136/72 (93) Pulse Ox 97 95 99 99 O2 Delivery Room Air FiO2 07/03/20 19:24 Temp 36.5 Pulse 80 Resp 18 B/P (MAP) 118/73 (88) Pulse Ox 98 Capillary Refill : Less Than 3 Seconds Constitutional: appears stated age; No apparent distress; well-developed, well- nourished HEENT: PERRL; No discharge; hearing is well preserved, oral hygience is good; No ulceration, No xanthelasmas are seen Neck: No carotid bruit; carotid pulses are 2 + bilaterally Respiratory: chest is bilaterally symmetric, lungs clear to auscultation Cardiovascular: irregularly irregular, bradycardia, S1 and S2 Gastrointestinal: soft, audible bowel sounds; No spleenomegaly Rectal: deferred Extremities: No clubbing, No cyanosis; no lower extremity edema bilateral; No significant edema Neurologic/Psychiatric: no motor/sensory deficits, alert, normal mood/affect, oriented x 3, power is 5/5 both on sides Skin: normal color; No rash, No ulcerations Data Review Labs Laboratory Tests 07/03/20 09:10: White Blood Count 7.7, Red Blood Count 4.48, Hemoglobin 13.1, Hematocrit 42, Mean Corpuscular Volume 94, Mean Corpuscular Hemoglobin 29, Mean Corpuscular Hemoglobin Concent 31L, Red Cell Distribution Width 13.1, Platelet Count 301, Mean Platelet Volume 9.6, Immature Granulocyte % (Auto) 1, Neutrophils (%) (Auto) 61, Lymphocytes (%) (Auto) 23, Monocytes (%) (Auto) 11, Eosinophils (%) (Auto) 3, Basophils (%) (Auto) 2, Neutrophils # (Auto) 4.6, Lymphocytes # (Auto) 1.8, Monocytes # (Auto) 0.8, Eosinophils # (Auto) 0.2, Basophils # (Auto) 0.1, Immature Granulocyte # (Auto) 0.0, Sodium Level 140, Potassium Level 3.9, Chloride Level 104, Carbon Dioxide Level 23, Anion Gap 13, Blood Urea Nitrogen 23H, Creatinine 1.29, Estimat Glomerular Filtration Rate 39, BUN/Creatinine Ra jonny 18, Glucose Level 107H, Calcium Level 9.3, Total Creatine Kinase 37, Creatine Kinase MB 1.1, Troponin I < 0.028, B-Type Natriuretic Peptide 386.5H 07/03/20 11:40: Troponin I < 0.028 ECG Impression ECG Initial ECG Impression: Atrial Fibrillation A/P-Cardiology Assessment/Admission Diagnosis chronic AF, Tachybrady syndrome Plan OAC. hold flecainide and BB and observe for 24 hours. Might need low dose BB on discharge. Thank you for your consultation. Please call me if you have any questions. Fernando Pemberton MD, FACP, FACC, FSCAI, FHRS, CCDS Interventional Cardiology Cardiac Electrophysiology Vascular Medicine and Endovascular Interventions Clinical Quality Measures AMI/AHF: ASA po Prior to arrival: Linda Tarango MD Jul 03, 2020 15:18
[2020-07-03 15:41] VITALS: BP 136/72
[2020-07-03 16:21] VITALS: BP 136/72
[2020-07-03 19:24] VITALS: BP 118/73
[2020-07-03] MEDS: DABIGATRAN 150 MG (PRADAXA) CAPSULE PO SCH (20:39)
[2020-07-03] MEDS: OMEGA 3 (FISH OIL) 1000 MG CAP PO SCH (20:39)
[2020-07-03] MEDS ORDERED: SIMvastatin 10 MG (ZOCOR) TAB PO SCH (21:00)
[2020-07-04] VITALS (7 sets, daily range): BP systolic 103–149; BP diastolic 60–101
[2020-07-04] MEDS: CATHETER FLUSH 10 ML SYR IV SCH ×3 (05:33→20:44)
--- NOTE | 2020-07-04 08:11 | History & Physical ---
JESÚS DOUGHERTY MED STUDENT 07/04/20 0811: History of Present Illness History of Present Illness Reason for visit/HPI Pt presented to the ER yesterday with complaints of chest pain/heaviness after having breakfast. The night prior, she was seen in the ER for Afib w/ RVR, treated with Cardizem, and sent home. Her nurse noticed that her HR was in the 40's along with the chest pain, which prompted her to be seen in the ER yesterday. She was given pain medication yesterday, metoprolol/flecainide was held per Cardiology, and she feels well today with no further complaints of chest pain. Denies SOB/N/V. States that she would like to go home soon Date of Admission Jul 03, 2020 at 11:19 Date Seen by a Provider: Jul 04, 2020 Time Seen by a Provider: 07:00 I consulted on this patient on 07/04/20 08:06 Attending Physician Nedra Hamilton MD Admitting Physician Jin Monk MD Consult Allergies and Home Medications Allergies Coded Allergies: Penicillins (Verified Allergy, Unknown, 12/16/06) ciprofloxacin (Verified Allergy, Unknown, 02/16/08) morphine (Verified Allergy, Unknown, 12/16/06) digoxin (Verified Adverse Reaction, Unknown, HALLUCINATIONS., 01/14/18) Home Medications Calcium Carbonate/Vitamin D3 1 Each Tablet, 1 EACH PO DAILY, (Reported) Dabigatran Etexilate Mesylate 150 Mg Capsule, 150 MG PO BID WITH MEALS, (Reported) Ferrous Sulfate 15 Mg/1 Ml Drops, 2.5 ML PO Q72H, (Reported) Fish Oil/Dha/Epa 1 Each Capsule, 1,200 MG PO BID, (Reported) Flecainide Acetate 100 Mg Tablet, 100 MG PO 0700,1900, (Reported) Leflunomide 20 Mg Tablet, 20 MG PO DAILY, (Reported) Losartan Potassium 25 Mg Tablet, 25 MG PO 1200, (Reported) Magnesium Oxide 250 Mg Tablet, 250 MG PO DAILY, (Reported) Metoprolol Tartrate 100 Mg Tablet, 100 MG PO BID, (Reported) Simvastatin 10 Mg Tablet, 10 MG PO HS, (Reported) Patient Home Medication List Home Medication List Reviewed: Yes Past Evhgiky-Lpzmor-Gvlchq Hx Patient Social History Smoking Status: Never a Smoker 2nd Hand Smoke Exposure: No Recent Hopitalizations: No Have you traveled recently?: No Alcohol Use?: No Pt feels they are or have been: No Immunizations Up To Date Tetanus Booster (TDap): Unknown Pediatric: Yes Date of Pneumonia Vaccine: Jul 10, 2018 Date of Influenza Vaccine: Feb 03, 2020 Seasonal Allergies Seasonal Allergies: Yes Surgeries Yes (BILAT KNEE SURGERY;CYSTOCOELE;HYST/BSO;BLADDER SLING;CARDIAC CATH-NO INTER V) Bladder Surgery, Cardiac, Gallbladder, Hysterectomy, Oophorectomy, Orthopedic, Tubal Ligation Respiratory Yes (PULMONARY HTN) Currently Using CPAP: No Currently Using BIPAP: No Cardiovascular Yes (CARDIOVERSION; RBBB) Atrial Fibrillation, Coronary Artery Disease, High Cholesterol, Hypertension Neurological Yes Headaches /Migraines 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 System Hx 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 Disorders: Yes (TUBAL 1952) Sexually Transmitted Disease: No HIV/AIDS: No Female 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 Disorders: Denies 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 Genitourinary Yes (RENAL CYSTS) Renal Failure Gastrointestinal Yes Gastroesophageal Reflux, Diverticulosis Musculoskeletal Yes Arthritis, Rheumatoid Arthritis, Chronic Back Pain Endocrine History of Endocrine Disorders: No HEENT History of HEENT Disorders: Yes HEENT Disorders: Cataract Loss of Vision: Denies Cancer No Psychosocial History of Psychiatric Problem: No Integumentary History of Skin or Integumenta: No Blood Transfusions History of Blood Disorders: Yes (FACTOR 5 LEIDEN) Reviewed Nursing Assessment Reviewed/Agree w Nursing PMH: Yes Family Medical History Significant Family History: Heart Disease, Hypertension Family Hx: FACTOR V LEIDEN 19 FATHER G8 BROTHER Review of Systems Constitutional: No chills, No fever; weakness EENTM: No hearing loss, No blurred vision, No vision loss Respiratory: No cough; dyspnea on exertion Cardiovascular: chest pain; No edema, No palpitations Gastrointestinal: No abdominal pain, No constipation, No diarrhea, No nausea, No vomiting Genitourinary: No dysuria, No hematuria Musculoskeletal: No back pain, No neck pain Skin: No change in color, No lesions, No rash Psychiatric/Neurological: Denies Headache, Denies Numbness Physical Exam Vital Signs Vital Signs - First Documented 07/03/20 07/03/20 09:05 16:21 Temp 35.8 Pulse 54 Resp 16 B/P (MAP) 109/55 (73) Pulse Ox 97 O2 Delivery Room Air FiO2 21 Capillary Refill : Less Than 3 Seconds Height, Weight, BMI Height: 5'4.00" Weight: 145lbs. 0.0oz. [id number]; 23.62 BMI Method:Stated General Appearance: No Apparent Distress, WD/WN HEENT: PERRL/EOMI, Normal ENT Inspection Neck: Full Range of Motion, Normal Inspection, Non Tender, Supple Respiratory: Chest Non Tender, No Accessory Muscle Use, No Respiratory Distress, Wheezing (mild R side) Cardiovascular: No Edema, No Murmur, Normal Peripheral Pulses, Irregularly Irregular Gastrointestinal: Normal Bowel Sounds, Non Tender, Soft Rectal: Deferred Back: Normal Inspection, No CVA Tenderness, No Vertebral Tenderness Extremity: Normal Capillary Refill, Normal Inspection, Non Tender, No Calf Tenderness, No Pedal Edema Neurologic/Psychiatric: Alert, Oriented x3, No Motor/Sensory Deficits, Normal Mood/Affect Skin: Normal Color, Warm/Dry Lymphatic: No Adenopathy Assessment/Plan Assessment and Plan Symptomatic bradycardia w/ chest pain Paroxysmal Afib HTN HLD CAD GERD RA Cardiology following; observe 24hr, hold flecainide/BB, low-dose BB on d/c. Cardioversion today Labs: serial Trp negative, BNP elevated 386.5 CXR negative for acute pathology Continue to monitor VS; possible d/c later today Admission Diagnosis Chest pain, symptomatic bradycardia Clinical Quality Measures AMI/AHF: ASA po Prior to arrival: JIN Christensen MD 07/05/20 0905: History of Present Illness History of Present Illness Reason for visit/HPI PT IS AN 89 Y/O FEMALE WHO IS WELL KNOWN TO ME FROM CLINIC. SHE PRESENTED TO THE HOSPITAL WITH CHEST PAIN AND SENSATION OF ABNORMAL HEART BEAT. SHE HAD BEEN IN THE EMERGENCY DEPARTMENT THE DAY PRIOR WITH A RAPID RATE, WAS GIVEN CARDIZEM AND THEN DISCHARGED TO HOME. SHE REPORTS THAT SHE DOES NOT HAVE ANY FURTHER TRELL RTNESS OF BREATH OR CHEST PAIN. Date of Admission 07/03/2020 Attending Physician JIN MONK MD Admitting Physician JIN MONK MD Consult CARDIOLOGY Allergies and Home Medications Allergies Coded Allergies: Penicillins (Verified Allergy, Unknown, 12/16/06) ciprofloxacin (Verified Allergy, Unknown, 02/16/08) morphine (Verified Allergy, Unknown, 12/16/06) digoxin (Verified Adverse Reaction, Unknown, HALLUCINATIONS., 01/14/18) Home Medications Calcium Carbonate/Vitamin D3 1 Each Tablet, 1 EACH PO DAILY, (Reported) Dabigatran Etexilate Mesylate 150 Mg Capsule, 150 MG PO BID WITH MEALS, (Reported) Ferrous Sulfate 15 Mg/1 Ml Drops, 2.5 ML PO Q72H, (Reported) Fish Oil/Dha/Epa 1 Each Capsule, 1,200 MG PO BID, (Reported) Flecainide Acetate 100 Mg Tablet, 100 MG PO 0700,1900, (Reported) Leflunomide 20 Mg Tablet, 20 MG PO DAILY, (Reported) Losartan Potassium 25 Mg Tablet, 25 MG PO 1200, (Reported) Magnesium Oxide 250 Mg Tablet, 250 MG PO DAILY, (Reported) Metoprolol Tartrate 100 Mg Tablet, 100 MG PO BID, (Reported) Simvastatin 10 Mg Tablet, 10 MG PO HS, (Reported) Patient Home Medication List Home Medication List Reviewed: Yes Past Izqmgwv-Oadzxm-Saedps Hx Patient Social History Marrital Status: Living Status: LIVES WITH SPOUSE IN THEIR HOME [place] Employed/Student: retired Smoking Status: Former Smoker 2nd Hand Smoke Exposure: No Recent Hopitalizations: No Have you traveled recently?: No Alcohol Use?: No Pt feels they are or have been: No Seasonal Allergies Seasonal Allergies: No Respiratory Yes Pulmonary Fibrosis Currently Using CPAP: No Currently Using BIPAP: No Cardiovascular Yes Atrial Fibrillation, Hypertension 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 System : No Hx 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 Disorders: No Sexually Transmitted Disease: No HIV/AIDS: No Female 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 Disorders: Denies Genitourinary No Gastrointestinal No Musculoskeletal Yes Arthritis, Rheumatoid Arthritis Endocrine History of Endocrine Disorders: No Are Your Blood Sugars Over 250: No HEENT History of HEENT Disorders: No Loss of Vision: Denies Hearing Impairment: Denies Cancer No Integumentary History of Skin or Integumenta: No Reviewed Nursing Assessment Reviewed/Agree w Nursing PMH: Yes Family Medical History Significant Family History: Heart Disease, Hypertension Family Hx: FACTOR V LEIDEN 19 FATHER G8 BROTHER Review of Systems Constitutional: No chills, No fever, No weakness EENTM: No hearing loss, No blurred vision, No vision loss Respiratory: No cough; dyspnea on exertion, short of breath (INTERMITTENT) Cardiovascular: chest pain (INTERMITTENT); No edema; palpitations Gastrointestinal: No abdominal pain, No constipation, No diarrhea, No nausea, No vomiting Genitourinary: No dysuria, No hematuria Musculoskeletal: No back pain, No neck pain Skin: No change in color, No lesions, No rash Psychiatric/Neurological: Denies Headache, Denies Numbness All Other Systems Reviewed Negative Unless Noted: Yes Physical Exam General Appearance: No Apparent Distress, WD/WN Eyes: Bilateral Eye Normal Inspection, Bilateral Eye PERRL, Bilateral Eye EOMI HEENT: PERRL/EOMI, Normal ENT Inspection Neck: Full Range of Motion, Normal Inspection, Non Tender, Supple Respiratory: Chest Non Tender, No Accessory Muscle Use, No Respiratory Distress, Crackles (CHRONIC CRACKLES IN BASES) Cardiovascular: Irregularly Irregular Gastrointestinal: Normal Bowel Sounds, Non Tender, Soft Rectal: Deferred Extremity: Normal Capillary Refill, Normal Inspection, Non Tender, No Calf Tenderness, No Pedal Edema Neurologic/Psychiatric: Alert, Oriented x3, No Motor/Sensory Deficits, Normal Mood/Affect Skin: Normal Color, Warm/Dry Lymphatic: No Adenopathy Assessment/Plan Assessment and Plan BRADYCARDIA CHEST PAIN AFIB - PAROXYSMAL HYPERTENSION CORONARY ARTERY DISEASE ESOPHAGEAL REFLUX CHRONIC RHEUMATOID ARTHRITIS BRADYCARDIA - CHEST PAIN - DEFER TO CARDIOLOGY - DISCUSSED WITH PATIENT WILL PLAN ON POSSIBLE CARDIOVERSION TOMORROW. - HOME MEDS ADJUSTED BY CARDIOLOGY. AFIB - PAROXYSMAL - SUPPORTIVE CARE, MONITOR SYMPTOMS HYPERTENSION - MEDICATIONS ADJUSTED FOR AFIB, WILL AFFECT HYPERTENSION RESPONSE - MONITOR CORONARY ARTERY DISEASE - SUPPORTIVE CARE ESOPHAGEAL REFLUX - RESUME HOME REGIMEN CHRONIC RHEUMATOID ARTHRITIS - HOME MEDS HELD TODAY. Admission Diagnosis BRADYCARDIA CHEST PAIN AFIB - PAROXYSMAL HYPERTENSION CORONARY ARTERY DISEASE ESOPHAGEAL REFLUX CHRONIC RHEUMATOID ARTHRITIS Admission Status: Observation Supervisory-Addendum Brief Verification & Attestation Participated in pt care: history, MDM, physical Personally performed: exam, history, MDM, supervision of care Care discussed with: Medical Student Procedures: n/a Results interpretation: Verified all documentation SEE MY NOTE FOR DETAILS. AGREE WITH MED STUDENT NOTE JESÚS DOUGHERTY MED STUDENT Jul 04, 2020 08:11 JIN MONK MD Jul 05, 2020 09:05
[2020-07-04] MEDS ORDERED: CALCIUM CARB + VIT D 600 MG (CALCARB + D) TAB PO SCH (09:00)
[2020-07-04] MEDS: DABIGATRAN 150 MG (PRADAXA) CAPSULE PO SCH ×2 (09:46→20:03)
[2020-07-04] MEDS: FLECAINIDE 100 MG (TAMBOCOR) TAB PO SCH ×2 (09:46→20:03)
[2020-07-04] MEDS: MAGNESIUM OXIDE (MAG-OX)400 MG TAB PO SCH (09:46)
[2020-07-04] MEDS: OMEGA 3 (FISH OIL) 1000 MG CAP PO SCH ×2 (09:46→20:01)
[2020-07-04] MEDS: FERROUS SULF 325 MG (IRON) TAB PO SCH ×2 (09:46→09:52)
[2020-07-04] MEDS ORDERED: PATIENT MAY USE OWN MEDS, ALL MC SCH (12:30)
[2020-07-04] MEDS: LEFLUNOMIDE 20 MG TABLET PO SCH (14:45)
[2020-07-04] MEDS ORDERED: FLEC100T PO (15:33)
--- NOTE | 2020-07-04 16:22 | Cardiology Progress Note ---
Subjective Date Seen by Provider: Jul 04, 2020 Time Seen by Provider: 16:18 Subjective/Events-last exam Patient was seen at bedside, laying down comfortably, feeling better, no chest pain, heart rate is better Review of Systems General: No Chills, No Night Sweats, No Fatigue, No Malaise, No Appetite, No Other HEENT: No Head Aches, No Visual Changes, No Eye Pain, No Ear Pain, No Dysphasia, No Sinus Congestion, No Post Nasal Drip, No Sore Throat, No Other Pulmonary: No Dyspnea, No Cough, No Pleuritic Chest Pain, No Other Cardiovascular: No: Chest Pain, Palpitations, Orthopnea, Paroxysmal Noc. Dyspnea, Edema, Lt Headedness, Other Objective-Cardiology Exam Last Set of Vital Signs Vital Signs 07/03/20 07/04/20 16:21 15:39 Temp 36.6 Pulse 97 Resp 14 B/P (MAP) 133/97 (109) Pulse Ox 98 O2 Delivery Room Air FiO2 21 Capillary Refill : Less Than 3 Seconds I&O Intake and Output 07/03/20 23:59 Intake Total 885 ml Balance 885 ml Intake Oral 885 ml # Voids 3 # Bowel Movements 1 Daily Weight Change No General: Alert, Oriented X3, Cooperative HEENT: Atraumatic, PERRLA Neck: Supple, No JVD, No Thyromegaly Lungs: Clear to Auscultation, Normal Air Movement Heart: Normal S1, Normal S2, No Murmurs, Other (Atrial fibrillation) Abdomen: Normal Bowel Sounds, Soft, No Tenderness, No Hepatosplenomegaly, No Masses Extremities: No Clubbing, No Cyanosis, No Edema, Normal Pulses, No Tenderness/Swelling Skin: No Rashes, No Breakdown, No Significant Lesion Neuro: Normal Gait, Normal Speech, Strength at 5/5 X4 Ext, Normal Tone, Sensation Intact Psych/Mental Status: Mental Status NL, Mood NL A/P-Cardiology Admission Diagnosis Paroxysmal atrial fibrillation Bradycardia Hypertension Hyperlipidemia Assessment/Plan Paroxysmal atrial fibrillation, Maintained on Pradaxa and metoprolol, had multiple episodes of atrial fibrillation, had cardioversion in August 2018 and a second cardioversion on May 13, 2019, Back to atrial fibrillation with episodes of bradycardia, flecainide and Metoprolol were held. I am decreasing metoprolol to 25 mg daily and restarting flecainide and monitor, I will consider MAREN and cardioversion if patient continues to be with variable heart rate Tachybradycardia episode, episode of severe bradycardia while on metoprolol, I decreased the dose to 25 mg twice daily and monitor tolerance and response Allergic reaction to amiodarone with itching and irritability. Echocardiogram done in February 2018 showing normal left ventricular size with basal focal hypertrophy, ejection fraction 50-55 percent, grade 2 diastolic dysfunction, moderate MR, PA pressure 20 mmHg. Nonobstructive coronary artery disease per cardiac catheterization August 2012, stress test was done in July 2017 showing apical thinning with no significant ischemia or infarction with normal left ventricular size and ejection fraction 74 percent. Most recent stress test done August 2018 revealed no ischemia or infarct. I will continue to monitor Moderate bilateral carotid stenosis, Continue to Monitor Hypertension, reporting borderline low blood pressure at home. Monitor blood pressure after decreasing metoprolol dose Hyperlipidemia, intolerant to statins mainly Lipitor, tolerating simvastatin well, lipid profile done in January 2020 showing total cholesterol 129, HDL 38, triglyceride 142, LDL 63. Continue current medications and monitor Chronic renal insufficiency, followed and managed by Dr. Henry Pulmonary hypertension, last echocardiogram showed PA pressure 10-15 mmHg was done in August 2016. Normal left ventricular size. Left atrium is in the upper normal limit. 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 Henry. Continue to monitor. Clinical Quality Measures AMI/AHF: ASA po Prior to arrival: AUGUSTA Cota MD Jul 04, 2020 16:22
[2020-07-04] MEDS: meTOprolol TARTRATE 25 MG (LOPRESSOR) TABLET PO SCH (20:03)
[2020-07-04] MEDS ORDERED: SIMvastatin 10 MG (ZOCOR) TAB PO SCH (21:00)
[2020-07-05] VITALS (12 sets, daily range): BP systolic 84–133; BP diastolic 52–94
[2020-07-05] MEDS: CATHETER FLUSH 10 ML SYR IV SCH ×2 (05:47→15:28)
[2020-07-05] MEDS ORDERED: LIDOCAINE 2% VISCOUS 15 ML UDC ONE (07:05)
[2020-07-05] MEDS ORDERED: NS IV 1000 ML 1,000 ML ONE (07:06)
[2020-07-05] MEDS ORDERED: MIDAZOLAM 2 MG/2 ML (VERSED) VIAL ONE (07:26)
[2020-07-05] MEDS ORDERED: proPOfol 200 MG/20 ML (DIPRIVAN) VIAL IV ONE (07:26)
--- NOTE | 2020-07-05 07:40 | Progress Note ---
Subjective Subjective Date Seen by Provider: Jul 05, 2020 Time Seen by Provider: 07:10 Pt seen and examined. She was sitting on the side of her bed, awake, NAD. Denies chest pain, SOB, N/V. No acute events overnight. Her HR was elevated 110-130 during the exam but she stated she felt fine. No questions/concerns Review of Systems General: No Chills, No Fatigue HEENT: No Head Aches, No Visual Changes, No Ear Pain Pulmonary: No Dyspnea, No Cough Cardiovascular: No: Chest Pain, Palpitations, Lt Headedness Gastrointestinal: No: Nausea, Vomiting, Abdominal Pain Genitourinary: No Dysuria, No Hematuria Neurological: No: Weakness, Numbness All Other Systems Reviewed All Other Systems Reviewed: Yes Objective Exam Vital Signs Vital Signs - First Documented 07/03/20 07/03/20 09:05 16:21 Temp 35.8 Pulse 54 Resp 16 B/P (MAP) 109/55 (73) Pulse Ox 97 O2 Delivery Room Air FiO2 21 Capillary Refill : Less Than 3 Seconds General Appearance: No Apparent Distress, WD/WN HEENT: PERRL/EOMI, Normal ENT Inspection Neck: Full Range of Motion, Normal Inspection, Non Tender, Supple Respiratory: Chest Non Tender, No Accessory Muscle Use, No Respiratory Distress, Wheezing (mild R side) Cardiovascular: No Edema, Normal Peripheral Pulses, Irregularly Irregular, Tachycardia Gastrointestinal: Normal Bowel Sounds, Non Tender, Soft Rectal: Deferred Back: Normal Inspection, No CVA Tenderness, No Vertebral Tenderness Extremity: Normal Capillary Refill, Normal Inspection, Non Tender, No Calf Te nderness, No Pedal Edema Neurologic/Psychiatric: Alert, Oriented x3, No Motor/Sensory Deficits, Normal Mood/Affect Skin: Normal Color, Warm/Dry Lymphatic: No Adenopathy Assessment/Plan Assessment/Plan Assessment and Plan Symptomatic bradycardia w/ chest pain Paroxysmal Afib w/ RVR HTN HLD CAD GERD RA Cardiology following; restart flecainide, metoprolol 25mg, MAREN w/ cardioversion today NPO after midnight Labs: serial Trp negative, BNP elevated 386.5 CXR negative for acute pathology Continue to monitor VS Admission Dx Symptomatic bradycardia w/ chest pain Paroxysmal Afib HTN HLD CAD GERD RA Cardiology following; observe 24hr, hold flecainide/BB, low-dose BB on d/c. Cardioversion today Labs: serial Trp negative, BNP elevated 386.5 CXR negative for acute pathology Continue to monitor VS; possible d/c later today Clinical Quality Measures Admission Status Admission Dx Symptomatic bradycardia w/ chest pain Paroxysmal Afib HTN HLD CAD GERD RA Cardiology following; observe 24hr, hold flecainide/BB, low-dose BB on d/c. Cardioversion today Labs: serial Trp negative, BNP elevated 386.5 CXR negative for acute pathology Continue to monitor VS; possible d/c later today AMI/AHF: ASA po Prior to arrival: JESÚS Aguilar MED STUDENT Jul 05, 2020 07:40
--- NOTE | 2020-07-05 08:11 | Cardiac Procedure Note-CS/ASA ---
Pre-Procedure Note Pre-Op Procedure Note H&P Reviewed The H&P was reviewed, patient examined and no changes noted. Date H&P Reviewed: Jul 05, 2020 Time H&P Reviewed: 08:00 Conscious Sedation Pre-Proced Time 08:00 ASA Score 3 For ASA 3 and 4: Consider anesthesia and medical clearance. Also, for patients with a history of failed moderate sedation consider anesthesia. Airway Lungs Heart ASA score ASA 1: a normal healthy patient ASA 2: a patient with a mild systemic disease (mid diabetes, controlled hypertension, obesity x ASA 3: a patient with a severe systemic disease that limits activity (angina, COPD, prior Myocardial infarction) ASA 4: a patient with an incapacitating disease that is a constant threat to life (CHF, renal failure) ASA 5: a moribund patient not expected to survive 24 hrs. (ruptured aneurysm) ASA 6: a declared brain- patient whose organs are being harvested. For emergent operations, add the letter E after the classification Mallampati Classification Grade 3 Sedation Plan Analgesia, Amnesia, Plan communicated to team members, Discussed options with patient/fam, Discussed risks with patient/fam The patient is an appropriate candidate to undergo the planned procedure, sedation, and anesthesia. The patient immediately re-assessed prior to indication. AUGUSTA SALAZAR MD Jul 05, 2020 8:11 am
--- NOTE | 2020-07-05 08:12 | Cardioversion ---
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 Electrical cardioversion was carried out with anesthesia support with propofol. 200 joules of synchronized shock was delivered through external patches which promptly restored sinus rhythm. The patient tolerated the procedure well. Conclusions: Successful electrical cardioversion AUGUSTA CELESTIN MD Jul 05, 2020 8:12 am
--- NOTE | 2020-07-05 08:26 | Diagnostic Imaging Report ---
INDICATION: Post procedural evaluation, post cardioversion. COMPARISON: 07/03/2020 TECHNIQUE: Single radiograph of the chest dated 07/06/2019. FINDINGS: The cardiac silhouette is enlarged. Minimal central pulmonary vascular congestion. Calcifications within the aortic arch are again identified. Increasing interstitial opacities are noted within the bilateral lung bases. Trace bilateral pleural effusions suspected. No pneumothorax. No acute osseous abnormality. [place] right curvature of the spine with scattered degenerative changes. IMPRESSION: Worsening bibasilar pneumonitis and/or edema with associated trace bilateral pleural effusions. Additional similar findings as above. Dictated by: Dictated on workstation # [id number]
[2020-07-05] MEDS ORDERED: LIDOCAINE 2% VISCOUS 15 ML UDC PO ONE (08:45)
[2020-07-05] MEDS ORDERED: NS IV 1000 ML 1,000 ML IV ONE (08:45)
[2020-07-05] MEDS ORDERED: CALCIUM CARB + VIT D 600 MG (CALCARB + D) TAB PO SCH (09:00)
--- NOTE | 2020-07-05 09:17 | Cardiology Progress Note ---
Subjective Date Seen by Provider: Jul 05, 2020 Time Seen by Provider: 09:16 Subjective/Events-last exam Patient was seen at bedside laying down comfortably, mild dyspnea, underwent MAREN and cardioversion Review of Systems General: No Chills, No Night Sweats, No Fatigue, No Malaise, No Appetite, No Other HEENT: No Head Aches, No Visual Changes, No Eye Pain, No Ear Pain, No Dyspha daniela, No Sinus Congestion, No Post Nasal Drip, No Sore Throat, No Other Pulmonary: No Dyspnea, No Cough, No Pleuritic Chest Pain, No Other Cardiovascular: No: Chest Pain, Palpitations, Orthopnea, Paroxysmal Noc. D yspnea, Edema, Lt Headedness, Other Objective-Cardiology Exam Last Set of Vital Signs Vital Signs 07/03/20 07/05/20 07/05/20 07/05/20 07/05/20 16:21 07:39 08:26 08:32 08:38 Temp 36.4 Pulse 68 Resp 17 B/P (MAP) 118/69 (85) Pulse Ox 100 O2 Delivery Room Air O2 Flow Rate 5.00 FiO2 21 Capillary Refill : Less Than 3 Seconds I&O Intake and Output 07/04/20 23:59 Intake Total 1300 ml Balance 1300 ml Intake Oral 1300 ml # Voids 5 # Bowel Movements 1 General: Alert, Oriented X3, Cooperative HEENT: Atraumatic, PERRLA Neck: Supple, No JVD, No Thyromegaly Lungs: Clear to Auscultation, Normal Air Movement Heart: Regular Rate, Normal S1, Normal S2, No Murmurs Abdomen: Normal Bowel Sounds, Soft, No Tenderness, No Hepatosplenomegaly, No Masses Extremities: No Clubbing, No Cyanosis, No Edema, Normal Pulses, No Tenderness/Swelling Skin: No Rashes, No Breakdown, No Significant Lesion Neuro: Normal Gait, Normal Speech, Strength at 5/5 X4 Ext, Normal Tone, Sensation Intact Psych/Mental Status: Mental Status NL, Mood NL A/P-Cardiology Admission Diagnosis Paroxysmal atrial fibrillation Bradycardia Hypertension Hyperlipidemia Assessment/Plan Paroxysmal atrial fibrillation, Maintained on Pradaxa and metoprolol, had multiple episodes of atrial fibrillation, had cardioversion in August 2018 and a second cardioversion on May 13, 2019, Back to atrial fibrillation with episodes of bradycardia, flecainide and Metoprolol were held. I decreased metoprolol and restarted flecainide, MAREN and cardioversion was done on July 05, 2020 and was successful in terminating atrial fibrillation. Mild shortness of breath, mild pulmonary edema, will give Lasix and monitor tolerance and response Tachybradycardia episode, episode of severe bradycardia while on metoprolol, I decreased the dose to 25 mg twice daily and monitor tolerance and response Allergic reaction to amiodarone with itching and irritability. Echocardiogram done in February 2018 showing normal left ventricular size with basal focal hypertrophy, ejection fraction 50-55 percent, grade 2 diastolic dysfunction, moderate MR, PA pressure 20 mmHg. Nonobstructive coronary artery disease per cardiac catheterization August 2012, stress test was done in July 2017 showing apical thinning with no significant ischemia or infarction with normal left ventricular size and ejection fraction 74 percent. Most recent stress test done August 2018 revealed no ischemia or infarct. I will continue to monitor Moderate bilateral carotid stenosis, Continue to Monitor Hypertension, reporting borderline low blood pressure at home. Monitor blood pressure after decreasing metoprolol dose Hyperlipidemia, intolerant to statins mainly Lipitor, tolerating simvastatin well, lipid profile done in January 2020 showing total cholesterol 129, HDL 38, triglyceride 142, LDL 63. Continue current medications and monitor Chronic renal insufficiency, followed and managed by Dr. Henry Pulmonary hypertension, last echocardiogram showed PA pressure 10-15 mmHg was done in August 2016. Normal left ventricular size. Left atrium is in the upper normal limit. 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 Henry. Continue to monitor. Clinical Quality Measures AMI/AHF: ASA po Prior to arrival: AUGUSTA Cota MD Jul 05, 2020 09:17
[2020-07-05] MEDS ORDERED: FUROSEMIDE 40 MG/4 ML INJ (LASIX) IVP ONE (09:30)
[2020-07-05] MEDS ORDERED: FLECAINIDE 100 MG (TAMBOCOR) TAB PO SCH (09:30)
[2020-07-05] MEDS: meTOprolol TARTRATE 25 MG (LOPRESSOR) TABLET PO SCH (09:37)
[2020-07-05] MEDS: OMEGA 3 (FISH OIL) 1000 MG CAP PO SCH (09:37)
[2020-07-05] MEDS: MAGNESIUM OXIDE (MAG-OX)400 MG TAB PO SCH (09:37)
[2020-07-05] MEDS: DABIGATRAN 150 MG (PRADAXA) CAPSULE PO SCH (09:37)
[2020-07-05] MEDS: FERROUS SULF 325 MG (IRON) TAB PO SCH (09:38)
[2020-07-05] MEDS: LEFLUNOMIDE 20 MG TABLET PO SCH (09:39)
--- NOTE | 2020-07-05 18:38 | Discharge Summary ---
Diagnosis/Chief Complaint Date of Admission Jul 03, 2020 at 11:19 Date of Discharge Reason Hospital Visit PT IS AN 89 Y/O FEMALE WHO IS WELL KNOWN TO ME FROM CLINIC. SHE PRESENTED TO THE HOSPITAL WITH CHEST PAIN AND SENSATION OF ABNORMAL HEART BEAT. SHE HAD BEEN IN THE EMERGENCY DEPARTMENT THE DAY PRIOR WITH A RAPID RATE, WAS GIVEN CARDIZEM AND THEN DISCHARGED TO HOME. SHE REPORTS THAT SHE DOES NOT HAVE ANY FURTHER SHORTNESS OF BREATH OR CHEST PAIN. Discharge Summary Discharge Physical Examination Allergies: Coded Allergies: Penicillins (Verified Allergy, Unknown, 12/16/06) ciprofloxacin (Verified Allergy, Unknown, 02/16/08) morphine (Verified Allergy, Unknown, 12/16/06) digoxin (Verified Adverse Reaction, Unknown, HALLUCINATIONS., 01/14/18) Vitals & I&Os Vital Signs Date Time Temp Pulse Resp B/P (MAP) Pulse Ox O2 Delivery O2 Flow Rate FiO2 07/05/20 16:00 36.5 74 16 130/78 (95) 99 Room Air 07/05/20 08:26 5.00 07/03/20 16:21 21 Discharge Instructions to patient/family Please see electronic discharge instructions given to patient. Discharge Medications Reviewed and agree with Discharge Medication list on patient's Discharge Instruction sheet Clinical Quality Measures AMI/AHF: ASA po Prior to arrival: JIN Christensen MD Jul 05, 2020 18:38
[2020-07-05] MEDS ORDERED: METO-333 PO (18:43)
--- NOTE | 2020-07-05 18:45 | Discharge Inst-Simple/Standard ---
Discharge Inst-Standard Reconcile Patient Problems Problems Reviewed?: Yes Patient Instructions/Follow Up Plan of Care/Instructions/FU: 1 wk [facility] [address] hector Activity as Tolerated: Yes Discharge Diet: Regular Diet Return to The Hospital For: any concern for recurrent chest pain, shortness of breath, or life threatening illness or injury JIN ANDERSON MD Jul 05, 2020 18:45
--- NOTE | 2020-07-05 18:46 | Discharge Summary ---
Diagnosis/Chief Complaint Date of Admission Jul 03, 2020 at 11:19 Date of Discharge Discharge Date: Jul 05, 2020 Discharge Time: 1830 Reason Hospital Visit PT IS AN 89 Y/O FEMALE WHO IS WELL KNOWN TO ME FROM CLINIC. SHE PRESENTED TO THE HOSPITAL WITH CHEST PAIN AND SENSATION OF ABNORMAL HEART BEAT. SHE HAD BEEN IN THE EMERGENCY DEPARTMENT THE DAY PRIOR WITH A RAPID RATE, WAS GIVEN CARDIZEM AND THEN DISCHARGED TO HOME. SHE REPORTS THAT SHE DOES NOT HAVE ANY FURTHER SHORTNESS OF BREATH OR CHEST PAIN. Discharge Summary Discharge Physical Examination Allergies: Coded Allergies: Penicillins (Verified Allergy, Unknown, 12/16/06) ciprofloxacin (Verified Allergy, Unknown, 02/16/08) morphine (Verified Allergy, Unknown, 12/16/06) digoxin (Verified Adverse Reaction, Unknown, HALLUCINATIONS., 01/14/18) Vitals & I&Os Vital Signs Date Time Temp Pulse Resp B/P (MAP) Pulse Ox O2 Delivery O2 Flow Rate FiO2 07/05/20 16:00 36.5 74 16 130/78 (95) 99 Room Air 07/05/20 08:26 5.00 07/03/20 16:21 21 Discharge Instructions to patient/family Please see electronic discharge instructions given to patient. Discharge Medications Reviewed and agree with Discharge Medication list on patient's Discharge Instruction sheet Clinical Quality Measures AMI/AHF: ASA po Prior to arrival: JIN Christensen MD Jul 05, 2020 18:46
--- NOTE | 2020-07-06 06:55 | Anesthesia-General Post-Op ---
MAC Patient Condition Mental Status/LOC: Same as Preop Cardiovascular: Satisfactory Nausea/Vomiting: Absent Respiratory: Satisfactory Pain: Controlled Complications: Absent Post Op Complications Complications None Follow Up Care/Instructions Patient Instructions None needed. Anesthesiology Discharge Order Discharge Order Patient is doing well, no complaints, stable vital signs, no apparent adverse anesthesia problems. No complications reported per nursing. PHILIPPE MALIN CRNA Jul 06, 2020 06:55
[2020-07-06] MEDS ORDERED: CALCIUM CARB + VIT D 600 MG (CALCARB + D) TAB PO SCH (09:00)
== END 2020-07-05 19:00 | disposition home or self-care (01) ==
LOC: EDUNIT# 09:01 → ER 09:02 → UNDOADMOB 11:19 → CSD 11:19 → CATH 12:53 → UNDODISOB 07-05 19:00 → CATH 07-05 19:00
PROVIDERS: ATTEND Family Medicine
DX: I48.0 Paroxysmal atrial fibrillation (principal); R07.9 Chest pain, unspecified; I10 Essential (primary) hypertension; E78.00 Pure hypercholesterolemia, unspecified; I25.10 Atherosclerotic heart disease of native coronary artery without angina pectoris; K21.9 Gastro-esophageal reflux disease without esophagitis; K57.90 Diverticulosis of intestine, part unspecified, without perforation or abscess without bleeding; G89.29 Other chronic pain; M54.9 Dorsalgia, unspecified; M06.9 Rheumatoid arthritis, unspecified; E78.5 Hyperlipidemia, unspecified; Z79.899 Other long term (current) drug therapy; Z88.0 Allergy status to penicillin; Z88.1 Allergy status to other antibiotic agents; Z88.5 Allergy status to narcotic agent; Z88.8 Allergy status to other drugs, medicaments and biological substances; Z87.891 Personal history of nicotine dependence; Z90.710 Acquired absence of both cervix and uterus
CPT/HCPCS: 71045 ×2; 80048; 82550; 82553; 83880; 84484; 85025; 92960; 93005 ×2; 93312; 99284; G0378; 36415

== ENCOUNTER → 2020-07-27 | Day surgery (SDC) | payer MEDICARE ==
[~2020-07-27] VITALS: Ht 162.6 cm; Wt 62.3 kg
[~2020-07-27] MED LIST changes: +CALC-140 PO; +FLEC50TA PO; +LIDOCAINE 1% INJ 20 ML 20 ML VIAL ONE
[2020-07-27 13:04] VITALS: BP 139/76
--- NOTE | 2020-07-27 13:58 | Implantation of Loop Monitor ---
Implant of Loop Monitior IMPLANTATION OF LOOP MONITOR REPORT DATE OF PROCEDURE: 07/27/20 PREOP DIAGNOSIS: Paroxysmal atrial fibrillation POSTOP DIAGNOSIS: Paroxysmal atrial fibrillation PROCEDURE DETAILS: The patient is a 89 female with history of paroxysmal atrial fibrillation requiring long-term surveillance. Therefore implantable loop recorder was discussed and agreed with the patient. Informed consent was taken. All risks and complications were discussed at length. The patient was draped and prepped in the usual sterile fashion. Local anesthesia was lidocaine, which was given in the substernal area close to the 4th intercostal space. Loop monitor [employer] with serial number [id number] was implanted according to the protocol. Steri- Strips were placed at the end of the procedure. There were no complications and the patient tolerated the procedure well. The device was interrogated with a voltage of. ANESTHESIA: Local anesthesia with lidocaine. COMPLICATIONS: None CONTRAST/FLUOROSCOPY: None CONCLUSION: Successful implantation of loop monitor with no complication FINAL DIAGNOSIS: Paroxysmal atrial fibrillation Palpitation Hypertension Hyperlipidemia AUGUSTA SALAZAR MD Jul 27, 2020 1:58 pm
== END ==
LOC: CATH 12:44
PROVIDERS: ATTEND Internal Medicine Cardiovascular Disease
DX: I48.0 Paroxysmal atrial fibrillation (principal); E78.2 Mixed hyperlipidemia; I25.10 Atherosclerotic heart disease of native coronary artery without angina pectoris; M06.9 Rheumatoid arthritis, unspecified; I12.9 Hypertensive chronic kidney disease with stage 1 through stage 4 chronic kidney disease, or unspecified chronic kidney disease; N18.9 Chronic kidney disease, unspecified; I65.23 Occlusion and stenosis of bilateral carotid arteries; Z79.899 Other long term (current) drug therapy; Z88.0 Allergy status to penicillin; Z88.1 Allergy status to other antibiotic agents; Z88.5 Allergy status to narcotic agent; Z88.8 Allergy status to other drugs, medicaments and biological substances
CPT/HCPCS: 33285

== ENCOUNTER → 2020-07-29 | Outpatient (CLI) | payer MEDICARE ==
[~2020-07-29] MED LIST changes: -LIDOCAINE 1% INJ 20 ML 20 ML VIAL ONE
== END ==
LOC: CARD 11:00
PROVIDERS: ATTEND Physician Assistant
DX: I08.0 Rheumatic disorders of both mitral and aortic valves (principal); I25.10 Atherosclerotic heart disease of native coronary artery without angina pectoris; I10 Essential (primary) hypertension
CPT/HCPCS: 93306

== ENCOUNTER → 2020-09-14 | Outpatient (CLI) | payer MEDICARE ==
[~2020-09-14] VITALS: Ht 162 cm; Wt 62.0 kg
[~2020-09-14] MED LIST changes: +CATHETER FLUSH 10 ML SYR IV PRN; +PROP150T PO; +REGADENOSON 0.4 MG/5 ML SYR (LEXISCAN) IV ONE
[2020-09-14 10:02] VITALS: BP 161/117
--- NOTE | 2020-09-14 12:04 | Cardiology Stress Test Report ---
Stress Test Report Date of Procedure/Referring: Date of Procedure: Sep 14, 2020 Zoe Murphy Admitting Physician Sarita Monk MD Indications: CAD Baseline Heart Rate: 69 Baseline Blood Pressure: Blood Pressure Systolic: 161 Blood Pressure Diastolic: 117 Baseline Vitals Vital Signs Date Time Temp Pulse Resp B/P (MAP) Pulse Ox O2 Delivery O2 Flow Rate FiO2 09/14/20 10:02 69 18 161/117 (132) 99 Room Air Baseline EKG: Baseline EKG: RBBB Summary After explaining the procedure to the patient, she signed a consent and then brought to the stress nuclear laboratory. Patient received 0.4 mg Lexiscan for stress test, ECG, heart rate and blood pressure were monitored continuously. Resting and stress dose of radio tracer were injected, imaging was acquired and reviewed in short axis, horizontal long axis and vertical long axis views. TID: 1.05 SSS: 4 SDS: 2 EF: 78 1. Patient tolerated Lexiscan well 2. Baseline right bundle branch block persisted during test 3. Mild decreased uptake involving the inferoapical segment with mild reversibility probably due to apical thinning. 4. Normal left ventricular size, EF 78% AUGUSTA SALAZAR MD Sep 14, 2020 12:03
== END ==
LOC: CARD 08:15
PROVIDERS: ATTEND Physician Assistant
DX: I25.10 Atherosclerotic heart disease of native coronary artery without angina pectoris (principal); I10 Essential (primary) hypertension
CPT/HCPCS: 78452; 93017; A9502

== ENCOUNTER 2020-10-15 09:55 | Emergency (ER) | payer MEDICARE ==
[~2020-10-15] VITALS: Ht 162 cm; Wt 62.1 kg
[~2020-10-15 09:55] MED LIST changes: -CATHETER FLUSH 10 ML SYR IV PRN; -REGADENOSON 0.4 MG/5 ML SYR (LEXISCAN) IV ONE
[2020-10-15] MEDS ORDERED: meTOprolol 5 MG/5 ML (LOPRESSOR) VIAL IV ONE (10:30)
[2020-10-15] MEDS ORDERED: NS IV 500 ML 500 ML IV ONE (10:30)
[2020-10-15 10:35] LABS: BASOPHILS # (AUTO) 0.1 10^3/uL (0.0-0.1); BASOPHILS % (AUTO) 2 % (0-10); EOSINOPHILS # (AUTO) 0.4 10^3/uL (0.0-0.3); EOSINOPHILS % (AUTO) 5 % (0-10); HEMATOCRIT 43 % (35-52); HEMOGLOBIN 13.2 g/dL (11.5-16.0); LYMPHOCYTES # (AUTO) 1.7 10^3/uL (1.0-4.0); LYMPHOCYTES % (AUTO) 19 % (12-44); MEAN CORPUSCULAR HEMOGLOBIN 29 pg (25-34); MEAN CORPUSCULAR HGB CONC 31 g/dL (32-36); MEAN CORPUSCULAR VOLUME 92 fL (80-99); MEAN PLATELET VOLUME 9.7 fL (9.0-12.2); MONOCYTES # (AUTO) 0.9 10^3/uL (0.0-1.0); MONOCYTES % (AUTO) 10 % (0-12); NEUTROPHILS # (AUTO) 5.9 10^3/uL (1.8-7.8); NEUTROPHILS % (AUTO) 65 % (42-75); PLATELET COUNT 292 10^3/uL (130-400); WHITE BLOOD COUNT 9.1 10^3/uL (4.3-11.0)
[2020-10-15 10:38] LABS: ALBUMIN 3.8 GM/DL (3.2-4.5); POTASSIUM 4.6 MMOL/L (3.6-5.0)
[2020-10-15 10:41] LABS: TOTAL PROTEIN 6.7 GM/DL (6.4-8.2)
[2020-10-15 10:42] LABS: BILIRUBIN,TOTAL 0.4 MG/DL (0.1-1.0)
[2020-10-15 10:44] LABS: CREATININE SERUM 1.37 MG/DL (0.60-1.30)
[2020-10-15 10:47] LABS: MAGNESIUM 2.2 MG/DL (1.6-2.4)
[2020-10-15 10:51] LABS: PROTHROMBIN TIME PATIENT 31.1 SEC (12.2-14.7)
--- NOTE | 2020-10-15 11:07 | ED Cardiac General ---
History of Present Illness General Chief Complaint: Cardiac/General Problems Stated Complaint: AFIB Nursing Triage Note: PT PRESENTS TO ED VIA POV FROM HOME WITH COMPLAINTS OF RAPID HR STARTING AT 0600 THIS A.M. PT ALSO REPORTS EPIGASTRIC PAIN EARLY THIS AM RATING IT A 2/10. PT REPORTS NO CURRENT PAIN AT THIS TIME. Source: patient Exam Limitations: no limitations History of Present Illness Date Seen by Provider: Oct 15, 2020 Time Seen by Provider: 10:15 Initial Comments Here with report of rapid heart rate starting at about 6 AM. Noticed that she m issed her dose of propafenone last night. She took it at about 5 AM. Also had some epigastric symptoms at about 6 AM that have resolved now. Does have history of atrial fibrillation and is on anticoagulant. Follows with Dr. Celestin. Did have some sweating earlier that has resolved as well. Denies other illness or injury. She is concerned that she may have urinary tract infection because she has some low back pain which is typical with that problem and request UA. Timing/Duration: 4-6 hours Severity: mild Location: central, epigastric Activities at Onset: none Prior CP/Workup: cardiac cath, echocardiography, stress test Modifying Factors: improves with rest NTG SL COMMUNITY PRODUCT SPECIALIST: No ASA po COMMUNITY PRODUCT SPECIALIST: Yes Associated Systoms: No Cough; Diaphoresis; No Fever/Chills, No Nausea/Vomiting, No Shortness of Air; Weakness Allergies and Home Medications Allergies Coded Allergies: Penicillins (Verified Allergy, Unknown, 12/16/06) ciprofloxacin (Verified Allergy, Unknown, 02/16/08) morphine (Verified Allergy, Unknown, 12/16/06) digoxin (Verified Adverse Reaction, Unknown, HALLUCINATIONS., 01/14/18) Home Medications Calcium Carbonate/Vitamin D3 1 Each Tablet, 1 EACH PO DAILY, (Reported) Dabigatran Etexilate Mesylate 150 Mg Capsule, 150 MG PO BID WITH MEALS, (Reported) Ferrous Sulfate 15 Mg/1 Ml Drops, 2.5 ML PO Q72H, (Reported) Fish Oil/Dha/Epa 1 Each Capsule, 1,200 MG PO BID, (Reported) Leflunomide 20 Mg Tablet, 20 MG PO DAILY, (Reported) Magnesium Oxide 250 Mg Tablet, 250 MG PO DAILY, (Reported) Metoprolol Tartrate 25 Mg Tablet, 25 MG PO BID Prescribed by: JIN ANDERSON on 07/05/20 3328 Propafenone HCl 150 Mg Tablet, 150 MG PO Q8HR Prescribed by: JIN ANDERSON on 08/26/20 1031 Simvastatin 10 Mg Tablet, 10 MG PO HS, (Reported) Patient Home Medication List Home Medication List Reviewed: Yes Review of Systems Review of Systems Constitutional: see HPI EENTM: No Nose Congestion, No Throat Pain Respiratory: Denies Cough, Denies Shortness of Air Cardiovascular: See HPI, Irregular Heart Rate, Lightheadedness Gastrointestinal: Abdominal Pain, Diarrhea; Denies Nausea, Denies Vomiting Genitourinary: Denies Frequency; Pain Musculoskeletal: back pain; No muscle pain Skin: no symptoms reported Psychiatric/Neurological: No Symptoms Reported All Other Systems Reviewed Negative Unless Noted: Yes Past Teumyho-Ftfunr-Uqycnb Hx Patient Social History Tobacco Use?: No Use of E-Cig and/or Vaping dev: No Substance use?: No Alcohol Use?: No Pt feels they are or have been: No Immunizations Up To Date Tetanus Booster (TDap): Unknown PED Vaccines UTD: Yes First/Initial COVID19 Vaccinat: 05/29 Second COVID19 Vaccination Anupam: 06/23 COVID19 Vaccine Director Of Solutions Architecture: nolan Seasonal Allergies Seasonal Allergies: No Past Medical History Surgeries: Yes (BILAT KNEE SURGERY;CYSTOCOELE;HYST/BSO;BLADDER SLING;CARDIAC CATH-NO INTERV) Bladder Surgery, Cardiac, Gallbladder, Hysterectomy, Oophorectomy, Orthopedic, Tubal Ligation Respiratory: Yes Chronic Bronchitis, COPD Currently Using CPAP: No Currently Using BIPAP: No Cardiac: Yes Atrial Fibrillation, Hypertension Neurological: Yes Headaches /Migraines 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 Disorders: No Female 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 Disorders: Denies 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 Sexually Transmitted Disease: No HIV/AIDS: No Genitourinary: No Renal Failure Gastrointestinal: Yes Gastroesophageal Reflux, Diverticulosis Musculoskeletal: Yes Arthritis, Rheumatoid Arthritis Endocrine: No HEENT: No Cataract Loss of Vision: Denies Hearing Impairment: Denies Cancer: No Psychosocial: No Integumentary: No Blood Disorders: Yes (FACTOR 5 LEIDEN) Family Medical History Reviewed Nursing Family Hx FACTOR V LEIDEN 19 FATHER G8 BROTHER Heart Disease, Hypertension Physical Exam Vital Signs Vital Signs - First Documented 10/15/20 10:03 Temp 36.3 Pulse 124 Resp 18 B/P (MAP) 154/95 (114) Pulse Ox 97 Capillary Refill : Less Than 3 Seconds Height, Weight, BMI Height: 5'4.00" Weight: 145lbs. 0.0oz. [id number]; 23.00 BMI Method:Stated General Appearance: No Apparent Distress, WD/WN HEENT: PERRL/EOMI, Pharynx Normal Neck: Non Tender, Supple Respiratory: Lungs Clear, Normal Breath Sounds Cardiovascular: Irregularly Irregular, Tachycardia Gastrointestinal: Non Tender, Soft Extremity: Normal Inspection, Normal Range of Motion, Non Tender, No Calf Tenderness Neurologic/Psychiatric: Alert, Oriented x3 Skin: Normal Color, Warm/Dry Progress/Results/Core Measures Results/Orders Lab Results Laboratory Tests Test 10/15/20 10:10 10/15/20 11:24 Range/Units White Blood Count 9.1 4.3-11.0 10^3/uL Red Blood Count 4.61 3.80-5.11 10^6/uL Hemoglobin 13.2 11.5-16.0 g/dL Hematocrit 43 35-52 % Mean Corpuscular Volume 92 80-99 fL Mean Corpuscular Hemoglobin 29 25-34 pg Mean Corpuscular Hemoglobin Concent 31 L 32-36 g/dL Red Cell Distribution Width 13.1 10.0-14.5 % Platelet Count 292 130-400 10^3/uL Mean Platelet Volume 9.7 9.0-12.2 fL Immature Granulocyte % (Auto) 0 % Neutrophils (%) (Auto) 65 42-75 % Lymphocytes (%) (Auto) 19 12-44 % Monocytes (%) (Auto) 10 0-12 % Eosinophils (%) (Auto) 5 0-10 % Basophils (%) (Auto) 2 0-10 % Neutrophils # (Auto) 5.9 1.8-7.8 10^3/uL Lymphocytes # (Auto) 1.7 1.0-4.0 10^3/uL Monocytes # (Auto) 0.9 0.0-1.0 10^3/uL Eosinophils # (Auto) 0.4 H 0.0-0.3 10^3/uL Basophils # (Auto) 0.1 0.0-0.1 10^3/uL Immature Granulocyte # (Auto) 0.0 0.0-0.1 10^3/uL Prothrombin Time 31.1 H 12.2-14.7 SEC INR Comment 3.0 H 0.8-1.4 Activated Partial Thromboplast Time 82 H 24-35 SEC Sodium Level 139 135-145 MMOL/L Potassium Level 4.6 3.6-5.0 MMOL/L Chloride Level 104 98-107 MMOL/L Carbon Dioxide Level 23 21-32 MMOL/L Anion Gap 12 5-14 MMOL/L Blood Urea Nitrogen 20 H 7-18 MG/DL Creatinine 1.37 H 0.60-1.30 MG/DL Estimat Glomerular Filtration Rate 36 BUN/Creatinine Ratio 15 Glucose Level 109 H 70-105 MG/DL Calcium Level 10.0 8.5-10.1 MG/DL Corrected Calcium 10.2 H 8.5-10.1 MG/DL Magnesium Level 2.2 1.6-2.4 MG/DL Total Bilirubin 0.4 0.1-1.0 MG/DL Aspartate Amino Transf (AST/SGOT) 16 5-34 U/L Alanine Aminotransferase (ALT/SGPT) 12 0-55 U/L Alkaline Phosphatase 88 40-136 U/L Myoglobin 58.3 10.0-92.0 NG/ML Troponin I < 0.028 <0.028 NG/ML Total Protein 6.7 6.4-8.2 GM/DL Albumin 3.8 3.2-4.5 GM/DL Urine Color YELLOW Urine Clarity CLEAR Urine pH 7.0 5-9 Urine Specific [place] 1.020 1.016-1.022 Urine Protein TRACE H NEGATIVE Urine Glucose (UA) NEGATIVE NEGATIVE Urine Ketones NEGATIVE NEGATIVE Urine Nitrite NEGATIVE NEGATIVE Urine Bilirubin NEGATIVE NEGATIVE Urine Urobilinogen 0.2 < = 1.0 MG/DL Urine Leukocyte Esterase TRACE H NEGATIVE Urine RBC (Auto) 1+ H NEGATIVE Urine RBC 10-25 H /HPF Urine WBC 5-10 H /HPF Urine Squamous Epithelial Cells 5-10 /HPF Urine Crystals NONE /LPF Urine Bacteria FEW H /HPF Urine Casts PRESENT /LPF Urine Hyaline Casts 0-2 H /LPF Urine Mucus NEGATIVE /LPF Urine Culture Indicated YES My Orders Orders - MAHSA IVERSON MD Ed Iv/Invasive Line Start (10/15/20 10:26) Ns Iv 500 Ml (Sodium Chloride 0.9%) (10/15/20 10:30) Cbc With Automated Diff (10/15/20 10:26) Magnesium (10/15/20 10:26) Chest 1 View, Ap/Pa Only (10/15/20 10:26) Ekg Tracing (10/15/20 10:) Comprehensive Metabolic Panel (10/15/20:) Myoglobin Serum (10/15/20:) Protime With Inr (10/15/20:) Partial Thromboplastin Time (10/15/20 10:) O2 (10/15/20:) Monitor-Rhythm Ecg Trace Only (10/15/20:) Lipid Panel (10/16/20 06:00) Troponin I (10/15/20 10:26) Metoprolol Tartrate Injection (Lopressor (10/15/20 10:30) Ua Culture If Indicated (10/15/20 10:47) Diltiazem Cd 24 Hr Capsule (Cardizem Cd (10/16/20 09:00) Urine Culture (10/15/20 11:24) Medications Given in ED Current Medications Medications Dose Ordered Sig/Mable Route Start Time Stop Time Status Last Admin Dose Admin Metoprolol Tartrate 5 mg ONCE ONCE IV 10/15/20 10:30 10/15/20 10:31 DC 10/15/20 10:51 5 MG Sodium Chloride 500 ml @ 0 mls/hr Q0M ONCE IV 10/15/20 10:30 10/15/20 10:31 DC 10/15/20 10:51 1,000 MLS/HR Vital Signs/I&O 10/15/20 10:03 Temp 36.3 Pulse 124 Resp 18 B/P (MAP) 154/95 (114) Pulse Ox 97 Blood Pressure Mean: 114 Progress Progress Note : Progress Note Seen and evaluated. Chest pain protocol initiated. Metoprolol 5 mg IV. Normal saline 500 mL bolus. We will check UA as well. 1055: I did discuss the case with Dr. Celestin. He is recommending Cardizem CD 120 mg p.o. now. This was ordered. He will see the patient in the ED. He is not concerned with her heart rate as it is currently. Monitor patient. 1200: Dr. Celestin has seen the patient in the ED. We will continue Cardizem CD 120 mg daily and she will follow-up in his office on Saturday or Saturday. Heart rate is remaining 90s to low 100s. She has no chest pain. Does have urinary tract infection that we will treat outpatient. Discharged home with return precautions. Patient verbalized understanding of instructions and agreement with plan. Initial ECG Impression Date: Oct 15, 2020 Initial ECG Impression Time: 10:01 Initial ECG Rate: 97 Initial ECG Rhythm: A Fib/Flutter Comment Atrial fibrillation with right bundle branch block. Right axis deviation. No evidence of ST elevation SD. Similar but slower to previous of 08/25/2020. Interpreted by me. Diagnostic Imaging Diagonstic Imaging: Xray Plain Films/CT/US/NM/MRI: chest Comments [facility] [place] NAME: RENATE REYES I [facility] REC#: [id number] PT STATUS: REG ER : 1930 PHYSICIAN: MAHSA IVERSON MD ADMIT DATE: 10/15/20/ER Draft Date of Exam:10/15/20 CHEST 1 VIEW, AP/PA ONLY Portable erect AP chest at 11 clock. Indication: Chest pain The heart size is within normal limits and stable when compared to 07/05/2020. In the interval since the prior exam the alveolar/interstitial pulmonary infiltrates involving the lung bases have diminished. There are still some residual density present bilaterally. The left mid lung also appears better aerated on the prior exam. The lung apices remain clear. In the interval since the prior exam, a loop recorder device has been inserted on the left. Pneumomediastinum is not widened. The osseous structures are intact. Impression: 1. The appearance of the chest has improved since the prior exam as both lungs do seem better aerated. There is still some residual pneumonia/atelectasis present bilaterally. 2. There has been interval insertion of a loop recorder device on the left. Dictated on workstation # [id number] Dict: 10/15/20 1126 Trans: 10/15/20 1129 CV [id number] Interpreted by: DANNI PEREZ MD Electronically signed by: Departure Impression Primary Impression: Atrial fibrillation Qualified Codes: I48.0 - Paroxysmal atrial fibrillation Disposition: 01 HOME, SELF-CARE Condition: Stable Departure-Patient Inst. Decision time for Depature: 12:19 Referrals: JIN ANDERSON MD (PCP/Family) Primary Care Physician AUGUSTA CELESTIN MD Patient Instructions: Atrial Fibrillation (DC) Add. Discharge Instructions: All discharge instructions reviewed with patient and/or family. Voiced understanding. Take medications as directed. Start the new medicine tomorrow. You may initiate the antibiotic therapy today and take it twice daily. Call Dr. Celestin's office on Saturday morning for appointment on Saturday or Saturday. Return for chest pain, weakness, breathing problems, sweating, fast heart rate or other concerns as needed. Scripts Nitrofurantoin Macrocrystal (Nitrofurantoin) 100 Mg Capsule 100 MG PO BID for 3 Days, #6 CAP 0 Refills Prov: MAHSA IVERSON MD 10/15/20 Diltiazem HCl (Diltiazem 24Hr Cd) 120 Mg Cap.er.24h 120 MG PO DAILY, #7 CAP Prov: MAHSA IVERSON MD 10/15/20 MAHSA IVERSON MD Oct 15, 2020 11:07
--- NOTE | 2020-10-15 11:30 | Diagnostic Imaging Report ---
Portable erect AP chest at 11 clock. Indication: Chest pain The heart size is within normal limits and stable when compared to 07/05/2020. In the interval since the prior exam the alveolar/interstitial pulmonary infiltrates involving the lung bases have diminished. There are still some residual density present bilaterally. The left mid lung also appears better aerated on the prior exam. The lung apices remain clear. In the interval since the prior exam, a loop recorder device has been inserted on the left. Pneumomediastinum is not widened. The osseous structures are intact. Impression: 1. The appearance of the chest has improved since the prior exam as both lungs do seem better aerated. There is still some residual pneumonia/atelectasis present bilaterally. 2. There has been interval insertion of a loop recorder device on the left. Dictated by: Dictated on workstation # [id number]
[2020-10-15 11:34] LABS: BILIRUBIN,URINE NEGATIVE (NEGATIVE); CLARITY,URINE CLEAR; COLOR,URINE YELLOW; GLUCOSE, URINE (UA) NEGATIVE (NEGATIVE); KETONES,URINE NEGATIVE (NEGATIVE); LEUKOCYTE ESTERASE ,URINE TRACE (NEGATIVE); NITRITE,URINE NEGATIVE (NEGATIVE); PROTEIN,URINE TRACE (NEGATIVE)
[2020-10-15 11:41] LABS: BACTERIA,URINE FEW /HPF; HYALINE CASTS, URINE 0-2 /LPF
[2020-10-15] MEDS ORDERED: NITR100C PO (12:18)
[2020-10-15] MEDS ORDERED: DILT120C88 PO (12:18)
--- NOTE | 2020-10-15 12:23 | Consultation-Cardiology ---
HPI-Cardiology Cardiology Consultation Date of Consultation 10/15/20 Date of Admission Time Seen by Provider: 12:21 Indication: Atrial fibrillation HPI 89-year-old lady with extensive history of atrial fibrillation, failed multiple medication, was on propafenone and missed her last dose, woke up this morning with palpitation, came into the emergency room with atrial fibrillation rapid ventricular response, she was given IV Lopressor and oral metoprolol and given her and took her propafenone this morning, heart rate is slightly better, no chest pain. No syncope or near syncopal episodes. No claudication. Home Medications & Allergies Allergies: Coded Allergies: Penicillins (Verified Allergy, Unknown, 12/16/06) ciprofloxacin (Verified Allergy, Unknown, 02/16/08) morphine (Verified Allergy, Unknown, 12/16/06) digoxin (Verified Adverse Reaction, Unknown, HALLUCINATIONS., 01/14/18) Home Medication List Reviewed: Yes EQP-Afezcn-Ugnsvo Hx Patient Social History 2nd Hand Smoke Exposure: No Recent Hopitalizations: No Have you traveled recently?: No Alcohol Use?: No Immunizations Up To Date Tetanus Booster (TDap): Unknown Date of Pneumonia Vaccine: Jul 10, 2018 Date of Influenza Vaccine: Feb 03, 2020 Past Medical History Discussed below Family Medical History Significant Family History: Heart Disease, Hypertension Family History: FACTOR V LEIDEN 19 FATHER G8 BROTHER Review of Systems-General Review of Systems Constitutional: see HPI EENTM: see HPI, no symptoms reported Respiratory: no symptoms reported, see HPI Cardiovascular: see HPI; No chest pain, No edema, No Hx of Intervention; palpitations; No syncope, No vascular heart diseas, No other Gastrointestinal: no symptoms reported, see HPI Genitourinary: no symptoms reported, see HPI Musculoskeletal: back pain; No muscle pain Skin: no symptoms reported Psychiatric/Neurological: No Symptoms Reported All Other Systems Reviewed Negative Unless Noted: Yes Reviewed Test Results Reviewed Test Results Lab Laboratory Tests Test 10/15/20 10:10 10/15/20 11:24 Range/Units White Blood Count 9.1 4.3-11.0 10^3/uL Red Blood Count 4.61 3.80-5.11 10^6/uL Hemoglobin 13.2 11.5-16.0 g/dL Hematocrit 43 35-52 % Mean Corpuscular Volume 92 80-99 fL Mean Corpuscular Hemoglobin 29 25-34 pg Mean Corpuscular Hemoglobin Concent 31 L 32-36 g/dL Red Cell Distribution Width 13.1 10.0-14.5 % Platelet Count 292 130-400 10^3/uL Mean Platelet Volume 9.7 9.0-12.2 fL Immature Granulocyte % (Auto) 0 % Neutrophils (%) (Auto) 65 42-75 % Lymphocytes (%) (Auto) 19 12-44 % Monocytes (%) (Auto) 10 0-12 % Eosinophils (%) (Auto) 5 0-10 % Basophils (%) (Auto) 2 0-10 % Neutrophils # (Auto) 5.9 1.8-7.8 10^3/uL Lymphocytes # (Auto) 1.7 1.0-4.0 10^3/uL Monocytes # (Auto) 0.9 0.0-1.0 10^3/uL Eosinophils # (Auto) 0.4 H 0.0-0.3 10^3/uL Basophils # (Auto) 0.1 0.0-0.1 10^3/uL Immature Granulocyte # (Auto) 0.0 0.0-0.1 10^3/uL Prothrombin Time 31.1 H 12.2-14.7 SEC INR Comment 3.0 H 0.8-1.4 Activated Partial Thromboplast Time 82 H 24-35 SEC Sodium Level 139 135-145 MMOL/L Potassium Level 4.6 3.6-5.0 MMOL/L Chloride Level 104 98-107 MMOL/L Carbon Dioxide Level 23 21-32 MMOL/L Anion Gap 12 5-14 MMOL/L Blood Urea Nitrogen 20 H 7-18 MG/DL Creatinine 1.37 H 0.60-1.30 MG/DL Estimat Glomerular Filtration Rate 36 BUN/Creatinine Ratio 15 Glucose Level 109 H 70-105 MG/DL Calcium Level 10.0 8.5-10.1 MG/DL Corrected Calcium 10.2 H 8.5-10.1 MG/DL Magnesium Level 2.2 1.6-2.4 MG/DL Total Bilirubin 0.4 0.1-1.0 MG/DL Aspartate Amino Transf (AST/SGOT) 16 5-34 U/L Alanine Aminotransferase (ALT/SGPT) 12 0-55 U/L Alkaline Phosphatase 88 40-136 U/L Myoglobin 58.3 10.0-92.0 NG/ML Troponin I < 0.028 <0.028 NG/ML Total Protein 6.7 6.4-8.2 GM/DL Albumin 3.8 3.2-4.5 GM/DL Urine Color YELLOW Urine Clarity CLEAR Urine pH 7.0 5-9 Urine Specific [place] 1.020 1.016-1.022 Urine Protein TRACE H NEGATIVE Urine Glucose (UA) NEGATIVE NEGATIVE Urine Ketones NEGATIVE NEGATIVE Urine Nitrite NEGATIVE NEGATIVE Urine Bilirubin NEGATIVE NEGATIVE Urine Urobilinogen 0.2 < = 1.0 MG/DL Urine Leukocyte Esterase TRACE H NEGATIVE Urine RBC (Auto) 1+ H NEGATIVE Urine RBC 10-25 H /HPF Urine WBC 5-10 H /HPF Urine Squamous Epithelial Cells 5-10 /HPF Urine Crystals NONE /LPF Urine Bacteria FEW H /HPF Urine Casts PRESENT /LPF Urine Hyaline Casts 0-2 H /LPF Urine Mucus NEGATIVE /LPF Urine Culture Indicated YES Physical Exam Physical Exam Vital Signs Vital Signs - First Documented 10/15/20 10:03 Temp 36.3 Pulse 124 Resp 18 B/P (MAP) 154/95 (114) Pulse Ox 97 Capillary Refill : Less Than 3 Seconds Height, Weight, BMI Height: 5'4.00" Weight: 145lbs. 0.0oz. [id number]; 23.00 BMI Method:Stated General Appearance: No Apparent Distress, WD/WN HEENT: PERRL/EOMI, Pharynx Normal Neck: Non Tender, Supple Respiratory: Lungs Clear, Normal Breath Sounds Cardiovascular: Irregularly Irregular, Tachycardia Gastrointestinal: Non Tender, Soft Extremity: Normal Inspection, Normal Range of Motion, Non Tender, No Calf Tenderness Neurologic/Psychiatric: Alert, Oriented x3 Skin: Normal Color, Warm/Dry A/P-Cardiology Admission Diagnosis Atrial fibrillation Palpitation Coronary artery disease Hypertension Assessment/Plan Paroxysmal atrial fibrillation, history of multiple cardioversions. Has failed flecainide, and was intolerant to Amiodarone. Cannot tolerate Tikosyn or sotalol d/t borderline QTC prolongation. Underwent MAREN with cardioversion on 08/26/20 and was changed from Flecainide to Propafenone. LINq device showing no further atrial fibrillation since cardioversion. Maintained on Pradaxa, continue to monitor. Discussed EP referral, patient does not want to travel to at this time. Patient missed her last dose of propafenone and was seen in the emergency room with atrial fibrillation and rapid ventricular response. Currently heart rate is better controlled, I will start her on Cardizem CD 120 mg daily and monitor her tolerance and response, I instructed her to come to the office in 2 to 3 days. Allergic reaction to amiodarone with itching and irritability. Echocardiogram done in July 2020 showi normal left ventricular size, EF 55 to 65%, grade 1 diastolic dysfunction, moderate MR, aortic valve sclerosis, PA pressure 30 to 35 mmHg. Continue to monitor Nonobstructive coronary artery disease per cardiac catheterization August 2012, stress test was done in July 2017 showing apical thinning with no significant ischemia or infarction with normal left ventricular size and ejection fraction 74 percent. Most recent stress test done August 2018 revealed no ischemia or infarct. Scheduled for stress test for September 2020. Continue to monitor Moderate bilateral carotid stenosis, ultrasound was done in Apr 2020, continue to monitor. Hypertension, reporting good blood pressure control at home. Continue to monitor Hyperlipidemia, intolerant to statins mainly Lipitor, tolerating simvastatin well, lipid profile done in January 2020 showing total cholesterol 129, HDL 38, triglyceride 142, LDL 63. Continue current medications and monitor Chronic renal insufficiency, followed and managed by Dr. 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 Henry. Continue to monitor. Clinical Quality Measures AMI/AHF: ASA po Prior to arrival: Yes AUGUSTA SALAZAR MD Oct 15, 2020 12:23
[2020-10-15 12:53] VITALS: BP 138/80
[2020-10-16] MEDS ORDERED: dilTIAZem120 MG (CARDIZEM CD) CAP PO SCH (09:00)
== END 2020-10-15 12:53 | disposition home or self-care (01) ==
LOC: EDUNIT# 09:55 → ER 09:58
DX: I48.91 Unspecified atrial fibrillation (principal); J44.9 Chronic obstructive pulmonary disease, unspecified; I10 Essential (primary) hypertension; Z79.01 Long term (current) use of anticoagulants
CPT/HCPCS: 36415; 71045; 80053; 81000; 83735; 83874; 84484; 85025; 85610; 85730; 87088; 93005; 93041

== ENCOUNTER → 2020-12-14 | Outpatient (CLI) | payer MEDICARE ==
[~2020-12-14] MED LIST changes: +DILT120C88 PO; +NITR100C PO
--- NOTE | 2020-12-14 15:27 | Diagnostic Imaging Report ---
INDICATION: Chest pain. EXAMINATION: PA and lateral chest. FINDINGS: There is a loop recorder projecting over the left lower chest. There is some atelectasis at both lung bases. There are no effusions or pneumothoraces. IMPRESSION: Bibasilar atelectasis/fibrosis. No change compared to 08/11/2018. Dictated by: Dictated on workstation # [id number]
== END ==
LOC: RAD 14:12
PROVIDERS: ATTEND Family Medicine
DX: R07.9 Chest pain, unspecified (principal)
CPT/HCPCS: 71046

== ENCOUNTER 2021-02-10 11:09 | Outpatient (RCR) | payer MEDICARE ==
[~2021-02-10 11:09] MED LIST changes: -AMIO200T6 PO; +AMIO200T65 PO
[2021-02-11] MEDS ORDERED: CALC600T91 PO (05:49)
[2021-02-12] MEDS ORDERED: CEFD300C3 PO (10:04)
[2021-02-12] MEDS ORDERED: AZIT250T12 PO (10:04)
[2021-02-14] MEDS ORDERED: METR-145 PO (11:20)
== END 2021-02-28 13:17 | disposition home or self-care (01) ==
PROVIDERS: ATTEND Nurse Practitioner Family
DX: M54.6 Pain in thoracic spine (principal); I11.9 Hypertensive heart disease without heart failure; R07.81 Pleurodynia

== ENCOUNTER 2021-02-10 16:26 | Inpatient (IN) | payer MEDICARE ==
[~2021-02-10] VITALS: Ht 162.6 cm; Wt 63.5 kg
[~2021-02-10 16:26] MED LIST changes: +AMIO200T6 PO; -AMIO200T65 PO
[2021-02-10 16:49] LABS: ABG BASE EXCESS -2.2 MMOL/L (-2.5-2.5); ABG OXYGEN SATURATION 94 % (94-100); ABG PCO2 34 MMHG (35-45); ABG PH 7.42 (7.37-7.43); ABG PO2 74 MMHG (79-93); ABG TCO2 22.7 MMOL/L (21.0-31.0)
[2021-02-10 16:50] LABS: ALLENS TEST YES-POS; INSPIRED O2 2 L; VENTILATOR NO
--- NOTE | 2021-02-10 16:53 | ED Respiratory ---
General Chief Complaint: Respiratory Problems Stated Complaint: SOB/BODY ACHES Source: patient Exam Limitations: no limitations History of Present Illness Date Seen by Provider: Feb 10, 2021 Time Seen by Provider: 16:34 Initial Comments The patient presents ER by private conveyance from home with chief complaint that this afternoon she started having an acute onset of shortness of air even while at rest. Worse with exertion. No chest pain just some generalized body aches. No fevers nausea vomiting diarrhea. She is not a smoker. She does have a history of COPD but does not rely on supplemental O2 at baseline. She says she recently on Saturday, 3 days ago was increased on her Cardizem from [address] Celestin. She is a patient of Dr. ANDERSON's for primary care. She states that her last week was noted to have atrial fibrillation and that is why Dr. Celestin increased her Cardizem. She is on Pradaxa. She is not having chest pain and has no prior history of pulmonary embolisms. No swelling in her legs or hands. No gain in weight. She does however endorse orthopnea starting t . Patient endorses having received an influenza vaccine beginning of December. Moderna COVID-19 vaccines and June x2 and a booster shot 1 week ago. Allergies and Home Medications Allergies Coded Allergies: Penicillins (Verified Allergy, Unknown, 12/16/06) ciprofloxacin (Verified Allergy, Unknown, 02/16/08) morphine (Verified Allergy, Unknown, 12/16/06) digoxin (Verified Adverse Reaction, Unknown, HALLUCINATIONS., 01/14/18) Patient Home Medication List Home Medication List Reviewed: Yes Calcium Carbonate/Vitamin D3 (Calcium + Vitamin D Tablet) 1 Each Tablet, 1 EACH PO DAILY, (Reported) Entered as Reported by: DARSHANA MURILLO on 07/03/20 1423 Dabigatran Etexilate Mesylate (Pradaxa) 150 Mg Capsule, 150 MG PO BID WITH MEALS, (Reported) Entered as Reported by: JOHN HERNANDEZ on 08/19/15 1357 Diltiazem HCl (Diltiazem 24Hr Cd) 120 Mg Cap.er.24h, 120 MG PO DAILY Prescribed by: MAHSA IVERSON on 10/15/20 1218 Ferrous Sulfate (Ferrous Sulfate) 15 Mg/1 Ml Drops, 2.5 ML PO Q72H, (Reported) Entered as Reported by: ZENAIDA WORLEY on 08/11/18 1555 Fish Oil/Dha/Epa (Fish Oil 1,200 mg Fish Oil) 1 Each Capsule, 1,200 MG PO BID, (Reported) Entered as Reported by: ZENAIDA WORLEY on 08/11/18 1555 Leflunomide (Leflunomide) 20 Mg Tablet, 20 MG PO DAILY, (Reported) Entered as Reported by: JOHN HERNANDEZ on 08/19/15 1357 Magnesium Oxide (Magnesium) 250 Mg Tablet, 250 MG PO DAILY, (Reported) Entered as Reported by: ZENAIDA WORLEY on 08/11/18 1555 Metoprolol Tartrate (Metoprolol Tartrate) 25 Mg Tablet, 25 MG PO BID Prescribed by: JIN ANDERSON on 07/05/20 1843 Nitrofurantoin Macrocrystal (Nitrofurantoin) 100 Mg Capsule, 100 MG PO BID Prescribed by: MAHSA IVERSON on 10/15/20 1218 Propafenone HCl (Propafenone HCl) 150 Mg Tablet, 150 MG PO Q8HR Prescribed by: JIN ANDERSON on 08/26/20 1031 Simvastatin (Simvastatin) 10 Mg Tablet, 10 MG PO HS, (Reported) Entered as Reported by: JOHN HERNANDEZ on 08/19/15 1357 Review of Systems Review of Systems Constitutional: No chills, No diaphoresis EENTM: No ear discharge, No ear pain Respiratory: No cough; dyspnea on exertion, orthopnea, short of breath Cardiovascular: No chest pain Gastrointestinal: No abdominal pain, No constipation, No diarrhea, No nausea, No vomiting Genitourinary: No discharge, No dysuria Musculoskeletal: No back pain, No joint pain Skin: No pruritus, No rash Psychiatric/Neurological: Denies Anxiety, Denies Depressed All Other Systems Reviewed Negative Unless Noted: Yes Past Uieooia-Jukkkf-Qfqhju Hx Patient Social History Tobacco Use?: No Use of E-Cig and/or Vaping dev: No Substance use?: No Alcohol Use?: No Immunizations Up To Date Tetanus Booster (TDap): Unknown PED Vaccines UTD: Yes Seasonal Allergies Seasonal Allergies: No Past Medical History Surgeries: Yes (BILAT KNEE SURGERY;CYSTOCOELE;HYST/BSO;BLADDER SLING;CARDIAC CATH-NO INTERV) Bladder Surgery, Cardiac, Gallbladder, Hysterectomy, Oophorectomy, Orthopedic, Tubal Ligation Respiratory: Yes Chronic Bronchitis, COPD Currently Using CPAP: No Currently Using BIPAP: No Cardiac: Yes Atrial Fibrillation, Hypertension Neurological: Yes Headaches /Migraines 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 Disorders: No Female 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 Disorders: Denies 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 0.0oz. 65.404080wh; 23.00 BMI Method:Stated General Appearance: WD/WN, moderate distress Eyes: Bilateral Eye Normal Inspection, Bilateral Eye PERRL, Bilateral Eye EOMI HEENT: PERRL/EOMI, normal ENT inspection, TMs normal, pharynx normal Neck: non-tender, full range of motion, supple, normal inspection Respiratory: lungs clear, normal breath sounds, respiratory distress (Oxygen saturations 89% on room air with labored, 30 breaths/min after transferring to the bed.), decreased breath sounds Cardiovascular: normal peripheral pulses, regular rate, rhythm Gastrointestinal: non tender, soft Neurologic/Psychiatric: alert, normal mood/affect, oriented x 3 Skin: normal color, warm/dry Focused Exam Sepsis Stage: Sepsis Possible Source: Pulmonary Lactate Level 02/10/21 16:50: Lactic Acid Level 1.13 Time of Focused Exam: 18:02 Respiratory: Lungs Clear, Normal Breath Sounds, No Accessory Muscle Use, Respiratory Distress (Oxygen saturations 98% on 3 L.) Cardiovascular: Regular Rate, Rhythm, Normal Peripheral Pulses Capillary Refill: Less Than 3 Seconds Peripheral Pulses: 2+ Dorsalis Pedis (R), 2+ Left Dors-Pedis (L) Skin: normal color, warm/dry Lactic Acid Level Laboratory Tests Test 02/10/21 16:50 Lactic Acid Level 1.13 MMOL/L (0.50-2.00) Within 3hrs of presentation: Admin fluids (1500 cc greater than 20 mL/kg), Admin ABX, Blood cultures prior to ABX's, Focus exam, Lactate level Progress/Results/Core Measures Suspected Sepsis SIRS Temperature: Pulse: Respiratory Rate: Laboratory Tests 02/10/21 16:50: White Blood Count 15.0H Blood Pressure / Mean: 02/10/21 16:50: Lactic Acid Level 1.13 Laboratory Tests 02/10/21 16:50: Creatinine 1.35H, INR Comment 2.0H, Platelet Count 266, Total Bilirubin 0.5 Results/Orders Lab Results Laboratory Tests Test 02/10/21 16:40 02/10/21 16:50 02/10/21 16:55 Range/Units Blood Gas Puncture Site L RADIAL Blood Gas Patient Temperature 37.0 Arterial Blood pH 7.42 7.37-7.43 Arterial Blood Partial Pressure CO2 34 L 35-45 MMHG Arterial Blood Partial Pressure O2 74 L 79-93 MMHG Arterial Blood HCO3 22 L 23-27 MMOL/L Arterial Blood Total CO2 22.7 21.0-31.0 MMOL/L Arterial Blood Oxygen Saturation 94 94-100 % Arterial Blood Base Excess -2.2 -2.5-2.5 MMOL/L Earl Test YES-POS Blood Gas Ventilator Setting NO Blood Gas Inspired Oxygen 2 L White Blood Count 15.0 H 4.3-11.0 10^3/uL Red Blood Count 4.21 3.80-5.11 10^6/uL Hemoglobin 12.9 11.5-16.0 g/dL Hematocrit 40 35-52 % Mean Corpuscular Volume 94 80-99 fL Mean Corpuscular Hemoglobin 31 25-34 pg Mean Corpuscular Hemoglobin Concent 33 32-36 g/dL Red Cell Distribution Width 14.3 10.0-14.5 % Platelet Count 266 130-400 10^3/uL Mean Platelet Volume 9.0 9.0-12.2 fL Immature Granulocyte % (Auto) 1 % Neutrophils (%) (Auto) 79 H 42-75 % Lymphocytes (%) (Auto) 9 L 12-44 % Monocytes (%) (Auto) 10 0-12 % Eosinophils (%) (Auto) 1 0-10 % Basophils (%) (Auto) 1 0-10 % Neutrophils # (Auto) 11.9 H 1.8-7.8 10^3/uL Lymphocytes # (Auto) 1.3 1.0-4.0 10^3/uL Monocytes # (Auto) 1.5 H 0.0-1.0 10^3/uL Eosinophils # (Auto) 0.1 0.0-0.3 10^3/uL Basophils # (Auto) 0.1 0.0-0.1 10^3/uL Immature Granulocyte # (Auto) 0.1 0.0-0.1 10^3/uL Neutrophils % (Manual) 84 % Lymphocytes % (Manual) 5 % Monocytes % (Manual) 8 % Eosinophils % (Manual) 2 % Basophils % (Manual) 1 % Blood Morphology Comment NORMAL Prothrombin Time 23.2 H 12.2-14.7 SEC INR Comment 2.0 H 0.8-1.4 Activated Partial Thromboplast Time 56 H 24-35 SEC D-Dimer <= 0.27 0.00-0.49 UG/ML Sodium Level 135 135-145 MMOL/L Potassium Level 4.7 3.6-5.0 MMOL/L Chloride Level 102 98-107 MMOL/L Carbon Dioxide Level 22 21-32 MMOL/L Anion Gap 11 5-14 MMOL/L Blood Urea Nitrogen 26 H 7-18 MG/DL Creatinine 1.35 H 0.60-1.30 MG/DL Estimat Glomerular Filtration Rate 37 BUN/Creatinine Ratio 19 Glucose Level 119 H 70-105 MG/DL Lactic Acid Level 1.13 0.50-2.00 MMOL/L Calcium Level 9.1 8.5-10.1 MG/DL Corrected Calcium 9.3 8.5-10.1 MG/DL Total Bilirubin 0.5 0.1-1.0 MG/DL Aspartate Amino Transf (AST/SGOT) 26 5-34 U/L Alanine Aminotransferase (ALT/SGPT) 40 0-55 U/L Alkaline Phosphatase 75 40-136 U/L Troponin I 0.043 H <0.028 NG/ML C-Reactive Protein High Sensitivity 0.63 H 0.00-0.50 MG/DL B-Type Natriuretic Peptide 244.6 H <100.0 PG/ML Total Protein 6.4 6.4-8.2 GM/DL Albumin 3.8 3.2-4.5 GM/DL Procalcitonin 0.03 <0.10 NG/ML Influenza Type A (RT-PCR) Not Detected Not Detecte Influenza Type B (RT-PCR) Not Detected Not Detecte SARS-CoV-2 RNA (RT-PCR) Not Detected Not Detecte My Orders Orders - YOBANYFELIPE Arterial Blood Gas (02/10/21 16:40) Covid 19 Inhouse Test (02/10/21 16:43) Influenza A And B By Pcr (02/10/21 16:43) Cbc With Automated Diff (02/10/21 16:43) Comprehensive Metabolic Panel (02/10/21 16:43) Hs C Reactive Protein (02/10/21 16:43) Procalcitonin (Pct) (02/10/21 16:43) Fibrin Degradation Products (02/10/21 16:43) Protime With Inr (02/10/21 16:43) Partial Thromboplastin Time (02/10/21 16:43) Troponin I (02/10/21 16:43) Ekg Tracing (02/10/21 16:43) Continuous Ekg Monitoring (02/10/21 16:43) Chest 1 View, Ap/Pa Only (02/10/21 16:47) O2 (02/10/21 16:47) Ed Iv/Invasive Line Start (02/10/21 16:47) Ns Iv 500 Ml (Sodium Chloride 0.9%) (02/10/21 17:00) BNP (02/10/21 16:47) Manual Differential (02/10/21 16:50) Sputum Culture (02/10/21 17:16) Urinalysis (02/10/21 17:16) Urine Culture (02/10/21 17:16) Vital Signs Adult Sepsis Patie Q15M (02/10/21 17:16) Remove Rings In Anticipation O (02/10/21 17:16) Lactic Acid Analyzer (02/10/21 17:16) Lactated Ringers (Lr 1000 Ml Iv Solution (02/10/21 17:30) Ceftriaxone (Rocephin) (02/10/21 17:30) Azithromycin Injection (Zithromax Inject (02/10/21 17:30) Blood Culture (02/10/21 17:54) Lactic Acid Analyzer (02/10/21 17:54) Medications Given in ED Current Medications Medications Dose Ordered Sig/Mable Route Start Time Stop Time Status Last Admin Dose Admin Sodium Chloride 500 ml @ 0 mls/hr Q0M ONCE IV 02/10/21 17:00 02/10/21 17:01 DC 02/10/21 16:59 0 MLS/HR Vital Signs/I&O 02/10/21 02/10/21 02/10/21 16:33 16:33 16:35 Temp 37.0 Pulse 62 Resp 30 B/P (MAP) 170/89 (116) Pulse Ox 96 96 O2 Delivery Nasal Cannula Nasal Cannula Nasal Cannula O2 Flow Rate 2.00 2.00 2.00 Capillary Refill : Progress Note #1: Time: 16:57 Progress Note Taking Pradaxa would make it much less likely for her to have a pulmonary embolism. No pneumonia or viral atypical pneumonia are possible. We will swab her for Covid and influenza check some labs get some blood cultures. Because of her Cardizem her heart rates in the 60s and regular. We will get an EKG tropo erich BNP and chest x-ray. 500 cc of IV fluids bolus Progress Note #2: Time: 17:47 Progress Note BNP is near baseline of [id number]. Troponin is marginally elevated likely due to her relative hypoxemia. ABG shows a relative hypoxemia with a marginal respiratory alkalosis. She is satting in the low to mid 90s on 2 L. We will bump her up to 3 L. ECG Initial ECG Impression Date: Feb 10, 2021 Initial ECG Impression Time: 16:55 Initial ECG Rate: 63 Initial ECG Rhythm: Normal Sinus Initial ECG Intervals: QT (476) Initial ECG Impression: Normal, Nonspecific Changes Initial ECG Comparisson: Unchanged Comment Sinus rhythm with a right bundle branch block. Borderline prolonged QTC of [address] changes Diagnostic Imaging Diagonstic Imaging: Xray Plain Films/CT/US/NM/MRI: chest Comments [facility] [place], [place] NAME: RENATE REYES I [facility] REC#: [id number] PT STATUS: REG ER : 1930 PHYSICIAN: FELIPE HAYWOOD MD ADMIT DATE: 02/10/21/ER Draft Date of Exam:02/10/21 CHEST 1 VIEW, AP/PA ONLY INDICATION: Dyspnea. EXAMINATION: AP view of the chest was obtained. COMPARISON: Study of 10/15/2020. FINDINGS: There is cardiomegaly and pulmonary venous congestion with interstitial density likely due to edema. There is also blunting of both costophrenic sulci. IMPRESSION: Findings are compatible with congestive heart failure with interstitial edema and bilateral pleural fluid. Radiographic follow-up would be useful to document clearing. Dictated on workstation # [id number] Dict: 02/10/211745 Trans: 02/10/211748 PJE [id number] Interpreted by: OANH CANAS MD Electronically signed by: Reviewed: Reviewed by Me Departure Communication (Admissions) Time/Spoke to Admitting Phy: 18:00 Discussed the case with Dr. Marcio Ramos and he agrees to admit the patient to the floor for oxygen, Rocephin and azithromycin. Impression Primary Impression: Acute hypoxemic respiratory failure Additional Impressions: Pneumonia Qualified Codes: J18.9 - Pneumonia, unspecified organism Sepsis Qualified Codes: A41.9 - Sepsis, unspecified organism; R65.20 - Severe se psis without septic shock; J96.01 - Acute respiratory failure with hypoxia Disposition: ADMITTED INPATIENT Condition: Stable Admissions Decision to Admit Reason: Admit from ER (General) Decision to Admit/Date: Feb 10, 2021 Time/Decision to Admit Time: 17:45 Departure-Patient Inst. Referrals: JIN ANDERSON MD (PCP/Family) Primary Care Physician FELIPE HAYWOOD Feb 10, 2021 16:53
[2021-02-10 17:00] LABS: BASOPHILS # (AUTO) 0.1 10^3/uL (0.0-0.1); BASOPHILS % (AUTO) 1 % (0-10); EOSINOPHILS # (AUTO) 0.1 10^3/uL (0.0-0.3); EOSINOPHILS % (AUTO) 1 % (0-10); HEMATOCRIT 40 % (35-52); HEMOGLOBIN 12.9 g/dL (11.5-16.0); LYMPHOCYTES # (AUTO) 1.3 10^3/uL (1.0-4.0); LYMPHOCYTES % (AUTO) 9 % (12-44); MEAN CORPUSCULAR HEMOGLOBIN 31 pg (25-34); MEAN CORPUSCULAR HGB CONC 33 g/dL (32-36); MEAN CORPUSCULAR VOLUME 94 fL (80-99); MONOCYTES # (AUTO) 1.5 10^3/uL (0.0-1.0); MONOCYTES % (AUTO) 10 % (0-12); NEUTROPHILS # (AUTO) 11.9 10^3/uL (1.8-7.8); NEUTROPHILS % (AUTO) 79 % (42-75); PLATELET COUNT 266 10^3/uL (130-400)
[2021-02-10] MEDS ORDERED: NS IV 500 ML 500 ML IV ONE (17:00)
[2021-02-10 17:18] LABS: BASOPHILS % (MANUAL) 1 %; EOSINOPHILS % (MANUAL) 2 %; LYMPHOCYTES % (MANUAL) 5 %; MONOCYTES % (MANUAL) 8 %; NEUTROPHILS % (MANUAL) 84 %; RBC MORPH NORMAL
[2021-02-10 17:19] LABS: ALBUMIN 3.8 GM/DL (3.2-4.5); BILIRUBIN,TOTAL 0.5 MG/DL (0.1-1.0); CALCIUM 9.1 MG/DL (8.5-10.1); CREATININE SERUM 1.35 MG/DL (0.60-1.30); POTASSIUM 4.7 MMOL/L (3.6-5.0); TOTAL PROTEIN 6.4 GM/DL (6.4-8.2)
[2021-02-10 17:23] LABS: FIBRIN DEGRADATION PRODUCTS <= 0.27 UG/ML (0.00-0.49); PARTIAL THROMBOPLASTIN TIME 56 SEC (24-35); PROTHROMBIN TIME PATIENT 23.2 SEC (12.2-14.7)
[2021-02-10] MEDS ORDERED: AZITHROMYCIN INJECTION 500 MG in NS (IVPB) 250 ML IV ONE (17:30)
[2021-02-10] MEDS ORDERED: cefTRIAXone 1,000 MG in WATER (STERILE) FOR INJECTION 10 ML IV ONE (17:30)
[2021-02-10] MEDS ORDERED: LACTATED RINGERS 1,000 ML IV ONE (17:30)
--- NOTE | 2021-02-10 17:49 | Diagnostic Imaging Report ---
INDICATION: Dyspnea. EXAMINATION: AP view of the chest was obtained. COMPARISON: Study of 10/15/2020. FINDINGS: There is cardiomegaly and pulmonary venous congestion with interstitial density likely due to edema. There is also blunting of both costophrenic sulci. IMPRESSION: Findings are compatible with congestive heart failure with interstitial edema and bilateral pleural fluid. Radiographic follow-up would be useful to document clearing. Dictated by: Dictated on workstation # [id number]
[2021-02-10 18:15] LABS: BILIRUBIN,URINE NEGATIVE (NEGATIVE); CLARITY,URINE SL CLOUDY; COLOR,URINE YELLOW; GLUCOSE, URINE (UA) NEGATIVE (NEGATIVE); KETONES,URINE NEGATIVE (NEGATIVE); LEUKOCYTE ESTERASE ,URINE NEGATIVE (NEGATIVE); NITRITE,URINE NEGATIVE (NEGATIVE); PROTEIN,URINE TRACE (NEGATIVE)
[2021-02-10 18:28] LABS: BACTERIA,URINE MODERATE /HPF; WBC,URINE 0-2 /HPF
[2021-02-10 20:03] VITALS: BP 146/76
[2021-02-10] MEDS ORDERED: ONDANSETRON 4 MG/2 ML (SDV) Z0FRAN IV PRN (20:15)
[2021-02-10] MEDS ORDERED: LACTATED RINGERS 1,000 ML IV SCH ×2 (20:15→22:00)
[2021-02-10] MEDS ORDERED: ACETAMINOPHEN 325 MG TABLET PO PRN (20:15)
[2021-02-10 20:18] VITALS: BP 170/89
[2021-02-10] MEDS ORDERED: RT-ALBUTEROL SULF 2.5 MG/3 ML PRE-MIX VIAL INH PRN (20:30)
[2021-02-10] MEDS: PROPAFENONE 150 MG (RYTHMOL) TABLET PO SCH (22:22)
[2021-02-10] MEDS: SIMvastatin 10 MG (ZOCOR) TAB PO SCH (22:22)
[2021-02-10] MEDS: DABIGATRAN 75 MG (PRADAXA) CAPSULE PO SCH (22:22)
[2021-02-11] VITALS (8 sets, daily range): BP systolic 110–131; BP diastolic 61–82
[2021-02-11 05:43] LABS: BASOPHILS % (AUTO) 0 % (0-10); EOSINOPHILS % (AUTO) 0 % (0-10); HEMATOCRIT 36 % (35-52); HEMOGLOBIN 11.6 g/dL (11.5-16.0); LYMPHOCYTES # (AUTO) 0.4 10^3/uL (1.0-4.0); LYMPHOCYTES % (AUTO) 4 % (12-44); MEAN CORPUSCULAR HEMOGLOBIN 30 pg (25-34); MEAN CORPUSCULAR HGB CONC 32 g/dL (32-36); MEAN CORPUSCULAR VOLUME 94 fL (80-99); MONOCYTES # (AUTO) 0.1 10^3/uL (0.0-1.0); MONOCYTES % (AUTO) 1 % (0-12); NEUTROPHILS # (AUTO) 8.5 10^3/uL (1.8-7.8); NEUTROPHILS % (AUTO) 94 % (42-75); PLATELET COUNT 188 10^3/uL (130-400); WHITE BLOOD COUNT 9.1 10^3/uL (4.3-11.0)
[2021-02-11] MEDS ORDERED: CALC600T91 PO (05:49)
[2021-02-11 06:02] LABS: CALCIUM 8.5 MG/DL (8.5-10.1); CREATININE SERUM 0.91 MG/DL (0.60-1.30); POTASSIUM 4.4 MMOL/L (3.6-5.0)
[2021-02-11] MEDS: PROPAFENONE 150 MG (RYTHMOL) TABLET PO SCH ×3 (06:51→22:16)
--- NOTE | 2021-02-11 06:51 | Diagnostic Imaging Report ---
Indication: Lower respiratory infection Portable chest 5:45 AM There is cardiomegaly. Pulmonary vascularity is normal. There is consolidation at both lung bases. There is a loop recorder in the left lower chest. IMPRESSION: Cardiomegaly. There has been improvement of the pulmonary venous congestion compared to previous day. There continues to be some bibasilar consolidation which is likely due to atelectasis. There is no appreciable effusion or pneumothorax. Dictated by: Dictated on workstation # [id number]
--- NOTE | 2021-02-11 07:35 | History & Physical ---
History of Present Illness History of Present Illness Reason for visit/HPI 89 yo F admitted for acute hypoxic respiratory failure attributed to possible pneumonia and congestive heart failure. Patient does have history of atrial fibrillation and cardioverted 4x with Dr. Celestin. She is not currently in atrial fibrillation. She reports this started yesterday after PT that she started earlier in the week for left rib pain. The physical therapy has been working with her left rib and sternum as well and a spinal massage that patient really enjoys. She also recently cleaned the garage and shook out/cleaned a really dirty rug/carpet that she is sure she breathed in a lot of particles. She was started on rocephin and azithromycin for pneumonia coverage. IVF were stopped last evening as she sounded a little more crackly/wet by nursing staff and her chest xray supports fluid on the lungs likely attributed to CHF. I did give her 10mg dexamethasone iv x1 as she reports history of mild COPD that is untreated. No overnight events. She feels nearly 100% better this AM. She is not oxygen currently. Doing well with RT and breathing treatments. She is doing IS and got 1000ml with goal of above 2000ml. Date of Admission Feb 10, 2021 at 18:04 Date Seen by a Provider: Feb 11, 2021 Time Seen by a Provider: 08:28 I consulted on this patient on 02/11/21 07:30 Attending Physician Marcio Rabago MD Admitting Physician Jin Monk MD Consult Allergies and Home Medications Allergies Coded Allergies: Penicillins (Verified Allergy, Unknown, 12/16/06) ciprofloxacin (Verified Allergy, Unknown, 02/16/08) morphine (Verified Allergy, Unknown, 12/16/06) digoxin (Verified Adverse Reaction, Unknown, HALLUCINATIONS., 01/14/18) Patient Home Medication List Home Medication List Reviewed: Yes Azithromycin (Azithromycin) 250 Mg Tablet, 250 MG PO DAILY Prescribed by: MARCIO RABAGO on 02/12/21 1004 Calcium Carbonate (Calcium) 600 Mg Tablet, 1,200 MG PO DAILY, (Reported) Entered as Reported by: GEENA CANO on 02/11/21 0533 Last Action: Reviewed Calcium Carbonate/Vitamin D3 (Calcium + Vitamin D Tablet) 1 Each Tablet, 1 EACH PO DAILY, (Reported) Entered as Reported by: DARSHANA MURILLO on 07/03/20 1423 Cefdinir (Cefdinir) 300 Mg Capsule, 300 MG PO BID Prescribed by: MARCIO RABAGO on 02/12/21 1004 Dabigatran Etexilate Mesylate (Pradaxa) 150 Mg Capsule, 150 MG PO BID WITH MEALS, (Reported) Entered as Reported by: JOHN HERNANDEZ on 08/19/15 1357 Last Action: Reviewed Diltiazem HCl (Diltiazem 24Hr Cd) 120 Mg Cap.er.24h, 120 MG PO DAILY Prescribed by: MAHSA IVERSON on 10/15/20 1218 Last Action: Reviewed Ferrous Sulfate (Ferrous Sulfate) 15 Mg/1 Ml Drops, 2.5 ML PO Q72H, (Reported) Entered as Reported by: ZENAIDA WORLEY on 08/11/18 155 Fish Oil/Dha/Epa (Fish Oil 1,200 mg Fish Oil) 1 Each Capsule, 1,200 MG PO DAILY, (Reported) Entered as Reported by: ZENAIDA WORLEY on 08/11/18 1555 Last Action: Edited Leflunomide (Leflunomide) 20 Mg Tablet, 20 MG PO DAILY, (Reported) Entered as Reported by: JOHN HERNANDEZ on 08/19/15 135 Last Action: Reviewed Magnesium Oxide (Magnesium) 250 Mg Tablet, 250 MG PO DAILY, (Reported) Entered as Reported by: ZENAIDA WORLEY on 08/11/18 155 Last Action: Reviewed Metoprolol Tartrate (Metoprolol Tartrate) 25 Mg Tablet, 25 MG PO BID Prescribed by: JIN MONK on 07/05/20 1843 Last Action: Reviewed Nitrofurantoin Macrocrystal (Nitrofurantoin) 100 Mg Capsule, 100 MG PO BID Prescribed by: MAHSA IVERSON on 10/15/20 1218 Propafenone HCl (Propafenone HCl) 150 Mg Tablet, 150 MG PO Q8HR Prescribed by: JIN MONK on 08/26/20 1031 Last Action: Continued Simvastatin (Simvastatin) 10 Mg Tablet, 10 MG PO HS, (Reported) Entered as Reported by: JOHN HERNANDEZ on 08/19/15 135 Last Action: Continued Past Yhjddpj-Opctzw-Kugaiv Hx Patient Social History Tobacco Use?: No Use of E-Cig and/or Vaping dev: No Substance use?: No Alcohol Use?: No Pt feels they are or have been: No Immunizations Up To Date Date of Influenza Vaccine: Dec 11, 2020 First/Initial COVID19 Vaccinat: 05/29/2020 Second COVID19 Vaccination Anupam: 06/23/2020 Tetanus Booster (TDap): Unknown PED Vaccines UTD: Yes Date of Pneumonia Vaccine: Jul 10, 2018 Seasonal Allergies Seasonal Allergies: No Current Status Advance Directives: No Communicates: Verbally Primary Language: Cameroonian Preferred Spoken Language: Cameroonian Is interpretation needed?: No Sensory deficits: Vision impairment Implanted or Applied Medical D: None Past Medical History Surgeries: Bladder Surgery, Cardiac, Gallbladder, Hysterectomy, Oophorectomy, Orthopedic, Tubal Ligation Chronic Bronchitis, COPD Currently Using CPAP: No Currently Using BIPAP: No Atrial Fibrillation, Hypertension 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 Sexually Transmitted Disease: No HIV/AIDS: No Renal Failure Gastroesophageal Reflux, Diverticulosis Arthritis, Rheumatoid Arthritis Cataract Loss of Vision: Denies Hearing Impairment: Denies Blood Disorders: Yes (FACTOR 5 LEIDEN) Family Medical History FACTOR V LEIDEN 19 FATHER G8 BROTHER Heart Disease, Hypertension Review of Systems Review of Systems General: No Chills, No Night Sweats; Fatigue HEENT: No Head Aches, No Visual Changes Pulmonary: Dyspnea; No Cough Cardiovascular: No: Chest Pain, Palpitations Gastrointestinal: No: Nausea, Vomiting, Abdominal Pain Genitourinary: No Dysuria Musculoskeletal: No: neck pain, shoulder pain Neurological: No: Weakness All Other Systems Reviewed All Other Systems Reviewed: Yes Physical Exam Vital Signs Vital Signs - First Documented 02/10/21 20:18 FiO2 21 Capillary Refill : Less Than 3 Seconds Vital Signs Date Time Temp Pulse Resp B/P (MAP) Pulse Ox O2 Delivery O2 Flow Rate FiO2 02/12/21 10:23 98 Room Air 02/12/21 08:00 35.7 67 18 134/60 (84) 97 Room Air 02/12/21 08:00 Room Air 02/12/21 07:20 98 Room Air 02/12/21 07:00 63 02/12/21 03:50 36.1 69 17 131/77 (95) 97 Room Air 02/12/21 02:46 98 Room Air 02/12/21 01:00 60 02/12/21 00:18 36.3 72 17 107/65 (79) 96 Room Air 02/11/21 22:04 98 Room Air 02/11/21 20:00 Room Air 02/11/21 19:12 97 Room Air 02/11/21 19:10 36.8 69 18 120/61 (80) 97 Room Air 02/11/21 19:00 72 02/11/21 15:31 36.8 65 18 125/77 (93) 95 Room Air 02/11/21 14:56 98 Room Air 02/11/21 12:46 69 02/11/21 12:00 36.3 71 20 110/65 (80) 96 Room Air I & O 02/12/21 07:00 Intake Total 1410 ml Balance 1410 ml Height, Weight, BMI Height: 5'4.00" Weight: 145lbs. 0.0oz. 65.830538iv; 24.01 BMI Method:Stated General Appearance: No Apparent Distress; No Mild Distress HEENT: PERRL/EOMI Neck: Non Tender, Supple Respiratory: Chest Non Tender, Crackles (bases), Other (a little delayed expiratory phase) Cardiovascular: Regular Rate, Rhythm (few PVCs noted.), No Edema Gastrointestinal: Non Tender, Soft Rectal: Deferred Back: No CVA Tenderness Extremity: Non Tender, No Calf Tenderness Neurologic/Psychiatric: Alert, Oriented x3 Skin: Warm/Dry Assessment/Plan Assessment/Plan Admission Dx acute hypoxic respiratory failure pneumonia mild acute diastolic congestive heart failure Admission Status: Inpatient Order (span 2 midnights) Reason for Inpatient Admission: acute hypoxic respiratory failure pneumonia mild acute diastolic congestive heart failure -will take over 2 midnights to stabilize and treat patient before she is ready for a safe return home. Assessment and Plan -RT consulted. Supportive care. -IVF stopped as she started sounding a little crackly. Pradaxa dosage was decreased on admission due to decrease renal function but her renal function has improved so may go back up to home dosage closer to discharge if renal function remains normal. continue rocephin, azithromycin - will likely discharge to home tomorrow if on room air and continuing to feel better. Will discharge with azithromycin (has antiinflammatory properties) and stop rocephin. Avoid other QT prolonging agents though. -suspect her acute hypoxic respiratory failure is improving with stopping ivf- and the dexamethasone helped with her COPD and pneumonitis. -Cr back to normal. Dispo: as above. Problems: (1) Acute hypoxemic respiratory failure (2) Pneumonia Qualifiers: Qualified Codes: J18.9 - Pneumonia, unspecified organism Assessment & Plan: maybe just pneumonitis from exposure (cleaning garage, rug) (3) Acute renal failure (4) Atrial fibrillation (5) COPD (chronic obstructive pulmonary disease) (6) Acute diastolic (congestive) heart failure MARCIO RABAGO MD Feb 11, 2021 07:35
[2021-02-11] MEDS: RT-ALBUTEROL SULF 2.5 MG/3 ML PRE-MIX VIAL INH SCH ×5 (07:36→22:04)
[2021-02-11] MEDS ORDERED: DABIGATRAN 150 MG (PRADAXA) CAPSULE PO SCH (08:00)
[2021-02-11] MEDS: meTOprolol TARTRATE 25 MG (LOPRESSOR) TABLET PO SCH (08:10)
[2021-02-11] MEDS: DABIGATRAN 75 MG (PRADAXA) CAPSULE PO SCH ×2 (08:10→17:56)
[2021-02-11] MEDS: dilTIAZem120 MG (CARDIZEM CD) CAP PO SCH (08:10)
[2021-02-11] MEDS ORDERED: AZITHROMYCIN 500 MG/NS 250 ML IVPB IV SCH ×2 (17:00)
[2021-02-11] MEDS ORDERED: cefTRIAXone 1,000 MG/SWFI 10 ML IV PUSH IV SCH ×2 (17:00)
[2021-02-11] MEDS: SIMvastatin 10 MG (ZOCOR) TAB PO SCH (22:16)
[2021-02-12 00:18] VITALS: BP 107/65
[2021-02-12] MEDS: RT-ALBUTEROL SULF 2.5 MG/3 ML PRE-MIX VIAL INH SCH ×4 (02:46→10:20)
[2021-02-12 03:50] VITALS: BP 131/77
[2021-02-12] MEDS: PROPAFENONE 150 MG (RYTHMOL) TABLET PO SCH (06:11)
[2021-02-12 08:00] VITALS: BP 134/60
[2021-02-12] MEDS: meTOprolol TARTRATE 25 MG (LOPRESSOR) TABLET PO SCH (09:22)
[2021-02-12] MEDS: dilTIAZem120 MG (CARDIZEM CD) CAP PO SCH (09:23)
[2021-02-12] MEDS: DABIGATRAN 75 MG (PRADAXA) CAPSULE PO SCH (09:23)
[2021-02-12] MEDS ORDERED: CEFD300C3 PO (10:04)
[2021-02-12] MEDS ORDERED: AZIT250T12 PO (10:04)
--- NOTE | 2021-02-12 10:12 | Discharge Summary ---
Discharge Summary Hospital Course Problems/Dx: (1) Acute hypoxemic respiratory failure Status: Acute (2) Pneumonia Status: Acute Qualifiers: Qualified Codes: J18.9 - Pneumonia, unspecified organism (3) Acute renal failure Status: Resolved (4) Atrial fibrillation Status: Chronic Hospital Course Date of Admission: Feb 10, 2021 at 18:04 Admission Diagnosis : (1) Acute hypoxemic respiratory failure (2) Pneumonia Qualifiers: Qualified Codes: J18.9 - Pneumonia, unspecified organism Assessment & Plan: maybe just pneumonitis from exposure (cleaning garage, rug) (3) Acute renal failure (4) Atrial fibrillation Family Physician/Provider: Sarita Monk MD Date of Discharge: 02/12/21 Discharge Diagnosis: (1) Acute hypoxemic respiratory failure (2) Pneumonia Qualifiers: Qualified Codes: J18.9 - Pneumonia, unspecified organism Assessment & Plan: maybe just pneumonitis from exposure (cleaning garage, rug) (3) Acute renal failure- resolved (4) Atrial fibrillation Hospital Course: 89 yo F admitted for acute hypoxic respiratory failure attributed to possible pn eumonia and congestive heart failure. Patient does have history of atrial fibrillation and cardioverted 4x with Dr. Celestin. She is not currently in atrial fibrillation. She reports this started yesterday after PT that she started earlier in the week for left rib pain. The physical therapy has been working with her left rib and sternum as well and a spinal massage that patient really enjoys. She also recently cleaned the garage and shook out/cleaned a really dirty rug/carpet that she is sure she breathed in a lot of particles. She was started on rocephin and azithromycin for pneumonia coverage. IVF were stopped last evening as she sounded a little more crackly/wet by nursing staff and her chest xray supports fluid on the lungs likely attributed to CHF. I did give her 10mg dexamethasone iv x1 as she reports history of mild COPD that is untreated. No overnight events. She feels nearly 100% better this AM. She is not on oxygen currently. Doing well with RT and breathing treatments. She is doing IS and got 1000ml with goal of above 2000ml. Her oxygen was titrated down and she remained on room air during the day and overnight. She reports feeling much better. Her heart rhythm stayed NSR. Urine grew out proteus. She has no urinary symptoms and it is a soft call for UTI but since she is on cefdinir for pneumonia this should treat it as well. C/S pending. She was deemed stable for discharge 02/12/21. Labs and Pending Lab Test: Microbiology 02/10/21 Urine Culture - Preliminary, Resulted Proteus species 02/10/21 Blood Culture - Preliminary, Resulted No growth Home Meds Active Nitrofurantoin (Nitrofurantoin Macrocrystal) 100 Mg Capsule 100 Mg PO BID 3 Days Diltiazem 24Hr Cd (Diltiazem HCl) 120 Mg Cap.er.24h 120 Mg PO DAILY Propafenone HCl 150 Mg Tablet 150 Mg PO Q8HR Metoprolol Tartrate 25 Mg Tablet 25 Mg PO BID Reported Calcium (Calcium Carbonate) 600 Mg Tablet 1,200 Mg PO DAILY Calcium + Vitamin D Tablet (Calcium Carbonate/Vitamin D3) 1 Each Tablet 1 Each PO DAILY Fish Oil 1,200 mg Fish Oil (Fish Oil/Dha/Epa) 1 Each Capsule 1,200 Mg PO DAILY Ferrous Sulfate 15 Mg/1 Ml Drops 2.5 Ml PO Q72H Magnesium (Magnesium Oxide) 250 Mg Tablet 250 Mg PO DAILY Leflunomide 20 Mg Tablet 20 Mg PO DAILY Simvastatin 10 Mg Tablet 10 Mg PO HS Pradaxa (Dabigatran Etexilate Mesylate) 150 Mg Capsule 150 Mg PO BID WITH MEALS Assessment/Pt Instructions Treating for pneumonia- continue azithromycin for 3 more days and cefdinir for 5 more days. Your urine grew Proteus which is a bacteria that can cause a urinary tract infection. The cefdinir should cover but we will be waiting for those results. Follow up with Dr. Monk in 1-2 weeks. Discharge Planning: >30 minutes discharge planning Discharge Instructions Discharge Diet: No Restrictions, Regular Diet Activity as Tolerated: Yes Discharge Physical Examination Vital Signs Vital Signs Date Time Temp Pulse Resp B/P (MAP) Pulse Ox O2 Delivery O2 Flow Rate FiO2 02/12/21 08:00 35.7 67 18 134/60 (84) 97 Room Air 02/11/21 07:38 0.50 02/10/21 20:18 21 General Appearance: No Apparent Distress HEENT: PERRL/EOMI Respiratory: Chest Non Tender, Normal Breath Sounds, No Accessory Muscle Use, No Respiratory Distress, Crackles (bases) Cardiovascular: Regular Rate, Rhythm Gastrointestinal: Non Tender, Soft Extremity: Non Tender, No Calf Tenderness Skin: Normal Color, Warm/Dry Neurologic/Psychiatric: Alert, Oriented x3 Allergies: Coded Allergies: Penicillins (Verified Allergy, Unknown, 12/16/06) ciprofloxacin (Verified Allergy, Unknown, 02/16/08) morphine (Verified Allergy, Unknown, 12/16/06) digoxin (Verified Adverse Reaction, Unknown, HALLUCINATIONS., 01/14/18) Discharge Summary Date of Admission Feb 10, 2021 at 18:04 Date of Discharge Discharge Diagnosis (1) Acute hypoxemic respiratory failure Status: Acute (2) Pneumonia Status: Acute Assessment & Plan: maybe just pneumonitis from exposure (cleaning garage, rug) Qualifiers: Qualified Codes: J18.9 - Pneumonia, unspecified organism (3) Acute renal failure Status: Resolved (4) Atrial fibrillation Status: Chronic (5) COPD (chronic obstructive pulmonary disease) Status: Chronic (6) Acute diastolic (congestive) heart failure Status: Resolved MARIA D RABAGO MD Feb 12, 2021 10:09
[2021-02-12 10:55] VITALS: BP 134/60
--- NOTE | 2021-02-14 02:28 | Physician Query Clarification ---
PQ-Uncertain Diagnosis Admission/Discharge Admission Date: Feb 10, 2021 at 18:04 Discharge Date: Feb 12, 2021 at 11:05 MARIA D Herrera MD The medical record reflects the following clinical scenario: History/Risk Factors: 89 y/o female patient admitted with acute respiratory failure, pneumonia and acute diastolic heart failure, sepsis was documented in medical record. Clinical Findings: wbc-15/0, temp-35.7, pulse-67, BP- 130/60, anion gap-11, lactic acid- 1.13 Treatment: Azithromycin, Ceftriaxone IV. Question: Is Sepsis a clinically valid diagnosis? Sepsis was documented in the ER provider notes, 02/10 with no further documentation in the medical record. Please document a response in Progress Note or Discharge Summary. 1. Yes, clinically valid, condition resolved. 2. No, condition ruled out. 3. Other, with explanation of clinical findings. 4. Undetermined, no explanation for clinical findings. PHYSICIAN RESPONSE Diagnosis clinically valid: No, conditon ruled out Explanation of clincal finding not septic Please remember a lack of response to the above will prompt a phone page by [facility]/Coding staff. In responding to this query, please exercise your independent professional judgment. The purpose of this communication is to more accurately reflect the complexity of your patients condition. The fact that a question is asked does not imply that any particular answer is desired or expected. Thank you for your timely response to this clarification. Requestors name: [ ] Phone # [ ] THIS PHYSICIAN QUERY FORM IS A PERMANENT PART OF THE MEDICAL RECORD CHRIS THACKER Feb 14, 2021 02:28 MARIA D RABAGO MD Feb 16, 2021 08:37
== END 2021-02-12 11:05 | disposition home or self-care (01) | DRG 193 ==
LOC: EDUNIT# 16:26 → ER 16:28 → 4TH 18:04
PROVIDERS: ADMIT Family Medicine; ATTEND Family Medicine
DX: J18.9 Pneumonia, unspecified organism (principal); J96.01 Acute respiratory failure with hypoxia; I50.31 Acute diastolic (congestive) heart failure; J44.0 Chronic obstructive pulmonary disease with (acute) lower respiratory infection; N17.9 Acute kidney failure, unspecified; I48.20 Chronic atrial fibrillation, unspecified; D68.51 Activated protein C resistance; I11.0 Hypertensive heart disease with heart failure; Z20.822 Contact with and (suspected) exposure to COVID-19; G43.909 Migraine, unspecified, not intractable, without status migrainosus; K21.9 Gastro-esophageal reflux disease without esophagitis; K57.90 Diverticulosis of intestine, part unspecified, without perforation or abscess without bleeding; R07.81 Pleurodynia; I45.10 Unspecified right bundle-branch block; M06.9 Rheumatoid arthritis, unspecified; H26.9 Unspecified cataract; M19.91 Primary osteoarthritis, unspecified site; Z88.0 Allergy status to penicillin; Z88.1 Allergy status to other antibiotic agents; Z88.5 Allergy status to narcotic agent; Z88.8 Allergy status to other drugs, medicaments and biological substances; Z82.49 Family history of ischemic heart disease and other diseases of the circulatory system
CPT/HCPCS: 36415; 71045; 80048; 80053; 81000; 82805; 83605; 83880; 84145; 84484; 85007; 85025; 85027; 85379; 85610; 85730; 86141; 87040; 87088; 87636; 93005; 94640; 94664; 94760; 96361; 96365; 96375

== ENCOUNTER 2021-02-14 09:22 | Emergency (ER) | payer MEDICARE ==
[~2021-02-14] VITALS: Ht 162 cm; Wt 63.5 kg
[~2021-02-14 09:22] MED LIST changes: +AZIT250T12 PO; +CALC600T91 PO; +CEFD300C3 PO
--- NOTE | 2021-02-14 10:21 | ED GI ---
General Chief Complaint: Rect Problems Stated Complaint: RECTAL BLEEDING Nursing Triage Note: DIARRHEA STARTED ON SATURDAY NIGHT. HAS BEEN ON IV AND ORAL ANIBIOTIC WHILE IN HOSPITAL AND SINCE DISCHARGE ON SATURDAY MORNING. NOTED BRIGHT RED BLOOD IN STOOL YESTERDAY AND TODAY IS WORSE, "JUST RUNNING" AND ALONG WITH DIARRHEA. Source of Information: Patient, Family () Exam Limitations: No Limitations History of Present Illness Date Seen by Provider: Feb 14, 2021 Time Seen by Provider: 10:19 Initial Comments Patient is an 89-year-old female who presents to the emergency department today with a chief complaint of bloody stools. Patient states she was recently in the hospital over the weekend, treated for pneumonia, sent home it looks like on azithromycin and cefdinir. Patient states she started noticing a little blood in her stools yesterday and much more today. She denies significant abdominal cramping. She states it has been greater than 10 years she thinks since she had a colonoscopy. She is chronically anticoagulated on Pradaxa for history of intermittent atrial fibrillation. She denies any generalized weakness, fatigue or malaise. She is not short of breath or having chest pain. She denies any problems with urination. Patient describes that the stool is just "running out". All other review of systems reviewed and negative except as stated. Timing/Duration: 24 Hours Severity/Quality: Moderate Associated Symptoms: Denies Symptoms Allergies and Home Medications Allergies Coded Allergies: Penicillins (Verified Allergy, Unknown, 02/14/21) ciprofloxacin (Verified Allergy, Unknown, 02/14/21) morphine (Verified Allergy, Unknown, 02/14/21) digoxin (Verified Adverse Reaction, Unknown, HALLUCINATIONS., 02/14/21) Patient Home Medication List Home Medication List Reviewed: Yes Azithromycin (Azithromycin) 250 Mg Tablet, 250 MG PO DAILY Prescribed by: MARIA D RABAGO on 02/12/21 1004 Calcium Carbonate (Calcium) 600 Mg Tablet, 1,200 MG PO DAILY, (Reported) Entered as Reported by: GEENA CANO on 02/11/21 0589 Calcium Carbonate/Vitamin D3 (Calcium + Vitamin D Tablet) 1 Each Tablet, 1 EACH PO DAILY, (Reported) Entered as Reported by: DARSHANA MURILLO on 07/03/20 1423 Cefdinir (Cefdinir) 300 Mg Capsule, 300 MG PO BID Prescribed by: MARIA D RABAGO on 02/12/21 1004 Dabigatran Etexilate Mesylate (Pradaxa) 150 Mg Capsule, 150 MG PO BID WITH MEALS, (Reported) Entered as Reported by: JOHN HERNANDEZ on 08/19/15 1357 Diltiazem HCl (Diltiazem 24Hr Cd) 120 Mg Cap.er.24h, 120 MG PO DAILY Prescribed by: MAHSA IVERSON on 10/15/20 1218 Ferrous Sulfate (Ferrous Sulfate) 15 Mg/1 Ml Drops, 2.5 ML PO Q72H, (Reported) Entered as Reported by: ZENAIDA WORLEY on 08/11/18 1555 Fish Oil/Dha/Epa (Fish Oil 1,200 mg Fish Oil) 1 Each Capsule, 1,200 MG PO DAILY, (Reported) Entered as Reported by: ZENAIDA WORLEY on 08/11/18 1555 Leflunomide (Leflunomide) 20 Mg Tablet, 20 MG PO DAILY, (Reported) Entered as Reported by: JOHN HERNANDEZ on 08/19/15 1357 Magnesium Oxide (Magnesium) 250 Mg Tablet, 250 MG PO DAILY, (Reported) Entered as Reported by: ZENAIDA WORLEY on 08/11/18 1555 Metoprolol Tartrate (Metoprolol Tartrate) 25 Mg Tablet, 25 MG PO BID Prescribed by: JIN MONK on 07/05/20 1843 Metronidazole (Metronidazole) 500 Mg Tablet, 500 MG PO TID Prescribed by: LUIS DAVILA on 02/14/21 1120 Propafenone HCl (Propafenone HCl) 150 Mg Tablet, 150 MG PO Q8HR Prescribed by: JIN MONK on 08/26/20 1031 Simvastatin (Simvastatin) 10 Mg Tablet, 10 MG PO HS, (Reported) Entered as Reported by: JOHN HERNANDEZ on 08/19/15 1357 Discontinued Medications Nitrofurantoin Macrocrystal (Nitrofurantoin) 100 Mg Capsule, 100 MG PO BID Prescribed by: MAHSA IVERSON on 10/15/20 1218 Review of Systems Review of Systems Constitutional: see HPI EENTM: No Symptoms Reported Respiratory: No Symptoms Reported Cardiovascular: No Symptoms Reported Gastrointestinal: Blood Streaked Stools Genitourinary: No Symptoms Reported Musculoskeletal: no symptoms reported Skin: no symptoms reported Psychiatric/Neurological: No Symptoms Reported All Other Systems Reviewed Negative Unless Noted: Yes Past Oxfxikt-Yhwgcd-Nvmumh Hx Immunizations Up To Date Tetanus Booster (TDap): Unknown PED Vaccines UTD: Yes First/Initial COVID19 Vaccinat: 05/29/2020 Second COVID19 Vaccination Anupam: 06/23/2020 Third COVID19 Vaccination Date: JANUARY 2021 Seasonal Allergies Seasonal Allergies: No Past Medical History Surgery/Hospitalization HX: PMH: COPD, AFIB Surgeries: Yes (BILAT KNEE SURGERY;CYSTOCOELE;HYST/BSO;BLADDER SLING;CARDIAC CATH-NO INTERV) Bladder Surgery, Cardiac, Gallbladder, Hysterectomy, Oophorectomy, Orthopedic, Tubal Ligation Respiratory: Yes Chronic Bronchitis, COPD Currently Using CPAP: No Currently Using BIPAP: No Cardiac: Yes Atrial Fibrillation, Hypertension Neurological: Yes Headaches /Migraines 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 Disorders: No Female 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 Disorders: Denies 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 Sexually Transmitted Disease: No HIV/AIDS: No Genitourinary: No Renal Failure Gastrointestinal: Yes Gastroesophageal Reflux, Diverticulosis Musculoskeletal: Yes Arthritis, Rheumatoid Arthritis Endocrine: No HEENT: No Cataract Loss of Vision: Denies Hearing Impairment: Denies Cancer: No Psychosocial: No Integumentary: No Blood Disorders: Yes (FACTOR 5 LEIDEN) Family Medical History FACTOR V LEIDEN 19 FATHER G8 BROTHER Heart Disease, Hypertension Physical Exam Vital Signs Vital Signs - First Documented 02/14/21 02/14/21 09:40 11:49 Temp 36.1 Pulse 87 Resp 18 B/P (MAP) 146/97 (113) Pulse Ox 96 O2 Delivery Room Air Capillary Refill : Less Than 3 Seconds Height/Weight/BMI Height: 5'4.00" Weight: 145lbs. 0.0oz. 65.527762xz; 24.00 BMI Method:Stated General Appearance: WD/WN, no apparent distress HEENT: PERRL/EOMI, normal ENT inspection Neck: normal inspection Respiratory: lungs clear, normal breath sounds, no respiratory distress, no accessory muscle use Cardiovascular: irregularly irregular Gastrointestinal: normal bowel sounds, non tender, soft Genital/Rectal: heme positive stool, other (appears to be a little maroonish stool at the rectum; no gross blood on DEYVI; no thrombosed external hemorrhoids; possible internal hemorrhoid palpated at about the 3 o'clock position) Extremities: normal range of motion, non-tender, normal inspection Neurologic/Psychiatric: alert, normal mood/affect, oriented x 3 Skin: normal color, warm/dry Progress/Results/Core Measures Results/Orders Lab Results Laboratory Tests Test 02/14/21 09:45 Range/Units White Blood Count 9.4 4.3-11.0 10^3/uL Red Blood Count 4.13 3.80-5.11 10^6/uL Hemoglobin 12.5 11.5-16.0 g/dL Hematocrit 39 35-52 % Mean Corpuscular Volume 95 80-99 fL Mean Corpuscular Hemoglobin 30 25-34 pg Mean Corpuscular Hemoglobin Concent 32 32-36 g/dL Red Cell Distribution Width 14.6 H 10.0-14.5 % Platelet Count 265 130-400 10^3/uL Mean Platelet Volume 9.0 9.0-12.2 fL Immature Granulocyte % (Auto) 1 % Neutrophils (%) (Auto) 64 42-75 % Lymphocytes (%) (Auto) 22 12-44 % Monocytes (%) (Auto) 11 0-12 % Eosinophils (%) (Auto) 2 0-10 % Basophils (%) (Auto) 0 0-10 % Neutrophils # (Auto) 6.0 1.8-7.8 10^3/uL Lymphocytes # (Auto) 2.1 1.0-4.0 10^3/uL Monocytes # (Auto) 1.1 H 0.0-1.0 10^3/uL Eosinophils # (Auto) 0.2 0.0-0.3 10^3/uL Basophils # (Auto) 0.0 0.0-0.1 10^3/uL Immature Granulocyte # (Auto) 0.1 0.0-0.1 10^3/uL Prothrombin Time 19.9 H 12.2-14.7 SEC INR Comment 1.6 H 0.8-1.4 Activated Partial Thromboplast Time 45 H 24-35 SEC Sodium Level 138 135-145 MMOL/L Potassium Level 4.1 3.6-5.0 MMOL/L Chloride Level 107 98-107 MMOL/L Carbon Dioxide Level 20 L 21-32 MMOL/L Anion Gap 11 5-14 MMOL/L Blood Urea Nitrogen 20 H 7-18 MG/DL Creatinine 1.08 0.60-1.30 MG/DL Estimat Glomerular Filtration Rate 48 BUN/Creatinine Ratio 19 Glucose Level 134 H 70-105 MG/DL Calcium Level 8.6 8.5-10.1 MG/DL My Orders Orders - LUIS DAVILA MD Cbc With Automated Diff (02/14/21 10:18) Basic Metabolic Panel (02/14/21 10:18) Protime With Inr (02/14/21 10:18) Partial Thromboplastin Time (02/14/21 10:18) Ed Iv/Invasive Line Start (02/14/21 10:18) Fecal Occult Bedside (02/14/21 10:18) Isolation Central Supply Req (02/14/21 11:21) Vital Signs/I&O 02/14/21 02/14/21 09:40 11:49 Temp 36.1 Pulse 87 82 Resp 18 18 B/P (MAP) 146/97 (113) 130/91 Pulse Ox 96 97 O2 Delivery Room Air Blood Pressure Mean: 113 Progress Progress Note : Time: 11:14 Progress Note Discussed with Dr. Monk, she said that she would offer admission to the patient with IV fluids and IV Flagyl. She states that the patient wished to go home we could put her on oral Flagyl as long as we were able to obtain a stool sample. I discussed all of this with the patient and her , she would really like to go home she also has an appointment with her art preparator at 1 PM today. I will send a prescription for oral Flagyl 500 mg to her [facility]. Dr. Monk would like her to have a blood draw tomorrow in the office. She also scheduled her to be seen on the at 2:45 PM. Patient's vital signs continue to remain stable. She is relatively asymptomatic other than from the discomfort of having the repeated bowel movements. All questions are sought and answered. Departure Impression Primary Impression: GI bleed Qualified Codes: K92.2 - Gastrointestinal hemorrhage, unspecified Additional Impression: Chronic anticoagulation Disposition: 01 HOME, SELF-CARE Condition: Stable Departure-Patient Inst. Decision time for Depature: 11:15 Referrals: JIN MONK MD (PCP/Family) Primary Care Physician Patient Instructions: Gastrointestinal Bleeding Add. Discharge Instructions: Please drink plenty of fluids so that you stay well-hydrated. Take the Flagyl, 500 mg, 3 times daily. This is for treatment of presumed C. difficile colitis. Dr. MONK would like you to come by the office tomorrow to do a quick blood draw to check your blood count tomorrow. She has scheduled you for an appointment on February 20 at 245. Should you wish to be seen sooner you can call the office but she will be seen by one of her nurse practitioners. Please come back to the emergency room if you start to feel weak, short of breath, lightheaded or dizzy and especially if you have a passing out spell. Scripts Metronidazole (Metronidazole) 500 Mg Tablet 500 MG PO TID, #30 TAB Prov: LUIS DAVILA MD 02/14/21 Copy Copies To 1: JIN MONK MD, KATHRYN M MD Feb 14, 2021 10:21
[2021-02-14 10:23] LABS: BASOPHILS % (AUTO) 0 % (0-10); EOSINOPHILS # (AUTO) 0.2 10^3/uL (0.0-0.3); EOSINOPHILS % (AUTO) 2 % (0-10); HEMATOCRIT 39 % (35-52); HEMOGLOBIN 12.5 g/dL (11.5-16.0); LYMPHOCYTES # (AUTO) 2.1 10^3/uL (1.0-4.0); LYMPHOCYTES % (AUTO) 22 % (12-44); MEAN CORPUSCULAR HEMOGLOBIN 30 pg (25-34); MEAN CORPUSCULAR HGB CONC 32 g/dL (32-36); MEAN CORPUSCULAR VOLUME 95 fL (80-99); MONOCYTES # (AUTO) 1.1 10^3/uL (0.0-1.0); MONOCYTES % (AUTO) 11 % (0-12); NEUTROPHILS % (AUTO) 64 % (42-75); PLATELET COUNT 265 10^3/uL (130-400); WHITE BLOOD COUNT 9.4 10^3/uL (4.3-11.0)
[2021-02-14 10:25] LABS: POTASSIUM 4.1 MMOL/L (3.6-5.0)
[2021-02-14 10:26] LABS: CALCIUM 8.6 MG/DL (8.5-10.1)
[2021-02-14 10:30] LABS: CREATININE SERUM 1.08 MG/DL (0.60-1.30); INR 1.6 (0.8-1.4); PROTHROMBIN TIME PATIENT 19.9 SEC (12.2-14.7)
[2021-02-14] MEDS ORDERED: METR-145 PO (11:20)
[2021-02-14 11:49] VITALS: BP 130/91
== END 2021-02-14 11:48 | disposition home or self-care (01) ==
LOC: EDUNIT# 09:22 → ER 09:26
DX: K92.2 Gastrointestinal hemorrhage, unspecified (principal); J44.9 Chronic obstructive pulmonary disease, unspecified; I10 Essential (primary) hypertension; I48.91 Unspecified atrial fibrillation; Z79.01 Long term (current) use of anticoagulants
CPT/HCPCS: 36415; 80048; 82274; 85025; 85610; 85730

== ENCOUNTER → 2021-02-15 | Outpatient (CLI) | payer MEDICARE ==
[~2021-02-15] MED LIST changes: +METR-145 PO
== END ==
LOC: LABNPT 10:50
PROVIDERS: ATTEND Emergency Medicine
DX: K92.1 Melena (principal); R19.7 Diarrhea, unspecified
CPT/HCPCS: 87015; 87045; 87046; 87324; 87449; 87899

== ENCOUNTER 2021-05-19 04:18 | Emergency (ER) | payer MEDICARE ==
[~2021-05-19] VITALS: Ht 162 cm; Wt 61.2 kg
[~2021-05-19 04:18] MED LIST changes: -AMIO200T6 PO; +AMIO200T65 PO; +CICL6.6S22 TOP; -CICL6.6S5 TOP
[2021-05-19 04:31] VITALS: BP 142/80
[2021-05-19] MEDS ORDERED: meTOprolol 5 MG/5 ML (LOPRESSOR) VIAL IV ONE (04:45)
[2021-05-19] MEDS ORDERED: NS IV 500 ML 500 ML IV ONE (04:45)
[2021-05-19 04:46] LABS: BASOPHILS # (AUTO) 0.1 10^3/uL (0.0-0.1); BASOPHILS % (AUTO) 1 % (0-10); EOSINOPHILS # (AUTO) 0.2 10^3/uL (0.0-0.3); EOSINOPHILS % (AUTO) 2 % (0-10); HEMATOCRIT 43 % (35-52); LYMPHOCYTES # (AUTO) 2.8 10^3/uL (1.0-4.0); LYMPHOCYTES % (AUTO) 41 % (12-44); MEAN CORPUSCULAR HEMOGLOBIN 31 pg (25-34); MEAN CORPUSCULAR HGB CONC 32 g/dL (32-36); MEAN CORPUSCULAR VOLUME 95 fL (80-99); MEAN PLATELET VOLUME 9.1 fL (9.0-12.2); MONOCYTES # (AUTO) 0.9 10^3/uL (0.0-1.0); MONOCYTES % (AUTO) 13 % (0-12); NEUTROPHILS # (AUTO) 2.9 10^3/uL (1.8-7.8); NEUTROPHILS % (AUTO) 43 % (42-75); PLATELET COUNT 278 10^3/uL (130-400); WHITE BLOOD COUNT 6.8 10^3/uL (4.3-11.0)
--- NOTE | 2021-05-19 04:50 | ED Cardiac General ---
History of Present Illness General Chief Complaint: Cardiac/General Problems Stated Complaint: HEART PALPITATIONS Nursing Triage Note: Pt arrives per POV w/ w/ c/o "palpitations" that started upon awakening. Pt per wheelchair to room. Attached to engineering scientist, and EKG done @bedside. Source: patient, old records Exam Limitations: no limitations History of Present Illness Date Seen by Provider: May 19, 2021 Time Seen by Provider: 04:26 Initial Comments This 89-year-old woman with known history of atrial fibrillation presents to the emergency room with palpitations and "fluttering heart" that woke her from sleep early this morning. She reports that her blood pressure has been running low recently. She discussed this with Dr. Celestin's staff by phone yesterday and was instructed to stop her metoprolol which she was accustomed to taking at a dose of 25 mg twice daily. She did take her morning dose yesterday but not her evening dose. When she woke with palpitations this morning she took her morning dose of diltiazem 24hr ER. She is unsure of the dose, but her medication filling record suggests the most recent dose filled was 240 mg. Her filling record would also suggest she has been on a variety of medications of varying doses including Cardizem CD, metoprolol, and Rythmol over the past year. She is anticoagulated on Pradaxa. 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 Stress test a year ago showed no ischemia with an ejection fraction of 78%. Patient has a little bit of lightheadedness with her palpitations this morning but denies chest pain or shortness of breath. She appears a bit anxious. She is under the impression she is continually in atrial fibrillation. Allergies and Home Medications Allergies Coded Allergies: Penicillins (Verified Allergy, Unknown, 02/14/21) ciprofloxacin (Verified Allergy, Unknown, 02/14/21) morphine (Verified Allergy, Unknown, 02/14/21) digoxin (Verified Adverse Reaction, Unknown, HALLUCINATIONS., 02/14/21) Patient Home Medication List Home Medication List Reviewed: Yes Azithromycin (Azithromycin) 250 Mg Tablet, 250 MG PO DAILY Prescribed by: MARIA D RABAGO on 02/12/21 1004 Calcium Carbonate (Calcium) 600 Mg Tablet, 1,200 MG PO DAILY, (Reported) Entered as Reported by: GEENA CANO on 02/11/21 0549 Calcium Carbonate/Vitamin D3 (Calcium + Vitamin D Tablet) 1 Each Tablet, 1 EACH PO DAILY, (Reported) Entered as Reported by: DARSHANA MURILLO on 07/03/20 1423 Cefdinir (Cefdinir) 300 Mg Capsule, 300 MG PO BID Prescribed by: MARIA D RABAGO on 02/12/21 1004 Dabigatran Etexilate Mesylate (Pradaxa) 150 Mg Capsule, 150 MG PO BID WITH MEALS, (Reported) Entered as Reported by: JOHN HERNANDEZ on 08/19/15 1357 Diltiazem HCl (Diltiazem 24Hr Cd) 120 Mg Cap.er.24h, 120 MG PO DAILY Prescribed by: MAHSA IVERSON on 10/15/20 1218 Ferrous Sulfate (Ferrous Sulfate) 15 Mg/1 Ml Drops, 2.5 ML PO Q72H, (Reported) Entered as Reported by: ZENAIDA WORLEY on 08/11/18 1555 Fish Oil/Dha/Epa (Fish Oil 1,200 mg Fish Oil) 1 Each Capsule, 1,200 MG PO DAILY, (Reported) Entered as Reported by: ZENAIDA OWRLEY on 08/11/18 1555 Leflunomide (Leflunomide) 20 Mg Tablet, 20 MG PO DAILY, (Reported) Entered as Reported by: JOHN HERNANDEZ on 08/19/15 1357 Magnesium Oxide (Magnesium) 250 Mg Tablet, 250 MG PO DAILY, (Reported) Entered as Reported by: ZENAIDA WORLEY on 08/11/18 1555 Metoprolol Tartrate (Metoprolol Tartrate) 25 Mg Tablet, 25 MG PO BID Prescribed by: JIN ANDERSON on 07/05/20 1843 Metronidazole (Metronidazole) 500 Mg Tablet, 500 MG PO TID Prescribed by: LUIS DAVILA on 02/14/21 1120 Propafenone HCl (Propafenone HCl) 150 Mg Tablet, 150 MG PO Q8HR Prescribed by: JIN ANDERSON on 08/26/20 1031 Simvastatin (Simvastatin) 10 Mg Tablet, 10 MG PO HS, (Reported) Entered as Reported by: JOHN HERNANDEZ on 08/19/15 1357 Review of Systems Review of Systems Constitutional: no symptoms reported EENTM: No Symptoms Reported Respiratory: No Symptoms Reported Cardiovascular: See HPI Gastrointestinal: No Symptoms Reported Genitourinary: No Symptoms Reported Musculoskeletal: no symptoms reported Skin: no symptoms reported Psychiatric/Neurological: See HPI Endocrine: No Symptoms Reported Hematologic/Lymphatic: No Symptoms Reported Past Bahnbng-Vwxqgj-Cpzgoz Hx Patient Social History Tobacco Use?: No Use of E-Cig and/or Vaping dev: No Substance use?: No Alcohol Use?: No Immunizations Up To Date Tetanus Booster (TDap): Unknown PED Vaccines UTD: Yes First/Initial COVID19 Vaccinat: 05/29/2020 Second COVID19 Vaccination Anupam: 06/23/2020 Third COVID19 Vaccination Date: JANUARY 2021 Seasonal Allergies Seasonal Allergies: No Past Medical History Surgery/Hospitalization HX: PMH: COPD, AFIB Surgeries: Yes (BILAT KNEE SURGERY;CYSTOCOELE;HYST/BSO;BLADDER SLING;CARDIAC CATH-NO INTERV) Bladder Surgery, Cardiac (Cath with no intervention 2014, cardioversion), Gallbladder, Hysterectomy, Oophorectomy, Orthopedic, Tubal Ligation Respiratory: Yes Chronic Bronchitis, COPD Currently Using CPAP: No Currently Using BIPAP: No Cardiac: Yes Atrial Fibrillation, Hypertension Neurological: Yes Headaches /Migraines 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 Disorders: No Female 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 Disorders: Denies 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 Sexually Transmitted Disease: No HIV/AIDS: No Genitourinary: Yes Renal Failure Gastrointestinal: Yes Gastroesophageal Reflux, Diverticulosis Musculoskeletal: Yes Arthritis, Rheumatoid Arthritis Endocrine: No HEENT: No Cataract Loss of Vision: Denies Hearing Impairment: Denies Cancer: No Psychosocial: No Integumentary: No Blood Disorders: Yes (FACTOR 5 LEIDEN) Family Medical History FACTOR V LEIDEN 19 FATHER G8 BROTHER Heart Disease, Hypertension Physical Exam Vital Signs Vital Signs - First Documented 05/19/21 04:31 Temp 36.0 Pulse 134 Resp 22 B/P (MAP) 142/80 (100) Pulse Ox 96 Capillary Refill : Less Than 3 Seconds Height, Weight, BMI Height: 5'4.00" Weight: 145lbs. 0.0oz. 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 Norm as Tested, Other (anxious) Skin: Normal Color, Warm/Dry Progress/Results/Core Measures Results/Orders Lab Results Laboratory Tests Test 05/19/21 04:35 Range/Units White Blood Count 6.8 4.3-11.0 10^3/uL Red Blood Count 4.56 3.80-5.11 10^6/uL Hemoglobin 14.0 11.5-16.0 g/dL Hematocrit 43 35-52 % Mean Corpuscular Volume 95 80-99 fL Mean Corpuscular Hemoglobin 31 25-34 pg Mean Corpuscular Hemoglobin Concent 32 32-36 g/dL Red Cell Distribution Width 12.3 10.0-14.5 % Platelet Count 278 130-400 10^3/uL Mean Platelet Volume 9.1 9.0-12.2 fL Immature Granulocyte % (Auto) 1 % Neutrophils (%) (Auto) 43 42-75 % Lymphocytes (%) (Auto) 41 12-44 % Monocytes (%) (Auto) 13 H 0-12 % Eosinophils (%) (Auto) 2 0-10 % Basophils (%) (Auto) 1 0-10 % Neutrophils # (Auto) 2.9 1.8-7.8 10^3/uL Lymphocytes # (Auto) 2.8 1.0-4.0 10^3/uL Monocytes # (Auto) 0.9 0.0-1.0 10^3/uL Eosinophils # (Auto) 0.2 0.0-0.3 10^3/uL Basophils # (Auto) 0.1 0.0-0.1 10^3/uL Immature Granulocyte # (Auto) 0.0 0.0-0.1 10^3/uL Prothrombin Time 19.3 H 12.2-14.7 SEC INR Comment 1.6 H 0.8-1.4 Activated Partial Thromboplast Time 57 H 24-35 SEC Sodium Level 138 135-145 MMOL/L Potassium Level 3.5 L 3.6-5.0 MMOL/L Chloride Level 104 98-107 MMOL/L Carbon Dioxide Level 20 L 21-32 MMOL/L Anion Gap 14 5-14 MMOL/L Blood Urea Nitrogen 19 H 7-18 MG/DL Creatinine 1.10 0.60-1.30 MG/DL Estimat Glomerular Filtration Rate 48 BUN/Creatinine Ratio 17 Glucose Level 110 H 70-105 MG/DL Calcium Level 9.7 8.5-10.1 MG/DL Corrected Calcium 9.7 8.5-10.1 MG/DL Magnesium Level 2.1 1.6-2.4 MG/DL Total Bilirubin 0.4 0.1-1.0 MG/DL Aspartate Amino Transf (AST/SGOT) 16 5-34 U/L Alanine Aminotransferase (ALT/SGPT) 9 0-55 U/L Alkaline Phosphatase 71 40-136 U/L Myoglobin 60.6 10.0-92.0 NG/ML Troponin I < 0.028 <0.028 NG/ML B-Type Natriuretic Peptide 164.5 H <100.0 PG/ML Total Protein 6.9 6.4-8.2 GM/DL Albumin 4.0 3.2-4.5 GM/DL TSH [place] Testing 2.65 0.35-4.94 UIU/ML My Orders Orders - LELIA GALVAN MD Cbc With Automated Diff (05/19/21 04:36) Magnesium (05/19/21 04:36) Chest 1 View, Ap/Pa Only (05/19/21 04:36) Ekg Tracing (05/19/21 04:36) Comprehensive Metabolic Panel (05/19/21 04:36) Myoglobin Serum (05/19/21 04:36) Protime With Inr (05/19/21 04:36) Partial Thromboplastin Time (05/19/21 04:36) O2 (05/19/21 04:36) Monitor-Rhythm Ecg Trace Only (05/19/21 04:36) Lipid Panel (05/20/21 06:00) Ed Iv/Invasive Line Start (05/19/21 04:36) Bnp Pender (05/19/21 04:36) Troponin I Kelly (05/19/21 04:36) Metoprolol Tartrate Injection (Lopressor (05/19/21 04:45) Ns Iv 500 Ml (Sodium Chloride 0.9%) (05/19/21 04:45) Thyroid Analyzer (05/19/21 05:06) Medications Given in ED Current Medications Medications Dose Ordered Sig/Mable Route Start Time Stop Time Status Last Admin Dose Admin Metoprolol Tartrate 2.5 mg ONCE ONCE IV 05/19/21 04:45 05/19/21 04:46 DC 05/19/21 04:48 2.5 MG Sodium Chloride 500 ml @ 0 mls/hr Q0M ONCE IV 05/19/21 04:45 05/19/21 04:46 DC 05/19/21 04:47 500 MLS/HR Vital Signs/I&O 05/19/21 05/19/21 04:31 05:36 Temp 36.0 Pulse 134 Resp 22 B/P (MAP) 142/80 (100) 105/62 Pulse Ox 96 Blood Pressure Mean: 100 Progress Progress Note #1: Time: 05:05 Progress Note Patient is in RVR with rates varying from about 100-130. Since she did not take her metoprolol dose last night, we will give her a small dose of Lopressor 2.5 mg IV and monitor her response. Labs are pending. Progress Note #2: Time: 05:36 Progress Note Lopressor 2.5 mg IV was administered which improved her heart rate to the 80s. Blood pressure remained stable. Blood pressure on standing did drop to 105/62 with a heart rate maintained in the 80s. Patient did not experience any lightheadedness and was able to ambulate to the restroom. She completed a 500 mL normal saline bolus as well. Progress Note #3: Time: 05:58 Progress Note Patient remained stable and is now feeling better. See discharge instructions for further discussion. She is stable for discharge. Initial ECG Impression Date: May 19, 2021 Initial ECG Impression Time: 04:26 Initial ECG Rate: 125 Initial ECG Rhythm: A Fib/Flutter Initial ECG Impression: Atrial Fibrillation w/RVR Comment Atrial fibrillation with RVR. Chronic right bundle branch block. Borderline nondiagnostic ST depression in lateral leads. No axis deviation. Departure Impression Primary Impression: Atrial fibrillation with RVR Additional Impression: Palpitations Disposition: 01 HOME, SELF-CARE Condition: Improved Departure-Patient Inst. Decision time for Depature: 05:59 Referrals: JIN ANDERSON MD (PCP/Family) Primary Care Physician Patient Instructions: Atrial Fibrillation Add. Discharge Instructions: Drink plenty of clear liquids to stay well-hydrated. You may continue your usual medications and complete your morning medications when you return home. The only change you should make at this time is to take metoprolol 12.5 mg twice daily instead of [address] Celestin to give him an update today about your ER visit. A copy of your ER note is also being sent to his clinic. Continue these instructions until you are advised otherwise by the cardiology clinic. Call with questions or concerns. Return to the ER if you have worsening symptoms. All discharge instructions reviewed with patient and/or family. Voiced understanding. Copy Copies To 1: AUGUSTA CELESTIN MD Copies To 2: JIN ANDERSON MD, JOSHUA T MD May 19, 2021 04:50
[2021-05-19 04:56] LABS: POTASSIUM 3.5 MMOL/L (3.6-5.0)
[2021-05-19 04:58] LABS: CALCIUM 9.7 MG/DL (8.5-10.1)
[2021-05-19 04:59] LABS: TOTAL PROTEIN 6.9 GM/DL (6.4-8.2)
[2021-05-19 05:01] LABS: BILIRUBIN,TOTAL 0.4 MG/DL (0.1-1.0)
[2021-05-19 05:02] LABS: CREATININE SERUM 1.1 MG/DL (0.60-1.30)
[2021-05-19 05:05] LABS: MAGNESIUM 2.1 MG/DL (1.6-2.4)
[2021-05-19 05:08] LABS: INR 1.6 (0.8-1.4); PROTHROMBIN TIME PATIENT 19.3 SEC (12.2-14.7)
== END 2021-05-19 06:20 | disposition home or self-care (01) ==
LOC: EDUNIT# 04:18 → ER 04:20
DX: I48.91 Unspecified atrial fibrillation (principal); I10 Essential (primary) hypertension; J44.9 Chronic obstructive pulmonary disease, unspecified; Z95.9 Presence of cardiac and vascular implant and graft, unspecified; Z79.899 Other long term (current) drug therapy
CPT/HCPCS: 36415; 80053; 83735; 83874; 83880; 84443; 84484; 85025; 85610; 85730; 93005; 93041

== ENCOUNTER → 2021-10-04 | Outpatient (CLI) | payer MEDICARE | LOC: CARD 13:50 | PROVIDERS: ATTEND Physician Assistant | DX: I10 Essential (primary) hypertension (principal); I48.91 Unspecified atrial fibrillation; I45.10 Unspecified right bundle-branch block | CPT/HCPCS: 93306 ==

== ENCOUNTER 2021-11-01 13:52 | Outpatient (RCR) | payer MEDICARE ==
[2021-10-25] MEDS: FERRIC CARBOXYMALTOSE INJ 750 MG in NS (IVPB) 250 ML IV SCH (14:32)
[2021-10-25 15:20] VITALS: BP 128/76
[~2021-11-01] VITALS: Wt 61.2 kg
[2021-11-01] MEDS: FERRIC CARBOXYMALTOSE INJ 750 MG in NS (IVPB) 250 ML IV SCH (14:20)
[2021-11-01 14:50] VITALS: BP 122/76
== END 2021-11-01 14:50 | disposition home or self-care (01) ==
LOC: SDC 13:52
PROVIDERS: ATTEND Nurse Practitioner Family
DX: D50.8 Other iron deficiency anemias (principal)
CPT/HCPCS: 96365

== ENCOUNTER 2021-12-05 11:11 | Outpatient (RCR) | payer MEDICARE | END 2021-12-06 | disposition home or self-care (01) | PROVIDERS: ATTEND Family Medicine | DX: M54.50 Low back pain, unspecified (principal); M53.3 Sacrococcygeal disorders, not elsewhere classified; I10 Essential (primary) hypertension ==